=== PATIENT | male | born 1985 | race Caucasian/White ===

== ENCOUNTER → 2018-06-02 10:55 | Outpatient (CLI) | payer OTHER, SELFPAY ==
--- NOTE | 2018-06-02 10:59 | XR_ITS ---
XR hand RT min 3V HISTORY: . Pain swelling out of cast. Boxer's fracture follow-up ITS.REASON: out of cast ORDERING PHYSICIAN: Benjamin Tesfaye MD PATIENT AGE: 33 years COMPARISON: 05/11/2018 TECHNIQUE: PA, Oblique and Lateral Hand FINDINGS: Boxer's fracture fifth metacarpal again noted. Fracture passing through the distal neck of fifth metacarpal with anterior tilt of the distal fracture fragment. Mild impaction. Oblique views suggest slight 1 mm cortical offset at this fracture most evident along the anterior cortex.. With very subtle anterior offset and tilt of the distal fracture fragment. The soft tissue swelling persists but less pronounced along the medial aspect of the hand and overlying fifth metacarpal.. . Slight irregularity at the tip the distal phalanx of the fifth finger appears to be an old feature most likely The other metacarpals and fingers appear intact. IMPRESSION. Boxer's fracture distal fifth metacarpal. Mild angulation and scant disc offset/displacement again noted
== END ==
PROVIDERS: PCP Nurse Practitioner Family; Visit Provider Orthopaedic Surgery
DX: S62.306A Unspecified fracture of fifth metacarpal bone, right hand, initial encounter for closed fracture (principal)
CPT/HCPCS: 73130

== ENCOUNTER → 2018-06-16 09:04 | Outpatient (CLI) | payer OTHER, SELFPAY ==
--- NOTE | 2018-06-16 09:06 | XR_ITS ---
XR hand LT min 3V HISTORY: ITS.REASON: boxer fracture ORDERING PHYSICIAN: Benjamin Tesfaye MD PATIENT AGE: 33 years COMPARISON: None FINDINGS: No fracture or dislocation. No lytic or blastic change. There is normal mineralization.. The joint spaces are well-preserved. No significant degenerative/arthritic changes. No erosive changes evident.. IMPRESSION: Negative, no acute finding
--- NOTE | 2018-06-16 09:06 | XR_ITS ---
XR hand RT min 3V HISTORY: Follow-up fracture ITS.REASON: RT Boxer FX ORDERING PHYSICIAN: Benjamin Tesfaye MD PATIENT AGE: 33 years COMPARISON: [phone] FINDINGS: Mildly impacted fracture once again noted involving the distal aspect of the fifth metacarpal with minimal radial and palmar angulation of the distal fracture fragment with minimal radial displacement. IMPRESSION: No change minimal displaced impacted distal fifth metacarpal fracture
== END ==
PROVIDERS: PCP Nurse Practitioner Family; Visit Provider Orthopaedic Surgery
DX: S62.306A Unspecified fracture of fifth metacarpal bone, right hand, initial encounter for closed fracture (principal); S62.339D Displaced fracture of neck of unspecified metacarpal bone, subsequent encounter for fracture with routine healing
CPT/HCPCS: 73130

== ENCOUNTER 2020-01-20 21:23 | Emergency (ER) | payer MEDICAID, SELFPAY ==
--- NOTE | 2020-01-20 | ECG_ITS ---
APPROVED REPORT Exam: Resting ECG HR:126 bpm ECG Measurements Heart Rate 126 AXES AL 130 P 85 QRSd 86 QRS 99 QT 318 T 71 QTc 460 <Conclusion> Sinus tachycardia Rightward axis Nonspecific ST abnormality Abnormal ECG Electronically signed by : Jeffery Mendieta, 01/21/2020 07:03:35
[2020-01-20 21:25] VITALS: BP 146/99; PULSE 138; RESP 18; TEMP 36.5; O2SAT 97; BMI 19.8
--- NOTE | 2020-01-20 21:39 | XR_ITS ---
PROCEDURE: XR CHEST 2V CLINICAL HISTORY: jittery, anxious Tachycardia, smoker COMPARISON: CXR1 CHEST-PORTABLE from 05/01/2015 FINDINGS: The cardiomediastinal silhouette and pulmonary vascularity are within normal limits. The lungs are clear without infiltrates, suspicious nodules, or pleural effusions. Calcified granuloma is present in the right lower lung zone laterally. IMPRESSION: No acute findings. Dictated by: Arie Harden MD 01/21/2020 09:21 Electronically signed by Arie Harden MD in [place] 01/21/2020 09:21
[2020-01-20 21:52] LABS: Basophils # 0.2 K/mm3 (0-0.2); Basophils % 1.7 % (0.1-2.0); Eosinophils # 0.2 K/mm3 (0.0-0.4); Eosinophils % 1.7 % (0.1-12.0); Hematocrit 49.6 % (42.0-52.0); Lymphocytes # 2.2 K/mm3 (0.7-4.5); Lymphocytes % 23.9 % (10-50); Mean Corpuscular HGB Conc 34.3 g/dL (31.8-35.4); Mean Corpuscular Hemoglobin 34.2 pg (27.0-31.2); Mean Corpuscular Volume 99.7 fl (80-94); Mean Platelet Volume 7.6 fl (7.4-10.4); Monocytes # 0.8 K/mm3 (0.1-1.0); Monocytes % 9.3 % (1.7-9.3); Neutrophils # 5.7 K/mm3 (1.8-7.8); Neutrophils % 63.5 % (37.0-80.0); Platelet Count 304 K/mm3 (142-424); Red Blood Count 4.98 M/mm3 (4.60-6.20); Red Cell Distribution Width 12.4 % (11.5-17.5)
[2020-01-20 22:01] LABS: Alanine Aminotransferase 47 U/L (12-78); Albumin Level 5.3 g/dl (3.5-5.0); Albumin/Globulin Ratio 1.8 (1.1-1.8); Alkaline Phosphatase 81 U/L (38-126); Anion Gap 23.8 mEq/L (5-15); Aspartate Amino Transferase 46 U/L (17-59); Bilirubin,Total 1.3 mg/dl (0.2-1.3); Blood Urea Nitrogen 8 mg/dl (9-20); Calcium 10.3 mg/dl (8.4-10.2); Carbon Dioxide 16 mmol/L (22.0-30.0); Chloride 100 mmol/L (98-107); Creatinine Clearance Estimated 143 mL/min (50-200); Estimated Glomerular Filt Rate 129 ml/min (>60); GFR (African American) 156 ML/MIN (>60); Globulin 2.9 g/dL (1.3-3.2); Glucose 84 mg/dl (74-100); Potassium 3.8 mmoL/L (3.5-5.1); Sodium 136 mmol/L (136-145); Total Protein,Serum 8.2 g/dl (6.3-8.2)
[2020-01-20 22:15] LABS: Troponin I < 0.01 ng/ml (0.00-0.034)
[2020-01-20 22:25] VITALS: BP 150/98; PULSE 115; RESP 16; O2SAT 98
[2020-01-20 22:34] LABS: Microscopic, Urine URINE MICROSCOPIC (MICROSCOPIC)
[2020-01-20 22:35] LABS: Appearance,Urine CLEAR (Clear); Bilirubin,Urine Negative (Negative); Blood, Urine TRACE-I (Negative); Color,Urine YELLOW (Yellow); Glucose,Urine (UA) Negative (Negative); Ketones,Urine 2+ (Negative); Leukocyte Esterase,Urine Negative (Negative); Nitrate,Urine Negative (Negative); Protein,Urine Negative (Negative); Urobilinogen,Urine 0.2 EU/dl (0.2)
[2020-01-20 22:44] LABS: Amorphous Sediment,Urine 4+ /lpf; Mucus,Urine 1+ /lpf
[2020-01-20 22:45] LABS: Barbiturates Screen,Urine Negative ng/ml (<200)
[2020-01-20 22:46] LABS: Benzodiazepines Screen,Urine Negative ng/ml (<200)
[2020-01-20 22:47] LABS: Cannabinoid Screen,Urine Positive ng/ml (<50)
[2020-01-20 22:48] LABS: Cocaine Screen,Urine Negative ng/ml (<300); Methadone Screen,Urine Negative ng/ml (<300)
[2020-01-20 22:49] LABS: Opiate Screen,Urine Negative ng/ml (<300); Phencyclidine Screen,Urine Negative ng/ml (<25)
[2020-01-20 23:00] VITALS: BP 144/91; PULSE 102; RESP 17; O2SAT 98
[2020-01-20 23:04] LABS: Amphetamine/Metha Screen,Urine Positive ng/ml (<1000)
--- NOTE | 2020-01-20 23:24 | HMH.EDANX ---
ED Disposition Clinical Impression: Amphetamine abuse Disposition: Home, Self-Care Condition on Discharge: Good Instructions: DI for Drug Abuse and Drug Addiction Additional Instructions: call pcp for follow up in am Referrals: Mali Zamora APRN [Primary Care Provider] - - Critical Care Critical Care Time: No Attestation: On 01/20/20, the high probability of a clinically significant, sudden or life threatening deterioration of the following system(s) required my full and direct attention, intervention and personal management. The time I documented below is in addition to time spent performing reported procedures but includes the following listed in this critical care notation. Medical Decision Making - Medical Records Medical records reviewed: Yes: I reviewed the patient's medical records. - Zhang Inquiry Pt receiving controlled substance: No Vital Signs: 01/20/20 21:25 01/20/20 22:25 Temperature 97.7 F Temperature Source Oral Pulse Rate [Left Radial] 138 H 115 H Respiratory Rate 18 16 Blood Pressure [Right Arm] 146/99 H 150/98 H Blood Pressure Mean [Right Arm] 114 115 Blood Pressure Source [Right Arm] Automatic Cuff Automatic Cuff Blood Pressure Position [Right Arm] Sitting Sitting 02 Sat by Pulse Oximetry 97 98 Oxygen Delivery Method Room Air Room Air - Lab Data Lab results reviewed: Yes: I reviewed the patient's lab results. Lab Results 01/20/20 21:38: WBC 9.0, RBC 4.98, Hgb 17.0, Hct 49.6, MCV 99.7 H, MCH 34.2 H, MCHC 34.3, RDW 12.4, Plt Count 304, MPV 7.6, Neut % (Auto) 63.5, Lymph % (Auto) 23.9, [place] % (Auto) 9.3, Eos % (Auto) 1.7, Baso % (Auto) 1.7, Neut # (Auto) 5.7, Lymph # (Auto) 2.2, [place] # (Auto) 0.8, Eos # (Auto) 0.2, Baso # (Auto) 0.2 01/20/20 21:40: Sodium 136, Potassium 3.8, Chloride 100, Carbon Dioxide 16 L, Anion Gap 23.8 H, BUN 8 L, Creatinine 0.70, Estimated Creat Clear 143, Estimated GFR 129, Est GFR ( Amer) 156, Glucose 84, Calcium 10.3 H, Total Bilirubin 1.3, AST 46, ALT 47, Alkaline Phosphatase 81, Troponin I < 0.01, Total Protein 8.2, Albumin 5.3 H, Globulin 2.9, Albumin/Globulin Ratio 1.8 01/20/20 22:29: Urine Color Yellow, Urine Appearance Clear, Urine pH 6.0, Ur Specific [place] 1.010, Urine Protein Negative, Urine Glucose (UA) Negative, Urine Ketones 2+, Urine Blood Trace-i, Urine Nitrate Negative, Urine Bilirubin Negative, Urine Urobilinogen 0.2, Ur Leukocyte Esterase Negative, Urine RBC 3-5, Urine WBC 3-5, Amorphous Sediment 4+, Urine Mucus 1+ 01/20/20 22:29: Urine Opiates Screen Negative, Urine Methadone Screen Negative, Ur Barbituates Screen Negative, Ur Phencyclidine Scrn Negative, Ur Amphetamines Screen Positive H, U Benzodiazepines Scrn Negative, Urine Cocaine Screen Negative, U Marijuana (THC) Screen Positive H Result diagrams: 01/20/20 21:38 01/20/20 21:40 Orders (Tests/Meds): ED MEDICATIONS Generic Name Dose Route Start Last Admin Trade Name Freq PRN Reason Stop Dose Admin Sodium Chloride 1,000 mls @ 999 mls/hr 01/20/20 22:39 01/20/20 22:37 Sod Chlor 0.9% 1000ml Bag IV 01/20/20 23:39 999 mls/hr .Q1H1M MARY ELLEN Administration ORDERS Category Date Time Status XR chest 2V Stat Exams 01/20/20 21:39 Taken Troponin I Q3H Lab 01/21/20 00:45 Ordered Troponin I Q3H Lab 01/21/20 03:45 Ordered - Radiology Data #1 Image(s): Chest Image Reviewed: Yes I reviewed the patient's radiology image Preliminary Findings: Normal/NAD - ECG Data Tracing #1 Arrhythmias present: sinus tach Ischemic changes: non-specific ST-T wave changes Anxiety HPI - General Chief Complaint: Anxiety Stated Complaint: Nerves,SOB Time Seen by Provider: 01/20/20 21:35 Mode of Arrival: Ambulatory Source of Information: Patient, Medical Record Limitations: No Limitations Description of Symptoms (Recalled from ER Triage Doc. by RN): pt stated [birth year] was my birthday last night and my buddies talked me into doing some meth pt c/o of being jitter
[2020-01-20 23:30] VITALS: BP 140/89; PULSE 94; RESP 17; O2SAT 98
--- NOTE | 2020-01-20 23:37 | PC.NURSE ---
poison control consulted with to see if they had any advice for pt care. they stated there was nothing to do treatment magana except lt it run its course or possible give benzos if the MD wanted to for the anxiety.
[2020-01-20 23:45] VITALS: BP 149/85; PULSE 109; RESP 16; TEMP 36.7; O2SAT 98
== END 2020-01-20 23:49 | disposition home or self-care (01) ==
PROVIDERS: Emergency Provider Emergency Medicine; PCP Nurse Practitioner Family
DX: F15.10 Other stimulant abuse, uncomplicated (principal); F12.10 Cannabis abuse, uncomplicated; F17.210 Nicotine dependence, cigarettes, uncomplicated; F41.9 Anxiety disorder, unspecified; Z88.2 Allergy status to sulfonamides
CPT/HCPCS: 71046; 80053; 80305; 81001; 84484; 85025; 93005; 96365; 99284

== ENCOUNTER → 2020-11-26 10:05 | Outpatient (CLI) | payer OTHER, SELFPAY ==
--- NOTE | 2020-11-26 10:09 | XR_ITS ---
PROCEDURE: XR HAND RT MIN 3V CLINICAL INDICATION: old right hand fracture; wants clearance Work clearance COMPARISON: CR [id number] XR hand RT min 3V from 05/11/2018 CR [id number] XR hand RT min 3V from 06/02/2018 CR [id number] XR hand LT min 3V from 06/16/2018 CR [id number] XR hand RT min 3V from 06/16/2018 FINDINGS: There is an old healed fracture involving the distal aspect of the 5th metacarpal with only minimal medial angulation of the distal fracture fragment. No acute fracture or dislocation. No significant arthritic change. Small defect is present at the tuft of the distal phalanx of the 5th finger chronic in nature. The joint spaces are well-preserved. No significant degenerative/arthritic changes. No erosive changes evident. Other findings:None. IMPRESSION: Old 5th metacarpal fracture, no acute finding Dictated by: Arie Harden MD 11/26/2020 17:11 Arie Harden MD in [place] 11/26/2020 17:11
== END ==
PROVIDERS: PCP Nurse Practitioner Family; Visit Provider Orthopaedic Surgery
DX: M79.641 Pain in right hand (principal)
CPT/HCPCS: 73130

== ENCOUNTER 2021-04-26 11:16 | Emergency (ER) | payer OTHER, SELFPAY ==
[2021-04-26 12:17] VITALS: BP 145/96; PULSE 89; RESP 18; TEMP 36.7; O2SAT 98; BMI 20.7
--- NOTE | 2021-04-26 12:40 | XR_ITS ---
PROCEDURE INFORMATION: Exam: XR Left Wrist Exam date and time: 04/26/2021 12:40 PM Age: 36 years old Clinical indication: Injury or trauma; Blunt trauma (contusions or hematomas); Patient HX: Fall last night , landing on left wrist; Additional info: Fell TECHNIQUE: Imaging protocol: XR Left wrist. Views: 3 or more views. COMPARISON: UBRYANW/TASHI MRI-UP EXT [facility] JNT W/WO-LT 06/03/2017 9:01 AM FINDINGS: Bones/joints: Comminuted, predominantly transverse fracture distal radius without definite articular extension. Mild angulation noted. Soft tissues: Diffuse swelling. IMPRESSION: Comminuted, predominantly transverse fracture distal radius without definite articular extension. Mild angulation noted.
--- NOTE | 2021-04-26 12:48 | HMH.EDUTC ---
[facility] [place] Impression: Fracture of left distal radius Qualifiers: Encounter type: initial encounter Fracture type: closed Fracture morphology: unspecified fracture morphology Qualified Code(s): S52.502A - Unspecified fracture of the lower end of left radius, initial encounter for closed fracture Disposition: Home, Self-Care Condition on Discharge: Good Instructions: DI for Distal Radius Fracture Additional Instructions: Call Dr Ramírez in the morning to schedule appt Prescriptions: Naproxen [Naproxen 500mg tab] 500 mg PO BID 10 Days #20 tab Transmission Status: Pending to [facility] Tramadol HCl [Tramadol 50mg Tab] 50 mg PO Q6HP PRN 3 Days #10 tab PRN Reason: Moderate Pain Transmission Status: Sent to [facility] #[id number] Referrals: Richard Ramírez MD [Staff Physician] - Time of Disposition: 13:06 Medical Decision Making - Zhang Inquiry Pt receiving controlled substance: Yes Zhang was queried for this patient: Yes Reference #:: reviewed online Risks and benefits of using a controlled substance: were discussed with pt by me Orders (Tests/Meds): ORDERS Category Date Time Status XR wrist LT min 3V Stat Exams 04/26/21 12:40 Taken - Radiology Data #1 Image(s): Wrist Image Reviewed: Yes I reviewed the patient's radiology image Preliminary Findings: Abnormal (left distal radius fracture) [facility] [place] - General Stated complaint: AO 04/25/21 fell -hurt left wrist Time Seen by Provider: 04/26/21 12:57 - History of Present Illness Provider Complaint: Patient fell on left outstretched hand last night. Has pain and swelling in left wrist. Onset (ago): day(s) (1) Location: left, upper extremity Radiation: non-radiation Relieving factors: none Exacerbating factors: movement Associated symptoms: denies other symptoms Treatments prior to arrival: none - Related Data Previous Rx's Medication Instructions Recorded nicotine 21 mg/24 hr daily 1 patch TRANSDERMA Q24H #21 each 01/23/20 transdermal patch Tramadol HCl [Tramadol 50mg 50 mg PO Q6HP PRN 3 Days #10 tab 04/26/21 Tab] naproxen 500 mg tablet 500 mg PO BID 10 Days #20 tab 04/26/21 Allergies Allergy/AdvReac Type Severity Reaction Status Date / Time Sulfa (Sulfonamide Allergy Unknown Verified 11/26/20 10:47 Antibiotics) [SULFA (SULFONAMIDE ANTIBIOTICS)] [facility] History - Hepatitis A Screen Attestation statement:: This patient has been screened for Hepatitis A risk factors. I have reviewed the patient's past medical history: Yes Medical History: Reports:: Anxiety Denies:: Diabetes Mellitus Type 2, Hypertension, Internal Pacemaker Other Surgeries: Yes: No Previous Surgery. No: Pacemaker Amputation: No Fractures: Yes (Boxer fracture, pt thinks also on right) - Social History Smoking Status: Current every day smoker Tobacco Type: cigarettes # Packs/Day (cigarettes): 2 Alcohol Intake: never Alcohol Intake Frequency:: other Substance Use Type: marijuana, methamphetamine Occupational Status: unemployed - Psychiatric History Pschychiatric History:: Reports:: Anxiety Family Hx:: No significant family history ROS Obtained: Yes All systems reviewed & no additional complaints - Musculoskeletal Musculoskeletal: Reports as per HPI Physical Exam - General General appearance: alert, in no apparent distress - Head Head exam: normocephalic - Eye Eye exam: Present: PERRL - Respiratory Respiratory exam: Present: normal lung sounds bilaterally - Cardiovascular Cardiovascular exam: Present: regular rate, normal rhythm - Expanded Upper Extremity Exam Left Forearm/Wrist exam: Present: tenderness, swelling, deformity Vascular exam: Normal: capillary refill, radial pulse, ulnar pulse - Neurological Exam Neurological exam: Present: alert, oriented X3 - Psychiatric Psychiatric exam: Present: normal affect, normal mood - Skin Skin exam: Prese
[2021-04-26 13:28] VITALS: BP 145/96; PULSE 89; RESP 18; TEMP 36.7; O2SAT 98
== END 2021-04-26 13:30 | disposition home or self-care (01) ==
PROVIDERS: Emergency Provider Physician Assistant; PCP Nurse Practitioner Family
DX: S52.502A Unspecified fracture of the lower end of left radius, initial encounter for closed fracture (principal); W01.0XXA Fall on same level from slipping, tripping and stumbling without subsequent striking against object, initial encounter; Y92.017 Garden or yard in single-family (private) house as the place of occurrence of the external cause
CPT/HCPCS: 73110; 99202; G0463

== ENCOUNTER → 2021-04-29 11:14 | Outpatient (CLI) | payer OTHER, SELFPAY ==
--- NOTE | 2021-04-29 11:16 | XR_ITS ---
PROCEDURE: XR CHEST 2V CLINICAL HISTORY: surgery 04/29/21 History of smoking COMPARISON: CR CXR1 CHEST-PORTABLE from 05/01/2015 CR XR CHEST 2V from 01/20/2020 FINDINGS: The cardiomediastinal silhouette and pulmonary vascularity are within normal limits. The lungs are clear without infiltrates, suspicious nodules, or pleural effusions. Calcified granuloma is present in the right middle lobe. The remaining lungs are clear. IMPRESSION: No acute findings. Dictated by: Arie Harden MD 04/29/2021 11:48 Arie Harden MD in [place] 04/29/2021 11:48
== END ==
PROVIDERS: PCP Nurse Practitioner Family; Visit Provider Orthopaedic Surgery
DX: Z01.810 Encounter for preprocedural cardiovascular examination (principal); S52.572A Other intraarticular fracture of lower end of left radius, initial encounter for closed fracture
CPT/HCPCS: 71046

== ENCOUNTER 2023-08-01 14:13 | Observation (INO) | payer OTHER, SELFPAY ==
[2023-08-01 14:14] VITALS: BP 143/67; PULSE 75; RESP 18; TEMP 36.7; O2SAT 98; BMI 25.0
[2023-08-01 15:07] LABS: Basophils % 0.3 % (0.1-2.0); Eosinophils # 0.1 K/mm3 (0.0-0.4); Eosinophils % 0.6 % (0.1-12.0); Hematocrit 49.1 % (42.0-52.0); Hemoglobin 17.9 g/dL (14.1-18.0); Lymphocytes # 1.2 K/mm3 (0.7-4.5); Lymphocytes % 12.4 % (10-50); Mean Corpuscular HGB Conc 36.5 g/dL (31.8-35.4); Mean Corpuscular Hemoglobin 39.9 pg (27.0-31.2); Mean Corpuscular Volume 109.2 fl (80-94); Mean Platelet Volume 8.8 fl (7.4-10.4); Monocytes # 0.9 K/mm3 (0.1-1.0); Neutrophils # 7.7 K/mm3 (1.8-7.8); Neutrophils % 77.8 % (37.0-80.0); Platelet Count 191 K/mm3 (142-424); Red Cell Distribution Width 14.1 % (11.5-17.5); White Blood Count 9.9 K/mm3 (4.8-10.8)
[2023-08-01 15:09] LABS: Chloride 80 mmol/L (98-107); Sodium 127 mmol/L (136-145)
[2023-08-01 15:12] LABS: Alanine Aminotransferase 232 U/L (12-78); Albumin Level 4.9 g/dl (3.5-5.0); Albumin/Globulin Ratio 1.7 (1.1-1.8); Alkaline Phosphatase 133 U/L (38-126); Aspartate Amino Transferase 189 U/L (17-59); Bilirubin,Total 2.1 mg/dl (0.2-1.3); Blood Urea Nitrogen 3 mg/dl (9-20); Calcium 9.3 mg/dl (8.4-10.2); Carbon Dioxide 25 mmol/L (22.0-30.0); Creatinine Clearance Estimated 205 mL/min (50-200); Estimated Glomerular Filt Rate 152 ml/min (>60); GFR (African American) 183 ML/MIN (>60); Globulin 2.9 g/dL (1.3-3.2); Glucose 117 mg/dl (74-100); INR 0.99 (0.9-1.1); Prothrombin Time 10.7 seconds (10.1-12.5); Total Protein,Serum 7.8 g/dl (6.3-8.2)
[2023-08-01 15:13] LABS: Lipase 74 U/L (23-300)
[2023-08-01 15:14] LABS: Ethyl Alcohol 60 mg/dl (0-10)
--- NOTE | 2023-08-01 15:15 | PC.NURSE ---
Unable to obtain EKG at this time due to excessive motion
[2023-08-01 15:19] LABS: Anion Gap 24.6 mEq/L (5-15); Potassium 2.6 mmoL/L (3.5-5.1)
--- NOTE | 2023-08-01 15:42 | PC.NURSE ---
Case Management notified of admission.
--- NOTE | 2023-08-01 15:54 | ECG_ITS ---
APPROVED REPORT Exam: Resting ECG HR:116 bpm ECG Measurements Heart Rate 116 AXES MO 144 P 31 QRSd 97 QRS 94 QT 334 T 64 QTc 403 Conclusion SINUS TACHYCARDIA BORDERLINE RIGHT AXIS DEVIATION [QRS AXIS > 90] ABNORMAL RHYTHM ECG UNCONFIRMED REPORT Electronically signed by : Jeffery Mendieta MD 08/01/2023 20:16:34
--- NOTE | 2023-08-01 15:54 | HMH.EDGENADL ---
Discharge Plan Disposition Patient Disposition: Admitted Condition: Good Prescriptions Prescriptions: No Action hydrocodone-acetaminophen 5-325 mg tablet 1 tab PO Q6H PRN (Reason: pain) Qty: 30 0RF naproxen 500 MG tablet 500 mg PO BID Referrals Follow up/Referrals: Rambo Pat MD [Primary Care Provider] - See instructions Clinical Impressions Clinical Impression: Alcohol withdrawal, Acute hypokalemia, Acute alcoholic hepatitis, Nausea & vomiting Instructions Patient Instructions: DI for Diarrhea and Traveler's Diarrhea -- Adult, DI for Diarrhea and Traveler's Diarrhea -- Child, DI for Nausea -- Adult, DI for Nausea -- Child Discharge ED Provider: Marry Bray General Adult HPI General Chief complaint: Nausea/Vomiting/Diarrhea Stated complaint: hasn't eaten in 8 days, can/t sleep Time Seen by Provider: 08/01/23 14:30 Mode of Arrival: Ambulatory Source of Information: Patient Limitations: No Limitations Description of Symptoms (Recalled from ER Triage Doc. by RN): Patient reports not being able to eat anything for 8 days. States he has had some vomiting and diarrhea and some mild epigastric pain. States he is an alcoholic. Patient reports uncontrolable shaking. History of Present Illness HPI narrative: This patient is a 38-year-old male with a history of amphetamine abuse and alcohol abuse presented to the emergency department for evaluation with concern for shakiness, intractable nausea and vomiting, and inability to sleep. He states that he has not been able to eat anything for approximately 8 days. He typically drinks 1/5 of liquor a day, but he has not been able to keep this down. He has been able to keep down a few beers, but he has become increasingly more anxious, shaky, diaphoretic, and has felt unwell. He states that he cannot control the shaking. He denies any significant abdominal pain. He also denies any fevers, chills, cough, congestion, chest pain, shortness of breath, change in bowel movements, or other concerns. Related Data Home Medications Medication Instructions Recorded Confirmed naproxen 500 mg tablet 500 mg PO BID Pain 04/30/21 04/30/21 Previous Rx's Medication Instructions Recorded hydrocodone 5 mg-acetaminophen 325 1 tab PO Q6H PRN pain #30 tabs 04/29/21 mg tablet Allergies Allergy/AdvReac Type Severity Reaction Status Date / Time Sulfa (Sulfonamide Allergy Unknown Rash/ mild Verified 04/29/21 10:22 Antibiotics) breathing [SULFA (SULFONAMIDE problems ANTIBIOTICS)] per PT PFSH [facility] Disclaimer: The information contained in this section may have been updated after the patient was seen, as this information can be updated by other users. Social History Smoking Status: Current every day smoker tobacco type: cigarettes packs per day: 2 second hand exposure: No alcohol intake: current substance use type: marijuana current occupational status: unemployed Travel in the last 8 weeks: None housing: house current occupational exposures/hazards: No caffeine: Yes ROS Obtained: Yes All systems reviewed & no additional complaints except as documented Physical Exam General General appearance: alert and anxious Comment: Very anxious appearing, jittery. CIWA score of 14. Head Head exam: atraumatic and normocephalic Eye Eye exam: Present normal appearance, PERRL and EOMI ENT ENT exam: Present normal exam, normal oropharynx, mucous membranes moist and normal external ear exam Neck Neck exam: Present normal inspection, full ROM and trachea midline; Absent tenderness Chest Chest inspection: Present normal inspection and symmetric chest wall rise; Absent tenderness Respiratory Respiratory exam: Present normal lung sounds bilaterally; Absent respiratory distress, wheezes, stridor or accessory muscle use Cardiovascular Cardiovascular exam: Present normal rhythm and tachycardia
[2023-08-01 16:00] VITALS: BP 134/95; PULSE 116; RESP 16; O2SAT 96
--- NOTE | 2023-08-01 16:22 | EXP.HP ---
[facility] Disclaimer: The information contained in this section may have been updated after the patient was seen, as this information can be updated by other users. Social History Smoking Status: Current every day smoker tobacco type: cigarettes packs per day: 2 second hand exposure: No alcohol intake: current substance use type: marijuana current occupational status: unemployed Travel in the last 8 weeks: None housing: house current occupational exposures/hazards: No caffeine: Yes Meds Home Medications and Allergies Home Medications Medication Instructions Recorded Confirmed Type hydrocodone 5 mg-acetaminophen 325 1 tab PO Q6H PRN pain #30 tabs 04/29/21 04/30/21 Rx mg tablet naproxen 500 mg tablet 500 mg PO BID Pain 04/30/21 04/30/21 History New Prescriptions to Start Prescriptions: Allergies Allergy/AdvReac Type Severity Reaction Status Date / Time Sulfa (Sulfonamide Allergy Unknown Rash/ mild Verified 04/29/21 10:22 Antibiotics) breathing [SULFA (SULFONAMIDE problems ANTIBIOTICS)] per PT Exam Data for Last 24 hours Vital signs and Labs for Last 24 Hours: Temp Pulse Resp BP Pulse Ox O2 Del Method 98.0 F 116 H 16 134/95 H 96 Room Air 08/01/23 14:14 08/01/23 16:00 08/01/23 16:00 08/01/23 16:00 08/01/23 16:00 08/01/23 16:00 Laboratory Results - last 24 hr 08/01/23 14:51: WBC 9.9, RBC 4.50 L, Hgb 17.9, Hct 49.1, MCV 109.2 H, MCH 39.9 H, MCHC 36.5 H, RDW 14.1, Plt Count 191, MPV 8.8, Neut % (Auto) 77.8, Lymph % (Auto) 12.4, [place] % (Auto) 9.0, Eos % (Auto) 0.6, Baso % (Auto) 0.3, Neut # (Auto) 7.7, Lymph # (Auto) 1.2, [place] # (Auto) 0.9, Eos # (Auto) 0.1, Baso # (Auto) 0.0, PT 10.7, INR 0.99, Sodium 127 L, Potassium 2.6 L*, Chloride 80 L, Carbon Dioxide 25, Anion Gap 24.6 H, BUN 3 L, Creatinine 0.60 L, Estimated Creat Clear 205, Estimated GFR 152, Est GFR ( Amer) 183, Glucose 117 H, Calcium 9.3, Total Bilirubin 2.1 H, AST 189 H, ALT 232 H, Alkaline Phosphatase 133 H, Total Protein 7.8, Albumin 4.9, Globulin 2.9, Albumin/Globulin Ratio 1.7, Lipase 74, Plasma/Serum Alcohol 60 H I & O for Last 24 hours: Intake & Output 07/29/23 07/30/23 07/31/23 08/01/23 23:59 23:59 23:59 23:59 Weight 86.183 kg
--- NOTE | 2023-08-01 16:25 | PC.NURSE ---
Report given to NICK Willett on Med Surg.
[2023-08-01 17:28] VITALS: BP 134/95; PULSE 116; RESP 16; TEMP 36.7; O2SAT 96
[2023-08-01 17:40] VITALS: BP 135/97; PULSE 133; RESP 18; TEMP 36.8; O2SAT 94
[2023-08-01 20:00] VITALS: BP 156/70; PULSE 119; RESP 18; TEMP 36.4; O2SAT 91
--- NOTE | 2023-08-01 20:07 | EXP.HP ---
History of Present Illness *Admission Date: 08/01/23 *Reason for visit:: alcohol withdrawl *History of present illness: 38 year old male presented to the ED for c/o n/v, insomnia, and shakiness for eight days. PMHX of tobacco and alcohol abuse, anxiety, and depression. Pt states to treat his anxiety he drank a fifth of whiskey every day. Eight days ago the pt started to fear that his liver was failing. He decided to cut back on whiskey. He stopped drinking whiskey 5 days ago and switched to beer. He reports last drink was this morning and consisted of 3 beers. He reports nausea and vomiting for eight days. His ED work up reviewed by me and reveals sinus tachycardia on the EKG, hypokalemia with K of 2.6, hyponatreima with Na of 128, alcoholic hepatitis with AST of 189 and ALT of 232. The ED provider consulted the hospitalist team for admission for alcohol withdrawal. The pt was accepted to our services and I admitted pt to the med surg floor. He will have a CIWA performed every four hours. I placed a behavioral consult for the morning and ordered repeat cbc, mag and bmp for the morning. [facility] Disclaimer: The information contained in this section may have been updated after the patient was seen, as this information can be updated by other users. Social History Smoking Status: Current every day smoker tobacco type: cigarettes packs per day: 2 second hand exposure: No alcohol intake: current substance use type: marijuana current occupational status: unemployed Travel in the last 8 weeks: None housing: house current occupational exposures/hazards: No caffeine: Yes Review of Systems *Cardiovascular Cardiovascular: Reports system reviewed and no additional complaints, except as documented *Respiratory Respiratory: Reports system reviewed and no additional complaints, except as documented *Gastrointestinal Gastrointestinal: Reports nausea and Reports vomiting *Genitourinary Genitourinary: Reports system reviewed and no additional complaints, except as documented *Musculoskeletal Musculoskeletal: Reports muscle weakness and Reports other Comments: shakiness *Neurologic Neurologic: Reports system reviewed and no additional complaints, except as documented Meds Home Medications and Allergies Home Medications Medication Instructions Recorded Confirmed Type No Known Home Medications 08/01/23 08/01/23 History New Prescriptions to Start Prescriptions: Allergies Allergy/AdvReac Type Severity Reaction Status Date / Time Sulfa (Sulfonamide Allergy Unknown Rash/ mild Verified 04/29/21 10:22 Antibiotics) breathing [SULFA (SULFONAMIDE problems ANTIBIOTICS)] per PT Exam Data for Last 24 hours Vital signs and Labs for Last 24 Hours: Temp Pulse Resp BP Pulse Ox O2 Del Method 98.3 F 133 H 18 135/97 H 94 L Room Air 08/01/23 17:40 08/01/23 17:40 08/01/23 17:40 08/01/23 17:40 08/01/23 17:40 08/01/23 19:00 Laboratory Results - last 24 hr 08/01/23 14:51: WBC 9.9, RBC 4.50 L, Hgb 17.9, Hct 49.1, MCV 109.2 H, MCH 39.9 H, MCHC 36.5 H, RDW 14.1, Plt Count 191, MPV 8.8, Neut % (Auto) 77.8, Lymph % (Auto) 12.4, [place] % (Auto) 9.0, Eos % (Auto) 0.6, Baso % (Auto) 0.3, Neut # (Auto) 7.7, Lymph # (Auto) 1.2, [place] # (Auto) 0.9, Eos # (Auto) 0.1, Baso # (Auto) 0.0, PT 10.7, INR 0.99, Sodium 127 L, Potassium 2.6 L*, Chloride 80 L, Carbon Dioxide 25, Anion Gap 24.6 H, BUN 3 L, Creatinine 0.60 L, Estimated Creat Clear 205, Estimated GFR 152, Est GFR ( Amer) 183, Glucose 117 H, Calcium 9.3, Total Bilirubin 2.1 H, AST 189 H, ALT 232 H, Alkaline Phosphatase 133 H, Total Protein 7.8, Albumin 4.9, Globulin 2.9, Albumin/Globulin Ratio 1.7, Lipase 74, Plasma/Serum Alcohol 60 H I & O for Last 24 hours: Intake & Output 07/29/23 07/30/23 07/31/23 08/01/23 23:59 23:59 23:59 23:59 Output Total 0 / 0 Balance 0 / 0 Weight 86.183 kg *Ro
[2023-08-02] VITALS: BP 142/88; PULSE 117; RESP 18; TEMP 36.4; O2SAT 94
[2023-08-02 00:07] LABS: Blood Urea Nitrogen 3 mg/dl (9-20); Calcium 8.7 mg/dl (8.4-10.2); Carbon Dioxide 31 mmol/L (22.0-30.0); Chloride 93 mmol/L (98-107); Creatinine Clearance Estimated 205 mL/min (50-200); Estimated Glomerular Filt Rate 152 ml/min (>60); GFR (African American) 183 ML/MIN (>60); Glucose 106 mg/dl (74-100); Sodium 133 mmol/L (136-145)
[2023-08-02 04:00] VITALS: BP 126/80; PULSE 109; RESP 18; TEMP 36.9; O2SAT 96; BMI 23.3
--- NOTE | 2023-08-02 05:17 | PC.NURSE ---
pt alert and oriented x4. ciwa score at 194 11. pt given valium 5 mg ivp for vomiting and tremors noted. pt rested well. pt given 2nd dose of valium for ciwa score 4. valium 5 mg ivp given. effective. repeat k level 3.0. channeler runner made aware. order for k-dur 40 meq x1 given. pt pat well. pt been cooperative with care
[2023-08-02 06:25] LABS: Chloride 96 mmol/L (98-107)
[2023-08-02 06:26] LABS: Potassium 3.3 mmoL/L (3.5-5.1); Sodium 135 mmol/L (136-145)
[2023-08-02 06:28] LABS: Alanine Aminotransferase 149 U/L (12-78); Alkaline Phosphatase 98 U/L (38-126); Anion Gap 8.3 mEq/L (5-15); Aspartate Amino Transferase 118 U/L (17-59); Bilirubin,Total 1.6 mg/dl (0.2-1.3); Blood Urea Nitrogen 4 mg/dl (9-20); Carbon Dioxide 34 mmol/L (22.0-30.0); Creatinine Clearance Estimated 164 mL/min (50-200); Estimated Glomerular Filt Rate 127 ml/min (>60); GFR (African American) 154 ML/MIN (>60)
[2023-08-02 06:29] LABS: Albumin Level 3.5 g/dl (3.5-5.0); Albumin/Globulin Ratio 1.5 (1.1-1.8); Calcium 8.3 mg/dl (8.4-10.2); Globulin 2.3 g/dL (1.3-3.2); Glucose 98 mg/dl (74-100); Magnesium 2.1 mg/dl (1.6-2.3); Total Protein,Serum 5.8 g/dl (6.3-8.2)
[2023-08-02 06:32] LABS: Basophils % 0.5 % (0.1-2.0); Eosinophils % 0.4 % (0.1-12.0); Hematocrit 44.5 % (42.0-52.0); Lymphocytes # 1.4 K/mm3 (0.7-4.5); Lymphocytes % 25.2 % (10-50); Mean Corpuscular HGB Conc 35.2 g/dL (31.8-35.4); Mean Corpuscular Hemoglobin 38.8 pg (27.0-31.2); Mean Platelet Volume 8.8 fl (7.4-10.4); Monocytes # 0.6 K/mm3 (0.1-1.0); Monocytes % 9.9 % (1.7-9.3); Neutrophils # 3.6 K/mm3 (1.8-7.8); Platelet Count 153 K/mm3 (142-424); Red Blood Count 4.05 M/mm3 (4.60-6.20); Red Cell Distribution Width 14.4 % (11.5-17.5); White Blood Count 5.7 K/mm3 (4.8-10.8)
[2023-08-02 06:35] LABS: Hemoglobin 15.7 g/dL (14.1-18.0)
[2023-08-02 07:44] VITALS: BP 130/77; PULSE 102; RESP 18; TEMP 36.6; O2SAT 97
--- NOTE | 2023-08-02 09:27 | SW/DCPLANNER ---
Addendum entered by Kristine Yanez 08/03/23 11:25: [facility] stated they can see patient at 12:45PM today. I will relay information to patient and MD. Addendum entered by Kristine Yanez 08/03/23 11:14: Patient voiced concern about having to wait till tomorrow for appointment. I did call and speak w/ Nima at [facility] and they stated that they will work patient in today and are working on an MD. Nima and [facility] stated that they will call me back w/ a time. I have relayed information to patient's nurse and asked that she speak w/ MD about putting in discharge orders if patient is medically stable for discharge. Addendum entered by Kristine Yanez 08/03/23 10:56: I called and scheduled this patient w/ [facility] in [place] for outpatient rehab: appointment time is 08/04/23 at 1PM. Original Note: I spoke w/ this patient regarding plans once medically stable for discharge. I discussed different resources for this patient including inpatient and outpatient resources. Patient stated that he is not interested in inpatient at this time due to not having time. Patient is interested in outpatient resources. I explained to patient that Ranjan mane/ Behavior[facility] is consulted to see him today then I will follow up afterwards regarding resources. Patient stated that MD stated that he will be medically stable for discharge tomorrow pending no setbacks. [facility] Resource list has been provided to this patient as well.
[2023-08-02 15:07] VITALS: BP 130/78; PULSE 98; RESP 20; TEMP 36.6; O2SAT 97
--- NOTE | 2023-08-02 16:35 | PC.NURSE ---
PT IS RESTING IN BED. ALERT AND ORIENTED X4. PT STATES HE IS FEELING BETTER THAN HE DID YESTERDAY. NO NAUSEA OR VOMITING. PT DID COMPLAIN OF SOME ACID REFLUX THIS AFTERNOON AND REQUESTED SOME TUMS. CIWA SCORE 4. MEDICATED PER MAR. PT TOLERATED TAKING A SHOWER THIS SHIFT. LING SOUNDS CLEAR. ABDOMEN SOFT/NON TENDER WITH ACTIVE BOWEL SOUNDS. WILL CONTINUE TO MONITOR.
--- NOTE | 2023-08-02 17:48 | EXP.PN ---
Subjective *Date: 08/02/23 *Time: 17:48 Interval history: Patient was seen and evaluated at the bedside. denies chest pain, shortness of breath, nausea, vomiting, abdominal pain. Patient does not have any complaints at this time. feels better overall Exam Data for Last 24 hours Vital signs and Labs for Last 24 Hours: Temp Pulse Resp BP Pulse Ox O2 Del Method 97.9 F 98 H 20 130/78 97 Room Air 08/02/23 15:07 08/02/23 15:07 08/02/23 15:07 08/02/23 15:07 08/02/23 15:07 08/02/23 16:52 Laboratory Results - last 24 hr 08/01/23 23:30: Sodium 133 L, Potassium 3.0 L, Chloride 93 L, Carbon Dioxide 31 H, Anion Gap 12.0, BUN 3 L, Creatinine 0.60 L, Estimated Creat Clear 205, Estimated GFR 152, Est GFR ( Amer) 183, Glucose 106 H, Calcium 8.7 08/02/23 05:24: WBC 5.7 D, RBC 4.05 L, Hgb 15.7 D, Hct 44.5, MCV 110.0 H, MCH 38.8 H, MCHC 35.2, RDW 14.4, Plt Count 153, MPV 8.8, Neut % (Auto) 64.0, Lymph % (Auto) 25.2, Moffat % (Auto) 9.9 H, Eos % (Auto) 0.4, Baso % (Auto) 0.5, Neut # (Auto) 3.6, Lymph # (Auto) 1.4, Moffat # (Auto) 0.6, Eos # (Auto) 0.0, Baso # (Auto) 0.0, Sodium 135 L, Potassium 3.3 L, Chloride 96 L, Carbon Dioxide 34 H, Anion Gap 8.3, BUN 4 L D, Creatinine 0.70, Estimated Creat Clear 164, Estimated GFR 127, Est GFR ( Amer) 154, Glucose 98, Calcium 8.3 L, Magnesium 2.1, Total Bilirubin 1.6 H, AST 118 H D, ALT 149 H D, Alkaline Phosphatase 98, Total Protein 5.8 L D, Albumin 3.5 D, Globulin 2.3, Albumin/Globulin Ratio 1.5 I & O for Last 24 hours: Intake & Output 07/30/23 07/31/23 08/01/23 08/02/23 23:59 23:59 23:59 23:59 Intake Total 1160 / 1160 Output Total 700 / 700 800 / 800 Balance -700 / -700 360 / 360 Weight 86.183 kg 80.104 kg Constitutional Constitutional: no acute distress Comments: he has fine tremors *Routine HEENT Exam Head: Present normocephalic Eye: Present EOMI and PERRL ENT: Present mucous membranes moist *Routine Neck Exam Neck: Present supple; Absent lymphadenopathy *Routine Respiratory Exam Respiratory: Present CTA bilaterally *Routine Cardiovascular Exam Cardiovascular: Present RRR *Routine Abdominal Exam Abdominal: Present soft and normoactive bowel sounds; Absent tenderness *Routine Extremities Exam Extremities: Absent cyanosis, clubbing or edema *Routine Skin Exam Skin: Present warm; Absent rash *Routine Neurological Exam Neurological: Present alert and oriented X3 Assessment and Plan *Assessment and plan (1) Hyponatremia: Status: Acute Category: Medical Code(s): E87.1 - Hypo-osmolality and hyponatremia (2) Anxiety and depression: Status: Acute Category: Medical Code(s): F41.9 - Anxiety disorder, unspecified; F32.A - Depression, unspecified (3) Alcohol abuse: Status: Acute Category: Social Hx Code(s): F10.10 - Alcohol abuse, uncomplicated (4) Acute gastroenteritis: Status: Acute Category: Medical Code(s): K52.9 - Noninfective gastroenteritis and colitis, unspecified (5) Alcohol withdrawal: Status: Acute Category: Medical Code(s): F10.939 - Alcohol use, unspecified with withdrawal, unspecified (6) Acute hypokalemia: Status: Acute Category: Medical Code(s): E87.6 - Hypokalemia Plan Patient is a 38-year-old male with past medical history of alcohol abuse who presents to the hospital for generalized weakness shakiness nausea vomiting. Assessment Alcohol withdrawal, alcohol intoxication Hypokalemia Hyponatremia Alcoholic hepatitis Tobacco abuse Alcohol abuse Plan Patient is on CIWA protocol with as needed Valium Continue B1, multivitamin, IV fluids Monitor and replace electrolytes Monitor LFTs Nicotine patches ordered DVT prophylaxis-SCDs for now Up to chair, ambulate as tolerated Likely discharge tomorrow
[2023-08-02 18:28] VITALS: BP 119/71; PULSE 100; RESP 17; TEMP 36.7; O2SAT 95
[2023-08-02 20:00] VITALS: O2SAT 95
[2023-08-03 04:00] VITALS: BP 101/64; PULSE 85; RESP 18; TEMP 36.6; O2SAT 96; BMI 24.1
--- NOTE | 2023-08-03 04:25 | PC.NURSE ---
Pt is alert and oriented x4, Pt CIWA score was 5 at the beginning of the shift and received 5mg of diazepam, Pt CIWA scores have since been 1 or below. Pt admits to mild anxiety but denies all other issues. Pt denies pain and any further needs at this time.
[2023-08-03 07:26] VITALS: BP 158/94; PULSE 95; RESP 20; TEMP 36.9; O2SAT 99
--- NOTE | 2023-08-03 11:51 | EXP.DC.SUM ---
General Admission date:: 08/01/23 Discharge date: 08/03/23 HPI HPI HPI: 38 year old male presented to the ED for c/o n/v, insomnia, and shakiness for eight days. PMHX of tobacco and alcohol abuse, anxiety, and depression. Pt states to treat his anxiety he drank a fifth of whiskey every day. Eight days ago the pt started to fear that his liver was failing. He decided to cut back on whiskey. He stopped drinking whiskey 5 days ago and switched to beer. He reports last drink was this morning and consisted of 3 beers. He reports nausea and vomiting for eight days. His ED work up reviewed by me and reveals sinus tachycardia on the EKG, hypokalemia with K of 2.6, hyponatreima with Na of 128, alcoholic hepatitis with AST of 189 and ALT of 232. The ED provider consulted the hospitalist team for admission for alcohol withdrawal. The pt was accepted to our services and I admitted pt to the med surg floor. He will have a CIWA performed every four hours. I placed a behavioral consult for the morning and ordered repeat cbc, mag and bmp for the morning. Hospital Course Hospital Course Hospital Course: Patient is a 38-year-old male with past medical history of alcohol abuse who presents to the hospital for generalized weakness shakiness nausea vomiting. Patient was seen and evaluated at the bedside on the day of discharge. Patient is stable for discharge. Patient wishes to be discharged. All patient questions were answered and patient was given time to ask questions. Patient was discharged in stable condition. Assessment Alcohol withdrawal, alcohol intoxication Hypokalemia Hyponatremia Alcoholic hepatitis Tobacco abuse Alcohol abuse Plan CIWA score of 1 at oh, patient wants to be discharged, denied any tremors, f/u with [facility]hab as outpatient Continue B1, multivitamin, IV fluids Monitor and replace electrolytes Monitor LFTs Nicotine patches ordered DVT prophylaxis-SCDs for now Up to chair, ambulate as tolerated Exam Data for Last 24 hours Vital signs and Labs for Last 24 Hours: Temp Pulse Resp BP Pulse Ox O2 Del Method 98.4 F 95 H 20 158/94 H 99 Room Air 08/03/23 07:26 08/03/23 07:26 08/03/23 07:26 08/03/23 07:26 08/03/23 07:26 08/03/23 07:26 I & O for Last 24 hours: Intake & Output 07/31/23 08/01/23 08/02/23 08/03/23 23:59 23:59 23:59 23:59 Intake Total 1630 / 1870 360 / 360 Output Total 700 / 700 1300 / 1700 400 / 400 Balance -700 / -700 330 / 170 -40 / -40 Weight 86.183 kg 80.104 kg 82.667 kg Constitutional Constitutional: no acute distress *Routine HEENT Exam Head: Present normocephalic Eye: Present EOMI and PERRL ENT: Present mucous membranes moist *Routine Neck Exam Neck: Present supple; Absent lymphadenopathy *Routine Respiratory Exam Respiratory: Present CTA bilaterally *Routine Cardiovascular Exam Cardiovascular: Present RRR *Routine Abdominal Exam Abdominal: Present soft and normoactive bowel sounds; Absent tenderness *Routine Extremities Exam Extremities: Absent cyanosis, clubbing or edema *Routine Skin Exam Skin: Present warm; Absent rash *Routine Neurological Exam Neurological: Present alert and oriented X3 DS: Diagnosis Discharge Diagnosis (1) Hyponatremia: Status: Acute Code(s): E87.1 - Hypo-osmolality and hyponatremia (2) Anxiety and depression: Status: Acute Code(s): F41.9 - Anxiety disorder, unspecified; F32.A - Depression, unspecified (3) Alcohol abuse: Status: Acute Code(s): F10.10 - Alcohol abuse, uncomplicated (4) Acute gastroenteritis: Status: Acute Code(s): K52.9 - Noninfective gastroenteritis and colitis, unspecified (5) Alcohol withdrawal: Status: Acute Code(s): F10.939 - Alcohol use, unspecified with withdrawal, unspecified (6) Acute hypokalemia: Status: Acute Code(s): E87.6 - Hypokalemia Meds Home Medications and Allergies Home Medications Medication Instructions Rec
--- NOTE | 2023-08-04 16:18 | CARE MANAGER ---
Called and spoke with patient regarding recent discharge. Patient states that he is doing ok and was able to roll picker his thiamine, but will need to roll picker a multivitamin and folic acid due to pharmacy not telling him about those. Patient stated that the company originally set up for alcohol rehab does not have anything available to outpatient alcohol, so he is doing his own thing and it is going ok . No concerns voiced at time of call.
== END 2023-08-03 12:22 | disposition home or self-care (01) ==
LOC: ER 15:58 → 2ND 08-02 01:36
PROVIDERS: Admitting Provider Internal Medicine Adolescent Medicine; Emergency Provider Emergency Medicine; PCP Emergency Medicine; Visit Provider Internal Medicine Adolescent Medicine
DX: F10.939 Alcohol use, unspecified with withdrawal, unspecified (principal); E87.6 Hypokalemia; E87.1 Hypo-osmolality and hyponatremia; K70.10 Alcoholic hepatitis without ascites; F17.210 Nicotine dependence, cigarettes, uncomplicated; F41.9 Anxiety disorder, unspecified; F32.A Depression, unspecified; K52.9 Noninfective gastroenteritis and colitis, unspecified; Y90.3 Blood alcohol level of 60-79 mg/100 ml
CPT/HCPCS: 36415; 80048; 80053; 83690; 83735; 85025; 85610; 93005; 99291; G0378; J2405

== ENCOUNTER 2023-11-03 18:36 | Inpatient (IN) | payer OTHER, SELFPAY ==
[2023-11-03] VITALS (14 sets, daily range): BP systolic 129–171; BP diastolic 92–111; PULSE 99–158; RESP 16–23; TEMP 37.1; O2SAT 95–99; BMI 23.7
--- NOTE | 2023-11-03 19:01 | XR_ITS ---
PROCEDURE INFORMATION: Exam: XR Chest Exam date and time: 11/03/2023 7:03 PM Age: 38 years old Clinical indication: Shortness of breath; Additional info: SOA, vomiting, epigastric pain TECHNIQUE: Imaging protocol: Radiologic exam of the chest. Views: 1 view. COMPARISON: CR XR CHEST 2V 04/29/2021 11:18 AM FINDINGS: Lungs: Central opacities with peribronchial cuffing. Pleural spaces: Unremarkable. No pleural effusion. No pneumothorax. Heart/Mediastinum: Unremarkable. No cardiomegaly. Bones/joints: Unremarkable. IMPRESSION: Combination of findings that suggests viral process versus reactive airways without evidence of consolidation.
--- NOTE | 2023-11-03 19:22 | HMH.EDGENADL ---
Discharge Plan Disposition Patient Disposition: Admitted Chief Complaint: Nausea/Vomiting/Diarrhea Clinical Impressions Clinical Impression: Intoxication, Tachycardia Discharge ED Provider: Luis Yap General Adult HPI General Chief complaint: Nausea/Vomiting/Diarrhea Stated complaint: vomiting, weak, fever Time Seen by Provider: 11/03/23 18:49 Mode of Arrival: Ambulatory Source of Information: Patient Limitations: No Limitations Description of Symptoms (Recalled from ER Triage Doc. by RN): pt c/o feeling feverish, weakness and N/V. pt states he has had episodes of emesis q20min for the past 12h. pt reports he has had two shots of liquor today and is trying to quit drinking. pt reports he takes 5mg diazepam PRN that he purchases recreationally. History of Present Illness HPI narrative: 38-year-old male history of anxiety, pression, polysubstance abuse, tobacco abuse, daily drinking presenting with multiple complaints. Patient states that he has been having bodyaches, abdominal cramping, vomiting without diarrhea, and tremors for about 12 hours. States that he drinks daily, last drink was just a couple hours prior to arrival he took 2 shots of 80 proof hard liquor. States that he was thinking it was alcohol withdrawal, but does not think it is now. Denies hallucinations whether auditory or visual, chest pain, shortness of breath. Vomiting is nonbloody, nonbilious. Notably, patient states that he has been taking 5 mg diazepam that he purchases illegally in order to help with anxiety and alcohol symptoms. Denies opiate abuse. Related Data Previous Rx's Medication Instructions Recorded folic acid 1 mg tablet 1 mg PO DAILY #30 tabs 08/03/23 multivitamin 1 tab PO DAILY #30 tabs 08/03/23 thiamine HCl (vitamin B1) 100 mg 100 mg PO DAILY #30 tabs 08/03/23 tablet Allergies Allergy/AdvReac Type Severity Reaction Status Date / Time Sulfa (Sulfonamide Allergy Unknown Rash/ mild Verified 04/29/21 10:22 Antibiotics) breathing [SULFA (SULFONAMIDE problems ANTIBIOTICS)] per PT PFSH [facility] Disclaimer: The information contained in this section may have been updated after the patient was seen, as this information can be updated by other users. Social History Smoking Status: Current every day smoker tobacco type: cigarettes packs per day: 2 second hand exposure: No alcohol intake: current substance use type: marijuana current occupational status: unemployed Travel in the last 8 weeks: None housing: house current occupational exposures/hazards: No caffeine: Yes ROS Obtained: Yes All systems reviewed & no additional complaints except as documented Physical Exam General General appearance: alert, anxious and other (Tremulous, yawning every 20 to 30 seconds.) Head Head exam: atraumatic and normocephalic Eye Eye exam: Present normal appearance, PERRL (3 mm) and EOMI ENT ENT exam: Present mucous membranes moist and other (Poor dentition) Neck Neck exam: Present normal inspection, full ROM and trachea midline Respiratory Respiratory exam: Absent respiratory distress, wheezes, stridor, accessory muscle use or prolonged expiratory phase Cardiovascular Cardiovascular exam: Present normal rhythm and tachycardia Abdominal Exam Abdominal exam: Present soft and tenderness; Absent distention, guarding, rebound or rigidity Abdominal tenderness: Present diffuse and mild Extremities Exam Extremities exam: Absent edema Neurological Exam Neurological exam: Present alert, oriented X3, CN II-XII intact and normal gait; Absent motor sensory deficit Skin Skin exam: Present warm and dry; Absent diaphoresis or erythema Medical Decision Making Medical Records Medical records reviewed: Yes I reviewed the patient's medical records. Zhang Inquiry Pt receiving controlled substance: No Zhang was queried for this patient: No Vital Signs: 11/03/23 18:47 11/03/23 19:00 11/03/23 19:22 Temperature 98.7 F Temperature Source Oral Pulse Rate 148 H 158 H Pulse Rate [Left] 99 H Respiratory Rate 18 23 Blood Pressure 161/111 H 133/98 H Blood Pressure [Right Arm] 171/101 H Blood Pressure Mean 120 109 Blood Pressure Mean [Right Arm] 124 Blood Pressure Source [Right Arm] Automatic Cuff Blood Pressure Position [Right Arm] Sitting 02 Sat by Pulse Oximetry 99 95 97 11/03/23 20:43 11/03/23 20:44 11/03/23 21:06 Temperature Temperature Source Pulse Rate 137 H 145 H 147 H Pulse Rate [Left] Respiratory Rate 16 16 16 Blood Pressure 166/107 H 160/101 H 167/105 H Blood Pressure [Right Arm] Blood Pressure Mean 126 122 114 Blood Pressure Mean [Right Arm] Blood Pressure Source [Right Arm] Blood Pressure Position [Right Arm] 02 Sat by Pulse Oximetry 98 98 97 11/03/23 21:21 11/03/23 21:40 11/03/23 22:10 Temperature Temperature Source Pulse Rate 133 H 133 H 129 H Pulse Rate [Left] Respiratory Rate 20 18 20 Blood Pressure 129/98 H 135/99 H 141/96 H Blood Pressure [Right Arm] Blood Pressure Mean 108 109 105 Blood Pressure Mean [Right Arm] Blood Pressure Source [Right Arm] Blood Pressure Position [Right Arm] 02 Sat by Pulse Oximetry 98 97 97 11/03/23 22:20 11/03/23 22:30 11/03/23 22:40 Temperature Temperature Source Pulse Rate 128 H 133 H 133 H Pulse Rate [Left] Respiratory Rate 20 19 20 Blood Pressure 142/103 H 148/92 H 132/97 H Blood Pressure [Right Arm] Blood Pressure Mean 112 118 108 Blood Pressure Mean [Right Arm] Blood Pressure Source [Right Arm] Blood Pressure Position [Right Arm] 02 Sat by Pulse Oximetry 96 98 98 Lab Data Lab Results 11/03/23 19:22: WBC 8.9, RBC 5.07, Hgb 18.0, Hct 54.0 H, MCV 106.7 H, MCH 35.6 H, MCHC 33.4, RDW 14.8, Plt Count 215, MPV 9.1, Neut % (Auto) 85.5 H, Lymph % (Auto) 5.9 L, [place] % (Auto) 8.0, Eos % (Auto) 0.4, Baso % (Auto) 0.3, Neut # (Auto) 7.6, Lymph # (Auto) 0.5 L, [place] # (Auto) 0.7, Eos # (Auto) 0.0, Baso # (Auto) 0.0, Total Counted 100, Neutrophils % (Manual) 79 H, Band Neutrophils % 1.0, Lymphocytes % (Manual) 19, Monocytes % (Manual) 1 L, Platelet Estimate Normal, Macrocytosis 1+, Sodium 138, Potassium 3.9, Chloride 91 L, Carbon Dioxide 6 L*, Anion Gap 44.9 H, BUN 10, Creatinine 1.30 H, Estimated Creat Clear 90, Estimated GFR 62, Est GFR ( Amer) 75, Glucose 133 H, Lactate 2.7 H, Calcium 10.2, Total Bilirubin 2.2 H, AST 140 H, ALT 172 H, Alkaline Phosphatase 125, Troponin I < 0.01, Total Protein 9.7 H D, Albumin 5.7 H, Globulin 4.0 H, Albumin/Globulin Ratio 1.4, Lipase 195, TSH 1.53, Thyroxine (T4) 6.4, Salicylates < 1.0 L, Acetaminophen < 10 L, Plasma/Serum Alcohol < 10 11/03/23 19:52: VBG pH 7.31, VBG pCO2 24.0 L, VBG pO2 54.2 H, VBG HCO3 11.8 L, VBG Total CO2 12.5 L, VBG O2 Saturation 88.6 H, VBG Base Excess -14.5 L 11/03/23 22:06: Urine Opiates Screen Negative, Urine Methadone Screen Negative, Ur Barbituates Screen Negative, Ur Phencyclidine Scrn Negative, Ur Amphetamines Screen Negative, U Benzodiazepines Scrn Positive H, Urine Cocaine Screen Negative, U Marijuana (THC) Screen Positive H 11/03/23 22:07: SARS-CoV-2 (PCR) Not detected, Influenza A Untype (PCR) Not detected, Influenza Type B (PCR) Not detected 11/03/23 19:22 11/03/23 19:22 Orders (Tests/Meds): ED MEDICATIONS Generic Name Dose Route Start Last Admin Trade Name Freq PRN Reason Stop Dose Admin Esmolol HCl 2,500 mg in 250 mls @ 24.494 mls/hr 11/03/23 20:30 11/03/23 22:20 Esmolol In Water 2,500mg/250ml Premix IV 12/03/23 20:29 50 mcg/kg/min .[id number] [facility] 24.49 mls/hr Titration Protocol 50 MCG/KG/MIN Lactated Ringer's 1,000 mls @ 999 mls/hr 11/03/23 23:16 11/03/23 23:17 Lactated Ringer's 1000 Ml Bag IV 11/04/23 00:16 999 mls/hr .Q1H1M ONE Administration Miscellaneous 1 each 11/03/23 20:00 11/03/23 21:58 Vancomycin Consult Request NOTAPPLIC 12/03/23 19:59 1 each CONSULT PHARMACY [facility] Administration Sodium Chloride 10 ml 11/03/23 20:39 11/03/23 20:40 Sodium Chloride 0.9% 10ml Syr (Rad Only) IV 12/03/23 20:38 10 ml NEEDED PRN Administration Maintain IV Site Discontinued Medications Generic Name Dose Route Start Last Admin Trade Name Meetq PRN Reason Stop Dose Admin Adenosine 6 mg 11/03/23 19:50 11/03/23 20:10 Adenosine 6mg/2ml Vial IV 11/03/23 19:51 6 mg ONCE ONE Administration Adenosine 12 mg 11/03/23 20:13 11/03/23 20:13 Adenosine 6mg/2ml Vial IV 11/03/23 20:14 12 mg ONCE ONE Administration Diazepam 5 mg 11/03/23 19:30 11/03/23 19:32 Diazepam 10mg/2ml Syringe IV 11/03/23 19:31 5 mg ONCE ONE Administration Diazepam 5 mg 11/03/23 21:07 11/03/23 20:40 Diazepam 10mg/2ml Syringe IV 11/03/23 21:08 5 mg ONCE ONE Administration Diazepam 10 mg 11/03/23 22:34 11/03/23 22:44 Diazepam 10mg/2ml Syringe IV 11/03/23 22:35 10 mg ONCE ONE Administration Droperidol 2.5 mg 11/03/23 21:53 11/03/23 22:03 Droperidol 5mg/2ml Vial IV 11/03/23 21:54 2.5 mg ONCE ONE Administration Sodium Chloride 1,000 mls @ 999 mls/hr 11/03/23 19:00 11/03/23 19:32 Sod Chlor 0.9% 1000ml Bag IV 11/03/23 20:00 999 mls/hr .Q1H1M ONE Administration Ampicillin Sodium/Sulbactam 100 mls @ 200 mls/hr 11/03/23 19:52 11/03/23 20:55 Sodium 3 gm/ Sodium Chloride IV 11/03/23 19:53 200 mls/hr ONCE ONE Administration Vancomycin/PEG/[place]/Lysine/Water 1.75 gm in 350 mls @ 175 mls/hr 11/03/23 20:00 11/03/23 21:58 Vancomycin 1.75gm/350ml (Peg) Premix IV 11/03/23 21:59 175 mls/hr ONCE ONE Administration Iopamidol 75 ml 11/03/23 20:39 11/03/23 20:40 Iopamidol-370 (76%);100ml Bottle IV 11/03/23 20:40 75 ml ONCE ONE Administration Ondansetron HCl 4 mg 11/03/23 19:02 11/03/23 19:32 Ondansetron 4mg/2ml Vial IV 11/03/23 19:03 4 mg ONCE ONE Administration Promethazine HCl 25 mg 11/03/23 20:30 11/03/23 20:35 Promethazine Hcl 25mg/Ml 1ml Vial IV 11/03/23 20:31 25 mg ONCE ONE Administration Sodium Chloride 25 ml 11/03/23 20:30 11/03/23 20:35 Sodium Chloride 0.9% 25ml Bag IV 11/03/23 20:31 25 ml ONCE ONE Administration ORDERS Category Date Time Status CT abdomen pelvis w con Stat Cat Scan 11/03/23 19:52 Completed POCUS Point of Care (ER Only) Stat Exams 11/03/23 19:54 Taken XR chest portable Stat Exams 11/03/23 19:01 Completed Acetaminophen Stat Lab 11/03/23 19:22 Completed Complete Blood Count Auto Diff Stat Lab 11/03/23 19:22 Completed Comprehensive Metabolic Panel Stat Lab 11/03/23 19:22 Completed Drug Screen,Urine Stat Lab 11/03/23 22:06 Completed Ethanol [Ethyl Alcohol] Stat Lab 11/03/23 19:22 Completed Lactic Acid Stat Lab 11/03/23 19:22 Completed Lipase Stat Lab 11/03/23 19:22 Completed Rapid PCR Covid and Flu A/B Stat Lab 11/03/23 22:07 Completed Salicylate Stat Lab 11/03/23 19:22 Completed T4 (Thyroxine) Stat Lab 11/03/23 19:22 Completed TSH [Thyroid Stimulating Hormone] Stat Lab 11/03/23 19:22 Completed Troponin I Q3H Lab 11/03/23 22:55 Received Troponin I Q3H Lab 11/04/23 01:15 Ordered Troponin I Stat Lab 11/03/23 19:22 Completed Blood Culture Stat Micro 11/03/23 22:25 Received ABG Methemoglobin Stat RT 11/03/23 22:49 Ordered Carboxyhemoglobin Stat RT 11/03/23 22:49 Ordered VBG [Venous Blood Gas] Stat RT 11/03/23 19:52 Completed ECG initial [place] Routine Y 11/03/23 19:25 Completed Medical Decision Narrative: 38-year-old male history of anxiety, pression, polysubstance abuse, tobacco abuse, daily drinking presenting with multiple complaints. Patient states that he has been having bodyaches, abdominal cramping, vomiting without diarrhea, and tremors for about 12 hours. States that he drinks daily, last drink was just a couple hours prior to arrival he took 2 shots of 80 proof hard liquor. States that he was thinking it was alcohol withdrawal, but does not think it is now. Denies hallucinations whether auditory or visual, chest pain, shortness of breath. Vomiting is nonbloody, nonbilious. Notably, patient states that he has been taking 5 mg diazepam that he purchases illegally in order to help with anxiety and alcohol symptoms. Denies opiate abuse. It should be noted that patient does purchase illicit substances which could likely be unpure, and patient does not seem forthcoming complicating care. History was obtained via conversation with patient. On arrival, patient hemodynamically stable, alert, oriented x4, appropriate, GCS 15, moving all extremities spontaneously, pupils equal and reactive to light. Full physical exam performed and significant for anxious, tremulous, tachycardic, intermittently yawning. Hypertensive. Abdomen is soft, but diffusely tender with no signs of peritonitis. Differential includes intoxication, withdrawal, psychosis, metabolic abnormality, endocrinologic abnormality, among others. Patient was given IV fluids, Valium 5 mg IV multiple doses for symptomatic management and correction of underlying abnormalities. Workup independently interpreted and significant for no leukocytosis. Patient is in compensated metabolic acidosis with pH 7.31, CO2 low at 24, bicarb low at 11.8. Chemistry with anion gap of 45, creatinine 1.3 and lactate 2.7. LFTs are also elevated ALT 172, AST 140, bilirubin 2.2. Troponin negative. CT abdomen pelvis with duodenitis, but no evidence of obstruction or perforation. No obvious surgical pathology. Urine tox screen with benzos and marijuana. See radiology read for full review of final results. Independent interpretation of EKG shows sinus tachycardia [address] or T wave changes concerning for acute ischemia. Intervals within normal limits. Because patient continually tremulous, 10 mg of Ativan was administered. Still having symptoms, complaining of racing heart. Because difficult to ascertain whether or not there was atrial flutter present with persistent rate of 1 45-1 50, adenosine 6 mg followed by 12 mg was pushed. Patient did have a sinus pause and during slowed heart rate, EKG demonstrated sinus tachycardia. He was vomiting, got Zofran, then Phenergan, followed by droperidol. That seemed to help his vomiting. Patient continued to be tremulous and hypertensive/tachycardic, was given 10 more milligrams of Valium. On reevaluation, patient sleeping after Valium, but still breathing 25-30 times a minute. Hospital medicine was contacted for evaluation for admission for further workup and management of likely intoxication complicated by metabolic acidosis. Given patient presentation, workup, history, this most likely represents intoxication versus withdrawal syndrome. Because patient high risk for clinical decompensation, deemed appropriate for inpatient admission. Results were relayed to patient who voiced understanding and patient was agreeable to inpatient admission and management. Patient was admitted to the hospital for further definitive management. Critical Care Critical Care Time Critical Care Time: Yes (CV) Attestation: On 11/03/23, the high probability of a clinically significant, sudden or life threatening deterioration of the following system(s) required my full and direct attention, intervention and personal management. The time I documented below is in addition to time spent performing reported procedures but includes the following listed in this critical care notation. Total Time Total Critical Care Time: 60
--- NOTE | 2023-11-03 19:25 | ECG_ITS ---
APPROVED REPORT Exam: Resting ECG HR:157 bpm ECG Measurements Heart Rate 157 AXES [place] 107 P 67 QRSd 86 QRS 101 QT 278 T 55 QTc 366 Conclusion SINUS TACHYCARDIA WITH SHORT [place] INTERVAL RIGHT AXIS DEVIATION [QRS AXIS > 100] CRITICAL TEST RESULT UNCONFIRMED REPORT Electronically signed by : Jeffery Mendieta MD 11/04/2023 08:16:27
[2023-11-03] MEDS: 0.9 % SODIUM CHLORIDE 1000ML 1,000 ML 999 ML IV (19:32)
[2023-11-03] MEDS: ONDANSETRON 4MG/2ML VIAL 4 MG IV (19:32)
[2023-11-03] MEDS: diazePAM 10MG/2ML SYRINGE 5 MG IV ×2 (19:32→20:40)
[2023-11-03 19:34] LABS: Basophils % 0.3 % (0.1-2.0); Eosinophils % 0.4 % (0.1-12.0); Lymphocytes # 0.5 K/mm3 (0.7-4.5); Lymphocytes % 5.9 % (10-50); Mean Corpuscular HGB Conc 33.4 g/dL (31.8-35.4); Mean Corpuscular Hemoglobin 35.6 pg (27.0-31.2); Mean Corpuscular Volume 106.7 fl (80-94); Mean Platelet Volume 9.1 fl (7.4-10.4); Monocytes # 0.7 K/mm3 (0.1-1.0); Neutrophils # 7.6 K/mm3 (1.8-7.8); Neutrophils % 85.5 % (37.0-80.0); Platelet Count 215 K/mm3 (142-424); Red Blood Count 5.07 M/mm3 (4.60-6.20); Red Cell Distribution Width 14.8 % (11.5-17.5); White Blood Count 8.9 K/mm3 (4.8-10.8)
[2023-11-03 19:38] LABS: Chloride 91 mmol/L (98-107); Potassium 3.9 mmoL/L (3.5-5.1); Sodium 138 mmol/L (136-145)
[2023-11-03 19:41] LABS: Alanine Aminotransferase 172 U/L (12-78); Albumin Level 5.7 g/dl (3.5-5.0); Albumin/Globulin Ratio 1.4 (1.1-1.8); Alkaline Phosphatase 125 U/L (38-126); Anion Gap 44.9 mEq/L (5-15); Aspartate Amino Transferase 140 U/L (17-59); Bilirubin,Total 2.2 mg/dl (0.2-1.3); Blood Urea Nitrogen 10 mg/dl (9-20); Calcium 10.2 mg/dl (8.4-10.2); Creatinine Clearance Estimated 90 mL/min (50-200); Estimated Glomerular Filt Rate 62 ml/min (>60); GFR (African American) 75 ML/MIN (>60); Glucose 133 mg/dl (74-100); Lipase 195 U/L (23-300); Total Protein,Serum 9.7 g/dl (6.3-8.2)
[2023-11-03 19:48] LABS: Carbon Dioxide 6 mmol/L (22.0-30.0)
[2023-11-03 19:51] LABS: MANUAL DIFFERENTIAL MANUAL DIFFERENTIAL (MANUAL DIFF)
--- NOTE | 2023-11-03 19:52 | CT_ITS ---
PROCEDURE INFORMATION: Exam: CT Abdomen And Pelvis With Contrast Exam date and time: 11/03/2023 8:34 PM Age: 38 years old Clinical indication: Abdominal pain; Additional info: Elevated lfts, abdominal pain, acidosis TECHNIQUE: Imaging protocol: Computed tomography of the abdomen and pelvis with contrast. Radiation optimization: All CT scans at this facility use at least one of these dose optimization techniques: automated exposure control; mA and/or kV adjustment per patient size (includes targeted exams where dose is matched to clinical indication); or iterative reconstruction. Contrast material: ISOVUE; Contrast volume: 75 ml; Contrast route: IV; COMPARISON: [facility] XR acute abdomen series 07/22/2018 6:42 PM FINDINGS: Lungs: Multiple calcified granulomas of the lung bases. Mediastinal space: Moderate thickening of the distal esophagus compatible with esophagitis. Liver: There is diffuse hypoattenuation of the liver compatible with severe hepatic steatosis. Hepatomegaly measuring 23.5 cm. Gallbladder and bile ducts: Normal. No calcified stones. No ductal dilation. Pancreas: Normal. No ductal dilation. Spleen: Multiple benign-appearing calcific densities of the spleen. Adrenal glands: Normal. No mass. Kidneys and ureters: Normal. No hydronephrosis. Stomach and bowel: Unremarkable. No obstruction. No mucosal thickening. Appendix: No evidence of appendicitis. Intraperitoneal space: Unremarkable. No free air. No significant fluid collection. Vasculature: Mild calcific atherosclerotic disease is scattered throughout the abdominal aorta without aneurysmal dilatation. Lymph nodes: Unremarkable. No enlarged lymph nodes. Urinary bladder: Unremarkable as visualized. Reproductive: Unremarkable as visualized. Bones/joints: Unremarkable. No acute fracture. Soft tissues: Normal. IMPRESSION: 1. There is diffuse hypoattenuation of the liver compatible with severe hepatic steatosis. 2. Moderate thickening of the distal esophagus compatible with esophagitis.
[2023-11-03 19:55] LABS: Ethyl Alcohol < 10 mg/dl (0-10); Troponin I < 0.01 ng/ml (0.00-0.034)
[2023-11-03 19:59] LABS: T4 (Thyroxine) 6.4 ug/dl (5.53-11.0)
--- NOTE | 2023-11-03 20:00 | PC.NURSE ---
Dr Yap at bedside doing US
[2023-11-03 20:06] LABS: Lactic Acid 2.7 mmol/L (0.7-2.1)
[2023-11-03] MEDS: ADENOSINE 6MG/2ML VIAL 6 MG IV (20:10)
[2023-11-03 20:12] LABS: Thyroid Stimulating Hormone 1.53 uIU/mL (0.465-4.68)
[2023-11-03] MEDS: ADENOSINE 6MG/2ML VIAL 12 MG IV (20:13)
[2023-11-03 20:28] LABS: Acetaminophen < 10 ug/ml (10-30); Salicylate < 1.0 mg/dL (2.0-20.0)
[2023-11-03 20:33] LABS: Lymphocytes % 19 % (10-50); Macrocytosis 1+; Monocytes % 1 % (2-9); Neutrophils % 79 % (42-76); Platelet Estimate Normal; Total Cells Counted 100
[2023-11-03] MEDS: SODIUM CHLORIDE 0.9% 25ML BAG 25 ML IV (20:35)
[2023-11-03] MEDS: PROMETHAZINE HCL 25MG/ML 1ML VIAL 25 MG IV (20:35)
[2023-11-03 20:40] LABS: VBG Base Excess -14.5 mmol/L (-2.4-2.3); VBG HCO3 11.8 mmol/L (23-30); VBG Oxygen Saturation 88.6 % (50-70); VBG PH 7.31 mmol/L (7.31-7.41); VBG PO2 54.2 mmol/L (28-40); VBG Total CO2 12.5 mmol/L (23-27)
[2023-11-03] MEDS: IOPAMIDOL-370 (76%);100ML BOTTLE 75 ML IV (20:40)
[2023-11-03] MEDS: SODIUM CHLORIDE 0.9% 10ML SYR (RAD ONLY) 10 ML IV (20:40)
[2023-11-03] MEDS: AMPICILLIN/SULBACTAM 3 GM in 0.9 % SODIUM CHLORIDE 100 ML IV (20:55)
[2023-11-03] MEDS: ESMOLOL HCL IN STERILE WATER 2,500 MG/250 ML PIGGYBACK 24.4899999999999984 MG IV (21:01)
--- NOTE | 2023-11-03 21:43 | PC.NURSE ---
verified vanc dose [facility].
[2023-11-03] MEDS: VANCOMYCIN/WATER FOR INJ (PEG) 1.75 GM/350 ML PIGGYBACK IV (21:58)
[2023-11-03] MEDS: VANCOMYCIN CONSULT REQUEST 1 EACH NOTAPPLIC (21:58)
[2023-11-03] MEDS: droPERidol 5MG/2ML VIAL 2.5 MG IV (22:03)
[2023-11-03 22:11] LABS: Coronavirus 19, PCR Not Detected (NotDetected); Influenza A, PCR Not Detected (NotDetected); Influenza B, PCR Not Detected (NotDetected)
[2023-11-03 22:30] LABS: Amphetamine/Metha Screen,Urine Negative ng/ml (<1000); Benzodiazepines Screen,Urine Positive ng/ml (<200)
[2023-11-03 22:31] LABS: Barbiturates Screen,Urine Negative ng/ml (<200); Methadone Screen,Urine Negative ng/ml (<300)
[2023-11-03 22:32] LABS: Cannabinoid Screen,Urine Positive ng/ml (<50)
[2023-11-03 22:33] LABS: Cocaine Screen,Urine Negative ng/ml (<300); Opiate Screen,Urine Negative ng/ml (<300)
[2023-11-03 22:34] LABS: Phencyclidine Screen,Urine Negative ng/ml (<25)
[2023-11-03] MEDS: diazePAM 10MG/2ML SYRINGE 10 MG IV (22:44)
--- NOTE | 2023-11-03 23:04 | PC.NURSE ---
House notified for admission
[2023-11-03] MEDS: LACTATED RINGERS 1000ML 1,000 ML 999 ML IV (23:17)
--- NOTE | 2023-11-03 23:33 | PC.NURSE ---
report called to amy serrato
[2023-11-03 23:35] LABS: Troponin I < 0.01 ng/ml (0.00-0.034)
[2023-11-03 23:54] LABS: Reflex Lactic Add Lactic Reflex
--- NOTE | 2023-11-03 23:56 | EXP.HP ---
History of Present Illness *Admission Date: 11/03/23 *Reason for visit:: N/V *History of present illness: This is a 38-year-old male history of anxiety, depression, polysubstance abuse, tobacco abuse, daily drinking presenting with bodyaches, feverish, abdominal cramping, vomiting without diarrhea, and tremors for about 12 hours. States that he drinks daily, last drink was just a couple hours prior to arrival he took 2 shots of 80 proof hard liquor. States that he was thinking it was alcohol withdrawal, but does not think it is now. Denies hallucinations whether auditory or visual, chest pain, shortness of breath. Vomiting is nonbloody, nonbilious. Notably, patient states that he has been taking 5 mg diazepam that he purchases illegally in order to help with anxiety and alcohol symptoms. Denies opiate abuse. Admitted for treatment and management. [facility] Disclaimer: The information contained in this section may have been updated after the patient was seen, as this information can be updated by other users. Social History Smoking Status: Current every day smoker tobacco type: cigarettes packs per day: 2 second hand exposure: No alcohol intake: current substance use type: marijuana current occupational status: unemployed Travel in the last 8 weeks: None housing: house current occupational exposures/hazards: No caffeine: Yes Review of Systems Review of Systems Review of systems:: pertinent systems reviewed and negative unless documented below Meds Home Medications and Allergies Home Medications Medication Instructions Recorded Confirmed Type No Known Home Medications 11/04/23 11/04/23 History New Prescriptions to Start Prescriptions: Allergies Allergy/AdvReac Type Severity Reaction Status Date / Time Sulfa (Sulfonamide Allergy Unknown Rash/ mild Verified 04/29/21 10:22 Antibiotics) breathing [SULFA (SULFONAMIDE problems ANTIBIOTICS)] per PT Exam Data for Last 24 hours Vital signs and Labs for Last 24 Hours: Temp Pulse Resp BP Pulse Ox 98.7 F 133 H 20 132/97 H 98 11/03/23 18:47 11/03/23 22:40 11/03/23 22:40 11/03/23 22:40 11/03/23 22:40 Laboratory Results - last 24 hr 11/03/23 19:22: WBC 8.9, RBC 5.07, Hgb 18.0, Hct 54.0 H, MCV 106.7 H, MCH 35.6 H, MCHC 33.4, RDW 14.8, Plt Count 215, MPV 9.1, Neut % (Auto) 85.5 H, Lymph % (Auto) 5.9 L, [place] % (Auto) 8.0, Eos % (Auto) 0.4, Baso % (Auto) 0.3, Neut # (Auto) 7.6, Lymph # (Auto) 0.5 L, [place] # (Auto) 0.7, Eos # (Auto) 0.0, Baso # (Auto) 0.0, Total Counted 100, Neutrophils % (Manual) 79 H, Band Neutrophils % 1.0, Lymphocytes % (Manual) 19, Monocytes % (Manual) 1 L, Platelet Estimate Normal, Macrocytosis 1+, Sodium 138, Potassium 3.9, Chloride 91 L, Carbon Dioxide 6 L*, Anion Gap 44.9 H, BUN 10, Creatinine 1.30 H, Estimated Creat Clear 90, Estimated GFR 62, Est GFR ( Amer) 75, Glucose 133 H, Lactate 2.7 H, Calcium 10.2, Total Bilirubin 2.2 H, AST 140 H, ALT 172 H, Alkaline Phosphatase 125, Troponin I < 0.01, Total Protein 9.7 H D, Albumin 5.7 H, Globulin 4.0 H, Albumin/Globulin Ratio 1.4, Lipase 195, TSH 1.53, Thyroxine (T4) 6.4, Salicylates < 1.0 L, Acetaminophen < 10 L, Plasma/Serum Alcohol < 10 11/03/23 19:52: VBG pH 7.31, VBG pCO2 24.0 L, VBG pO2 54.2 H, VBG HCO3 11.8 L, VBG Total CO2 12.5 L, VBG O2 Saturation 88.6 H, VBG Base Excess -14.5 L 11/03/23 22:06: Urine Opiates Screen Negative, Urine Methadone Screen Negative, Ur Barbituates Screen Negative, Ur Phencyclidine Scrn Negative, Ur Amphetamines Screen Negative, U Benzodiazepines Scrn Positive H, Urine Cocaine Screen Negative, U Marijuana (THC) Screen Positive H 11/03/23 22:07: SARS-CoV-2 (PCR) Not detected, Influenza A Untype (PCR) Not detected, Influenza Type B (PCR) Not detected 11/03/23 22:55: Troponin I < 0.01 I & O for Last 24 hours: Intake & Output 10/31/23 11/01/23 11/02/23 11/03/23 23:59 23:59 23:59 23:59 Intake Total 30.619 / 30.619 Balance 30.619 / 30.619 Weight 81.647 kg Constitutional Constitutional: moderate distress and cooperative Comments: intoxicated appearance *Routine HEENT Exam Head: Present normocephalic Eye: Present EOMI ENT: Present mucous membranes moist *Routine Neck Exam Neck: Present full ROM *Routine Respiratory Exam Respiratory: Present CTA bilaterally and symmetric chest movement *Routine Cardiovascular Exam Cardiovascular: Present tachycardia *Routine Abdominal Exam Abdominal: Present soft, normoactive bowel sounds and tenderness *Routine Rectal Exam Rectal:: deferred *Routine Genitalia Exam Genitalia:: deferred *Routine Extremities Exam Extremities: Present cyanosis and full ROM; Absent edema *Routine Skin Exam Skin: Present intact *Routine Neurological Exam Neurological: Present alert and oriented X3 H&P: Result Imaging and Cardiology EKG: Status: image reviewed by me and Preliminary report Chest x-ray: Status: image reviewed by me, Preliminary report and final report CT scan - abdomen: Status: image reviewed by me, Preliminary report and final report Assessment and Plan *Assessment and plan (1) Intoxication: Status: Acute Category: Medical (2) Tachycardia: Status: Acute Category: Medical Code(s): R00.0 - Tachycardia, unspecified (3) Hyperthermia: Status: Acute Category: Medical Code(s): R50.9 - Fever, unspecified (4) Anxiety and depression: Status: Acute Category: Medical Code(s): F41.9 - Anxiety disorder, unspecified; F32.A - Depression, unspecified (5) Alcohol abuse: Status: Acute Category: Social Hx Code(s): F10.10 - Alcohol abuse, uncomplicated (6) Tobacco abuse: Status: Acute Category: Medical Code(s): Z72.0 - Tobacco use Plan 38-year-old male history of anxiety, depression, polysubstance abuse, tobacco abuse, daily drinking presenting with bodyaches, feverish, abdominal cramping, vomiting without diarrhea, and tremors for about 12 hours. States that he drinks daily, last drink was just a couple hours prior to arrival. on arrival patient presented with toxic appearance. tachycardic with the rates in 160's. hypertensive, dehydrated. patient was placed on esmolol continuous infusion. labs are consistent with SARAH. CXR negative for acute consolidation. abd CT was also obtained. Findings discussed with ED. patient admitted. Plan as follow: -Acute alcohol intoxication, presented tachycardia and hyperthermia: persistent tachycardia. suspected alcohol cardiotoxicity: Admit patient. On esomolol infusion Cardiology consult. Appreciated their recommendation. EKG sinus tach Troponins are negative Monitor for heart rate vital signs per unit protocol Multivitamin infusion B1 and folate CIWA protocol. -History of anxiety depression and polysubstance abuse: Continue monitoring for withdrawal symptoms Currently on no medications Patient may need psych consult when medically stable Lovenox for DVT prophylax. On Protonix for GERD suspected distal esophagitis Full code Attending attestation Patient was seen and evaluated at the bedside myself, agree with JOHN note.
[2023-11-04] VITALS (27 sets, daily range): BP systolic 101–152; BP diastolic 67–97; PULSE 85–138; RESP 15–29; TEMP 36.5–38.3; O2SAT 90–99; BMI 22.1
[2023-11-04] MEDS: ONDANSETRON 4MG/2ML VIAL 4 MG IV (00:17)
[2023-11-04] MEDS: LORazepam 2MG/ML VIAL 2 MG IV (00:17)
[2023-11-04 00:38] LABS: Lactic Acid Follow Up (RFLX 1) 1.3 mmol/L (0.7-2.1)
[2023-11-04 00:54] LABS: Troponin I < 0.01 ng/ml (0.00-0.034)
[2023-11-04] MEDS: MVI, ADULT NO.1 WITH VIT K 10 ML, THIAMINE HCL 100 MG, MAGNESIUM SULFATE 2 GM in LACTAT... 150 ML IV (00:54)
--- NOTE | 2023-11-04 01:29 | PC.NURSE ---
Patient given 2mg Ativan and Zofran for nausea and initial CIWA of 23 around 0030. Pt currently sleeping now
[2023-11-04] MEDS: ACETAMINOPHEN 325MG TAB 650 MG PO (03:50)
[2023-11-04] MEDS: ESMOLOL HCL IN STERILE WATER 2,500 MG/250 ML PIGGYBACK 48.990000000000002 MG IV ×2 (03:51→09:05)
[2023-11-04 06:06] LABS: Microscopic, Urine URINE MICROSCOPIC (MICROSCOPIC)
[2023-11-04 06:08] LABS: Basophils % 0.4 % (0.1-2.0); Eosinophils # 0.1 K/mm3 (0.0-0.4); Eosinophils % 0.9 % (0.1-12.0); Lymphocytes # 1.1 K/mm3 (0.7-4.5); Lymphocytes % 13.8 % (10-50); Mean Corpuscular HGB Conc 33.1 g/dL (31.8-35.4); Mean Corpuscular Hemoglobin 35.2 pg (27.0-31.2); Mean Corpuscular Volume 106.3 fl (80-94); Mean Platelet Volume 9.2 fl (7.4-10.4); Monocytes # 0.9 K/mm3 (0.1-1.0); Monocytes % 11.6 % (1.7-9.3); Neutrophils # 5.7 K/mm3 (1.8-7.8); Neutrophils % 73.3 % (37.0-80.0); Platelet Count 150 K/mm3 (142-424); Red Blood Count 4.23 M/mm3 (4.60-6.20); White Blood Count 7.7 K/mm3 (4.8-10.8)
[2023-11-04 06:10] LABS: Appearance,Urine CLEAR (Clear); Blood, Urine 1+ (Negative); Color,Urine YELLOW (Yellow); Glucose,Urine (UA) Negative (Negative); Ketones,Urine 3+ (Negative); Leukocyte Esterase,Urine Negative (Negative); Nitrate,Urine Negative (Negative); PH,Urine 6.5 (5.0-8.5); Protein,Urine 1+ (Negative); Specific Gravity, Urine 1.025 (1.005-1.030); Urobilinogen,Urine 0.2 EU/dl (0.2)
[2023-11-04 06:13] LABS: Chloride 102 mmol/L (98-107); Potassium 3.8 mmoL/L (3.5-5.1); Sodium 135 mmol/L (136-145)
[2023-11-04 06:16] LABS: Alanine Aminotransferase 119 U/L (12-78); Albumin Level 4.2 g/dl (3.5-5.0); Albumin/Globulin Ratio 1.6 (1.1-1.8); Alkaline Phosphatase 78 U/L (38-126); Anion Gap 21.8 mEq/L (5-15); Aspartate Amino Transferase 90 U/L (17-59); Bilirubin,Total 1.6 mg/dl (0.2-1.3); Blood Urea Nitrogen 14 mg/dl (9-20); Calcium 8.8 mg/dl (8.4-10.2); Carbon Dioxide 15 mmol/L (22.0-30.0); Creatinine Clearance Estimated 120 mL/min (50-200); Estimated Glomerular Filt Rate 95 ml/min (>60); GFR (African American) 115 ML/MIN (>60); Globulin 2.6 g/dL (1.3-3.2); Glucose 100 mg/dl (74-100); Magnesium 2.5 mg/dl (1.6-2.3); Phosphorous 2.3 mg/dl (2.5-4.5); Total Protein,Serum 6.8 g/dl (6.3-8.2)
[2023-11-04 06:18] LABS: Bilirubin,Urine Negative (Negative)
[2023-11-04 06:23] LABS: Hemoglobin 14.9 g/dL (14.1-18.0)
[2023-11-04 06:24] LABS: Bacteria,Urine 1+ /lpf; Mucus,Urine 1+ /lpf
--- NOTE | 2023-11-04 06:59 | PC.NURSE ---
Pt's sister in law called wanting an updated and to give her number and Alejandro Diaz (Pt's brother) numbers for information and for pickup at discharge. Sister in law Alejandro Diaz
--- NOTE | 2023-11-04 07:17 | CA_ITS ---
APPROVED REPORT EXAM: Comprehensive 2D, Doppler, and color-flow Echocardiogram [employer] Developer: Angeles Gan CRT Ht: 6 ft 0 in Wt: 167lbs BSA: 1.97 BP: 132/97 mmHg Indications: Tachycardia, history of ETOH, smoker, marijuana use 2D Dimensions LA Volume 17.30 mL LA Volume Index 8.60 mL/m2 (M/F) 16-34 M-Mode Dimensions RVDd 2.55 cm (0.9-2.6) LA Diam 3.00 cm (1.9-4.0) LVDd 5.08 cm (3.5-5.7) LVDs 3.71 cm (3.5-5.7) IVSd 1.01 cm (0.6-1.1) PWd 0.99 cm (0.6-1.1) EF (Teich) 52.30% FS 27.00% EDV (Teich) 122.70 mL TAPSE 2.09 (<1.7) ESV (Teich) 58.50 mL LV Diastology E Decel Time 150 (160-240 msec) E/A Ratio 0.69 MED A' 13.10 cm/s LAT A' 12.60 cm/s Aortic Valve AO Peak GR. 4.20 mmHg Mitral Valve MV E Max Tc. 66.0 (40-130 cm/s) MV A Velocity 96.0 (40-130 cm/s) E/A Ratio 0.69 MV PHT 44.0 ms Pulmonary Valve PV Peak Velocity 118.0 (50-150 cm/s) Tricuspid Valve TR P. Velocity 214.00 cm/s RAP Estimate 10.00 mmHg RVSP 28.30 mmHg Left Ventricle The left ventricle is normal size. The left ventricular systolic function is mildly reduced. There is normal left ventricular wall thickness. There is moderate hypokinesis of the septal LV wall. Grade 1 diastolic dysfunction. LVEF is 45%. Right Ventricle The right ventricle is normal size. The right ventricular systolic function is normal. Atria The left atrium size is normal. The right atrium size is normal. There is no Doppler evidence of interatrial shunt. Aortic Valve The aortic valve is normal in structure. There is no aortic valvular stenosis. No aortic regurgitation is present. Mitral Valve The mitral valve is normal in structure. No evidence of mitral valve stenosis. There is no mitral valve regurgitation noted. Tricuspid Valve The tricuspid valve leaflets are thin and pliable. Trace tricuspid regurgitation. There is insufficient TR jet to estimate RVSP. Pulmonic Valve The pulmonary valve is normal in structure. Trace pulmonic regurgitation. Great Vessels The aortic root is normal in size. The ascending aorta is normal in size. IVC is normal in size and collapses >50% with inspiration. Pericardium There is no pericardial effusion. Other Information Study Quality: Adequate Conclusion Mild reduction in LV systolic function (LVEF 45%). Moderate hypokinesis of the septal LV wall. No significant valvular stenosis or regurgitation. When visually compared to prior study from 2017, the reduction in LVEF is new. Electronically signed by : Isabel Schwartz MD 11/04/2023 15:36:18
--- NOTE | 2023-11-04 08:23 | PC.NURSE ---
Echo lab at bedside at this time.
[2023-11-04 08:37] LABS: Vitamin B12 463 pg/mL (239-931)
[2023-11-04] MEDS: METOPROLOL TARTRATE 50MG TABLET 50 MG PO ×4 (09:06→23:02)
[2023-11-04] MEDS: FOLIC ACID 1MG TABLET 1 MG PO (09:06)
[2023-11-04] MEDS: THIAMINE 100MG TABLET 100 MG PO (09:06)
[2023-11-04] MEDS: PANTOPRAZOLE 40MG TABLET 40 MG PO (09:06)
[2023-11-04] MEDS: ENOXAPARIN 40MG/0.4ML SYRINGE 40 MG SQ (09:06)
--- NOTE | 2023-11-04 10:40 | EXP.CARD.CON ---
History of Present Illness History of Present Illness Consult date: 11/04/23 Requesting physician: Thierry Nelson Chief complaint: Tachycardia Additional Medical History:: 1. Tobacco use 2. History of alcohol use and drug use A. History of alcoholic hepatitis 3. Patient relates prior cardiac evaluation in the past with no significant findings A. Sinus tachycardia, 11/03/2023 in setting of nausea and vomiting 4. Anxiety and depression History of present illness: This is a 38-year-old male history of anxiety, depression, polysubstance abuse, tobacco abuse, daily drinking presenting with bodyaches, feverish, abdominal cramping, vomiting without diarrhea, and tremors for about 12 hours. States that he drinks daily, last drink was just a couple hours prior to arrival he took 2 shots of 80 proof hard liquor. States that he was thinking it was alcohol withdrawal, but does not think it is now. Denies hallucinations whether auditory or visual, chest pain, shortness of breath. Vomiting is nonbloody, nonbilious. Notably, patient states that he has been taking 5 mg diazepam that he purchases illegally in order to help with anxiety and alcohol symptoms. Denies opiate abuse. Admitted for treatment and management. The above per Harman Marie APRN for the hospitalist service. This a.m. patient states he is feeling better. Recently had some significant vomiting with some diarrhea. Heart rate has been 107 bpm on esmolol drip with transition to metoprolol oral. Patient is not a good historian. [facility] Disclaimer: The information contained in this section may have been updated after the patient was seen, as this information can be updated by other users. Social History Smoking Status: Current every day smoker tobacco type: cigarettes packs per day: 2 second hand exposure: No alcohol intake: current substance use type: marijuana current occupational status: unemployed Travel in the last 8 weeks: None housing: house current occupational exposures/hazards: No caffeine: Yes Exam Data for Last 24 hours Vital signs and Labs for Last 24 Hours: Temp Pulse Resp BP Pulse Ox O2 Del Method O2 Flow Rate 97.7 F 104 H 20 119/76 97 Nasal Cannula 2 11/04/23 08:00 11/04/23 10:11/04/23 10:11/04/23 10:24 10:00 11/04/23 10:00 11/04/23 10:00 Laboratory Results - last 24 hr 11/03/23 19:22: WBC 8.9, RBC 5.07, Hgb 18.0, Hct 54.0 H, MCV 106.7 H, MCH 35.6 H, MCHC 33.4, RDW 14.8, Plt Count 215, MPV 9.1, Neut % (Auto) 85.5 H, Lymph % (Auto) 5.9 L, [place] % (Auto) 8.0, Eos % (Auto) 0.4, Baso % (Auto) 0.3, Neut # (Auto) 7.6, Lymph # (Auto) 0.5 L, [place] # (Auto) 0.7, Eos # (Auto) 0.0, Baso # (Auto) 0.0, Total Counted 100, Neutrophils % (Manual) 79 H, Band Neutrophils % 1.0, Lymphocytes % (Manual) 19, Monocytes % (Manual) 1 L, Platelet Estimate Normal, Macrocytosis 1+, Sodium 138, Potassium 3.9, Chloride 91 L, Carbon Dioxide 6 L*, Anion Gap 44.9 H, BUN 10, Creatinine 1.30 H, Estimated Creat Clear 90, Estimated GFR 62, Est GFR ( Amer) 75, Glucose 133 H, Lactate 2.7 H, Calcium 10.2, Total Bilirubin 2.2 H, AST 140 H, ALT 172 H, Alkaline Phosphatase 125, Troponin I < 0.01, Total Protein 9.7 H D, Albumin 5.7 H, Globulin 4.0 H, Albumin/Globulin Ratio 1.4, Lipase 195, TSH 1.53, Thyroxine (T4) 6.4, Salicylates < 1.0 L, Acetaminophen < 10 L, Plasma/Serum Alcohol < 10 11/03/23 19:52: VBG pH 7.31, VBG pCO2 24.0 L, VBG pO2 54.2 H, VBG HCO3 11.8 L, VBG Total CO2 12.5 L, VBG O2 Saturation 88.6 H, VBG Base Excess -14.5 L 11/03/23 22:06: Urine Opiates Screen Negative, Urine Methadone Screen Negative, Ur Barbituates Screen Negative, Ur Phencyclidine Scrn Negative, Ur Amphetamines Screen Negative, U Benzodiazepines Scrn Positive H, Urine Cocaine Screen Negative, U Marijuana (THC) Screen Positive H 11/03/23 22:07: SARS-CoV-2 (PCR) Not detected, Influenza A Untype (PCR) Not detected, Influenza Type B (PCR) Not detected 11/03/23 22:55: Troponin I < 0.01 11/04/23 00:20: Troponin I < 0.01 11/04/23 00:25: Lactate 1.3 11/04/23 05:51: WBC 7.7, RBC 4.23 L, Hgb 14.9 D, Hct 45.0, MCV 106.3 H, MCH 35.2 H, MCHC 33.1, RDW 15.0, Plt Count 150 D, MPV 9.2, Neut % (Auto) 73.3, Lymph % (Auto) 13.8, [place] % (Auto) 11.6 H, Eos % (Auto) 0.9, Baso % (Auto) 0.4, Neut # (Auto) 5.7, Lymph # (Auto) 1.1, [place] # (Auto) 0.9, Eos # (Auto) 0.1, Baso # (Auto) 0.0, Sodium 135 L, Potassium 3.8, Chloride 102, Carbon Dioxide 15 L, Anion Gap 21.8 H, BUN 14 D, Creatinine 0.90 D, Estimated Creat Clear 120, Estimated GFR 95, Est GFR ( Amer) 115 D, Glucose 100 D, Calcium 8.8, Phosphorus 2.3 L, Magnesium 2.5 H, Total Bilirubin 1.6 H, AST 90 H D, ALT 119 H D, Alkaline Phosphatase 78, Total Protein 6.8 D, Albumin 4.2 D, Globulin 2.6, Albumin/Globulin Ratio 1.6, Vitamin B12 463 11/04/23 06:00: Urine Color Yellow, Urine Appearance Clear, Urine pH 6.5, Ur Specific [place] 1.025, Urine Protein 1+, Urine Glucose (UA) Negative, Urine Ketones 3+, Urine Blood 1+, Urine Nitrate Negative, Urine Bilirubin Negative, Urine Urobilinogen 0.2, Ur Leukocyte Esterase Negative, Urine RBC 3-5, Urine WBC 3-5, Ur Squamous Epith Cells 5-10, Urine Bacteria 1+, Urine Mucus 1+ I & O for Last 24 hours: Intake & Output 01/30/24 01/31/24 02/01/24 02/02/24 11:59 11:59 11:59 11:59 Intake Total 2511.437 / 2511.437 Output Total 800 / 800 Balance 1711.437 / 1711.437 Weight 167 lb 1.6 oz Constitutional Constitutional: no acute distress *Routine Respiratory Exam Respiratory: Present rhonchi *Routine Cardiovascular Exam Cardiovascular: Present RRR and tachycardia; Absent murmur, gallop or rubs *Routine Extremities Exam Extremities: Absent edema *Routine Neurological Exam Neurological: Present alert, oriented X3 and CN II-XII intact Meds Home Medications and Allergies Home Medications Medication Instructions Recorded Confirmed Type No Known Home Medications 11/04/23 11/04/23 History New Prescriptions to Start Prescriptions: Allergies Allergy/AdvReac Type Severity Reaction Status Date / Time Sulfa (Sulfonamide Allergy Unknown Rash/ mild Verified 04/29/21 10:22 Antibiotics) breathing [SULFA (SULFONAMIDE problems ANTIBIOTICS)] per PT Assessment and Plan *Assessment and plan (1) Tachycardia: Status: Acute Category: Medical Code(s): R00.0 - Tachycardia, unspecified (2) Alcohol abuse: Status: Acute Category: Social Hx Code(s): F10.10 - Alcohol abuse, uncomplicated (3) Tobacco abuse: Status: Acute Category: Medical Code(s): Z72.0 - Tobacco use (4) Acute gastroenteritis: Status: Acute Category: Medical Code(s): K52.9 - Noninfective gastroenteritis and colitis, unspecified (5) Alcohol withdrawal: Status: Acute Qualifiers: Complication of substance-induced condition: with unspecified complication Qualified Code(s): F10.939 - Alcohol use, unspecified with withdrawal, unspecified Category: Medical Code(s): F10.939 - Alcohol use, unspecified with withdrawal, unspecified (6) Cardiomyopathy: Status: Acute Qualifiers: Cardiomyopathy type: unspecified Qualified Code(s): I42.9 - Cardiomyopathy, unspecified Category: Medical Code(s): I42.9 - Cardiomyopathy, unspecified Plan 1. Sinus tachycardia -Improved with esmolol drip now transitioning to metoprolol tartrate -Thyroid functions normal -Blood alcohol level less than 10 2. History of drug and alcohol abuse 3. Recent acute gastroenteritis 4. Echocardiogram this admission shows reduced EF at about 45% with septal hypokinesis -Will start treatment with beta-luis angel and Jardiance along with ARB therapy as blood pressure allows Due to abnormal echocardiogram showing reduced ejection fraction, recommend proceeding with left heart catheterization. If no ischemic etiology then consider checking CTA of the chest to rule out pulmonary embolus. Patient has received standard Lovenox to prevent DVT. Cardiac catheterization revealed normal coronary arteries. Dilated ventricle with global hypokinesis and EF of 40%. CTA of the chest is pending. Cardiomyopathy likely related to alcohol use. Will start working towards goal-directed medical therapy with beta-luis angel, ARB therapy and Jardiance. Diuretic therapy as needed. If patient is discharged home over the weekend then we would like to see him back in 1 to 2 weeks with consideration of cardiac MRI. Please call us over the weekend if needed.
--- NOTE | 2023-11-04 11:36 | CT_ITS ---
FINAL REPORT CLINICAL HISTORY: tachycardia, history of drug use, hypoxia FINDINGS: CTA CHEST WITH CONTRAST TECHNIQUE: Thin section axial CT with IV contrast supplemented with 3D reconstructed MIP images. FINDINGS: Pulmonary vessels enhance in a normal fashion without evidence of embolic disease. Thoracic aorta is normal in caliber without evidence of aneurysm or dissection. Mild streaky atelectasis is seen of the lower lobes. There is no acute infiltrate or evidence septic pulmonary emboli.. No pleural or pericardial effusion is seen . No adenopathy or mass lesion is present . Images of the upper abdomen show fatty infiltration of liver. IMPRESSION: 1. No evidence of pulmonary embolism. This study was performed using automated techniques to achieve radiation exposure as low as reasonably achievable Authenticated and ERN
--- NOTE | 2023-11-04 11:58 | IR_ITS ---
APPROVED REPORT Patient Location: Inpatient PROCEDURES Left heart catheterization Left ventriculogram Selective coronary angiogram INDICATION New onset cardiomyopathy, Abnormal echocardiogram Informed consent was obtained prior to the procedure. COMPLICATIONS NONE Estimated Blood Loss: LESS THAN 10 ML TECHNIQUE One percent lidocaine used to anesthetize the right anterior aspect of the wrist. The right radial artery was accessed via the Seldinger technique. A 6 [place] sheath was placed in the right radial artery. 2.5 mg of Verapamil, 800 mcg of nitroglycerin, 1mg Lidocaine and 5000 U Heparin were given through the arterial sheath. The papa catheter was also used to perform left heart catheterization, left ventriculogram and selective coronary angiogram. At the end of the procedure the sheath was removed good hemostasis was achieved using Traclet band, patient was transferred to the postop holding area in stable condition. ANGIOGRAPHIC RESULTS The left main artery Normal The left anterior descending artery Normal The circumflex artery Normal The right coronary artery Dominant normal The RANGEL ventriculogram reveals Dilated ventricle ejection fraction 40% globally hypokinetic The left ventricular end-diastolic pressure 20 to 25 mmHg IMPRESSION Normal coronary arteries Dilated ventricle with reduced ejection fraction elevated LVEDP PLAN 1. Standard therapy for cardiomyopathy 2. Consider cardiac MRI Electronically signed by : Kenny Gruber MD 11/04/2023 14:51:03
--- NOTE | 2023-11-04 12:00 | PC.NURSE ---
Home Medications Spigles,García Medication Instructions Recorded Confirmed No Known Home Medications 11/04/23 11/04/23
[2023-11-04] MEDS: 0.9 % SODIUM CHLORIDE 50 ML VIAL IV (12:10)
[2023-11-04] MEDS: SODIUM CHLORIDE 0.9% 10ML SYR (RAD ONLY) 10 ML IV (12:11)
[2023-11-04] MEDS: IOPAMIDOL-370 (76%);100ML BOTTLE 100 ML IV (12:11)
--- NOTE | 2023-11-04 13:41 | PC.NURSE ---
pt taken to CT scan with RN at 1153 returned at 1207
[2023-11-04] MEDS: FENTANYL 100MCG/2ML VIAL 25 MCG IV (14:29)
[2023-11-04] MEDS: MIDAZOLAM HCL 1MG/1ML 5ML VIAL 1 MG IV (14:29)
[2023-11-04] MEDS: VERAPAMIL 2.5MG/ML 2ML VIAL 2.5 MG IV (14:48)
[2023-11-04] MEDS: diphenhydrAMINE 50MG/ML VIAL 50 MG IV (14:48)
[2023-11-04] MEDS: LIDOCAINE 1% 10ML MDV 20 ML IJ (14:49)
[2023-11-04] MEDS: HEPARIN 1,000 UNITS/ML 10ML VIAL (CATH LAB) 10000 UNIT IV (14:49)
[2023-11-04] MEDS: NITROGLYCERIN 800MCG/8ML SYR (CATH LAB) 800 MCG IA (14:49)
[2023-11-04] MEDS: 0.9 % SODIUM CHLORIDE 500 ML 25 ML IV (14:50)
[2023-11-04] MEDS: HEPARIN 1,000 UNITS/500ML NS (CATH LAB) 3000 UNIT IV (14:50)
[2023-11-04] MEDS: IOPAMIDOL-370 (76%);100ML BOTTLE 50 ML IV (15:07)
--- NOTE | 2023-11-04 17:23 | P.PN_ITS ---
Subjective *Date: 11/04/23 *Time: 17:23 Interval history: Patient was seen and evaluated at the bedside. denies chest pain, shortness of breath, nausea, vomiting, abdominal pain. Patient does not have any complaints at this time. feels better overall Exam Data for Last 24 hours Vital signs and Labs for Last 24 Hours: Temp Pulse Resp BP Pulse Ox O2 Del Method O2 Flow Rate 97.9 F 98 H 20 106/67 L 95 Room Air 2 11/04/23 15:10 11/04/23 16:40 11/04/23 16:40 11/04/23 16:40 11/04/23 16:40 11/04/23 16:40 11/04/23 10:00 Laboratory Results - last 24 hr 11/03/23 19:22: WBC 8.9, RBC 5.07, Hgb 18.0, Hct 54.0 H, MCV 106.7 H, MCH 35.6 H , MCHC 33.4, RDW 14.8, Plt Count 215, MPV 9.1, Neut % (Auto) 85.5 H, Lymph % (Auto) 5.9 L, [place] % (Auto) 8.0, Eos % (Auto) 0.4, Baso % (Auto) 0.3, Neut # (Auto) 7.6, Lymph # (Auto) 0.5 L, [place] # (Auto) 0.7, Eos # (Auto) 0.0, Baso # (Auto) 0.0, Total Counted 100, Neutrophils % (Manual) 79 H, Band Neutrophils % 1.0, Lymphocytes % (Manual) 19, Monocytes % (Manual) 1 L, Platelet Estimate Normal, Macrocytosis 1+, Sodium 138, Potassium 3.9, Chloride 91 L, Carbon Dioxide 6 L*, Anion Gap 44.9 H, BUN 10, Creatinine 1.30 H, Estimated Creat Clear 90, Estimated GFR 62, Est GFR ( Amer) 75, Glucose 133 H, Lactate 2.7 H, Calcium 10.2, Total Bilirubin 2.2 H, AST 140 H, ALT 172 H, Alkaline Phosphatase 125, Troponin I < 0.01, Total Protein 9.7 H D, Albumin 5.7 H, Globulin 4.0 H, Albumin/Globulin Ratio 1.4, Lipase 195, TSH 1.53, Thyroxine (T4) 6.4, Salicylates < 1.0 L, Acetaminophen < 10 L, Plasma/Serum Alcohol < 10 11/03/23 19:52: VBG pH 7.31, VBG pCO2 24.0 L, VBG pO2 54.2 H, VBG HCO3 11.8 L, VBG Total CO2 12.5 L, VBG O2 Saturation 88.6 H, VBG Base Excess -14.5 L 11/03/23 22:06: Urine Opiates Screen Negative, Urine Methadone Screen Negative, Ur Barbituates Screen Negative, Ur Phencyclidine Scrn Negative, Ur Amphetamines Screen Negative, U Benzodiazepines Scrn Positive H, Urine Cocaine Screen Negative, U Marijuana (THC) Screen Positive H 11/03/23 22:07: SARS-CoV-2 (PCR) Not detected, Influenza A Untype (PCR) Not detected, Influenza Type B (PCR) Not detected 11/03/23 22:55: Troponin I < 0.01 11/04/23 00:20: Troponin I < 0.01 11/04/23 00:25: Lactate 1.3 11/04/23 05:51: WBC 7.7, RBC 4.23 L, Hgb 14.9 D, Hct 45.0, MCV 106.3 H, MCH 35.2 H, MCHC 33.1, RDW 15.0, Plt Count 150 D, MPV 9.2, Neut % (Auto) 73.3, Lymph % (Auto) 13.8, [place] % (Auto) 11.6 H, Eos % (Auto) 0.9, Baso % (Auto) 0.4, Neut # (Auto) 5.7, Lymph # (Auto) 1.1, [place] # (Auto) 0.9, Eos # (Auto) 0.1, Baso # (Auto) 0.0, Sodium 135 L, Potassium 3.8, Chloride 102, Carbon Dioxide 15 L, Anion Gap 21.8 H, BUN 14 D, Creatinine 0.90 D, Estimated Creat Clear 120, Estimated GFR 95, Est GFR ( Amer) 115 D, Glucose 100 D, Calcium 8.8, Phosphorus 2.3 L, Magnesium 2.5 H, Total Bilirubin 1.6 H, AST 90 H D, ALT 119 H D, Alkaline Phosphatase 78, Total Protein 6.8 D, Albumin 4.2 D, Globulin 2.6, Albumin/Globulin Ratio 1.6, Vitamin B12 463 11/04/23 06:00: Urine Color Yellow, Urine Appearance Clear, Urine pH 6.5, Ur Specific Redby 1.025, Urine Protein 1+, Urine Glucose (UA) Negative, Urine Ketones 3+, Urine Blood 1+, Urine Nitrate Negative, Urine Bilirubin Negative, Urine Urobilinogen 0.2, Ur Leukocyte Esterase Negative, Urine RBC 3-5, Urine WBC 3-5, Ur Squamous Epith Cells 5-10, Urine Bacteria 1+, Urine Mucus 1+ I & O for Last 24 hours: Intake & Output 11/01/23 11/02/23 11/03/23 11/04/23 23:59 23:59 23:59 23:59 Intake Total 65.313 / 0322.917 4249.225 / 2590.225 Output Total 800 / 800 Balance 65.313 / 0844.350 0525.225 / 1790.225 Weight 81.647 kg 75.795 kg Constitutional Constitutional: no acute distress Comments: He has fine tremors *Routine HEENT Exam Head: Present normocephalic Eye: Present EOMI and PERRL ENT: Present mucous membranes moist *Routine Neck Exam Neck: Present supple; Absent lymphadenopathy *Routine Respiratory Exam Respiratory: Present CTA bilaterally *Routine Cardiovascular Exam Cardiovascular: Present RRR *Routine Abdominal Exam Abdominal: Present soft and normoactive bowel sounds; Absent tenderness *Routine Extremities Exam Extremities: Absent cyanosis, clubbing or edema *Routine Skin Exam Skin: Present warm; Absent rash *Routine Neurological Exam Neurological: Present alert and oriented X3 Assessment and Plan *Assessment and plan (1) Intoxication: Status: Acute Category: Medical (2) Tachycardia: Status: Acute Category: Medical Code(s): R00.0 - Tachycardia, unspecified (3) Hyperthermia: Status: Acute Category: Medical Code(s): R50.9 - Fever, unspecified (4) Anxiety and depression: Status: Acute Category: Medical Code(s): F41.9 - Anxiety disorder, unspecified; F32.A - Depression, unspecified (5) Alcohol abuse: Status: Acute Category: Social Hx Code(s): F10.10 - Alcohol abuse, uncomplicated (6) Tobacco abuse: Status: Acute Category: Medical Code(s): Z72.0 - Tobacco use Plan 38-year-old male history of anxiety, depression, polysubstance abuse, tobacco abuse, daily drinking presenting with bodyaches, feverish, abdominal cramping, vomiting without diarrhea, and tremors for about 12 hours. States that he drinks daily, last drink was just a couple hours prior to arrival. on arrival patient presented with toxic appearance. tachycardic with the rates in 160's. hypertensive, dehydrated. patient was placed on esmolol continuous infusion. labs are consistent with SARAH. CXR negative for acute consolidation. abd CT was also obtained. Findings discussed with ED. patient admitted. Plan as follow: -Acute alcohol intoxication, presented tachycardia and hyperthermia: persistent tachycardia. suspected alcohol cardiotoxicity: Admit patient. On esomolol infusion , transition to metoprolol Cardiology consult. Appreciated their recommendation. EKG sinus tach Troponins are negative Monitor for heart rate vital signs per unit protocol Multivitamin infusion B1 and folate CIWA protocol. -History of anxiety depression and polysubstance abuse: Continue monitoring for withdrawal symptoms Currently on no medications Patient may need psych consult when medically stable Lovenox for DVT prophylax. On Protonix for GERD suspected distal esophagitis Full code continue CIWA with valium, continue IVF, Cardiac cath negative for CAD
[2023-11-04] MEDS: LORazepam 2MG/ML VIAL 1 MG IV (20:13)
[2023-11-04] MEDS: NICOTINE 21MG/24HR PATCH 21 MG TD (20:13)
--- NOTE | 2023-11-04 23:03 | PC.NURSE ---
ROUNDED ON PT AT 1999. GAVE PT WATER
[2023-11-05] VITALS: BP 118/68; PULSE 100; RESP 17; TEMP 36.9; O2SAT 96
[2023-11-05 04:00] VITALS: BP 119/70; PULSE 100; PULSE 99; RESP 17; TEMP 36.6; O2SAT 95; BMI 22.2
[2023-11-05] MEDS: METOPROLOL TARTRATE 50MG TABLET 50 MG PO ×2 (05:36→11:55)
[2023-11-05 07:22] VITALS: BP 103/63; PULSE 96; RESP 24; TEMP 36.8; O2SAT 90
[2023-11-05 08:00] VITALS: PULSE 90
[2023-11-05] MEDS: MVI, ADULT NO.1 WITH VIT K 10 ML, THIAMINE HCL 100 MG, MAGNESIUM SULFATE 2 GM in LACTAT... 125 ML IV (09:28)
[2023-11-05] MEDS: PANTOPRAZOLE 40MG TABLET 40 MG PO (09:29)
[2023-11-05] MEDS: ENOXAPARIN 40MG/0.4ML SYRINGE 40 MG SQ (09:29)
[2023-11-05] MEDS: IRBESARTAN 75MG TABLET 75 MG PO (09:29)
[2023-11-05] MEDS: FOLIC ACID 1MG TABLET 1 MG PO (09:29)
[2023-11-05 10:39] LABS: Basophils % 0.5 % (0.1-2.0); Eosinophils # 0.1 K/mm3 (0.0-0.4); Eosinophils % 0.7 % (0.1-12.0); Hemoglobin 14.2 g/dL (14.1-18.0); Lymphocytes # 1.4 K/mm3 (0.7-4.5); Lymphocytes % 21.5 % (10-50); Mean Corpuscular HGB Conc 34.7 g/dL (31.8-35.4); Mean Corpuscular Hemoglobin 35.8 pg (27.0-31.2); Mean Corpuscular Volume 103.3 fl (80-94); Mean Platelet Volume 9.9 fl (7.4-10.4); Monocytes # 0.5 K/mm3 (0.1-1.0); Monocytes % 6.8 % (1.7-9.3); Neutrophils # 4.7 K/mm3 (1.8-7.8); Neutrophils % 70.5 % (37.0-80.0); Platelet Count 113 K/mm3 (142-424); Red Blood Count 3.97 M/mm3 (4.60-6.20); Red Cell Distribution Width 14.9 % (11.5-17.5); White Blood Count 6.6 K/mm3 (4.8-10.8)
[2023-11-05 10:43] LABS: Chloride 99 mmol/L (98-107); Sodium 133 mmol/L (136-145)
[2023-11-05 10:44] LABS: Potassium 3.1 mmoL/L (3.5-5.1)
[2023-11-05 10:47] LABS: Anion Gap 14.1 mEq/L (5-15); Blood Urea Nitrogen 12 mg/dl (9-20); Calcium 9.2 mg/dl (8.4-10.2); Carbon Dioxide 23 mmol/L (22.0-30.0); Creatinine Clearance Estimated 182 mL/min (50-200); Estimated Glomerular Filt Rate 152 ml/min (>60); GFR (African American) 183 ML/MIN (>60); Glucose 89 mg/dl (74-100)
[2023-11-05 11:11] VITALS: BP 113/61; PULSE 99; RESP 14; TEMP 37.3; O2SAT 96
[2023-11-05 12:00] VITALS: PULSE 115
[2023-11-05] MEDS: diazePAM 10MG TABLET 10 MG PO (13:07)
--- NOTE | 2023-11-05 14:04 | PC.NURSE ---
PT STATED EARLIER TO STAFF THAT HE NEEDED TO BE DISCHARGED AND HE NEEDED TO GET HOME TO HIS DAD B/C HE HAD DEMENTIA AND THE PLAN IS TO ATTEND HIS OLDER BROTHERS TODAY. NOTIFIED AND HE STATED PT WOULD HAVE TO SIGN OUT AMA IF HE WANTED TO LEAVE B/C HE IS NOT READY TO BE DISCHARGED. TALKED TO PT FACE TO FACE AND EXPLAINED EVERYTHING TO HIM AND PT REQUESTED THE PAPER WORK TO SIGN HIMSELF OUT.
[2023-11-10 00:09] LABS: Vitamin B1 179.3 nmol/L (66.5-200.0)
--- NOTE | 2023-11-21 18:27 | EXP.DC.SUM ---
General Admission date:: 11/03/23 Discharge date: 11/05/23 HPI HPI HPI: This is a 38-year-old male history of anxiety, depression, polysubstance abuse, tobacco abuse, daily drinking presenting with bodyaches, feverish, abdominal cramping, vomiting without diarrhea, and tremors for about 12 hours. States that he drinks daily, last drink was just a couple hours prior to arrival he took 2 shots of 80 proof hard liquor. States that he was thinking it was alcohol withdrawal, but does not think it is now. Denies hallucinations whether auditory or visual, chest pain, shortness of breath. Vomiting is nonbloody, nonbilious. Notably, patient states that he has been taking 5 mg diazepam that he purchases illegally in order to help with anxiety and alcohol symptoms. Denies opiate abuse. Admitted for treatment and management. Patient left AMA Hospital Course Hospital Course Hospital Course: 38-year-old male history of anxiety, depression, polysubstance abuse, tobacco abuse, daily drinking presenting with bodyaches, feverish, abdominal cramping, vomiting without diarrhea, and tremors for about 12 hours. States that he drinks daily, last drink was just a couple hours prior to arrival. on arrival patient presented with toxic appearance. tachycardic with the rates in 160's. hypertensive, dehydrated. patient was placed on esmolol continuous infusion. labs are consistent with SARAH. CXR negative for acute consolidation. abd CT was also obtained. Findings discussed with ED. patient admitted. Plan as follow: -Acute alcohol intoxication, presented tachycardia and hyperthermia: persistent tachycardia. suspected alcohol cardiotoxicity: Patient left AMA Exam Data for Last 24 hours Vital signs and Labs for Last 24 Hours: Temp Pulse Resp BP Pulse Ox O2 Del Method O2 Flow Rate 99.1 F 115 H 14 113/61 96 Room Air 2 11/05/23 11:11 11/05/23 12:00 11/05/23 11:11 11/05/23 11:11 11/05/23 11:11 11/05/23 13:00 11/04/23 10:00 DS: Diagnosis Discharge Diagnosis (1) Intoxication: Status: Acute (2) Tachycardia: Status: Acute Code(s): R00.0 - Tachycardia, unspecified (3) Hyperthermia: Status: Acute Code(s): R50.9 - Fever, unspecified (4) Anxiety and depression: Status: Acute Code(s): F41.9 - Anxiety disorder, unspecified; F32.A - Depression, unspecified (5) Alcohol abuse: Status: Acute Code(s): F10.10 - Alcohol abuse, uncomplicated (6) Tobacco abuse: Status: Acute Code(s): Z72.0 - Tobacco use Meds Home Medications and Allergies Home Medications Medication Instructions Recorded Confirmed Type No Known Home Medications 11/04/23 11/04/23 History New Prescriptions to Start Prescriptions: Allergies Allergy/AdvReac Type Severity Reaction Status Date / Time Sulfa (Sulfonamide Allergy Unknown Rash/ mild Verified 04/29/21 10:22 Antibiotics) breathing [SULFA (SULFONAMIDE problems ANTIBIOTICS)] per PT Discharge Plan Disposition Patient Disposition: Left Against Medical Advice Providers Admit Provider: Thierry Nelson Attending Provider: Thierry Nelson
== END 2023-11-05 14:19 | disposition left against medical advice (07) | DRG 287 ==
LOC: ER 22:51 → 2ND 23:36
PROVIDERS: Internal Medicine; Nurse Practitioner Family; Admitting Provider Internal Medicine; Emergency Provider Emergency Medicine; PCP Internal Medicine; Visit Provider Internal Medicine
PROC: 4A023N7 Measurement of Cardiac Sampling and Pressure, Left Heart, Percutaneous Approach (ICD-10-PCS; principal; 2023-11-04 13:45)
DX: I42.6 Alcoholic cardiomyopathy (principal); F10.129 Alcohol abuse with intoxication, unspecified; F41.9 Anxiety disorder, unspecified; F32.A Depression, unspecified; R50.9 Fever, unspecified
CPT/HCPCS: 36415; 71045; 71275; 74177; 80048; 80053; 80307; 80329; 81001; 82607; 82803; 83605; 83690; 83735; 84100; 84425; 84436; 84443; 84484; 85007; 85025; 87040; 87636; 93005; 93306; 93458; 99152; 99291; C1725; C1769; J1644; J1790; J2405; Q9967

== ENCOUNTER 2024-01-06 15:26 | Emergency (ER) | payer OTHER, SELFPAY ==
[2024-01-06 15:35] VITALS: BP 181/92; PULSE 102; RESP 23; TEMP 36.9; O2SAT 96; BMI 25.0
--- NOTE | 2024-01-06 15:56 | EXP.UTC ---
Discharge Plan Disposition Patient Disposition: Home, Self-Care Condition: Good Prescriptions Prescriptions: New prednisone 10 mg tablet 10 mg PO DIRECTED 9 Days Qty: 21 0RF Rx Instructions: Take 4 tablets daily for 3 days, then take 2 tablets daily for 3 days, then take 1 tablet daily for 3 days, then stop. triamcinolone acetonide 0.1 % cream 1 applic topical BID PRN (Reason: itching) Qty: 30 0RF Referrals Follow up/Referrals: Katie Berry MD [Referring] - See instructions Provider,MD Casa [Primary Care Provider] - See instructions Activity Restrictions/Add. Instructions Additional Instructions/Restrictions: Drink plenty of fluids. Take tylenol or ibuprofen for pain or fever. Take the medications as directed. Follow up with your regular doctor. GO TO THE ER FOR ANY WORSENING SYMPTOMS Follow up with the electronic coils supervisor. I put in a referral to Dr. Berry. Please call her office and schedule an appointment. Clinical Impressions Clinical Impression: Psoriasis Instructions Patient Instructions: Psoriasis, DI for Psoriasis, Methylprednisolone Discharge ED Provider: Benjamin Brennan [facility] General Stated complaint: Rash on right side Mode of Arrival: Ambulatory Source of Information: Patient Limitations: No Limitations Time Seen by Provider: 01/06/24 15:30 Description of Symptoms (Recalled from Triage Doc. by RN): PATIENT C/O PAINFUL, ITCHY, RED RASH ALL OVER X 2 DAYS HEENT Symptoms (Recalled from RN notes): No Resp Symptoms (Recalled from RN notes): No Skin Symptoms (Recalled from RN notes): Yes MS Symptoms (Recalled from RN notes): No Functional Status (Recalled from RN notes): WNL History of Present Illness Provider Complaint: He states that over the past 2 days he has developed a worsening itchy rash on her body, arms and legs. He does have a history of psoriasis, but he states that he does not believe his current symptoms are related to that. He denies any fever/chills. Related Data Previous Rx's Medication Instructions Recorded prednisone 10 mg tablet 10 mg PO DIRECTED 9 days #21 01/06/24 tabs triamcinolone acetonide 0.1 % 1 applic topical BID PRN itching 01/06/24 topical cream #30 grams Allergies Allergy/AdvReac Type Severity Reaction Status Date / Time Sulfa (Sulfonamide Allergy Unknown Rash/ mild Verified 04/29/21 10:22 Antibiotics) breathing [SULFA (SULFONAMIDE problems ANTIBIOTICS)] per PT Worker's Comp Is this a Worker's Comp case?: No [facility] Disclaimer: The information contained in this section may have been updated after the patient was seen, as this information can be updated by other users. Social History Smoking Status: Current every day smoker tobacco type: cigarettes packs per day: 2 second hand exposure: No alcohol intake: current substance use type: marijuana current occupational status: unemployed Travel in the last 8 weeks: None housing: house current occupational exposures/hazards: No caffeine: Yes ROS Obtained: Yes All systems reviewed & no additional complaints except as documented Constitutional Constitutional: Denies chills and Denies fever(s) Eyes Eyes: Denies eye discharge ENT Ears, Nose, Mouth, and Throat: Denies dizziness, Denies otalgia and Denies sore throat Cardiovascular Cardiovascular: Denies chest pain Respiratory Respiratory: Denies shortness of breath, Denies chest congestion, Denies cough, Denies stridor and Denies wheezing Gastrointestinal Gastrointestingal: Denies nausea or vomiting Musculoskeletal Musculoskeletal: Reports system reviewed and no additional complaints, except as documented and Denies arthralgias Integumentary/Breasts Skin/Breast: Reports as per HPI, Denies redness, Reports rash and Denies wounds Neurologic Neurologic: Denies dizziness and Denies paresthesias Allergic/Immunologic Allergic/Immunologic: Denies wheezing Physical Exam General General appearance: alert and in no apparent distress Head Head exam: atraumatic, normocephalic and normal inspection Eye Eye exam: Present normal appearance, PERRL and EOMI ENT ENT exam: Present normal exam, normal oropharynx, mucous membranes moist, TM's normal bilaterally and normal external ear exam Neck Neck exam: Present normal inspection, full ROM and trachea midline; Absent meningismus or lymphadenopathy Chest Chest inspection: Present normal inspection and symmetric chest wall rise; Absent tenderness Respiratory Respiratory exam: Present normal lung sounds bilaterally; Absent respiratory distress Cardiovascular Cardiovascular exam: Present regular rate and normal rhythm; Absent JVD Abdominal Exam Abdominal exam: Present soft and normal bowel sounds; Absent distention, tenderness or guarding Extremities Exam Extremities exam: Present normal inspection, full ROM and normal capillary refill; Absent calf tenderness Back Exam Back exam: Present normal inspection; Absent tenderness Neurological Exam Neurological exam: Present alert and oriented X3 Psychiatric Psychiatric exam: Present normal affect and normal mood Skin Skin exam: Present rash (He has multiple oval shaped maculopapular skin lesions. The entire lesion is slightly raised, there is no central clearing. ) Lymphatic Lymphatic Findings: no adenopathy Medical Decision Making Medical Records Medical records reviewed: No I reviewed the patient's medical records. Zhang Inquiry Pt receiving controlled substance: No Vital Signs: 01/06/24 15:35 Temperature 98.5 F Temperature Source Oral Pulse Rate [Left Brachial] 102 H Respiratory Rate 23 Blood Pressure [Left Arm] 181/92 H Blood Pressure Mean [Left Arm] 121 Blood Pressure Source [Left Arm] Automatic Cuff Blood Pressure Position [Left Arm] Sitting 02 Sat by Pulse Oximetry 96 Oxygen Delivery Method Room Air
[2024-01-06 16:07] VITALS: BP 181/92; PULSE 102; RESP 23; TEMP 36.9; O2SAT 96
== END 2024-01-06 16:09 | disposition home or self-care (01) ==
PROVIDERS: Emergency Provider Nurse Practitioner Family
DX: L40.9 Psoriasis, unspecified (principal); F17.210 Nicotine dependence, cigarettes, uncomplicated; Z56.0 Unemployment, unspecified
CPT/HCPCS: 99212; 99214; G0463

== ENCOUNTER 2024-01-23 16:42 | Emergency (ER) | payer OTHER, SELFPAY ==
[2024-01-23 17:05] VITALS: BP 139/90; PULSE 71; RESP 19; TEMP 36.8; O2SAT 97; BMI 23.1
--- NOTE | 2024-01-23 17:20 | ED_ITS ---
Discharge Plan Disposition Patient Disposition: Home, Self-Care Condition: Good Prescriptions Prescriptions: New prednisone 10 mg tablets,dose pack See Rx Instructions .ROUTE .COMPLEX Qty: 21 0RF Rx Instructions: Take as directed on package instructions triamcinolone acetonide 0.1 % ointment 1 applic topical BID Qty: 60 0RF No Action prednisone 10 mg tablet 10 mg PO DIRECTED 9 Days Qty: 21 0RF Rx Instructions: Take 4 tablets daily for 3 days, then take 2 tablets daily for 3 days, then take 1 tablet daily for 3 days, then stop. triamcinolone acetonide 0.1 % cream 1 applic topical BID PRN (Reason: itching) Qty: 30 0RF Referrals Follow up/Referrals: Provider,Casa, [Primary Care Provider] - See instructions Katie Berry MD [Referring] - See instructions (Call office for appointment) Activity Restrictions/Add. Instructions Additional Instructions/Restrictions: Bath in selson blue shampoo or a soap or shampoo that contains coal tar may help with itching and out break and help to clear up outbreak An anti-inflammatory diet may limit your plaque psoriasis flare-ups. Foods that have anti-inflammatory properties include: * Oily fish, such as mackerel, salmon or sardines. * Leafy greens, such as spinach and kale. * [place] oil. Foods and drinks that may cause flare-ups may include: * Alcohol. * Dairy, including cow?s milk and eggs. * [place] fruits, including kasie, limes and oranges. * Gluten (a protein found in many foods, especially wheat). * Nightshade vegetables, including peppers, potatoes and tomatoes. Follow up with Dermatology or your Family Doctor as you was informed in previous visit drinking alcohol can cause flare ups in your psoriasis, as discussed if you are ready there is programs and facilitys that can help you stop drinking when you are ready discuss with your Family Doctor they can help you Clinical Impressions Clinical Impression: Psoriasis Instructions Patient Instructions: DI for Psoriasis Discharge ED Provider[place] Hailey Craft [facility] [place] General Stated complaint: psorias break out Mode of Arrival: Ambulatory Source of Information: Patient Limitations: No Limitations Time Seen by Provider: 01/23/24 17:20 Description of Symptoms (Recalled from Triage Doc. by RN): PATIENT C/O RASH ALL OVER HEENT Symptoms (Recalled from RN notes): No Resp Symptoms (Recalled from RN notes): No Skin Symptoms (Recalled from RN notes): Yes MS Symptoms (Recalled from RN notes): No Functional Status (Recalled from RN notes): WNL History of Present Illness Provider Complaint: Patient states that he has hx psoriasis and for the last couple months he has had an outbreak States that he was seen earlier in the month and was given oral steriods States that it did help some but still having outbreak States that he was referred to dermatology but hasnt followed up with them so today when it was no better and starting to itch him again he came in to get it checked Related Data Previous Rx's Medication Instructions Recorded prednisone 10 mg tablet 10 mg PO DIRECTED 9 days #21 01/06/24 tabs triamcinolone acetonide 0.1 % 1 applic topical BID PRN itching 01/06/24 topical cream #30 grams prednisone 10 mg tablets in a dose See Rx Instructions PO .COMPLEX 01/23/24 pack #21 tabs triamcinolone acetonide 0.1 % 1 applic topical BID #60 grams 01/23/24 topical ointment Allergies Allergy/AdvReac Type Severity Reaction Status Date / Time Sulfa (Sulfonamide Allergy Unknown Rash/ mild Verified 04/29/21 10:22 Antibiotics) breathing [SULFA (SULFONAMIDE problems ANTIBIOTICS)] per PT Worker's Comp Is this a Worker's Comp case?: No [facility] Disclaimer: The information contained in this section may have been updated after the patient was seen, as this information can be updated by other users. Social History Smoking Status: Current every day smoker tobacco type: cigarettes packs per day: 2 second hand exposure: No alcohol intake: current substance use type: marijuana current occupational status: unemployed Travel in the last 8 weeks: None housing: house current occupational exposures/hazards: No caffeine: Yes ROS Obtained: Yes All systems reviewed & no additional complaints except as documented and Yes Systems reviewed as appropriate & no additional complaints except as documented Constitutional Constitutional: Reports system reviewed and no additional complaints, except as documented and Reports as per HPI Cardiovascular Cardiovascular: Reports system reviewed and no additional complaints, except as documented and Reports as per HPI Respiratory Respiratory: Reports system reviewed and no additional complaints, except as documented and Reports as per HPI Gastrointestinal Gastrointestingal: Reports system reviewed and no additional complaints, except as documented and as per HPI Integumentary/Breasts Skin/Breast: Reports system reviewed and no additional complaints, except as documented, Reports as per HPI, Reports pruritus and Reports rash Physical Exam General General appearance: alert and in no apparent distress Respiratory Respiratory exam: Present normal lung sounds bilaterally; Absent respiratory distress or wheezes Cardiovascular Cardiovascular exam: Present regular rate, normal rhythm and normal heart sounds Neurological Exam Neurological exam: Present alert and oriented X3 Skin Skin exam: Present rash (patient has several dry, itchy scaly patches like plaque psoriasis all over arms, chest, abdomen, and lower extremities ) Medical Decision Making Zhang Inquiry Pt receiving controlled substance: No Zhang was queried for this patient: No Vital Signs: 01/23/24 17:05 Temperature 98.3 F Temperature Source Oral Pulse Rate [Left] 71 Respiratory Rate 19 Blood Pressure [Left Arm] 139/90 Blood Pressure Mean [Left Arm] 106 02 Sat by Pulse Oximetry 97 Oxygen Delivery Method Room Air Medical Decision Narrative: Treatment discussed with pharmacy due to patient recently treated and recommended follow up with Dermatology and he hasnt followed up as recommended Recommended Prednisone taper, triacimolone and have patient use/bath in s[place] blue shampoo or something that contains [place] tar
[2024-01-23 17:48] VITALS: BP 139/90; PULSE 71; RESP 19; TEMP 36.8; O2SAT 97
== END 2024-01-23 17:50 | disposition home or self-care (01) ==
PROVIDERS: Emergency Provider Nurse Practitioner
DX: L40.9 Psoriasis, unspecified (principal); F17.210 Nicotine dependence, cigarettes, uncomplicated
CPT/HCPCS: 99212; 99214; G0463

== ENCOUNTER 2024-01-25 17:47 | Observation (INO) | payer OTHER, SELFPAY ==
[2024-01-25] VITALS (8 sets, daily range): BP systolic 126–159; BP diastolic 71–103; PULSE 86–118; RESP 14–19; TEMP 36.4; O2SAT 80–99; BMI 25.0; BMI 22.9
--- NOTE | 2024-01-25 18:46 | ED_ITS ---
Discharge Plan Disposition Patient Disposition: Admitted Clinical Impressions Clinical Impression: Sepsis Discharge ED Provider: Luis Yap General Adult HPI <ADRIANA Trivedi - Last Filed: 01/25/24 18:46> General Chief complaint: Skin/Abscess/Foreign Body Stated complaint: psorias break out Time Seen by Provider: 01/25/24 18:45 Related Data Previous Rx's Medication Instructions Recorded prednisone 10 mg tablet 10 mg PO DIRECTED 9 days #21 01/06/24 tabs triamcinolone acetonide 0.1 % 1 applic topical BID PRN itching 01/06/24 topical cream #30 grams prednisone 10 mg tablets in a dose See Rx Instructions PO .COMPLEX 01/23/24 pack #21 tabs triamcinolone acetonide 0.1 % 1 applic topical BID #60 grams 01/23/24 topical ointment Allergies Allergy/AdvReac Type Severity Reaction Status Date / Time Sulfa (Sulfonamide Allergy Unknown Rash/ mild Verified 04/29/21 10:22 Antibiotics) breathing [SULFA (SULFONAMIDE problems ANTIBIOTICS)] per PT <Luis Yap MD - Last Filed: 01/25/24 22:24> History of Present Illness HPI narrative: Please note that above description of symptoms, in this electronic medical record under categorization of recalled from ER triage doctor by RN are reflective of an initial nursing assessment, however, is not reflective of my full history and physical exam that was personally taken and clarified. Consequentially, this preceding description of symptoms, which may include the patient's categorized chief complaint in the EMR, do not reflect my personal clinical impression, and the ultimate description of history of present illness and patient stated complaints should be deferred to this section of the note. Unless stated otherwise or congruent with this section of the note, additional signs, symptoms, or incongruence should be interpreted as inaccurate with my clinical impression. PFSH <ADRIANA Trivedi - Last Filed: 01/25/24 18:46> [facility], [facility] Disclaimer: The information contained in this section may have been updated after the patient was seen, as this information can be updated by other users. Social History (Updated 01/25/24 @ 22:09 by Sri De La Rosa RN) Smoking Status: Current every day smoker tobacco type: cigarettes packs per day: 2 second hand exposure: No alcohol intake: current alcohol intake frequency: 3 or more drinks per day substance use type: marijuana current occupational status: employed and unemployed Travel in the last 8 weeks: None housing: house current occupational exposures/hazards: No caffeine: Yes <ADRIANA Trivedi - Last Filed: 01/25/24 18:46> ROS Obtained: Yes Systems reviewed as appropriate & no additional complaints except as documented Physical Exam <ADRIANA Trivedi - Last Filed: 01/25/24 18:46> General General appearance: alert and in no apparent distress Head Head exam: atraumatic and normal inspection Eye Eye exam: Present normal appearance, PERRL and EOMI ENT ENT exam: Present normal exam, normal oropharynx and mucous membranes moist Neck Neck exam: Present normal inspection, full ROM and trachea midline; Absent lymphadenopathy Chest Chest inspection: Present normal inspection and symmetric chest wall rise Respiratory Respiratory exam: Present normal lung sounds bilaterally; Absent accessory muscle use Cardiovascular Cardiovascular exam: Present regular rate, normal rhythm, normal heart sounds, +S1 and +S2 Abdominal Exam Abdominal exam: Present soft and normal bowel sounds; Absent tenderness, guarding or rebound Extremities Exam Extremities exam: Present normal inspection and full ROM Neurological Exam Neurological exam: Present alert, oriented X3 and CN II-XII intact Psychiatric Psychiatric exam: Present normal affect and normal mood Skin Skin exam: Present warm, dry and normal color Lymphatic Lymphatic Findings: no adenopathy <Luis Yap MD - Last Filed: 01/25/24 22:24> Skin Skin exam: Present rash and erythema; Absent normal color Medical Decision Making <ADRIANA Trivedi - Last Filed: 01/25/24 18:46> Vital Signs: 01/25/24 18:43 01/25/24 19:36 01/25/24 19:38 Temperature 97.5 F L Temperature Source Oral Pulse Rate 86 88 Pulse Rate [Radial] 118 H Respiratory Rate 18 14 16 Blood Pressure 126/88 Blood Pressure [Right Arm] 159/103 H Blood Pressure Mean 104 Blood Pressure Mean [Right Arm] 121 Blood Pressure Source [Right Arm] Automatic Cuff Blood Pressure Position [Right Arm] Sitting 02 Sat by Pulse Oximetry 99 80 L 97 Oxygen Delivery Method Room Air Room Air Nasal Cannula Oxygen Flow Rate (LPM) 2 01/25/24 19:48 01/25/24 19:50 01/25/24 21:09 Temperature 97.5 F L Temperature Source Oral Pulse Rate 95 H 89 88 Pulse Rate [Radial] Respiratory Rate 14 16 16 Blood Pressure 126/88 Blood Pressure [Right Arm] Blood Pressure Mean Blood Pressure Mean [Right Arm] Blood Pressure Source [Right Arm] Blood Pressure Position [Right Arm] 02 Sat by Pulse Oximetry 96 99 Oxygen Delivery Method Nasal Cannula Nasal Cannula Nasal Cannula Oxygen Flow Rate (LPM) 2 4 4 Lab Data Lab Results 01/25/24 19:11: WBC 6.1, RBC 4.55 L, Hgb 17.5, Hct 51.2, MCV 112.7 H, MCH 38.4 H , MCHC 34.1, RDW 13.5, Plt Count 173, MPV 8.6, Neut % (Auto) 57.7, Lymph % (Auto) 31.1, [place] % (Auto) 8.1, Eos % (Auto) 1.6, Baso % (Auto) 1.5, Neut # (Auto) 3.5, Lymph # (Auto) 1.9, [place] # (Auto) 0.5, Eos # (Auto) 0.1, Baso # (Auto) 0.1, Sodium 140, Potassium 3.5, Chloride 98, Carbon Dioxide 23, Anion Gap 22.5 H, BUN 3 L, Creatinine 0.70, Estimated Creat Clear 174, Estimated GFR 126, Est GFR ( Amer) 153, Glucose 99, Lactate 5.3 H, Calcium 9.2, Total Bilirubin 1.5 H, AST 232 H, ALT 154 H, Alkaline Phosphatase 157 H, Total Protein 7.2, Albumin 4.4, Globulin 2.8, Albumin/Globulin Ratio 1.6, Plasma/Serum Alcohol 362 H 01/25/24 19:11 01/25/24 19:11 Orders (Tests/Meds): ED MEDICATIONS Generic Name Dose Route Start Last Admin Trade Name Freq PRN Reason Stop Dose Admin Acetaminophen 650 mg 01/25/24 21:28 Acetaminophen 325mg Tab PO 02/24/24 21:27 Q4HP PRN Fever or Mild Pain (1-3) Al Hydrox/Mg Hydrox/Simethicone 30 ml 01/25/24 21:28 Aluminum/Magnesium/Simethicone 30ml Udc PO 02/24/24 21:27 QIDP PRN Dyspepsia Enoxaparin Sodium 40 mg 01/26/24 09:00 Enoxaparin 40mg/0.4ml Syringe SQ 02/25/24 08:59 DAILY [facility] Folic Acid 1 mg 01/26/24 09:00 Folic Acid 1mg Tablet PO 02/25/24 08:59 DAILY [facility] Multivitamins 10 ml/ Thiamine 1,015 mls @ 125 mls/hr 01/26/24 09:00 HCl 100 mg/ Magnesium Sulfate IV 02/25/24 08:59 2 gm/ Lactated Ringer's DAILY [facility] Lorazepam 1 mg 01/25/24 21:28 Lorazepam 2mg/Ml Vial IV 02/24/24 21:27 Q4HP PRN Agitation Miscellaneous 1 each 01/25/24 19:45 01/25/24 20:07 Vancomycin Consult Request NOTAPPLIC 02/24/24 19:44 1 each CONSULT PHARMACY [facility] Administration Morphine Sulfate 2 mg 01/25/24 21:28 Morphine 2mg/Ml Syringe IV 02/24/24 21:27 Q2HP PRN Severe Pain (7-10) Nicotine 21 mg 01/25/24 21:28 Nicotine 21mg/24hr Patch TD 02/24/24 21:27 DAILYP PRN Nicotine Cravings Ondansetron HCl 4 mg 01/25/24 21:28 Ondansetron 4mg/2ml Vial IV 02/24/24 21:27 Q8HP PRN Nausea Pantoprazole Sodium 40 mg 01/26/24 09:00 Pantoprazole 40mg Tablet PO 02/25/24 08:59 DAILY [facility] Sodium Chloride 10 ml 01/25/24 21:28 Sodium Chloride 0.9% 10ml Vial IV 02/24/24 21:27 NEEDED PRN to Dilute Lorazepam inj Discontinued Medications Generic Name Dose Route Start Last Admin Trade Name Freq PRN Reason Stop Dose Admin Dexamethasone Sodium Phosphate 10 mg 01/25/24 18:54 01/25/24 19:20 Dexamethasone 4mg/Ml 1ml Vial IV 01/25/24 18:55 10 mg ONCE ONE Administration Diphenhydramine HCl 50 mg 01/25/24 18:54 01/25/24 19:20 Diphenhydramine 50mg/Ml Vial IV 01/25/24 18:55 50 mg ONCE ONE Administration Lactated Ringer's 1,000 mls @ 999 mls/hr 01/25/24 18:54 01/25/24 19:22 Lactated Ringer's 1000 Ml Bag IV 01/25/24 19:54 999 mls/hr .Q1H1M ONE Administration Sodium Chloride 2,400 mls @ 1,200 mls/hr 01/25/24 19:36 01/25/24 20:06 Sod Chlor 0.9% 1000ml Bag 30 ml/kg infuse over 2 hr (2400 ml) 01/25/24 21:35 1,200 mls/hr IV Administration .Q2H ONE Cefepime HCl 2 gm/ Sodium 100 mls @ 200 mls/hr 01/25/24 19:36 01/25/24 20:04 Chloride IV 01/25/24 20:05 200 mls/hr ONCE ONE Administration Vancomycin/PEG/NADA/Lysine/Water 1.5 gm in 300 mls @ 150 mls/hr 01/25/24 19:45 Vancomycin 1.5gm/300ml (Peg) Premix IV 01/25/24 21:44 ONCE ONE ORDERS Category Date Time Status CXR --portable [XR chest portable] Stat Exams 01/25/24 20:16 Completed CBC w/Auto Diff [Complete Blood Count Auto Diff] Stat Lab 01/25/24 19:11 Completed CMP [Comprehensive Metabolic Panel] Stat Lab 01/25/24 19:11 Completed Ethanol [Ethyl Alcohol] Stat Lab 01/25/24 19:11 Completed Lactic Acid Stat Lab 01/25/24 19:11 Completed Blood Culture Stat Micro 01/25/24 19:11 Received Medical Decision Narrative: In summary patient is a [age, sex] who presents to the emergency department for evaluation of [complaint]. Patient is [hemodynamically stable/unstable] upon arrival, [febrile/afebrile]. [Unremarkable physical exam, nonfocal exam versus focal remarkable exam]. Differential diagnosis includes [DDx]. Initial workup will be conducted with [hematologic labs, imaging, respiratory swab, describe workup]. Initial interventions include [crystalloid bolus, medications, p.o. challenge, etc.] initial workup reviewed by me [hematologic labs are remarkable for... Imaging remarkable for... Urinalysis remarkable for]. Upon repeat evaluation [patient had acceptable resolution of symptoms, had persistent pain for which additional interventions were conducted (describe interventions), tolerated p.o., was ambulatory, etc.]. Given this [patient is appropriate for discharge at this time and will be discharged with a prescription for... The case was discussed with hospital medicine regarding management and they will admit the patient their service for continued evaluation at this time... Etc.] Places where you can increase complexity: I informally interpreted the patient's chest x-ray or CT read and is remarkable for... Documenting what the shelter monitor shows with rate and rhythm Consideration of test but deferring. Ex: I considered chest x-ray on this patient however given that they have no oxygen requirement and are clear to auscultation all lung kelly will be deferred. Social determinants of health: Given that patient is undomiciled increases complexity. Given that patient has polysubstance abuse compounds all aspects of care <Luis Yap MD - Last Filed: 01/25/24 22:24> Medical Records Medical records reviewed: Yes I reviewed the patient's medical records. Zhang Inquiry Pt receiving controlled substance: No Zhang was queried for this patient: No Vital Signs: 01/25/24 18:43 01/25/24 19:36 01/25/24 19:38 Temperature 97.5 F L Temperature Source Oral Pulse Rate 86 88 Pulse Rate [Radial] 118 H Respiratory Rate 18 14 16 Blood Pressure 126/88 Blood Pressure [Right Arm] 159/103 H Blood Pressure Mean 104 Blood Pressure Mean [Right Arm] 121 Blood Pressure Source [Right Arm] Automatic Cuff Blood Pressure Position [Right Arm] Sitting 02 Sat by Pulse Oximetry 99 80 L 97 Oxygen Delivery Method Room Air Room Air Nasal Cannula Oxygen Flow Rate (LPM) 2 01/25/24 19:48 01/25/24 19:50 01/25/24 21:09 Temperature 97.5 F L Temperature Source Oral Pulse Rate 95 H 89 88 Pulse Rate [Radial] Respiratory Rate 14 16 16 Blood Pressure 126/88 Blood Pressure [Right Arm] Blood Pressure Mean Blood Pressure Mean [Right Arm] Blood Pressure Source [Right Arm] Blood Pressure Position [Right Arm] 02 Sat by Pulse Oximetry 96 99 Oxygen Delivery Method Nasal Cannula Nasal Cannula Nasal Cannula Oxygen Flow Rate (LPM) 2 4 4 Lab Data Lab Results 01/25/24 19:11: WBC 6.1, RBC 4.55 L, Hgb 17.5, Hct 51.2, MCV 112.7 H, MCH 38.4 H , MCHC 34.1, RDW 13.5, Plt Count 173, MPV 8.6, Neut % (Auto) 57.7, Lymph % (Auto) 31.1, [place] % (Auto) 8.1, Eos % (Auto) 1.6, Baso % (Auto) 1.5, Neut # (Auto) 3.5, Lymph # (Auto) 1.9, [place] # (Auto) 0.5, Eos # (Auto) 0.1, Baso # (Auto) 0.1, Sodium 140, Potassium 3.5, Chloride 98, Carbon Dioxide 23, Anion Gap 22.5 H, BUN 3 L, Creatinine 0.70, Estimated Creat Clear 174, Estimated GFR 126, Est GFR ( Amer) 153, Glucose 99, Lactate 5.3 H, Calcium 9.2, Total Bilirubin 1.5 H, AST 232 H, ALT 154 H, Alkaline Phosphatase 157 H, Total Protein 7.2, Albumin 4.4, Globulin 2.8, Albumin/Globulin Ratio 1.6, Plasma/Serum Alcohol 362 H Orders (Tests/Meds): ED MEDICATIONS Generic Name Dose Route Start Last Admin Trade Name Freq PRN Reason Stop Dose Admin Acetaminophen 650 mg 01/25/24 21:28 Acetaminophen 325mg Tab PO 02/24/24 21:27 Q4HP PRN Fever or Mild Pain (1-3) Al Hydrox/Mg Hydrox/Simethicone 30 ml 01/25/24 21:28 Aluminum/Magnesium/Simethicone 30ml Udc PO 02/24/24 21:27 QIDP PRN Dyspepsia Enoxaparin Sodium 40 mg 01/26/24 09:00 Enoxaparin 40mg/0.4ml Syringe SQ 02/25/24 08:59 DAILY [facility] Folic Acid 1 mg 01/26/24 09:00 Folic Acid 1mg Tablet PO 02/25/24 08:59 DAILY [facility] Multivitamins 10 ml/ Thiamine 1,015 mls @ 125 mls/hr 01/26/24 09:00 HCl 100 mg/ Magnesium Sulfate IV 02/25/24 08:59 2 gm/ Lactated Ringer's DAILY [facility] Lorazepam 1 mg 01/25/24 21:28 Lorazepam 2mg/Ml Vial IV 02/24/24 21:27 Q4HP PRN Agitation Miscellaneous 1 each 01/25/24 19:45 01/25/24 20:07 Vancomycin Consult Request NOTAPPLIC 02/24/24 19:44 1 each CONSULT PHARMACY [facility] Administration Morphine Sulfate 2 mg 01/25/24 21:28 Morphine 2mg/Ml Syringe IV 02/24/24 21:27 Q2HP PRN Severe Pain (7-10) Nicotine 21 mg 01/25/24 21:28 Nicotine 21mg/24hr Patch TD 02/24/24 21:27 DAILYP PRN Nicotine Cravings Ondansetron HCl 4 mg 01/25/24 21:28 Ondansetron 4mg/2ml Vial IV 02/24/24 21:27 Q8HP PRN Nausea Pantoprazole Sodium 40 mg 01/26/24 09:00 Pantoprazole 40mg Tablet PO 02/25/24 08:59 DAILY [facility] Sodium Chloride 10 ml 01/25/24 21:28 Sodium Chloride 0.9% 10ml Vial IV 02/24/24 21:27 NEEDED PRN to Dilute Lorazepam inj Discontinued Medications Generic Name Dose Route Start Last Admin Trade Name Freq PRN Reason Stop Dose Admin Dexamethasone Sodium Phosphate 10 mg 01/25/24 18:54 01/25/24 19:20 Dexamethasone 4mg/Ml 1ml Vial IV 01/25/24 18:55 10 mg ONCE ONE Administration Diphenhydramine HCl 50 mg 01/25/24 18:54 01/25/24 19:20 Diphenhydramine 50mg/Ml Vial IV 01/25/24 18:55 50 mg ONCE ONE Administration Lactated Ringer's 1,000 mls @ 999 mls/hr 01/25/24 18:54 01/25/24 19:22 Lactated Ringer's 1000 Ml Bag IV 01/25/24 19:54 999 mls/hr .Q1H1M ONE Administration Sodium Chloride 2,400 mls @ 1,200 mls/hr 01/25/24 19:36 01/25/24 20:06 Sod Chlor 0.9% 1000ml Bag 30 ml/kg infuse over 2 hr (2400 ml) 01/25/24 21:35 1,200 mls/hr IV Administration .Q2H ONE Cefepime HCl 2 gm/ Sodium 100 mls @ 200 mls/hr 01/25/24 19:36 01/25/24 20:04 Chloride IV 01/25/24 20:05 200 mls/hr ONCE ONE Administration Vancomycin/PEG/NADA/Lysine/Water 1.5 gm in 300 mls @ 150 mls/hr 01/25/24 19:45 Vancomycin 1.5gm/300ml (Peg) Premix IV 01/25/24 21:44 ONCE ONE ORDERS Category Date Time Status CXR --portable [XR chest portable] Stat Exams 01/25/24 20:16 Completed CBC w/Auto Diff [Complete Blood Count Auto Diff] Stat Lab 01/25/24 19:11 Completed CMP [Comprehensive Metabolic Panel] Stat Lab 01/25/24 19:11 Completed Ethanol [Ethyl Alcohol] Stat Lab 01/25/24 19:11 Completed Lactic Acid Stat Lab 01/25/24 19:11 Completed Blood Culture Stat Micro 01/25/24 19:11 Received Medical Decision Narrative: 39-year-old male history of A-fib with RVR currently on cardiac medications, but noncompliant, psoriasis presenting with diffuse psoriasis flareup. Patient states that this has been going on for weeks. Got worse over the past couple days. No fevers or chills. Patient states that he has also been drinking 1/5 or more every day, more since this breakout started getting worse. No obvious nausea or vomiting, or any purulence, but rash seems to be getting worse and more painful. He states it is 10 out of 10, all over his body, does not let up. Has not taken anything for the pain other than alcohol. History obtained patient on arrival, patient hemodynamically stable. He is hypertensive, tachycardic, but afebrile. Appears uncomfortable, does not appear ill. He has diffuse erythematous, eczematous versus psoriatic rash. It is warm, tender, concern for superinfection. No obvious purulence. Differential includes psoriatic rash, drug rash, allergic, contact, sepsis, among others. Patient given sepsis bolus, Benadryl, Solu-Medrol. Workup independently interpreted. Patient does not have leukocytosis, chemistry largely nonactionable. He does have LFTs consistent with alcoholic hepatitis. Lactate elevated 5.3. Patient intermittently falling asleep after Benadryl, desaturated to 80%. Placed on nasal cannula for sleeping. Chest x-ray obtained, nonactionable findings on independent to rotation. Because patient concern for overwhelming infection, hospitalist contacted to be admitted for clearing blood cultures and new oxygen requirement. Because patient high risk for clinical decompensation, deemed appropriate for inpatient admission. Results were relayed to patient who voiced understanding and patient was agreeable to inpatient admission and management. Patient was admitted to the hospital for further definitive management. Critical Care <Luis Yap MD - Last Filed: 01/25/24 22:24> Critical Care Time Critical Care Time: No
[2024-01-25] MEDS: diphenhydrAMINE 50MG/ML VIAL 50 MG IV (19:20)
[2024-01-25] MEDS: DEXAMETHASONE 4MG/ML 1ML VIAL 10 MG IV (19:20)
[2024-01-25 19:22] LABS: Basophils # 0.1 K/mm3 (0-0.2); Basophils % 1.5 % (0.1-2.0); Eosinophils # 0.1 K/mm3 (0.0-0.4); Eosinophils % 1.6 % (0.1-12.0); Hematocrit 51.2 % (42.0-52.0); Hemoglobin 17.5 g/dL (14.1-18.0); Lymphocytes # 1.9 K/mm3 (0.7-4.5); Lymphocytes % 31.1 % (10-50); Mean Corpuscular HGB Conc 34.1 g/dL (31.8-35.4); Mean Corpuscular Hemoglobin 38.4 pg (27.0-31.2); Mean Corpuscular Volume 112.7 fl (80-94); Mean Platelet Volume 8.6 fl (7.4-10.4); Monocytes # 0.5 K/mm3 (0.1-1.0); Monocytes % 8.1 % (1.7-9.3); Neutrophils # 3.5 K/mm3 (1.8-7.8); Neutrophils % 57.7 % (37.0-80.0); Platelet Count 173 K/mm3 (142-424); Red Blood Count 4.55 M/mm3 (4.60-6.20); Red Cell Distribution Width 13.5 % (11.5-17.5); White Blood Count 6.1 K/mm3 (4.8-10.8)
[2024-01-25] MEDS: LACTATED RINGERS 1000ML 1,000 ML 999 ML IV (19:22)
[2024-01-25 19:29] LABS: Chloride 98 mmol/L (98-107)
[2024-01-25 19:30] LABS: Potassium 3.5 mmoL/L (3.5-5.1); Sodium 140 mmol/L (136-145)
[2024-01-25 19:32] LABS: Alanine Aminotransferase 154 U/L (12-78); Alkaline Phosphatase 157 U/L (38-126); Aspartate Amino Transferase 232 U/L (17-59); Bilirubin,Total 1.5 mg/dl (0.2-1.3); Blood Urea Nitrogen 3 mg/dl (9-20); Creatinine Clearance Estimated 174 mL/min (50-200); Estimated Glomerular Filt Rate 126 ml/min (>60); GFR (African American) 153 ML/MIN (>60)
[2024-01-25 19:33] LABS: Albumin Level 4.4 g/dl (3.5-5.0); Albumin/Globulin Ratio 1.6 (1.1-1.8); Anion Gap 22.5 mEq/L (5-15); Calcium 9.2 mg/dl (8.4-10.2); Carbon Dioxide 23 mmol/L (22.0-30.0); Globulin 2.8 g/dL (1.3-3.2); Glucose 99 mg/dl (74-100); Total Protein,Serum 7.2 g/dl (6.3-8.2)
[2024-01-25 19:36] LABS: Lactic Acid 5.3 mmol/L (0.7-2.1)
--- NOTE | 2024-01-25 19:37 | PC.NURSE ---
Lactic Acid of 5.[address] Yap
--- NOTE | 2024-01-25 19:40 | PC.NURSE ---
Documenting RN walked by patient's room and noticed patient o2 saturation was 80% on RA while sleeping. Patient NAD, but did wake patient up and he was able to take some deep breaths to get back up to 90%. Placed patient on 2L/NC and notified provider.
--- NOTE | 2024-01-25 19:48 | PC.NURSE ---
Walked back to patient's room and noticed he was back to sleep and back down to 87% on 2L/NC, so titrated o2 up to 4L. Attending notified
[2024-01-25 19:53] LABS: Ethyl Alcohol 362 mg/dl (0-10)
--- NOTE | 2024-01-25 19:54 | PC.NURSE ---
Critical Lab value of ETOH of [address] Yap
--- NOTE | 2024-01-25 19:57 | PC.NURSE ---
consulted pharmacy for vanc dosing
[2024-01-25] MEDS: CEFEPIME HCL 2 GM in 0.9 % SODIUM CHLORIDE 100 ML IV (20:04)
[2024-01-25] MEDS: 0.9 % SODIUM CHLORIDE 1000ML 2,400 ML 1200 ML IV (20:06)
[2024-01-25] MEDS: VANCOMYCIN CONSULT REQUEST 1 EACH NOTAPPLIC (20:07)
--- NOTE | 2024-01-25 20:16 | XR_ITS ---
PROCEDURE INFORMATION: Exam: XR Chest Exam date and time: 01/25/2024 8:24 PM Age: 39 years old Clinical indication: Other: Hypoxemia TECHNIQUE: Imaging protocol: Radiologic exam of the chest. Views: 1 view. COMPARISON: No relevant prior studies available. FINDINGS: Lungs: No evidence of acute pulmonary disease or infiltrates Pleural spaces: No large effusion or pneumothorax. Heart/Mediastinum: No evidence of mediastinal widening or cardiac silhouette enlargement; the mediastinum and heart appear within normal limits for contour and size. Bones/joints: No evidence of acute osseous abnormalities within the visualized portions of the thoracic spine and ribs. Osseous structures appear appropriate for patient age. IMPRESSION: No dense parenchymal consolidation, pleural effusion, or pneumothorax.
--- NOTE | 2024-01-25 20:21 | PC.NURSE ---
on phone with hospitalist
--- NOTE | 2024-01-25 20:26 | PC.NURSE ---
spoke with clubhouse manager for admission to Med/Surg
--- NOTE | 2024-01-25 20:41 | PC.NURSE ---
spoke with Med/Surg nurse to give report; she is currently with another patient and will call back soon
--- NOTE | 2024-01-25 20:56 | PC.NURSE ---
report called to NICK Fierro
--- NOTE | 2024-01-25 20:58 | PC.NURSE ---
2054 RECEIVED REPORT FROM ALONSO RN/ED NURSE . PATIENT IS 39 YO MALE. DIAGNOSIS SEPSIS. TO ARRIVE BY [facility].
--- NOTE | 2024-01-25 21:15 | PC.NURSE ---
Patient arrived to floor via stretcher from ED at 21:13.
--- NOTE | 2024-01-25 21:30 | EXP.HP ---
History of Present Illness *Admission Date: 01/25/24 *Reason for visit:: painful rash *History of present illness: This is a 39-year-old male history of anxiety, depression, polysubstance abuse, tobacco abuse, daily drinking presenting with bodyaches, painful break up of hi psoriasis, that has been getting worse. patient stated he is been drinking daily, since break up and has not been taking anything else than alcohol for pain. patient presented currently intoxicated. Denies hallucinations whether auditory or visual, chest pain, shortness of breath. Vomiting is nonbloody, nonbilious. Notably, patient states that he has been taking 5 mg diazepam that he purchases illegally in order to help with anxiety and alcohol symptoms. Denies opiate abuse. Admitted for treatment and management. [facility] Disclaimer: The information contained in this section may have been updated after the patient was seen, as this information can be updated by other users. Social History (Updated 01/25/24 @ 22:09 by Sri De La Rosa RN) Smoking Status: Current every day smoker tobacco type: cigarettes packs per day: 2 second hand exposure: No alcohol intake: current alcohol intake frequency: 3 or more drinks per day substance use type: marijuana current occupational status: employed and unemployed Travel in the last 8 weeks: None housing: house current occupational exposures/hazards: No caffeine: Yes Review of Systems Review of Systems Review of systems:: pertinent systems reviewed and negative unless documented below Meds Home Medications and Allergies Home Medications Medication Instructions Recorded Confirmed Type triamcinolone acetonide 0.1 % 1 applic topical BID #60 grams 01/23/24 01/25/24 Rx topical ointment New Prescriptions to Start Prescriptions: Allergies Allergy/AdvReac Type Severity Reaction Status Date / Time Sulfa (Sulfonamide Allergy Unknown Rash/ mild Verified 04/29/21 10:22 Antibiotics) breathing [SULFA (SULFONAMIDE problems ANTIBIOTICS)] per PT Exam Data for Last 24 hours Vital signs and Labs for Last 24 Hours: Temp Pulse Resp BP Pulse Ox O2 Del Method O2 Flow Rate 97.5 F L 88 16 126/88 99 Nasal Cannula 4 01/25/24 21:09 01/25/24 21:09 01/25/24 21:01/25/24 21:01/25/24 19:50 01/25/24 21:09 01/25/24 21:09 Laboratory Results - last 24 hr 01/25/24 19:11: WBC 6.1, RBC 4.55 L, Hgb 17.5, Hct 51.2, MCV 112.7 H, MCH 38.4 H, MCHC 34.1, RDW 13.5, Plt Count 173, MPV 8.6, Neut % (Auto) 57.7, Lymph % (Auto) 31.1, Orange % (Auto) 8.1, Eos % (Auto) 1.6, Baso % (Auto) 1.5, Neut # (Auto) 3.5, Lymph # (Auto) 1.9, Orange # (Auto) 0.5, Eos # (Auto) 0.1, Baso # (Auto) 0.1, Sodium 140, Potassium 3.5, Chloride 98, Carbon Dioxide 23, Anion Gap 22.5 H, BUN 3 L, Creatinine 0.70, Estimated Creat Clear 174, Estimated GFR 126, Est GFR ( Amer) 153, Glucose 99, Lactate 5.3 H, Calcium 9.2, Total Bilirubin 1.5 H, AST 232 H, ALT 154 H, Alkaline Phosphatase 157 H, Total Protein 7.2, Albumin 4.4, Globulin 2.8, Albumin/Globulin Ratio 1.6, Plasma/Serum Alcohol 362 H Temp Pulse Resp BP Pulse Ox 98.7 F 133 H 20 132/97 H 98 11/03/23 18:47 11/03/23 22:40 11/03/23 22:40 11/03/23 22:40 11/03/23 22:40 Laboratory Results - last 24 hr 11/03/23 19:22: WBC 8.9, RBC 5.07, Hgb 18.0, Hct 54.0 H, MCV 106.7 H, MCH 35.6 H, MCHC 33.4, RDW 14.8, Plt Count 215, MPV 9.1, Neut % (Auto) 85.5 H, Lymph % (Auto) 5.9 L, Orange % (Auto) 8.0, Eos % (Auto) 0.4, Baso % (Auto) 0.3, Neut # (Auto) 7.6, Lymph # (Auto) 0.5 L, Orange # (Auto) 0.7, Eos # (Auto) 0.0, Baso # (Auto) 0.0, Total Counted 100, Neutrophils % (Manual) 79 H, Band Neutrophils % 1.0, Lymphocytes % (Manual) 19, Monocytes % (Manual) 1 L, Platelet Estimate Normal, Macrocytosis 1+, Sodium 138, Potassium 3.9, Chloride 91 L, Carbon Dioxide 6 L*, Anion Gap 44.9 H, BUN 10, Creatinine 1.30 H, Estimated Creat Clear 90, Estimated GFR 62, Est GFR ( Amer) 75, Glucose 133 H, Lactate 2.7 H, Calcium 10.2, Total Bilirubin 2.2 H, AST 140 H, ALT 172 H, Alkaline Phosphatase 125, Troponin I < 0.01, Total Protein 9.7 H D, Albumin 5.7 H, Globulin 4.0 H, Albumin/Globulin Ratio 1.4, Lipase 195, TSH 1.53, Thyroxine (T4) 6.4, Salicylates < 1.0 L, Acetaminophen < 10 L, Plasma/Serum Alcohol < 10 11/03/23 19:52: VBG pH 7.31, VBG pCO2 24.0 L, VBG pO2 54.2 H, VBG HCO3 11.8 L, VBG Total CO2 12.5 L, VBG O2 Saturation 88.6 H, VBG Base Excess -14.5 L 11/03/23 22:06: Urine Opiates Screen Negative, Urine Methadone Screen Negative, Ur Barbituates Screen Negative, Ur Phencyclidine Scrn Negative, Ur Amphetamines Screen Negative, U Benzodiazepines Scrn Positive H, Urine Cocaine Screen Negative, U Marijuana (THC) Screen Positive H 11/03/23 22:07: SARS-CoV-2 (PCR) Not detected, Influenza A Untype (PCR) Not detected, Influenza Type B (PCR) Not detected 11/03/23 22:55: Troponin I < 0.01 I & O for Last 24 hours: Intake & Output 01/22/24 01/23/24 01/24/24 01/25/24 23:59 23:59 23:59 23:59 Weight 86.183 kg Intake & Output 10/31/23 11/01/23 11/02/23 11/03/23 23:59 23:59 23:59 23:59 Intake Total 30.619 / 30.619 Balance 30.619 / 30.619 Weight 81.647 kg Constitutional Constitutional: moderate distress and cooperative Comments: intoxicated appearance *Routine HEENT Exam Head: Present normocephalic Eye: Present EOMI ENT: Present mucous membranes moist *Routine Neck Exam Neck: Present full ROM *Routine Respiratory Exam Respiratory: Present CTA bilaterally and symmetric chest movement *Routine Cardiovascular Exam Cardiovascular: Present tachycardia *Routine Abdominal Exam Abdominal: Present soft, normoactive bowel sounds and tenderness *Routine Rectal Exam Rectal:: deferred *Routine Genitalia Exam Genitalia:: deferred *Routine Extremities Exam Extremities: Present cyanosis and full ROM; Absent edema *Routine Skin Exam Skin: Present intact *Routine Neurological Exam Neurological: Present alert and oriented X3 H&P: Result Imaging and Cardiology EKG: Status: image reviewed by me, Preliminary report and final report Chest x-ray: Status: image reviewed by me, Preliminary report and final report Assessment and Plan *Assessment and plan (1) Lactic acid acidosis: Status: Acute Category: Medical Code(s): E87.20 - Acidosis, unspecified (2) Hypoxia: Status: Acute Category: Medical Code(s): R09.02 - Hypoxemia (3) Psoriasis: Status: Acute Category: Medical Code(s): L40.9 - Psoriasis, unspecified (4) Transaminitis: Status: Acute Category: Medical Code(s): R74.01 - Elevation of levels of liver transaminase levels (5) Intoxication: Status: Acute Category: Medical (6) Tachycardia: Status: Acute Category: Medical Code(s): R00.0 - Tachycardia, unspecified (7) Anxiety and depression: Status: Acute Category: Medical Code(s): F41.9 - Anxiety disorder, unspecified; F32.A - Depression, unspecified (8) Tobacco abuse: Status: Acute Category: Medical Code(s): Z72.0 - Tobacco use (9) Alcohol abuse: Status: Acute Category: Social Hx Code(s): F10.10 - Alcohol abuse, uncomplicated Plan 39-year-old male history of anxiety, depression, polysubstance abuse, tobacco abuse, daily drinking presenting with bodyaches, painful break up of hi psoriasis, that has been getting worse. patient stated he is been drinking daily, since break up and has not been taking anything else than alcohol for pain. initial work up only positive for elevated lactic acid. patient currently intoxicated. plasma alcohol 362. CXR negative. ED requested admission to clear cultures,stabilization and rule sepsis. agreed for admission. Plan as follow: Acute alcohol intoxication, presented tachycardia, lactic acidosis:. psoriasis with painful generalized rash: to rule out superimposed staph infection: Admit patient. started on vancomycin by ED. BC drawn to rule out sepsis pain management. dexametosone 10mg IVP given continue 4mg BID EKG sinus tach Troponins are negative Monitor for heart rate vital signs per unit protocol Multivitamin infusion B1 and folate CIWA protocol. patient needs dry heat room attendant evaluation and treatment when medically stable - Elevated alcoholic transaminitis patient non compliance with medical treatment \. recently hospitalized for alcohol withdrawal does not showing interest on quit continue monitor liver function daily CMP/CBC -History of anxiety depression and polysubstance abuse: Continue monitoring for withdrawal symptoms Currently on no medications Lovenox for DVT prophylax. On Protonix for GERD suspected distal esophagitis Full code Rounded on patient after nurse practitioner. Personally examined and interviewed patient. Agree with exam findings and care plan as documented.
[2024-01-25] MEDS: VANCOMYCIN/WATER FOR INJ (PEG) 1.5 GM/300 ML PIGGYBACK IV (22:22)
[2024-01-25 23:16] LABS: Reflex Lactic Add Lactic Reflex
[2024-01-25 23:54] LABS: Lactic Acid Follow Up (RFLX 1) 3.5 mmol/L (0.7-2.1)
[2024-01-26 01:40] LABS: Reflex Lactic (2 hrs) Add Lactic Reflex
[2024-01-26] MEDS: LORazepam 2MG/ML VIAL 1 MG IV (02:03)
[2024-01-26 02:08] LABS: Lactic Acid Follow up (RFLX 2) 3.4 mmol/L (0.7-2.1)
--- NOTE | 2024-01-26 02:28 | PC.NURSE ---
Patient has been a/o x 4. coherent and cooperative. at 0203 began to c/o tremors and nervouseness. Medicated with lorazepam 1 mg ivp slow. No other S/S of alcohol withdrawal observed. Lactate levels coming down. Was 5.3 and now 3.4.
[2024-01-26 04:00] VITALS: BP 131/77; PULSE 110; RESP 18; TEMP 36.9; O2SAT 97; BMI 23.3
[2024-01-26] MEDS: VANCOMYCIN/WATER FOR INJ (PEG) 1.25 GM/250 ML PIGGYBACK IV ×2 (05:19→13:10)
[2024-01-26] MEDS: diazePAM 10MG/2ML SYRINGE 10 MG IV (07:02)
[2024-01-26] MEDS: ONDANSETRON 4MG/2ML VIAL 4 MG IV (07:02)
--- NOTE | 2024-01-26 07:10 | [facility].PHAINT1 ---
Pharmacy Intervention Comments: HOME MEDICATION LIST VERIFIED VIA OUTSIDE PHARMACY
[2024-01-26 07:22] LABS: Lymphocytes # 0.4 K/mm3 (0.7-4.5); Monocytes # 0.2 K/mm3 (0.1-1.0)
[2024-01-26 07:39] LABS: Basophils % 0.3 % (0.1-2.0); Eosinophils % 0.3 % (0.1-12.0); Hematocrit 47.6 % (42.0-52.0); Lymphocytes % 10.3 % (10-50); Mean Corpuscular HGB Conc 31.9 g/dL (31.8-35.4); Mean Corpuscular Hemoglobin 37.7 pg (27.0-31.2); Mean Corpuscular Volume 118.3 fl (80-94); Mean Platelet Volume 9.3 fl (7.4-10.4); Monocytes % 5.1 % (1.7-9.3); Neutrophils # 3.1 K/mm3 (1.8-7.8); Platelet Count 132 K/mm3 (142-424); Red Blood Count 4.03 M/mm3 (4.60-6.20); Red Cell Distribution Width 13.3 % (11.5-17.5); White Blood Count 3.7 K/mm3 (4.8-10.8)
--- NOTE | 2024-01-26 07:40 | EXP.PHA.CONS ---
Pharmacy Consult Date: 01/26/24 Time: 07:41 Referring provider: DR TORRES Reason for Consult:: VANCOMYCIN DOSING CONSULT Allergies Allergy/AdvReac Type Severity Reaction Status Date / Time Sulfa (Sulfonamide Allergy Unknown Rash/ mild Verified 04/29/21 10:22 Antibiotics) breathing [SULFA (SULFONAMIDE problems ANTIBIOTICS)] per PT Home Medications Medication Instructions Recorded Confirmed Type triamcinolone acetonide 0.1 % 1 applic topical BID #60 grams 01/23/24 01/25/24 Rx topical ointment New Prescriptions to Start Prescriptions: Height: 1.85 m Weight: 80.087 kg Laboratory Results:: Laboratory Results - last 24 hr 01/25/24 19:11: WBC 6.1, RBC 4.55 L, Hgb 17.5, Hct 51.2, MCV 112.7 H, MCH 38.4 H, MCHC 34.1, RDW 13.5, Plt Count 173, MPV 8.6, Neut % (Auto) 57.7, Lymph % (Auto) 31.1, Wallace % (Auto) 8.1, Eos % (Auto) 1.6, Baso % (Auto) 1.5, Neut # (Auto) 3.5, Lymph # (Auto) 1.9, Wallace # (Auto) 0.5, Eos # (Auto) 0.1, Baso # (Auto) 0.1, Sodium 140, Potassium 3.5, Chloride 98, Carbon Dioxide 23, Anion Gap 22.5 H, BUN 3 L, Creatinine 0.70, Estimated Creat Clear 174, Estimated GFR 126, Est GFR ( Amer) 153, Glucose 99, Lactate 5.3 H, Calcium 9.2, Total Bilirubin 1.5 H, AST 232 H, ALT 154 H, Alkaline Phosphatase 157 H, Total Protein 7.2, Albumin 4.4, Globulin 2.8, Albumin/Globulin Ratio 1.6, Plasma/Serum Alcohol 362 H 01/25/24 23:30: Lactate 3.5 H 01/26/24 01:55: Lactate 3.4 H Assessment and Plan Assessment and plan all Dx Assessment and Plan for all problems:: Pharmacokinetic dosing service Objective: Age: 39 yo Serum creatinine: 0.7 mg/dL Height: 72.8 Inches Weight (kg): 80.087 Diagnosis: SEPSIS Assessment: IBW (kg): 79.44 Dosing wt(kg): 80.087 Estimated Creatinine clearance (ml/min): 130 Clearance limited to 130 ml/min to reduce risk of overdosing. CRCL method: Cockcroft and Gault using ibw(default). Drug selected: Vancomycin Loading dose (mg): 1500 MG Vd (liters): 60.1 (factor used: 0.75 L/kg) Gerardo (hr-1): 0.112 Half life (hrs): 6.19 CLvanco=?? 6.731 L/hr Recommended dose: 1250 mg Interval: 8 hrs Infusion time (hrs): 2.0 Predicted peak (mcg/mL): 31.5 Predicted trough (mcg/mL): 16.09 Total body weight is being used for vancomycin dosing. Recommendations: Give Vancomycin 1250 mg q 8 hrs with an expected Cpeak of 31.5 mcg/ml and an expected Ctrough of 16.09 mcg/ml. AUC 0-24 /LEON Data: LEON 0.5 mcg/mL:?? AUC/LEON:? 1114.2 LEON 1.0 mcg/mL:?? AUC/LEON:? 557.1 --------- LEON 1.5 mcg/mL:?? AUC/LEON:? 371.4 LEON 2.0 mcg/mL:?? AUC/LEON:? 278.6 Thank you for the consult
--- NOTE | 2024-01-26 07:41 | EXP.ACUTE.PN ---
Subjective *Date: 01/26/24 *Time: 15:12 Interval history: Patient having tremor. CIWA's have ranged from 5-16. Receiving benzodiazepine therapy. Pain improving with steroids. No nausea or vomiting. Quite tremulous on exam. Weaning oxygen, weaned to room air on morning rounds. Medical Exam Vital signs and Labs for Last 24 Hours: Vital Signs Temp Pulse Pulse Resp BP BP Pulse Ox 01/26/24 06:26 01/26/24 04:55 01/26/24 04:00 98.5 F 110 H 18 131/77 97 01/26/24 03:00 01/26/24 01:00 01/25/24 23:00 01/25/24 22:55 97.5 F L 101 H 19 127/71 99 01/25/24 21:15 96 01/25/24 21:09 97.5 F L 88 16 126/88 01/25/24 19:50 89 16 99 01/25/24 19:48 95 H 14 96 01/25/24 19:38 88 16 126/88 97 01/25/24 19:36 86 14 80 L 01/25/24 18:43 97.5 F L 118 H 18 159/103 H 99 O2 Del Method O2 Flow Rate 01/26/24 06:26 Nasal Cannula 4 01/26/24 04:55 Nasal Cannula 4 01/26/24 04:00 Nasal Cannula 4 01/26/24 03:00 Nasal Cannula 4 01/26/24 01:00 Nasal Cannula 4 01/25/24 23:00 Nasal Cannula 2 01/25/24 22:55 Nasal Cannula 4 01/25/24 21:15 Nasal Cannula 2 01/25/24 21:09 Nasal Cannula 4 01/25/24 19:50 Nasal Cannula 4 01/25/24 19:48 Nasal Cannula 2 01/25/24 19:38 Nasal Cannula 2 01/25/24 19:36 Room Air 01/25/24 18:43 Room Air Intake and Output 01/25/24 01/25/24 01/26/24 15:59 23:59 07:59 Intake Total 3940 / 3940 550 / 550 Output Total 251 / 251 Balance 3940 / 3940 299 / 299 Intake: Intake, Oral Amount 440 / 440 Intake, Total IV Amount 3500 / 3500 550 / 550 0.9 % Sodium Chloride 1000ML 2, 2400 / 2400 400 ml @ 1200 mls/hr IV .Q2H ONE Rx#:[id number] Cefepime HCl 2 gm In 0.9 % 100 / 100 Sodium Chloride 100 ml @ 200 mls/hr IV ONCE ONE Rx#:[id number] Mvi, Adult No.1 with Vit K 10 1000 / 1000 ml Thiamine HCl 100 mg Magnesium Sulfate 2 gm In Lactated Ringers 1000ML 1,000 ml @ 125 mls/hr IV DAILY [facility] Rx #:[id number] Vancomycin/Water For Inj (Peg) 250 / 250 1.25 gm In 250 ml @ 125 mls/hr IV Q8H [facility] Rx#:[id number] Vancomycin/Water For Inj (Peg) 300 / 300 1.5 gm In 300 ml @ 150 mls/hr IV ONCE ONE Rx#:[id number] Output: Output, Urine Amount 251 / 251 Other: Number of Unmeasured Voids 1 Number of Bowel Movements 1 Weight 78.471 kg 80.087 kg Patient Weight 01/26/24 23:59 Weight 80.087 kg Laboratory Results - last 24 hr 01/25/24 19:11: WBC 6.1, RBC 4.55 L, Hgb 17.5, Hct 51.2, MCV 112.7 H, MCH 38.4 H, MCHC 34.1, RDW 13.5, Plt Count 173, MPV 8.6, Neut % (Auto) 57.7, Lymph % (Auto) 31.1, Oliver % (Auto) 8.1, Eos % (Auto) 1.6, Baso % (Auto) 1.5, Neut # (Auto) 3.5, Lymph # (Auto) 1.9, Oliver # (Auto) 0.5, Eos # (Auto) 0.1, Baso # (Auto) 0.1, Sodium 140, Potassium 3.5, Chloride 98, Carbon Dioxide 23, Anion Gap 22.5 H, BUN 3 L, Creatinine 0.70, Estimated Creat Clear 174, Estimated GFR 126, Est GFR ( Amer) 153, Glucose 99, Lactate 5.3 H, Calcium 9.2, Total Bilirubin 1.5 H, AST 232 H, ALT 154 H, Alkaline Phosphatase 157 H, Total Protein 7.2, Albumin 4.4, Globulin 2.8, Albumin/Globulin Ratio 1.6, Plasma/Serum Alcohol 362 H 01/25/24 23:30: Lactate 3.5 H 01/26/24 01:55: Lactate 3.4 H I & O for Labs for Last 24 Hours: Intake & Output 01/23/24 01/24/24 01/25/24 01/26/24 23:59 23:59 23:59 23:59 Intake Total 3940 / 3940 550 / 550 Output Total 251 / 251 Balance 3940 / 3940 299 / 299 Weight 78.471 kg 80.087 kg Constitutional: Present mild distress, average body habitus, chronically ill appearing and cooperative Head: Present atraumatic ENT: Present normal exam Comment:: Significant scaling plaques on scalp Neck: Present normal inspection Respiratory: Present normal respiratory effort; Absent rhonchi, wheezes or crackles Cardiac: Present Reg Rate and Rhythm GI: Present soft and normal bowel sounds; Absent distention or tenderness Extremities: Present normal inspection and full ROM Skin: Present intact and erythema Comment:: Too numerous to count Numular erythematous lesions with silver scale plaque overlying consistent with plaque psoriasis Neuro: Present Grossly Intact, alert, awake, oriented x 3 and moves all extremities Comment:: Tremor Assessment and Plan *Assessment and plan (1) Alcohol withdrawal: Status: Acute Qualifiers: Complication of substance-induced condition: with unspecified complication Qualified Code(s): F10.939 - Alcohol use, unspecified with withdrawal, unspecified Category: Medical Code(s): F10.939 - Alcohol use, unspecified with withdrawal, unspecified (2) Lactic acid acidosis: Status: Acute Category: Medical Code(s): E87.20 - Acidosis, unspecified (3) Hypoxia: Status: Acute Category: Medical Code(s): R09.02 - Hypoxemia (4) Psoriasis: Status: Acute Category: Medical Code(s): L40.9 - Psoriasis, unspecified (5) Transaminitis: Status: Acute Category: Medical Code(s): R74.01 - Elevation of levels of liver transaminase levels (6) Intoxication: Status: Acute Category: Medical (7) Tachycardia: Status: Acute Category: Medical Code(s): R00.0 - Tachycardia, unspecified (8) Anxiety and depression: Status: Acute Category: Medical Code(s): F41.9 - Anxiety disorder, unspecified; F32.A - Depression, unspecified (9) Tobacco abuse: Status: Acute Category: Medical Code(s): Z72.0 - Tobacco use (10) Alcohol abuse: Status: Acute Category: Social Hx Code(s): F10.10 - Alcohol abuse, uncomplicated Plan 39-year-old male history of anxiety, depression, polysubstance abuse, tobacco abuse, daily drinking presenting with bodyaches, painful break up of hi psoriasis, that has been getting worse. patient stated he is been drinking daily, since break up and has not been taking anything else than alcohol for pain. initial work up only positive for elevated lactic acid. patient currently intoxicated. plasma alcohol 362. CXR negative. ED requested admission to clear cultures,stabilization and rule sepsis. agreed for admission. Patient weaned to room air today. Treating for alcohol withdrawal. Continues to require inpatient management. Problems addressed as follows: Acute alcohol intoxication, presented tachycardia, lactic acidosis:. psoriasis with painful generalized rash: to rule out superimposed staph infection: Low concern for infection. Symptoms most likely due to alcohol withdrawal. Discontinuing antibiotics including cefepime and vancomycin Culture still pending with blood cultures. Continue dexamethasone 6 mg daily IV Alcohol withdrawal protocol with CIWA's every 4 hours. Treating with benzodiazepines per protocol. Continue rally pack daily. B1 and folate patient needs fiction and nonfiction prose writer evaluation and treatment when medically stable Mild alcoholic hepatitis -Case management consulted to assist with discussion about cessation and detox. Will continue inpatient detox at this time. -Bilirubin 1.4, AST 170, ALT 125. Electrolyte disturbance with with magnesium 1.1. Potassium 3.7. Replacing orally and IV Repeat CBC, CMP, magnesium ordered for the morning. -History of anxiety depression and polysubstance abuse: Continue monitoring for withdrawal symptoms Currently on no medications Lovenox for DVT prophylax On Protonix for GERD suspected distal esophagitis Full code
[2024-01-26 07:46] LABS: Hemoglobin 15.2 g/dL (14.1-18.0)
[2024-01-26 08:00] VITALS: BP 132/79; PULSE 110; RESP 21; TEMP 37.1; O2SAT 93
[2024-01-26 08:07] LABS: Alanine Aminotransferase 125 U/L (12-78); Albumin Level 3.8 g/dl (3.5-5.0); Albumin/Globulin Ratio 1.5 (1.1-1.8); Alkaline Phosphatase 121 U/L (38-126); Anion Gap 15.7 mEq/L (5-15); Aspartate Amino Transferase 170 U/L (17-59); Bilirubin,Total 1.4 mg/dl (0.2-1.3); Blood Urea Nitrogen 3 mg/dl (9-20); Calcium 8.4 mg/dl (8.4-10.2); Carbon Dioxide 24 mmol/L (22.0-30.0); Chloride 102 mmol/L (98-107); Creatinine Clearance Estimated 162 mL/min (50-200); Estimated Glomerular Filt Rate 126 ml/min (>60); GFR (African American) 153 ML/MIN (>60); Globulin 2.5 g/dL (1.3-3.2); Glucose 125 mg/dl (74-100); Magnesium 1.1 mg/dl (1.6-2.3); Potassium 3.7 mmoL/L (3.5-5.1); Sodium 138 mmol/L (136-145); Total Protein,Serum 6.3 g/dl (6.3-8.2)
[2024-01-26 08:09] LABS: Phosphorous 4.7 mg/dl (2.5-4.5)
[2024-01-26] MEDS: PANTOPRAZOLE 40MG TABLET 40 MG PO (08:10)
[2024-01-26] MEDS: DEXAMETHASONE 4MG/ML 1ML VIAL 4 MG IV (08:10)
[2024-01-26] MEDS: FOLIC ACID 1MG TABLET 1 MG PO (08:10)
[2024-01-26] MEDS: MVI, ADULT NO.1 WITH VIT K 10 ML, THIAMINE HCL 100 MG, MAGNESIUM SULFATE 2 GM in LACTAT... 125 ML IV (09:15)
[2024-01-26] MEDS: diazePAM 5MG TABLET 5 MG PO ×3 (09:30→21:50)
[2024-01-26 10:17] VITALS: O2SAT 96
[2024-01-26 10:27] VITALS: O2SAT 94
[2024-01-26] MEDS: MAGNESIUM SULFATE IN WATER 2 GM/50 ML PIGGYBACK IV ×2 (11:47→18:11)
--- NOTE | 2024-01-26 15:13 | PC.NURSE ---
Pt. is aox4. up with assistance times one, now on RA sats in the 90's, bed alarm on and patient calls out to get up, using urinal, CIWA every 4 hours, cardiac diet.
[2024-01-26 16:00] VITALS: BP 148/80; PULSE 100; RESP 20; TEMP 37; O2SAT 96; BMI 23.3
[2024-01-26] MEDS: NICOTINE 21MG/24HR PATCH 21 MG TD (18:11)
[2024-01-26 20:00] VITALS: BP 129/80; PULSE 109; RESP 18; TEMP 36.8; O2SAT 95; O2SAT 96
--- NOTE | 2024-01-26 22:53 | EXP.SEPSISRE ---
[facility] Tissue Perfusion Eval Sepsis Re-Evaluation Performed: Yes Date Performed: 01/26/24 Time Performed: 08:30
[2024-01-27 04:00] VITALS: BP 133/76; PULSE 88; RESP 18; TEMP 37; O2SAT 96; BMI 23.3
[2024-01-27] MEDS: diazePAM 5MG TABLET 5 MG PO (05:36)
[2024-01-27 06:37] LABS: Chloride 100 mmol/L (98-107)
[2024-01-27 06:38] LABS: Basophils % 0.3 % (0.1-2.0); Eosinophils % 0.2 % (0.1-12.0); Hemoglobin 15.1 g/dL (14.1-18.0); Lymphocytes # 1.3 K/mm3 (0.7-4.5); Lymphocytes % 21.3 % (10-50); Mean Corpuscular HGB Conc 33.6 g/dL (31.8-35.4); Mean Corpuscular Hemoglobin 38.7 pg (27.0-31.2); Mean Corpuscular Volume 115.2 fl (80-94); Mean Platelet Volume 9.1 fl (7.4-10.4); Monocytes # 0.5 K/mm3 (0.1-1.0); Monocytes % 7.3 % (1.7-9.3); Neutrophils # 4.3 K/mm3 (1.8-7.8); Neutrophils % 70.9 % (37.0-80.0); Platelet Count 122 K/mm3 (142-424); Potassium 3.1 mmoL/L (3.5-5.1); Red Blood Count 3.91 M/mm3 (4.60-6.20); Red Cell Distribution Width 13.4 % (11.5-17.5); Sodium 136 mmol/L (136-145); White Blood Count 6.1 K/mm3 (4.8-10.8)
[2024-01-27 06:40] LABS: Alanine Aminotransferase 120 U/L (12-78); Aspartate Amino Transferase 126 U/L (17-59); Blood Urea Nitrogen 5 mg/dl (9-20); Creatinine Clearance Estimated 189 mL/min (50-200); Estimated Glomerular Filt Rate 151 ml/min (>60); GFR (African American) 182 ML/MIN (>60)
[2024-01-27 06:41] LABS: Albumin Level 3.6 g/dl (3.5-5.0); Albumin/Globulin Ratio 1.7 (1.1-1.8); Alkaline Phosphatase 104 U/L (38-126); Anion Gap 8.1 mEq/L (5-15); Bilirubin,Total 1.7 mg/dl (0.2-1.3); Calcium 8.7 mg/dl (8.4-10.2); Carbon Dioxide 31 mmol/L (22.0-30.0); Globulin 2.1 g/dL (1.3-3.2); Glucose 94 mg/dl (74-100); Magnesium 2.1 mg/dl (1.6-2.3); Total Protein,Serum 5.7 g/dl (6.3-8.2)
[2024-01-27 07:32] VITALS: BP 130/75; PULSE 90; RESP 20; TEMP 36.8; O2SAT 97
[2024-01-27 07:56] LABS: Vancomycin,Trough 5.9 ug/mL (5.0-10.0)
--- NOTE | 2024-01-27 08:45 | PC.NURSE ---
rounded on patient as bed alarm was going off, pt requested bed alarm be turned off so he could stretch his legs, Dr. Mcguire in room and stated it was ok to leave bed alarm off, pt educated on risk of falls, verbalized understanding
[2024-01-27] MEDS: DEXAMETHASONE 4MG/ML 1ML VIAL 6 MG IV (09:01)
[2024-01-27] MEDS: PANTOPRAZOLE 40MG TABLET 40 MG PO (09:02)
[2024-01-27] MEDS: FOLIC ACID 1MG TABLET 1 MG PO (09:02)
[2024-01-27] MEDS: POTASSIUM CHLORIDE 20MEQ TAB 40 MEQ PO (09:02)
[2024-01-27] MEDS: MVI, ADULT NO.1 WITH VIT K 10 ML, THIAMINE HCL 100 MG, MAGNESIUM SULFATE 2 GM in LACTAT... 125 ML IV (09:21)
[2024-01-27] MEDS: NICOTINE 21MG/24HR PATCH 21 MG TD (09:27)
--- NOTE | 2024-01-27 10:10 | SW/DCPLANNER ---
Patient voiced that he is not interested in any resources at this time. Patient will discharge home today w/ [facility] Resource List in folder for future reference.
--- NOTE | 2024-01-27 10:30 | P.DS_ITS ---
General Admission date:: 01/25/24 Discharge date: 01/27/24 HPI HPI HPI: This is a 39-year-old male history of anxiety, depression, polysubstance abuse, tobacco abuse, daily drinking presenting with bodyaches, painful break up of hi psoriasis, that has been getting worse. patient stated he is been drinking daily, since break up and has not been taking anything else than alcohol for pain. patient presented currently intoxicated. Denies hallucinations whether auditory or visual, chest pain, shortness of breath. Vomiting is nonbloody, nonbilious. Notably, patient states that he has been taking 5 mg diazepam that he purchases illegally in order to help with anxiety and alcohol symptoms. Denies opiate abuse. Admitted for treatment and management. Hospital Course Hospital Course Hospital Course: 39-year-old male history of anxiety, depression, polysubstance abuse, tobacco abuse, daily drinking presenting with bodyaches, painful break up of hi psoriasis, that has been getting worse. patient stated he is been drinking daily, since break up and has not been taking anything else than alcohol for pain. initial work up only positive for elevated lactic acid. patient currently intoxicated. plasma alcohol 362. CXR negative. ED requested admission to clear cultures,stabilization and rule sepsis. agreed for admission. Patient weaned to room air within 24 hours. Treating for alcohol withdrawal. Discussion with patient, he has no desire to stop drinking. Given his clinical stability, will discharge home today. No concern for infection. Sepsis/SIRS symptoms related to withdrawal. Problems addressed as follows: Acute alcohol intoxication, presented tachycardia, lactic acidosis:. psoriasis with painful generalized rash: to rule out superimposed staph infection: Low concern for infection. Symptoms most likely due to alcohol withdrawal. Discontinued antibiotics including cefepime and vancomycin. White cell count normal at 6.1. Will continue to follow cultures but does not appear septic at this time. Will continue steroids daily, transition from dexamethasone to methylprednisolone Dosepak for severe psoriasis. Treated for alcohol withdrawal with CIWA protocol. Has been scoring 4-7. Continue vitamin at discharge. As patient has no intention of stopping drinking, will discontinue home. Admits he will likely go back to drinking when he gets home. Mild alcoholic hepatitis: Mild elevation of liver enzymes. On day of discharge bilirubin 1.7, AST 126 ALT 120, alk phos 104. No abdominal pain. Tolerating p.o. intake. Would benefit from repeat labs in 2 to 4 weeks. Discussed establishing with primary care. Referred to primary care with [facility]. Needs referral to payroll processor for further management and possible Biologics for his psoriasis. Continue topical steroids and moisturizers for psoriasis. Stable for discharge home. Exam Data for Last 24 hours Vital signs and Labs for Last 24 Hours: Temp Pulse Resp BP Pulse Ox O2 Del Method O2 Flow Rate 98.2 F 90 20 130/75 97 Room Air 1 01/27/24 07:32 01/27/24 07:32 01/27/24 07:32 01/27/24 07:32 01/27/24 07:32 01/27/24 10:00 01/26/24 12:11 Laboratory Results - last 24 hr 01/27/24 05:16: WBC 6.1 D, RBC 3.91 L, Hgb 15.1, Hct 45.0, MCV 115.2 H, MCH 38.7 H, MCHC 33.6, RDW 13.4, Plt Count 122 L, MPV 9.1, Neut % (Auto) 70.9, Lymph % (Auto) 21.3, [place] % (Auto) 7.3, Eos % (Auto) 0.2, Baso % (Auto) 0.3, Neut # (Auto) 4.3, Lymph # (Auto) 1.3, [place] # (Auto) 0.5, Eos # (Auto) 0.0, Baso # (Auto) 0.0, Sodium 136, Potassium 3.1 L, Chloride 100, Carbon Dioxide 31 H, Anion Gap 8.1, BUN 5 L D, Creatinine 0.60 L, Estimated Creat Clear 189, Estimated GFR 151, Est GFR ( Amer) 182, Glucose 94 D, Calcium 8.7, Magnesium 2.1 D, Total Bilirubin 1.7 H, AST 126 H D, ALT 120 H, Alkaline Phosphatase 104, Total Protein 5.7 L, Albumin 3.6, Globulin 2.1, Albumin/Globulin Ratio 1.7, Vancomycin Trough 5.9 I & O for Last 24 hours: Intake & Output 01/24/24 01/25/24 01/26/24 01/27/24 23:59 23:59 23:59 23:59 Intake Total 3940 / 3940 2315 / 3565 1520 / 1520 Output Total 2326 / 3126 2225 / 2225 Balance 3940 / 3940 -11 / 439 -705 / -705 Weight 78.471 kg 80 kg 80 kg Constitutional Constitutional: no acute distress, average body habitus, chronically ill appearing and cooperative *Routine HEENT Exam Head: Present normocephalic Eye: Present EOMI and PERRL ENT: Present mucous membranes moist *Routine Neck Exam Neck: Present supple; Absent lymphadenopathy *Routine Respiratory Exam Respiratory: Present CTA bilaterally; Absent rhonchi, wheezes or crackles *Routine Cardiovascular Exam Cardiovascular: Present RRR *Routine Abdominal Exam Abdominal: Present soft and normoactive bowel sounds; Absent tenderness *Routine Rectal Exam Patient deferred: visual exam *Routine Exam Patient deferred: penile exam *Routine Extremities Exam Extremities: Absent cyanosis, clubbing or edema *Routine Skin Exam Skin: Present warm and rash Comments: Diffuse nummular eczema with silver scale throughout torso and extremities. Significant scaling on scalp *Routine Neurological Exam Neurological: Present alert, oriented X3, moving all extremities and tremors; Absent altered mental status Routine Psychiatric Exam Psychiatric: Present cooperative and anxious Results Data Completed and Pending Labs on day of discharge: Labs from last 24 hours 01/27/24 05:16 WBC 6.1 D RBC 3.91 L Hgb 15.1 Hct 45.0 MCV 115.2 H MCH 38.7 H MCHC 33.6 RDW 13.4 Plt Count 122 L MPV 9.1 Neut % (Auto) 70.9 Lymph % (Auto) 21.3 [place] % (Auto) 7.3 Eos % (Auto) 0.2 Baso % (Auto) 0.3 Neut # (Auto) 4.3 Lymph # (Auto) 1.3 [place] # (Auto) 0.5 Eos # (Auto) 0.0 Baso # (Auto) 0.0 Sodium 136 Potassium 3.1 L Chloride 100 Carbon Dioxide 31 H Anion Gap 8.1 BUN 5 L D Creatinine 0.60 L Estimated Creat Clear 189 Estimated GFR 151 Est GFR ( Amer) 182 Glucose 94 D Calcium 8.7 Magnesium 2.1 D Total Bilirubin 1.7 H AST 126 H D ALT 120 H Alkaline Phosphatase 104 Total Protein 5.7 L Albumin 3.6 Globulin 2.1 Albumin/Globulin Ratio 1.7 Vancomycin Trough 5.9 DS: Diagnosis Discharge Diagnosis (1) Lactic acid acidosis: Status: Acute Code(s): E87.20 - Acidosis, unspecified (2) Hypoxia: Status: Acute Code(s): R09.02 - Hypoxemia (3) Psoriasis: Status: Acute Code(s): L40.9 - Psoriasis, unspecified (4) Transaminitis: Status: Acute Code(s): R74.01 - Elevation of levels of liver transaminase levels (5) Intoxication: Status: Acute (6) Tachycardia: Status: Acute Code(s): R00.0 - Tachycardia, unspecified (7) Anxiety and depression: Status: Acute Code(s): F41.9 - Anxiety disorder, unspecified; F32.A - Depression, unspecified (8) Tobacco abuse: Status: Acute Code(s): Z72.0 - Tobacco use (9) Alcohol abuse: Status: Acute Code(s): F10.10 - Alcohol abuse, uncomplicated Meds Home Medications and Allergies Home Medications Medication Instructions Recorded Confirmed Type methylprednisolone 4 mg tablets in 4 mg PO DAILY #21 tabs 01/27/24 Rx a dose pack (Medrol ([place])) thiamine mononitrate (vit B1) 100 100 mg PO DAILY 30 days #30 tabs 01/27/24 Rx mg tablet triamcinolone acetonide 0.1 % 1 applic topical BID 30 days #60 01/27/24 Rx topical ointment grams New Prescriptions to Start Prescriptions: methylprednisolone [Medrol ([place])] Benjamin Mcguire thiamine mononitrate (vit B1) Benjamin Mcguire triamcinolone acetonide Benjamin Mcguire Allergies Allergy/AdvReac Type Severity Reaction Status Date / Time Sulfa (Sulfonamide Allergy Unknown Rash/ mild Verified 04/29/21 10:22 Antibiotics) breathing [SULFA (SULFONAMIDE problems ANTIBIOTICS)] per PT Discharge Plan Disposition Patient Disposition: Home, Self-Care Condition: Fair Follow up Plan Follow up with: Danny Hansen DO [Staff Physician] - 02/01/24 3:00 pm Prescriptions/Medication Reconciliation: New thiamine mononitrate (vit B1) 100 mg Tablet 100 mg PO DAILY 30 Days Qty: 30 0RF methylprednisolone [Medrol ([place])] 4 mg tablets,dose pack 4 mg PO DAILY Qty: 21 0RF Rx Instructions: start 01/28/24 for psoriasis Continued triamcinolone acetonide 0.1 % ointment 1 applic topical BID 30 Days Qty: 60 0RF Problem Reconciliation Problems Reviewed?: Yes Patient Discharge Instructions ACTIVITY: Continue current activity DIET: continue same diet Patient Instructions: DI for Rash, DI for Sepsis -- Adult Providers Primary Care Provider: Provider,Referral Admit Provider: Benjamin Mcguire Attending Provider: Benjamin Mcguire
--- NOTE | 2024-01-30 11:53 | CARE MANAGER ---
Contacted patient related to hospital discharge. He states that he is doing better. He is aware of follow up appointment and picked up his medication. NICK Yarbrough
== END 2024-01-27 13:39 | disposition home or self-care (01) ==
LOC: ER 18:59 → 2ND 21:09
PROVIDERS: Nurse Practitioner Family; Admitting Provider Internal Medicine Adolescent Medicine; Emergency Provider Emergency Medicine; Visit Provider Internal Medicine Adolescent Medicine
DX: F10.139 Alcohol abuse with withdrawal, unspecified (principal); F17.210 Nicotine dependence, cigarettes, uncomplicated; E87.20 Acidosis, unspecified; L40.9 Psoriasis, unspecified; R74.01 Elevation of levels of liver transaminase levels; F41.9 Anxiety disorder, unspecified; Z72.0 Tobacco use
CPT/HCPCS: 36415; 71045; 80053; 80202; 83605; 83735; 84100; 85025; 87040; 99285; G0378; J2405; J3475

== ENCOUNTER 2024-02-13 14:59 | Emergency (ER) | payer OTHER, SELFPAY ==
[2024-02-13 15:00] VITALS: BP 149/92; PULSE 117; RESP 16; TEMP 36.8; O2SAT 99; BMI 23.7
--- NOTE | 2024-02-13 15:24 | ED_ITS ---
Discharge Plan Disposition Patient Disposition: Left Against Medical Advice Condition: Fair Prescriptions Prescriptions: New triamcinolone acetonide 0.1 % cream 1 applic topical BID 10 Days Qty: 454 1RF Rx Instructions: Apply to body twice daily. Do not use on face. diphenhydramine HCl [Benadryl] 25 mg capsule 25 mg PO Q8H PRN (Reason: nausea and vomiting) 5 Days Qty: 15 0RF ibuprofen [IBU] 800 mg tablet 800 mg PO Q6H PRN (Reason: pain) 5 Days Qty: 20 0RF No Action thiamine mononitrate (vit B1) 100 mg Tablet 100 mg PO DAILY 30 Days Qty: 30 0RF triamcinolone acetonide 0.1 % ointment 1 applic topical BID 30 Days Qty: 60 0RF Referrals Follow up/Referrals: Provider,Referral, MD [Primary Care Provider] - See instructions Activity Restrictions/Add. Instructions Additional Instructions/Restrictions: You have been evaluated in the ED for your complaints. You may follow-up with your PCP in the next 3 to 5 days. Please return to ED for any new or worsening symptoms. Please apply triamcinolone cream over your entire body twice daily, sparing the face. I do recommend that you soak in a warm tub for about 20 minutes daily. Please wear tight fitting cotton pajamas after you have applied triamcinolone cream and wear these overnight. Please keep your appointment with your jitterbug operator as scheduled. Clinical Impressions Clinical Impression: Erythrodermic psoriasis Instructions Patient Instructions: DI for Psoriasis, DI for Skin Abscess Discharge ED Provider: Kenney Lozano Adult HPI General Chief complaint: Skin/Abscess/Foreign Body Stated complaint: rash all over body Time Seen by Provider: 02/13/24 15:12 Mode of Arrival: Ambulatory Source of Information: Patient Limitations: No Limitations Description of Symptoms (Recalled from ER Triage Doc. by RN): Patient presents with a rash from head to toe. States that he was here recently and has been on two rounds of steroids and a steroid cream with no relief. States that the rash has gotten worse and is very painful. History of Present Illness HPI narrative: 39-year-old male with past medical history significant for psoriasis presents today for evaluation concerning diffuse body rash from head to toe which he states has been worsening over the past 3 weeks. He states that he has recently finished a round of prednisone and azithromycin with no relief. He denies having any fevers but reports chills. Denies any chest pain, shortness of breath. He has not had any changes to his hygiene products. Denies being around any known allergens. No further complaints Related Data Previous Rx's Medication Instructions Recorded thiamine mononitrate (vit B1) 100 100 mg PO DAILY 30 days #30 tabs 01/27/24 mg tablet triamcinolone acetonide 0.1 % 1 applic topical BID 30 days #60 01/27/24 topical ointment grams diphenhydramine HCl 25 mg capsule 25 mg PO Q8H PRN nausea and 02/13/24 (Benadryl) vomiting 5 days #15 caps ibuprofen 800 mg tablet (IBU) 800 mg PO Q6H PRN pain 5 days #20 02/13/24 tabs triamcinolone acetonide 0.1 % 1 applic topical BID 10 days #454 02/13/24 topical cream grams Allergies Allergy/AdvReac Type Severity Reaction Status Date / Time Sulfa (Sulfonamide Allergy Unknown Rash/ mild Verified 02/13/24 11:04 Antibiotics) breathing [SULFA (SULFONAMIDE problems ANTIBIOTICS)] per PT [facility] Disclaimer: The information contained in this section may have been updated after the patient was seen, as this information can be updated by other users. Social History (Updated 01/25/24 @ 22:09 by Sri De La Rosa RN) Smoking Status: Current every day smoker tobacco type: cigarettes packs per day: 2 second hand exposure: No alcohol intake: current alcohol intake frequency: 3 or more drinks per day substance use type: marijuana current occupational status: employed and unemployed Travel in the last 8 weeks: None housing: house current occupational exposures/hazards: No caffeine: Yes ROS Obtained: Yes All systems reviewed & no additional complaints except as documented Physical Exam General General appearance: alert and in no apparent distress Head Head exam: atraumatic and normocephalic Eye Eye exam: Present normal appearance, PERRL and EOMI ENT ENT exam: Present normal oropharynx and mucous membranes moist Neck Neck exam: Present full ROM; Absent meningismus Respiratory Respiratory exam: Absent respiratory distress, wheezes, stridor or accessory muscle use Cardiovascular Cardiovascular exam: Present normal rhythm Abdominal Exam Abdominal exam: Present soft; Absent distention, tenderness, guarding, rebound or rigidity Neurological Exam Neurological exam: Present alert, oriented X3 and CN II-XII intact; Absent motor sensory deficit Psychiatric Psychiatric exam: Present normal affect and normal mood Skin Skin exam: Present warm, dry, rash (diffuse erythematous and scaly patches diffusely) and erythema Medical Decision Making Medical Records Medical records reviewed: Yes I reviewed the patient's medical records. Zhang Inquiry Pt receiving controlled substance: No Zhang was queried for this patient: No Vital Signs: 02/13/24 15:00 02/13/24 15:53 02/13/24 16:00 Temperature 98.2 F Temperature Source Oral Pulse Rate 113 H 106 H Pulse Rate [Radial] 117 H Respiratory Rate 16 20 Blood Pressure 137/93 H 129/91 H Blood Pressure [Right Arm] 149/92 H Blood Pressure Mean [Right Arm] 111 Blood Pressure Source Automatic Cuff Blood Pressure Source [Right Arm] Automatic Cuff Blood Pressure Position Sitting Blood Pressure Position [Right Arm] Sitting 02 Sat by Pulse Oximetry 99 95 99 Oxygen Delivery Method Room Air Room Air Room Air 02/13/24 17:00 02/13/24 17:30 02/13/24 18:01 Temperature 98.2 F Temperature Source Oral Pulse Rate 118 H 112 H 87 Pulse Rate [Radial] Respiratory Rate 18 Blood Pressure 129/87 127/74 143/80 H Blood Pressure [Right Arm] Blood Pressure Mean [Right Arm] Blood Pressure Source Blood Pressure Source [Right Arm] Blood Pressure Position Blood Pressure Position [Right Arm] 02 Sat by Pulse Oximetry 98 97 Oxygen Delivery Method Room Air Room Air Room Air Lab Data Lab Results 02/13/24 15:33: WBC 7.6, RBC 4.19 L, Hgb 15.9, Hct 47.7, MCV 113.8 H, MCH 38.0 H , MCHC 33.4, RDW 13.7, Plt Count 211, MPV 8.6, Neut % (Auto) 71.0, Lymph % (Auto) 18.6, [place] % (Auto) 7.3, Eos % (Auto) 2.0, Baso % (Auto) 1.1, Neut # (Auto) 5.4, Lymph # (Auto) 1.4, [place] # (Auto) 0.6, Eos # (Auto) 0.2, Baso # (Auto) 0.1, ESR 38 H, Sodium 139, Potassium 3.6, Chloride 102, Carbon Dioxide 23, Anion Gap 17.6 H, BUN 4 L, Creatinine 0.70, Estimated Creat Clear 165, Estimated GFR 126, Est GFR ( Amer) 153, Glucose 113 H, Calcium 9.0, Total Bilirubin 1.3, AST 100 H, ALT 75, Alkaline Phosphatase 135 H, C-Reactive Protein 11.2 H, Total Protein 7.3 D, Albumin 4.3, Globulin 3.0, Albumin/Globulin Ratio 1.4 02/13/24 15:33 02/13/24 15:33 Orders (Tests/Meds): ED MEDICATIONS Discontinued Medications Generic Name Dose Route Start Last Admin Trade Name Freq PRN Reason Stop Dose Admin Diphenhydramine HCl 25 mg 02/13/24 16:00 02/13/24 16:13 Diphenhydramine 50mg/Ml Vial IV 02/13/24 16:01 25 mg ONCE ONE Administration Lactated Ringer's 500 mls @ 999 mls/hr 02/13/24 15:42 02/13/24 15:44 Lactated Ringer's 1000 Ml Bag IV 02/13/24 16:12 999 mls/hr .Q31M ONE Administration Methylprednisolone Sodium Succinate 125 mg 02/13/24 16:00 02/13/24 16:13 Methylprednisolone Sod Succ 125mg Vial IV 02/13/24 16:01 125 mg ONCE ONE Administration Morphine Sulfate 4 mg 02/13/24 15:30 02/13/24 15:44 Morphine 10mg/Ml Syringe IV 02/13/24 15:31 4 mg ONCE ONE Administration Ondansetron HCl 4 mg 02/13/24 15:30 02/13/24 15:44 Ondansetron 4mg/2ml Vial IV 02/13/24 15:31 4 mg ONCE ONE Administration ORDERS Category Date Time Status CBC w/Auto Diff [Complete Blood Count Auto Diff] Stat Lab 02/13/24 15:33 Completed CMP [Comprehensive Metabolic Panel] Stat Lab 02/13/24 15:33 Completed CRP [C-Reactive Protein] Stat Lab 02/13/24 15:33 Completed ESR [Erythrocyte Sedimentation Rate] Stat Lab 02/13/24 15:33 Completed Blood Culture Stat Micro 02/13/24 16:36 Received Medical Decision Narrative: 39-year-old male with past medical history significant for psoriasis presents today for evaluation concerning diffuse body rash from head to toe which he states has been worsening over the past 3 weeks. He states that he has recently finished a round of prednisone and azithromycin with no relief. He denies having any fevers but reports chills. Denies any chest pain, shortness of breath. He has not had any changes to his hygiene products. Denies being around any known allergens. On assessment he was medically stable and in no acute distress. Tachycardic. He had diffuse erythematous plaques with no weeping or drainage throughout his entire body. No mucosal involvement. Differential diagnoses include not limited to erythrodermic psoriasis, Patel-Tico syndrome, atopic dermatitis, fungal infection, superimposed bacterial infection, and others. No elevation in WBC today at 7.6. ESR elevated at 38. CRP elevated at 11.2. No electrolyte derangements. Creatinine within range. Patient did receive 125 mg of Solu-Medrol, 25 mg of IV Benadryl as well as a fluid bolus while in the ED. On reassessment remains medically stable in no acute distress. I have at this time consulted with jitterbug operator Dr. Castillo at [facility] and discussed management and admission was accepted given the severity of patient's disease process. Patient at this time he stated that he would like to leave the ED AMA. I discussed ED workup and results and recommendation to admit for management of his erythrodermic psoriasis which will likely need cyclosporine initiation. He understands the risks and benefits. At this time I did prescribe triamcinolone cream and Benadryl as well as ibuprofen to assist with his symptoms. Provided with strict return precautions. He was medically stable and in no acute distress upon discharge Critical Care Critical Care Time Critical Care Time: No
[2024-02-13 15:40] LABS: Basophils # 0.1 K/mm3 (0-0.2); Basophils % 1.1 % (0.1-2.0); Eosinophils # 0.2 K/mm3 (0.0-0.4); Hematocrit 47.7 % (42.0-52.0); Hemoglobin 15.9 g/dL (14.1-18.0); Lymphocytes # 1.4 K/mm3 (0.7-4.5); Lymphocytes % 18.6 % (10-50); Mean Corpuscular HGB Conc 33.4 g/dL (31.8-35.4); Mean Corpuscular Volume 113.8 fl (80-94); Mean Platelet Volume 8.6 fl (7.4-10.4); Monocytes # 0.6 K/mm3 (0.1-1.0); Monocytes % 7.3 % (1.7-9.3); Neutrophils # 5.4 K/mm3 (1.8-7.8); Platelet Count 211 K/mm3 (142-424); Red Blood Count 4.19 M/mm3 (4.60-6.20); Red Cell Distribution Width 13.7 % (11.5-17.5); White Blood Count 7.6 K/mm3 (4.8-10.8)
[2024-02-13] MEDS: MORPHINE 10 MG/ML 4 MG IV (15:44)
[2024-02-13] MEDS: LACTATED RINGERS 1000ML 500 ML 999 ML IV (15:44)
[2024-02-13] MEDS: ONDANSETRON 4MG/2ML VIAL 4 MG IV (15:44)
[2024-02-13 15:47] LABS: Chloride 102 mmol/L (98-107); Potassium 3.6 mmoL/L (3.5-5.1); Sodium 139 mmol/L (136-145)
[2024-02-13 15:50] LABS: Alanine Aminotransferase 75 U/L (12-78); Albumin Level 4.3 g/dl (3.5-5.0); Albumin/Globulin Ratio 1.4 (1.1-1.8); Alkaline Phosphatase 135 U/L (38-126); Anion Gap 17.6 mEq/L (5-15); Aspartate Amino Transferase 100 U/L (17-59); Bilirubin,Total 1.3 mg/dl (0.2-1.3); Blood Urea Nitrogen 4 mg/dl (9-20); Carbon Dioxide 23 mmol/L (22.0-30.0); Creatinine Clearance Estimated 165 mL/min (50-200); Estimated Glomerular Filt Rate 126 ml/min (>60); GFR (African American) 153 ML/MIN (>60); Total Protein,Serum 7.3 g/dl (6.3-8.2)
[2024-02-13 15:51] LABS: Glucose 113 mg/dl (74-100)
--- NOTE | 2024-02-13 15:52 | PC.NURSE ---
Notified lab for blood cultures
[2024-02-13 15:53] VITALS: BP 137/93; PULSE 113; RESP 20; O2SAT 95
[2024-02-13 15:57] LABS: C-Reactive Protein 11.2 mg/L (0-4)
[2024-02-13 16:00] VITALS: BP 129/91; PULSE 106; O2SAT 99
[2024-02-13] MEDS: diphenhydrAMINE 50MG/ML VIAL 25 MG IV (16:13)
[2024-02-13] MEDS: METHYLPREDNISOLONE SOD SUCC 125MG VIAL 125 MG IV (16:13)
--- NOTE | 2024-02-13 16:14 | PC.NURSE ---
Dr. Lozano s/w - Dr. Joseph, asked for consult with Plastics
[2024-02-13 17:00] VITALS: BP 129/87; PULSE 118; O2SAT 98
--- NOTE | 2024-02-13 17:05 | PC.NURSE ---
Called for transfer request on medsurge unit. Dr Gold (the [facility] manager of medical) will call back with plan of action of treatment plan.
[2024-02-13 17:23] LABS: Erythrocyte Sedimentation Rate 38 mm/hr (0-15)
[2024-02-13 17:30] VITALS: BP 127/74; PULSE 112; O2SAT 97
[2024-02-13 18:01] VITALS: BP 143/80; PULSE 87; RESP 18; TEMP 36.8; O2SAT 98
== END 2024-02-13 18:11 | disposition left against medical advice (07) ==
PROVIDERS: Emergency Provider Emergency Medicine
DX: L40.8 Other psoriasis (principal); F17.210 Nicotine dependence, cigarettes, uncomplicated; R70.0 Elevated erythrocyte sedimentation rate; R79.82 Elevated C-reactive protein (CRP)
CPT/HCPCS: 36415; 80053; 85025; 85651; 86140; 87040; 96361; 96374; 96375; 99285; J2405

== ENCOUNTER 2024-02-29 17:33 | Emergency (ER) | payer OTHER, SELFPAY ==
[2024-02-29 17:34] VITALS: BP 129/91; PULSE 118; RESP 15; TEMP 36.6; O2SAT 98; BMI 23.7
--- NOTE | 2024-02-29 17:56 | ED_ITS ---
Discharge Plan Disposition Patient Disposition: Home, Self-Care Condition: Good Prescriptions Prescriptions: New prednisone 50 mg tablet 50 mg PO DAILY 5 Days Qty: 5 0RF No Action thiamine mononitrate (vit B1) 100 mg Tablet 100 mg PO DAILY 30 Days Qty: 30 0RF triamcinolone acetonide 0.1 % ointment 1 applic topical BID 30 Days Qty: 60 0RF triamcinolone acetonide 0.1 % cream 1 applic topical BID 10 Days Qty: 454 1RF Rx Instructions: Apply to body twice daily. Do not use on face. diphenhydramine HCl [Benadryl] 25 mg capsule 25 mg PO Q8H PRN (Reason: nausea and vomiting) 5 Days Qty: 15 0RF ibuprofen [IBU] 800 mg tablet 800 mg PO Q6H PRN (Reason: pain) 5 Days Qty: 20 0RF Referrals Follow up/Referrals: Danny Hansen DO [Primary Care Provider] - See instructions Activity Restrictions/Add. Instructions Additional Instructions/Restrictions: Please call in the morning and make a follow-up appointment with your mattress spring encaser. Topical and oral medications are going to be insufficient long- term for the severity of your psoriasis. Return to the ER as needed for any worsening signs or symptoms. Clinical Impressions Clinical Impression: Psoriasis Instructions Patient Instructions: DI for Skin Abscess Discharge ED Provider: Luis Yap General Adult HPI <ADRIANA Trivedi - Last Filed: 02/29/24 19:05> General Chief complaint: Skin/Abscess/Foreign Body Stated complaint: psoriasis Time Seen by Provider: 02/29/24 17:54 History of Present Illness HPI narrative: Patient presents for evaluation of a psoriasis flare. Patient presents again for a continued flare of his psoriasis. Patient has yet to follow-up with dermatology although he says he is unable to get a hold of Ms. Berry patient reports his similar symptoms of itching pain irritation but denies fever chills hemoptysis hematochezia melena nausea vomiting diarrhea. Related Data Previous Rx's Medication Instructions Recorded thiamine mononitrate (vit B1) 100 100 mg PO DAILY 30 days #30 tabs 01/27/24 mg tablet triamcinolone acetonide 0.1 % 1 applic topical BID 30 days #60 01/27/24 topical ointment grams diphenhydramine HCl 25 mg capsule 25 mg PO Q8H PRN nausea and 02/13/24 (Benadryl) vomiting 5 days #15 caps ibuprofen 800 mg tablet (IBU) 800 mg PO Q6H PRN pain 5 days #20 02/13/24 tabs triamcinolone acetonide 0.1 % 1 applic topical BID 10 days #454 02/13/24 topical cream grams prednisone 50 mg tablet 50 mg PO DAILY 5 days #5 tabs 02/29/24 Allergies Allergy/AdvReac Type Severity Reaction Status Date / Time Sulfa (Sulfonamide Allergy Unknown Rash/ mild Verified 02/13/24 11:04 Antibiotics) breathing [SULFA (SULFONAMIDE problems ANTIBIOTICS)] per PT PFSH <ADRIANA Trivedi - Last Filed: 02/29/24 19:05> [facility] Disclaimer: The information contained in this section may have been updated after the patient was seen, as this information can be updated by other users. Social History (Updated 01/25/24 @ 22:09 by Sri De La Rosa RN) Smoking Status: Current every day smoker tobacco type: cigarettes packs per day: 2 second hand exposure: No alcohol intake: current alcohol intake frequency: 3 or more drinks per day substance use type: marijuana current occupational status: employed and unemployed Travel in the last 8 weeks: None housing: house current occupational exposures/hazards: No caffeine: Yes <ADRIANA Trivedi - Last Filed: 02/29/24 19:05> ROS Obtained: Yes Systems reviewed as appropriate & no additional complaints except as documented Physical Exam <ADRIANA Trivedi Last Filed: 02/29/24 19:05> General General appearance: alert and in no apparent distress Respiratory Respiratory exam: Present normal lung sounds bilaterally and respiratory distress Cardiovascular Cardiovascular exam: Present regular rate and normal rhythm Neurological Exam Neurological exam: Present alert, oriented X3 and CN II-XII intact Other Other exam information: Patient has essentially every square inch of visible skin inflamed with scaling and cracking especially of the hands and feet but no evidence of cellulitis or obvious infection or fluctuance. Medical Decision Making <ADRIANA Trivedi - Last Filed: 02/29/24 19:05> Medical Records Medical records reviewed: Yes I reviewed the patient's medical records. Zhang Inquiry Pt receiving controlled substance: No Vital Signs: 02/29/24 17:34 02/29/24 18:29 02/29/24 19:01 Temperature 97.8 F 97.8 F Temperature Source Oral Pulse Rate 126 H 118 H Pulse Rate [Left Radial] 118 H Respiratory Rate 15 15 Blood Pressure 120/81 120/81 Blood Pressure [Right Arm] 129/91 H Blood Pressure Mean [Right Arm] 103 02 Sat by Pulse Oximetry 98 96 Oxygen Delivery Method Room Air Room Air Orders (Tests/Meds): ED MEDICATIONS Discontinued Medications Generic Name Dose Route Start Last Admin Trade Name Freq PRN Reason Stop Dose Admin Prednisone 80 mg 02/29/24 18:18 02/29/24 18:27 Prednisone 20mg Tab 1 mg/kg (80 mg) 02/29/24 18:19 80 mg PO Administration ONCE ONE Medical Decision Narrative: In summary patient is a 39-year-old male who presents to the emergency department for evaluation of continued psoriasis flare. Patient is normotensive slightly tachycardic upon arrival, but afebrile. Physical exam is remarkable for an extensive impressive body wide psoriasis flare but no evidence of active infection or drainage. Differential diagnosis includes psoriasis flare versus cellulitis. Initial workup deferred as he actually looks improved from previous presentations as his skin is very dry and scaling. I had interactive discussion with the patient regarding his management and patient has yet to follow-up with dermatology as he says he has been unable to get in contact with Ms. Berry. I had a detailed discussion that given his body wide condition that he needs injectables of Biologics to treat his psoriasis flare long-term. Patient verbalized understanding. I have refilled a burst dose of steroids he has plenty of triamcinolone cream thus he is appropriate for discharge with instructions to follow-up with his mattress spring encaser. <Luis Yap MD - Last Filed: 02/29/24 22:05> Vital Signs: 02/29/24 17:34 02/29/24 18:29 02/29/24 19:01 Temperature 97.8 F 97.8 F Temperature Source Oral Pulse Rate 126 H 118 H Pulse Rate [Left Radial] 118 H Respiratory Rate 15 15 Blood Pressure 120/81 120/81 Blood Pressure [Right Arm] 129/91 H Blood Pressure Mean [Right Arm] 103 02 Sat by Pulse Oximetry 98 96 Oxygen Delivery Method Room Air Room Air Orders (Tests/Meds): ED MEDICATIONS Discontinued Medications Generic Name Dose Route Start Last Admin Trade Name Freq PRN Reason Stop Dose Admin Prednisone 80 mg 02/29/24 18:18 02/29/24 18:27 Prednisone 20mg Tab 1 mg/kg (80 mg) 02/29/24 18:19 80 mg PO Administration ONCE ONE Medical Decision Narrative: In summary patient is a 39-year-old male who presents to the emergency department for evaluation of continued psoriasis flare. Patient is normotensive slightly tachycardic upon arrival, but afebrile. Physical exam is remarkable for an extensive impressive body wide psoriasis flare but no evidence of active infection or drainage. Differential diagnosis includes psoriasis flare versus cellulitis. Initial workup deferred as he actually looks improved from previous presentations as his skin is very dry and scaling. I had interactive discussion with the patient regarding his management and patient has yet to follow-up with dermatology as he says he has been unable to get in contact with Ms. Berry. I had a detailed discussion that given his body wide condition that he needs injectables of Biologics to treat his psoriasis flare long-term. Patient verbalized understanding. I have refilled a burst dose of steroids he has plenty of triamcinolone cream thus he is appropriate for discharge with instructions to follow-up with his mattress spring encaser. I was consulted by the JOHN, and we discussed the complexity of the problems being addressed. I approved the treatment and management plan for this patient?s care in the Emergency Department, thus performing a substantive portion of the medical decision making. Luis Yap MD Critical Care <ADRIANA Trivedi - Last Filed: 02/29/24 19:05> Critical Care Time Critical Care Time: No
[2024-02-29] MEDS: predniSONE 20MG TAB 80 MG PO (18:27)
[2024-02-29 18:29] VITALS: BP 120/81; PULSE 126; O2SAT 96
--- NOTE | 2024-02-29 18:30 | PC.NURSE ---
Rounded on pt. No needs voiced at this time. Call light within reach
[2024-02-29 19:01] VITALS: BP 120/81; PULSE 118; RESP 15; TEMP 36.6
== END 2024-02-29 19:02 | disposition home or self-care (01) ==
PROVIDERS: Emergency Provider Emergency Medicine; PCP Internal Medicine
DX: L40.9 Psoriasis, unspecified (principal)
CPT/HCPCS: 99283

== ENCOUNTER 2024-03-17 17:45 | Emergency (ER) | payer OTHER, SELFPAY ==
[2024-03-17 17:47] VITALS: BP 142/88; PULSE 97; RESP 18; TEMP 36.6; O2SAT 96; BMI 23.7
--- NOTE | 2024-03-17 17:49 | PC.NURSE ---
Pt is unable to give a urine sample at this time. He also states And you all aren't cathing me either .
--- NOTE | 2024-03-17 18:14 | ED_ITS ---
Discharge Plan Disposition Patient Disposition: Home, Self-Care Prescriptions Prescriptions: New cefdinir 300 mg capsule 300 mg PO BID 10 Days Qty: 20 0RF No Action thiamine mononitrate (vit B1) 100 mg Tablet 100 mg PO DAILY 30 Days Qty: 30 0RF triamcinolone acetonide 0.1 % ointment 1 applic topical BID 30 Days Qty: 60 0RF triamcinolone acetonide 0.1 % cream 1 applic topical BID 10 Days Qty: 454 1RF Rx Instructions: Apply to body twice daily. Do not use on face. diphenhydramine HCl [Benadryl] 25 mg capsule 25 mg PO Q8H PRN (Reason: nausea and vomiting) 5 Days Qty: 15 0RF ibuprofen [IBU] 800 mg tablet 800 mg PO Q6H PRN (Reason: pain) 5 Days Qty: 20 0RF prednisone 50 mg tablet 50 mg PO DAILY 5 Days Qty: 5 0RF Referrals Follow up/Referrals: Katie Berry MD [Referring] - See instructions Danny Peguero MD [Staff Physician] - See instructions Provider,MD Casa [Primary Care Provider] - See instructions Activity Restrictions/Add. Instructions Additional Instructions/Restrictions: Please follow-up with urology regarding your hematuria and with dermatology regarding your severe psoriasis. Clinical Impressions Clinical Impression: Hematuria, Psoriasis, UTI (urinary tract infection) Instructions Patient Instructions: DI for Urinary Tract Infection (UTI), DI for Urinary Tract Infection in Children Discharge ED Provider: Ritchie Welsh General Adult HPI General Chief complaint: Urogenital-Male Stated complaint: blood in urine Time Seen by Provider: 03/17/24 18:08 Mode of Arrival: Ambulatory Source of Information: Patient Limitations: No Limitations Description of Symptoms (Recalled from ER Triage Doc. by RN): urinating blood History of Present Illness HPI narrative: Patient is a 39-year-old male presenting today with hematuria. States that at the end of his urine stream he noticed some blood in his urine. No significant pain otherwise. No back pain no fevers or chills. States he is not sexually active the gonorrhea and Chlamydia are not possible. Has a known history of very severe extensive psoriasis has been trying to get in to be seen by a paint mixer machine and request another referral to Dr. Berry. Related Data Previous Rx's Medication Instructions Recorded thiamine mononitrate (vit B1) 100 100 mg PO DAILY 30 days #30 tabs 01/27/24 mg tablet triamcinolone acetonide 0.1 % 1 applic topical BID 30 days #60 01/27/24 topical ointment grams diphenhydramine HCl 25 mg capsule 25 mg PO Q8H PRN nausea and 02/13/24 (Benadryl) vomiting 5 days #15 caps ibuprofen 800 mg tablet (IBU) 800 mg PO Q6H PRN pain 5 days #20 02/13/24 tabs triamcinolone acetonide 0.1 % 1 applic topical BID 10 days #454 02/13/24 topical cream grams prednisone 50 mg tablet 50 mg PO DAILY 5 days #5 tabs 02/29/24 cefdinir 300 mg capsule 300 mg PO BID 10 days #20 caps 03/17/24 Allergies Allergy/AdvReac Type Severity Reaction Status Date / Time Sulfa (Sulfonamide Allergy Unknown Rash/ mild Verified 02/13/24 11:04 Antibiotics) breathing [SULFA (SULFONAMIDE problems ANTIBIOTICS)] per PT PFSH [facility] Disclaimer: The information contained in this section may have been updated after the patient was seen, as this information can be updated by other users. Social History (Updated 01/25/24 @ 22:09 by Sri De La Rosa RN) Smoking Status: Current every day smoker tobacco type: cigarettes packs per day: 2 second hand exposure: No alcohol intake: current alcohol intake frequency: 3 or more drinks per day substance use type: marijuana current occupational status: employed and unemployed Travel in the last 8 weeks: None housing: house current occupational exposures/hazards: No caffeine: Yes ROS Obtained: Yes All systems reviewed & no additional complaints except as documented Physical Exam General General appearance: alert and in no apparent distress Respiratory Respiratory exam: Present normal lung sounds bilaterally Cardiovascular Cardiovascular exam: Present regular rate exam: Present deferred Neurological Exam Neurological exam: Present alert and oriented X3 Skin Skin exam: Present other (Extensive severe psoriasis across the entire body) Medical Decision Making Zhang Inquiry Pt receiving controlled substance: No Vital Signs: 03/17/24 17:47 03/17/24 18:40 Temperature 97.9 F Temperature Source Oral Pulse Rate 100 H Pulse Rate [Left] 97 H Respiratory Rate 18 Blood Pressure 130/90 Blood Pressure [Left Arm] 142/88 H Blood Pressure Mean [Left Arm] 106 02 Sat by Pulse Oximetry 96 98 Oxygen Delivery Method Room Air Room Air Lab Data Lab results reviewed: Yes I reviewed the patient's lab results. Lab Results 03/17/24 18:00: Urine Color Marry, Urine Appearance Sl cloudy, Urine pH 6.0, Ur Specific [place] 1.020, Urine Protein 1+, Urine Glucose (UA) Negative, Urine Ketones 1+, Urine Blood 3+, Urine Nitrate Negative, Urine Bilirubin 1+ A, Urine Urobilinogen 2.0, Ur Leukocyte Esterase Trace, Urine RBC 50-100, Urine WBC Occasional, Ur Squamous Epith Cells Occasional, Urine Bacteria Trace Orders (Tests/Meds): ORDERS Category Date Time Status UA [Urinalysis and Microscopic] Stat Lab 03/17/24 18:00 Completed Medical Decision Narrative: Patient with extensive psoriasis who we have tried to get in to be seen by inpatient transfer to [place] and this did not work out last time is in the emergency department he is attempted to get in to be seen by paint mixer machine this is the most concerning thing when I look at him but he has outpatient follow-up that he is attempting to get. This is not why he is in the emergency department today he has hematuria. His urine appeared dark orange is possible this is bilirubin. Using chlamydia will be sent as urethritis is statistically most likely in this patient's age group he denies being sexually active I would not treat him for STDs. He has no significant pain we will get a urinalysis and reassessment Reassessment 730 none patient does have hematuria trace leukocyte esterase and painful urination. Will treat this as a complicated urinary tract infection gonorrhea chlamydia have been sent with his history he states he is not sexually active so we will treat for an STD at the moment. This is abnormal and a 39-year-old male could be prostate related he denies any rectal pain or other concerns for prostate related infections. I did not do a prostate exam deferred this we will treat with antibiotics have him follow-up with urology. Regarding his severe psoriasis has been given her referral to Dr. Berry as well. He has a sulfa allergy he was prescribed cefdinir. Critical Care Critical Care Time Critical Care Time: No
[2024-03-17 18:15] LABS: Microscopic, Urine URINE MICROSCOPIC (MICROSCOPIC)
[2024-03-17 18:25] LABS: Appearance,Urine SL CLOUDY (Clear); Blood, Urine 3+ (Negative); Color,Urine AMBER (Yellow); Glucose,Urine (UA) Negative (Negative); Ketones,Urine 1+ (Negative); Leukocyte Esterase,Urine TRACE (Negative); Nitrate,Urine Negative (Negative); Protein,Urine 1+ (Negative)
[2024-03-17 18:40] VITALS: BP 130/90; PULSE 100; O2SAT 98
[2024-03-17 18:42] LABS: Bacteria,Urine Trace /lpf; Bilirubin,Urine 1+ (Negative); RBC,Urine 50-100 #/hpf (0-3); Squamous Epithelial Cell,Urine Occasional #/hpf (0-5); WBC,Urine Occasional #/hpf (0-3)
[2024-03-17 19:00] VITALS: BP 130/90; PULSE 95; O2SAT 98
[2024-03-17 19:42] VITALS: BP 153/111; PULSE 125; RESP 18; TEMP 36.9; O2SAT 98
[2024-03-21 03:37] LABS: Neisseria gonorrhoeae, NAA Negative (Negative)
== END 2024-03-17 19:45 | disposition home or self-care (01) ==
PROVIDERS: Emergency Provider Student in an Organized Health Care Education/Training Program
DX: N39.0 Urinary tract infection, site not specified (principal); R31.9 Hematuria, unspecified; L40.9 Psoriasis, unspecified; F17.210 Nicotine dependence, cigarettes, uncomplicated
CPT/HCPCS: 81001; 87491; 87591; 99283

== ENCOUNTER 2024-03-23 16:59 | Observation (INO) | payer OTHER, SELFPAY ==
[2024-03-23 17:02] VITALS: BP 150/93; PULSE 125; RESP 19; TEMP 36.7; O2SAT 94; BMI 23.7
--- NOTE | 2024-03-23 18:13 | HMH.EDGENADL ---
Discharge Plan Disposition Patient Disposition: Xfer Other Chief Complaint: Skin/Abscess/Foreign Body Prescriptions Prescriptions: No Action thiamine mononitrate (vit B1) 100 mg Tablet 100 mg PO DAILY 30 Days Qty: 30 0RF triamcinolone acetonide 0.1 % ointment 1 applic topical BID 30 Days Qty: 60 0RF triamcinolone acetonide 0.1 % cream 1 applic topical BID 10 Days Qty: 454 1RF Rx Instructions: Apply to body twice daily. Do not use on face. diphenhydramine HCl [Benadryl] 25 mg capsule 25 mg PO Q8H PRN (Reason: nausea and vomiting) 5 Days Qty: 15 0RF ibuprofen [IBU] 800 mg tablet 800 mg PO Q6H PRN (Reason: pain) 5 Days Qty: 20 0RF prednisone 50 mg tablet 50 mg PO DAILY 5 Days Qty: 5 0RF cefdinir 300 mg capsule 300 mg PO BID 10 Days Qty: 20 0RF Referrals Follow up/Referrals: Provider,Referral, MD [Primary Care Provider] - See instructions Clinical Impressions Clinical Impression: Tachycardia, Erythrodermic psoriasis, Acute alcoholic hepatitis, Chronic alcoholism Instructions Patient Instructions: DI for Skin Abscess Discharge ED Provider: Ritchie Welsh General Adult HPI General Chief complaint: Skin/Abscess/Foreign Body Stated complaint: Rash all over body Time Seen by Provider: 03/23/24 18:03 Mode of Arrival: Wheelchair Source of Information: Patient Limitations: No Limitations Description of Symptoms (Recalled from ER Triage Doc. by RN): pt reports rash all over his body ongoing for one month, per his report. pt does report to drinking half a galloon of whiskey daily. pt reports to swelling increasing in his feet and legs. with increased pain. History of Present Illness HPI narrative: Patient is a 39-year-old female with a known history of severe erythrodermic psoriasis that is untreated who presents today with worsening of his skin condition and would like to be treated. He has been here multiple times over the last several weeks was offered transfer to [facility] but the patient declined at that time but the patient also states that there were no beds available. He has not been able to follow-up outpatient at all he is not on any medications at the moment. He also drinks a handle of whiskey daily. Last drink just a few minutes ago he denies any withdrawal symptoms at the moment. Related Data Previous Rx's Medication Instructions Recorded thiamine mononitrate (vit B1) 100 100 mg PO DAILY 30 days #30 tabs 01/27/24 mg tablet triamcinolone acetonide 0.1 % 1 applic topical BID 30 days #60 01/27/24 topical ointment grams diphenhydramine HCl 25 mg capsule 25 mg PO Q8H PRN nausea and 02/13/24 (Benadryl) vomiting 5 days #15 caps ibuprofen 800 mg tablet (IBU) 800 mg PO Q6H PRN pain 5 days #20 02/13/24 tabs triamcinolone acetonide 0.1 % 1 applic topical BID 10 days #454 02/13/24 topical cream grams prednisone 50 mg tablet 50 mg PO DAILY 5 days #5 tabs 02/29/24 cefdinir 300 mg capsule 300 mg PO BID 10 days #20 caps 03/17/24 Allergies Allergy/AdvReac Type Severity Reaction Status Date / Time Sulfa (Sulfonamide Allergy Unknown Rash/ mild Verified 02/13/24 11:04 Antibiotics) breathing [SULFA (SULFONAMIDE problems ANTIBIOTICS)] per PT [facility] Disclaimer: The information contained in this section may have been updated after the patient was seen, as this information can be updated by other users. Social History (Updated 01/25/24 @ 22:09 by Sir De La Rosa RN) Smoking Status: Current every day smoker tobacco type: cigarettes packs per day: 2 second hand exposure: No alcohol intake: current alcohol intake frequency: 3 or more drinks per day substance use type: marijuana current occupational status: employed and unemployed Travel in the last 8 weeks: None housing: house current occupational exposures/hazards: No caffeine: Yes ROS Obtained: Yes All systems reviewed & no additional complaints except as documented Physical Exam General General appearance: alert Respiratory Respiratory exam: Present normal lung sounds bilaterally and respiratory distress Cardiovascular Cardiovascular exam: Present normal rhythm and tachycardia (Heart rate 120 my exam) Abdominal Exam Abdominal exam: Present soft; Absent distention or tenderness Neurological Exam Neurological exam: Present alert and oriented X3 Skin Skin exam: Present other (Severe almost entire body erythrodermic psoriasis) Medical Decision Making Zhang Inquiry Pt receiving controlled substance: No Vital Signs: 03/23/24 17:02 Temperature 98.1 F Temperature Source Oral Pulse Rate [Left Radial] 125 H Respiratory Rate 19 Blood Pressure [Right Arm] 150/93 H Blood Pressure Mean [Right Arm] 112 02 Sat by Pulse Oximetry 94 L Oxygen Delivery Method Room Air Lab Data Lab results reviewed: Yes I reviewed the patient's lab results. Lab Results 03/23/24 18:48: WBC 5.8, RBC 3.59 L, Hgb 14.2, Hct 43.8, MCV 121.8 H, MCH 39.5 H, MCHC 32.4, RDW 14.6, Plt Count 242, MPV 8.4, Neut % (Auto) 69.4, Lymph % (Auto) 17.6, [place] % (Auto) 8.2, Eos % (Auto) 3.4, Baso % (Auto) 1.5, Neut # (Auto) 4.0, Lymph # (Auto) 1.0, [place] # (Auto) 0.5, Eos # (Auto) 0.2, Baso # (Auto) 0.1, PT 10.0 L, INR 0.92, Sodium 138, Potassium 3.0 L, Chloride 98, Carbon Dioxide 24, Anion Gap 19.0 H, BUN 2 L, Creatinine 0.60 L, Estimated Creat Clear 193, Estimated GFR 151, Est GFR ( Amer) 182, Glucose 103 H, Calcium 8.8, Magnesium 1.5 L, Total Bilirubin 1.0, AST 261 H, ALT 178 H, Alkaline Phosphatase 149 H, C-Reactive Protein 7.7 H, Total Protein 6.6, Albumin 3.7, Globulin 2.9, Albumin/Globulin Ratio 1.3, Plasma/Serum Alcohol 271 H 03/23/24 18:48 03/23/24 18:48 Orders (Tests/Meds): ED MEDICATIONS Generic Name Dose Route Start Last Admin Trade Name Freq PRN Reason Stop Dose Admin Potassium Chloride/Water 100 mls @ 100 mls/hr 03/23/24 20:00 03/23/24 19:56 Potassium Chloride 10meq/100ml Ivpb IV 03/23/24 22:59 100 mls/hr Q1H MARY ELLEN Administration Discontinued Medications Generic Name Dose Route Start Last Admin Trade Name Freq PRN Reason Stop Dose Admin Lactated Ringer's 1,000 mls @ 999 mls/hr 03/23/24 18:15 03/23/24 18:52 Lactated Ringer's 1000 Ml Bag IV 03/23/24 19:15 999 mls/hr .[id number] MARY ELLEN Administration Potassium Chloride 60 meq 03/23/24 19:49 03/23/24 19:55 Potassium Chloride 20meq Tab PO 03/23/24 19:50 60 meq ONCE ONE Administration ORDERS Category Date Time Status CBC w/Auto Diff [Complete Blood Count Auto Diff] Stat Lab 03/23/24 18:48 Completed CMP [Comprehensive Metabolic Panel] Stat Lab 03/23/24 18:48 Completed CRP [C-Reactive Protein] Stat Lab 03/23/24 18:48 Completed Ethanol [Ethyl Alcohol] Stat Lab 03/23/24 18:48 Completed Magnesium Stat Lab 03/23/24 18:48 Completed PT INR [Prothrombin Time INR] Stat Lab 03/23/24 18:48 Completed Medical Decision Narrative: Patient alert and oriented tachycardic no evidence of alcohol withdrawal recently having significant drinks and drinks heavily at baseline also presents today with worsening of his erythrodermic psoriasis. I discussed this case at length with a local claims analyst and the patient likely needs to be admitted inpatient with whirlpool treatment with physical therapy, and cyclosporine etc. Will attempt to get him transferred [facility] where they have inpatient dermatology. No evidence of alcohol withdrawal at the moment that certainly we will plan to his management needs. Labs consistent with acute alcoholic hepatitis no need for steroids discriminant function unremarkable. Vital signs improving I spoke with Dr. Jones with [facility] who agreed to accept the patient for inpatient dermatology consultation. Critical Care Critical Care Time Critical Care Time: No
[2024-03-23] MEDS: LACTATED RINGERS 1000ML 1,000 ML 999 ML IV (18:52)
[2024-03-23 19:00] VITALS: PULSE 114; O2SAT 98
[2024-03-23 19:01] LABS: Basophils # 0.1 K/mm3 (0-0.2); Basophils % 1.5 % (0.1-2.0); Eosinophils # 0.2 K/mm3 (0.0-0.4); Eosinophils % 3.4 % (0.1-12.0); Hematocrit 43.8 % (42.0-52.0); Hemoglobin 14.2 g/dL (14.1-18.0); Lymphocytes % 17.6 % (10-50); Mean Corpuscular HGB Conc 32.4 g/dL (31.8-35.4); Mean Corpuscular Hemoglobin 39.5 pg (27.0-31.2); Mean Corpuscular Volume 121.8 fl (80-94); Mean Platelet Volume 8.4 fl (7.4-10.4); Monocytes # 0.5 K/mm3 (0.1-1.0); Monocytes % 8.2 % (1.7-9.3); Neutrophils % 69.4 % (37.0-80.0); Platelet Count 242 K/mm3 (142-424); Red Blood Count 3.59 M/mm3 (4.60-6.20); Red Cell Distribution Width 14.6 % (11.5-17.5); White Blood Count 5.8 K/mm3 (4.8-10.8)
[2024-03-23 19:04] LABS: Chloride 98 mmol/L (98-107); Sodium 138 mmol/L (136-145)
[2024-03-23 19:06] LABS: Blood Urea Nitrogen 2 mg/dl (9-20); Creatinine Clearance Estimated 193 mL/min (50-200); Estimated Glomerular Filt Rate 151 ml/min (>60); GFR (African American) 182 ML/MIN (>60)
[2024-03-23 19:07] LABS: Alanine Aminotransferase 178 U/L (12-78); Albumin Level 3.7 g/dl (3.5-5.0); Albumin/Globulin Ratio 1.3 (1.1-1.8); Alkaline Phosphatase 149 U/L (38-126); Aspartate Amino Transferase 261 U/L (17-59); Calcium 8.8 mg/dl (8.4-10.2); Carbon Dioxide 24 mmol/L (22.0-30.0); Globulin 2.9 g/dL (1.3-3.2); Glucose 103 mg/dl (74-100); Total Protein,Serum 6.6 g/dl (6.3-8.2)
[2024-03-23 19:09] LABS: INR 0.92 (0.9-1.1)
--- NOTE | 2024-03-23 19:10 | PC.NURSE ---
CRITICAL K+ 3.0, PT NAME AND R/V. DR ALANIS NOTIFIED
[2024-03-23 19:18] LABS: C-Reactive Protein 7.7 mg/L (0-4)
--- NOTE | 2024-03-23 19:38 | PC.NURSE ---
call to re transfer, they will reach out to internal med and call us back
[2024-03-23 19:41] LABS: Ethyl Alcohol 271 mg/dl (0-10); Magnesium 1.5 mg/dl (1.6-2.3)
[2024-03-23] MEDS: POTASSIUM CHLORIDE 20MEQ TAB 60 MEQ PO (19:55)
[2024-03-23] MEDS: KCl 10mEq/100ml 100 ML 100 MEQ IV ×3 (19:56→22:16)
[2024-03-23 20:30] VITALS: PULSE 117; O2SAT 97
--- NOTE | 2024-03-23 20:45 | PC.NURSE ---
Contacted [facility] over status of transfer they are repaging the hospitalist
--- NOTE | 2024-03-23 21:20 | PC.NURSE ---
[facility]SAYNE contacted back Dr. Jones accepting
--- NOTE | 2024-03-23 22:00 | PC.NURSE ---
One person assist to the bed from the stretcher and placed on the monitor, patient requested that the BP cuff not be placed on him at this time due to his condition. He also informed me of Alcohol Withdrawl Syndrome and that diazepam is the only thing that will work.
[2024-03-23 22:30] VITALS: PULSE 103; O2SAT 95
--- NOTE | 2024-03-23 22:36 | PC.NURSE ---
Rounded on patient to find patient lying left lateral recumbent asleep, pts third bag of potassium was hanged per MAR
--- NOTE | 2024-03-23 23:45 | PC.NURSE ---
they are still working on a bed, will call us back when they have one, staff informed
[2024-03-24] VITALS (16 sets, daily range): BP systolic 122–137; BP diastolic 73–87; PULSE 61–172; RESP 13–20; TEMP 36.7–37; O2SAT 94–98
[2024-03-24] MEDS: LORazepam 2MG/ML VIAL 1 MG IV (00:13)
--- NOTE | 2024-03-24 00:37 | PC.NURSE ---
rounded on patient, patient sleeping, call light within reach
[2024-03-24] MEDS: diazePAM 10MG/2ML SYRINGE 10 MG IV ×3 (04:48→09:05)
--- NOTE | 2024-03-24 05:59 | PC.NURSE ---
patient sleeping, no needs at this time
[2024-03-24] MEDS: MAGNESIUM SULFATE IN WATER 2 GM/50 ML PIGGYBACK IV ×2 (07:30→12:27)
--- NOTE | 2024-03-24 08:02 | EXP.HP ---
History of Present Illness *Admission Date: 03/24/24 *Reason for visit:: Alcohol withdrawl, rash *History of present illness: Mr. Peng is a 39-year-old male with history of anxiety, depression, polysubstance use, alcohol dependence, erythrodermic psoriasis. Presented to the ER because of worsening pain from his rash and symptoms of alcohol withdrawal. Rashes been present for couple months. Drinks a half a gallon of whiskey daily to help with the pain. Has noted some increased swelling in his feet. Feels his rash is getting worse. Presentation to the ER, concern for symptoms of alcohol withdrawal. Workup in the ER with normal white cell count, no overt sign of infection. MCV of 120. Potassium magnesium low on initial electrolytes. Kidney function normal. Has had multiple visits to the ER recently and transfer to [facility] for inpatient dermis been offered multiple times. Patient is interested at this time as his rash is gotten so bad that he is in pain from head to toe. Medicine was consulted after attempt to transfer to since he resulted in patient being placed on a waiting list due to no bed availability. Patient will be admitted to medicine for treatment of alcohol withdrawal and symptomatic treatment of his rash with topical steroids. Upon arrival to the floor, patient appears somewhat more comfortable. Still tremulous and tachycardic. Rash progressed from last visit 2 months ago. Has significant plaque on his scalp and diffusely on his body. No shortness of breath, nausea, vomiting. [facility] Disclaimer: The information contained in this section may have been updated after the patient was seen, as this information can be updated by other users. Medical History Psoriasis Alcohol abuse Social History Smoking Status: Current every day smoker tobacco type: cigarettes packs per day: 2 second hand exposure: No alcohol intake: current alcohol intake frequency: 3 or more drinks per day substance use type: marijuana current occupational status: employed and unemployed Travel in the last 8 weeks: None housing: house current occupational exposures/hazards: No caffeine: Yes Review of Systems Review of Systems Review of systems (narrative): 14 point review of systems performed, pertinent positives and negatives as per HPI Meds Home Medications and Allergies Home Medications Medication Instructions Recorded Confirmed Type thiamine mononitrate (vit B1) 100 100 mg PO DAILY 30 days #30 tabs 01/27/24 03/24/24 Rx mg tablet ibuprofen 800 mg tablet (IBU) 800 mg PO Q6H PRN pain 5 days #20 02/13/24 03/24/24 Rx tabs triamcinolone acetonide 0.1 % 1 applic topical BID 10 days #454 02/13/24 03/24/24 Rx topical cream grams cefdinir 300 mg capsule 300 mg PO BID 10 days #20 caps 03/17/24 03/24/24 Rx New Prescriptions to Start Prescriptions: Allergies Allergy/AdvReac Type Severity Reaction Status Date / Time Sulfa (Sulfonamide Allergy Unknown Rash/ mild Verified 02/13/24 11:04 Antibiotics) breathing [SULFA (SULFONAMIDE problems ANTIBIOTICS)] per PT Exam Data for Last 24 hours Vital signs and Labs for Last 24 Hours: Temp Pulse Resp BP Pulse Ox O2 Del Method 98.1 F 126 H 19 136/87 97 Room Air 03/23/24 17:02 03/24/24 06:14 03/23/24 17:02 03/24/24 04:46 03/24/24 06:14 03/23/24 17:02 Laboratory Results - last 24 hr 03/23/24 18:48: WBC 5.8, RBC 3.59 L, Hgb 14.2, Hct 43.8, MCV 121.8 H, MCH 39.5 H, MCHC 32.4, RDW 14.6, Plt Count 242, MPV 8.4, Neut % (Auto) 69.4, Lymph % (Auto) 17.6, [place] % (Auto) 8.2, Eos % (Auto) 3.4, Baso % (Auto) 1.5, Neut # (Auto) 4.0, Lymph # (Auto) 1.0, [place] # (Auto) 0.5, Eos # (Auto) 0.2, Baso # (Auto) 0.1, PT 10.0 L, INR 0.92, Sodium 138, Potassium 3.0 L, Chloride 98, Carbon Dioxide 24, Anion Gap 19.0 H, BUN 2 L, Creatinine 0.60 L, Estimated Creat Clear 193, Estimated GFR 151, Est GFR ( Amer) 182, Glucose 103 H, Calcium 8.8, Magnesium 1.5 L, Total Bilirubin 1.0, AST 261 H, ALT 178 H, Alkaline Phosphatase 149 H, C-Reactive Protein 7.7 H, Total Protein 6.6, Albumin 3.7, Globulin 2.9, Albumin/Globulin Ratio 1.3, Plasma/Serum Alcohol 271 H I & O for Last 24 hours: Intake & Output 03/21/24 03/22/24 03/23/24 03/24/24 23:59 23:59 23:59 23:59 Weight 81.647 kg Constitutional Constitutional: mild distress, average body habitus and cooperative Comments: intoxicated appearance *Routine HEENT Exam Head: Present normocephalic Eye: Present EOMI ENT: Present mucous membranes moist Comments: Significant scalp plaque covering entirety of head *Routine Neck Exam Neck: Present full ROM *Routine Respiratory Exam Respiratory: Present CTA bilaterally and symmetric chest movement; Absent rhonchi, wheezes or crackles *Routine Cardiovascular Exam Cardiovascular: Present tachycardia *Routine Abdominal Exam Abdominal: Present soft, normoactive bowel sounds and tenderness *Routine Rectal Exam Rectal:: deferred *Routine Genitalia Exam Genitalia:: deferred *Routine Extremities Exam Extremities: Present cyanosis and full ROM; Absent edema *Routine Skin Exam Skin: Present intact and rash Comments: Diffuse erythematous blanching rash with marked scale across most of patient's body including torso and extremities, face is spared *Routine Neurological Exam Neurological: Present alert, oriented X3, moving all extremities and tremors; Absent altered mental status Assessment and Plan *Assessment and plan (1) Alcohol withdrawal: Status: Acute Qualifiers: Complication of substance-induced condition: with unspecified complication Qualified Code(s): F10.939 - Alcohol use, unspecified with withdrawal, unspecified Category: Medical Code(s): F10.939 - Alcohol use, unspecified with withdrawal, unspecified (2) Psoriasis: Problem Comment: This 39-year-old male has probably one of the more advanced cases of psoriasis that I have seen in my career. It is way more than a primary care can deal with. He needs to see [employer]. Unfortunately getting someone into a [employer] without emergent situation is almost impossible. Will send him to the emergency room at [facility]. There he will be seen by dermatology and treated appropriately. Status: Acute Category: Medical Code(s): L40.9 - Psoriasis, unspecified (3) Intoxication: Status: Acute Category: Medical (4) Tachycardia: Status: Acute Category: Medical Code(s): R00.0 - Tachycardia, unspecified (5) Anxiety and depression: Status: Acute Category: Medical Code(s): F41.9 - Anxiety disorder, unspecified; F32.A - Depression, unspecified (6) Tobacco abuse: Problem Comment: Will need to discuss his need to quit smoking. Status: Acute Category: Medical Code(s): Z72.0 - Tobacco use (7) Alcohol abuse: Status: Acute Category: Social Hx Code(s): F10.10 - Alcohol abuse, uncomplicated (8) Hypomagnesemia: Status: Acute Category: Medical Code(s): E83.42 - Hypomagnesemia (9) Transaminitis: Status: Acute Category: Medical Code(s): R74.01 - Elevation of levels of liver transaminase levels Plan 39-year-old male history of anxiety, depression, polysubstance abuse, tobacco abuse, daily drinking presenting with bodyaches, diffuse flare of his erythrodermic psoriasis. Has been drinking daily for pain control. Presented to the ER with alcohol withdrawal and diffuse pain. Patient has been accepted at [facility] but no bed available at this time. Discussed case with ER physician, request admission for further management of alcohol withdrawal and topical treatments of rash pending transfer. Agreed to admit for further management. CIWA protocol ordered, necessitating frequent benzodiazepine dosage. Administering topical triamcinolone for rash. Problems addressed as follows: Acute alcohol intoxication with withdrawal tachycardia Alcohol withdrawal protocol. Continue CIWA scoring. Diazepam ordered for withdrawal symptoms based on score. Monitor for toxicity and oversedation Initiate gabapentin 100 mg 3 times a day for withdrawal symptoms and pain from his psoriasis Continue rally pack daily. B1 and folate Erythrodermic psoriasis -Given recurrent admissions and worsening severity of rash diffusely over body, necessitates dermatology eval and inpatient treatment for his rash until it is showing improvement. -Avoiding systemic steroids at this time -Topical triamcinolone 3 times a day, moist compresses -Gabapentin as above for pain Electrolyte disturbances Alcoholic hepatitis -potassium 3.0, magnesium 1.5, mild alcoholic hepatitis with AST 282, alk phos 146, ALT 170, bilirubin 2.5 -Replacing magnesium and potassium IV and orally -Have ordered CBC, CMP, magnesium for the morning -History of anxiety depression and polysubstance abuse: Continue monitoring for withdrawal symptoms Currently on no medications Lovenox for DVT prophylax On Protonix for GERD suspected distal esophagitis Full code
--- NOTE | 2024-03-24 08:10 | PC.NURSE ---
report called to [facility] on second floor
--- NOTE | 2024-03-24 08:35 | PC.NURSE ---
arrived to floor by stretcher from ED
[2024-03-24] MEDS: MVI, ADULT NO.1 WITH VIT K 10 ML, THIAMINE HCL 100 MG, MAGNESIUM SULFATE 2 GM in LACTAT... 125 ML IV (09:06)
[2024-03-24] MEDS: THIAMINE 100MG TABLET 100 MG PO (09:09)
[2024-03-24] MEDS: FOLIC ACID 1MG TABLET 1 MG PO (09:09)
[2024-03-24] MEDS: TRIAMCINOLONE ACETONIDE TP ×3 (09:10→21:10)
[2024-03-24 10:50] LABS: Chloride 101 mmol/L (98-107); Potassium 3.7 mmoL/L (3.5-5.1); Sodium 134 mmol/L (136-145)
[2024-03-24 10:53] LABS: Alanine Aminotransferase 170 U/L (12-78); Albumin/Globulin Ratio 1.3 (1.1-1.8); Alkaline Phosphatase 146 U/L (38-126); Anion Gap 16.7 mEq/L (5-15); Aspartate Amino Transferase 282 U/L (17-59); Bilirubin,Total 2.5 mg/dl (0.2-1.3); Calcium 8.1 mg/dl (8.4-10.2); Carbon Dioxide 20 mmol/L (22.0-30.0); Creatinine Clearance Estimated 231 mL/min (50-200); Estimated Glomerular Filt Rate 186 ml/min (>60); GFR (African American) 225 ML/MIN (>60); Globulin 2.4 g/dL (1.3-3.2); Glucose 89 mg/dl (74-100); Magnesium 1.4 mg/dl (1.6-2.3); Phosphorous 3.6 mg/dl (2.5-4.5); Total Protein,Serum 5.4 g/dl (6.3-8.2)
[2024-03-24 10:58] LABS: Blood Urea Nitrogen < 2 mg/dl (9-20); C-Reactive Protein 6.7 mg/L (0-4)
[2024-03-24] MEDS: diazePAM 10MG/2ML SYRINGE 5 MG IV (12:27)
[2024-03-24] MEDS: ENOXAPARIN 40MG/0.4ML SYRINGE 40 MG SQ (13:32)
[2024-03-24] MEDS: GABAPENTIN 100MG CAPSULE 100 MG PO ×2 (13:32→21:09)
[2024-03-24] MEDS: HYDROCODONE/APAP 5/325 MG TABLET 1 TAB PO ×2 (14:51→21:10)
[2024-03-24] MEDS: NICOTINE 21MG/24HR PATCH 21 MG TD (14:51)
[2024-03-24] MEDS: MULTIVITAMIN TABLET 1 EACH PO (16:44)
--- NOTE | 2024-03-24 17:52 | PC.NURSE ---
pt alert and oriented x4. x1-2 assisted with walking due to pain and swelling in BLE. pt c/o pain all over skin and says it hurts worse when wet but had relief with prescribed pain meds and steroid cream. pt has slept most of shift since arriving to [facility], 2 CIWAs done so far with scores of 17 and 9. seems to have relief from severe tremors with iv Valium. pt states he drinks 1-2 fifths of whisky a day and had about a fifth before arriving to the hospital. 2 partial baths received this shift. pt otherwise pleasant and voiced no questions or concerns. still waiting for a bed at [facility].
[2024-03-24] MEDS: SODIUM CHLORIDE 0.9% 10ML VIAL 10 ML IV (21:09)
[2024-03-24] MEDS: PANTOPRAZOLE 40MG VIAL 40 MG IV (21:09)
[2024-03-25] VITALS: BP 128/70; PULSE 106; RESP 20; TEMP 36.8; O2SAT 96
[2024-03-25 04:00] VITALS: BP 113/59; PULSE 116; RESP 18; TEMP 36.8; O2SAT 97; BMI 24.3
--- NOTE | 2024-03-25 05:50 | PC.NURSE ---
Patient is alert and oriented x4. Patient has not exhibited any alcohol withdrawal symptoms throughout this shift and thus far. Patient has a diagnosis of psoriasis and has been experiencing a flare. His lesions are all over his body except for the center of his face and his genital area. Triamcinolone acetonide 0.1% cream was applied all over the patient's affected areas. The lesions are very rough and scales off frequently. Patient has had some mild tremoring at the beginning of the shift. Patient's heart sounds were normal; he has been running tachycardic this shift. His lung sounds were clear and his bowel sounds were active in all four quadrants. He tolerates room air well. Patient has trace edema bilaterally in his feet, and all of his extremities were tight. Patient's skin is blanchable and red. Towards the beginning of this shift, patient has complained of having joint pain, as well as some pain in his affected areas; he rated his pain as a level 7. Patient received 1 dose of a Thicket 5/325 mg tablet at 2109 and has not had further complaints of pain at this current time. Patient reported at 2139 that the Thicket had adequately relieved his pain. He also reported that heat therapy helps relieve his pain; heat packs were given to him as an additional pain measure this shift. The patient also does not have a nicotine patch in place. The patient has rested well throughout the night and has turned himself. Patient has had sips of ice water.
[2024-03-25 07:27] VITALS: BP 114/70; PULSE 108; RESP 12; TEMP 36.9; O2SAT 96
[2024-03-25] MEDS: FOLIC ACID 1MG TABLET 1 MG PO (08:33)
[2024-03-25] MEDS: GABAPENTIN 100MG CAPSULE 100 MG PO ×3 (08:33→21:31)
[2024-03-25] MEDS: THIAMINE 100MG TABLET 100 MG PO (08:33)
[2024-03-25] MEDS: TRIAMCINOLONE ACETONIDE TP ×3 (08:33→21:33)
[2024-03-25 08:40] LABS: Basophils % 1.1 % (0.1-2.0); Eosinophils # 0.2 K/mm3 (0.0-0.4); Eosinophils % 5.5 % (0.1-12.0); Hematocrit 37.1 % (42.0-52.0); Hemoglobin 12.1 g/dL (14.1-18.0); Lymphocytes # 0.7 K/mm3 (0.7-4.5); Lymphocytes % 16.4 % (10-50); Mean Corpuscular HGB Conc 32.5 g/dL (31.8-35.4); Mean Corpuscular Hemoglobin 39.2 pg (27.0-31.2); Mean Corpuscular Volume 120.8 fl (80-94); Mean Platelet Volume 9.4 fl (7.4-10.4); Monocytes # 0.3 K/mm3 (0.1-1.0); Monocytes % 7.3 % (1.7-9.3); Neutrophils # 2.9 K/mm3 (1.8-7.8); Neutrophils % 69.8 % (37.0-80.0); Platelet Count 182 K/mm3 (142-424); Red Blood Count 3.07 M/mm3 (4.60-6.20); Red Cell Distribution Width 14.8 % (11.5-17.5); White Blood Count 4.1 K/mm3 (4.8-10.8)
--- NOTE | 2024-03-25 08:49 | PC.NURSE ---
Bertha from called and said they were still waiting for a bed to open up for transfer
[2024-03-25 08:57] LABS: Chloride 101 mmol/L (98-107)
[2024-03-25 08:58] LABS: Potassium 3.1 mmoL/L (3.5-5.1); Sodium 133 mmol/L (136-145)
[2024-03-25 09:00] LABS: Alanine Aminotransferase 145 U/L (12-78); Alkaline Phosphatase 128 U/L (38-126); Anion Gap 7.1 mEq/L (5-15); Aspartate Amino Transferase 155 U/L (17-59); Bilirubin,Total 1.8 mg/dl (0.2-1.3); Blood Urea Nitrogen 2 mg/dl (9-20); Carbon Dioxide 28 mmol/L (22.0-30.0); Creatinine Clearance Estimated 197 mL/min (50-200); Estimated Glomerular Filt Rate 151 ml/min (>60); GFR (African American) 182 ML/MIN (>60)
[2024-03-25 09:01] LABS: Albumin Level 2.6 g/dl (3.5-5.0); Albumin/Globulin Ratio 1.1 (1.1-1.8); Calcium 7.8 mg/dl (8.4-10.2); Globulin 2.4 g/dL (1.3-3.2); Glucose 79 mg/dl (74-100); Magnesium 1.8 mg/dl (1.6-2.3)
[2024-03-25] MEDS: MVI, ADULT NO.1 WITH VIT K 10 ML, THIAMINE HCL 100 MG, MAGNESIUM SULFATE 2 GM in LACTAT... 125 ML IV (09:14)
[2024-03-25] MEDS: POTASSIUM CHLORIDE 20MEQ TAB 20 MEQ PO ×3 (11:19→21:31)
[2024-03-25] MEDS: VITAMIN B-12 1,000 MCG 1ML VIAL 1000 MCG IM (11:19)
--- NOTE | 2024-03-25 13:14 | EXP.ACUTE.PN ---
Subjective *Date: 03/25/24 *Time: 14:53 Interval history: Still in pain, required couple doses of opiates overnight. Sleeping well this morning on exam. Vital showing improvement. CIWA scores decreasing. No nausea or vomiting. Stable on room air. Afebrile. Awaiting transfer Medical Exam Vital signs and Labs for Last 24 Hours: Vital Signs Temp Pulse Resp BP Pulse Ox O2 Del Method 03/25/24 11:00 Room Air 03/25/24 09:00 Room Air 03/25/24 08:30 Room Air 03/25/24 07:27 98.4 F 108 H 12 114/70 96 Room Air 03/25/24 06:47 Room Air 03/25/24 04:45 Room Air 03/25/24 04:00 98.2 F 116 H 18 113/59 L 97 Room Air 03/25/24 02:57 Room Air 03/25/24 00:45 Room Air 03/25/24 00:00 98.3 F 106 H 20 128/70 96 Room Air 03/24/24 23:00 Room Air 03/24/24 21:00 Room Air 03/24/24 20:00 125 H 20 98 Room Air 03/24/24 20:00 98.6 F 125 H 20 126/85 98 Room Air 03/24/24 18:20 Room Air 03/24/24 17:00 Room Air 03/24/24 16:00 98.5 F 137 H 18 122/73 97 Room Air 03/24/24 15:00 Room Air Intake and Output 03/24/24 03/25/24 03/25/24 23:59 07:59 15:59 Intake Total 810 / 2040 150 / 420 270 / 420 Output Total 0 / 0 0 / 0 Balance 810 / 2040 150 / 420 270 / 420 Intake: Intake, Oral Amount 810 / 2040 150 / 420 270 / 420 Output: Output, Urine Amount 0 / 0 0 / 0 Other: Number of Unmeasured Voids 1 1 Number of Bowel Movements 1 Weight 83.416 kg Patient Weight 03/25/24 23:59 Weight 83.416 kg Laboratory Results - last 24 hr 03/25/24 07:45: WBC 4.1 L D, RBC 3.07 L, Hgb 12.1 L, Hct 37.1 L, MCV 120.8 H, MCH 39.2 H, MCHC 32.5, RDW 14.8, Plt Count 182, MPV 9.4, Neut % (Auto) 69.8, Lymph % (Auto) 16.4, [place] % (Auto) 7.3, Eos % (Auto) 5.5, Baso % (Auto) 1.1, Neut # (Auto) 2.9, Lymph # (Auto) 0.7, [place] # (Auto) 0.3, Eos # (Auto) 0.2, Baso # (Auto) 0.0, Sodium 133 L, Potassium 3.1 L, Chloride 101, Carbon Dioxide 28, Anion Gap 7.1, BUN 2 L, Creatinine 0.60 L, Estimated Creat Clear 197, Estimated GFR 151, Est GFR ( Amer) 182, Glucose 79, Calcium 7.8 L, Magnesium 1.8 D, Total Bilirubin 1.8 H, AST 155 H D, ALT 145 H, Alkaline Phosphatase 128 H, Total Protein 5.0 L, Albumin 2.6 L D, Globulin 2.4, Albumin/Globulin Ratio 1.1 I & O for Labs for Last 24 Hours: Intake & Output 03/22/24 03/23/24 03/24/24 03/25/24 23:59 23:59 23:59 23:59 Intake Total 1889 420 / 420 Output Total 0 / 0 0 / 0 Balance 1889 420 / 420 Weight 81.647 kg 83.416 kg Constitutional: Present mild distress, average body habitus, chronically ill appearing and cooperative Head: Present atraumatic ENT: Present normal exam Comment:: Significant scaling plaques on scalp Neck: Present normal inspection Respiratory: Present normal respiratory effort; Absent rhonchi, wheezes or crackles Cardiac: Present Regular Rhythm and Tachycardia GI: Present soft and normal bowel sounds; Absent distention or tenderness Extremities: Present normal inspection and full ROM Skin: Present intact, erythema and rash Comment:: Diffuse erythematous rash with scale Neuro: Present Grossly Intact, alert, awake, oriented x 3 and moves all extremities Comment:: Tremor Assessment and Plan *Assessment and plan (1) Alcohol withdrawal: Status: Acute Qualifiers: Complication of substance-induced condition: with unspecified complication Qualified Code(s): F10.939 - Alcohol use, unspecified with withdrawal, unspecified Category: Medical Code(s): F10.939 - Alcohol use, unspecified with withdrawal, unspecified (2) Psoriasis: Problem Comment: This 39-year-old male has probably one of the more advanced cases of psoriasis that I have seen in my career. It is way more than a primary care can deal with. 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 Unfortunately getting someone into a athletic training internship without emergent situation is almost impossible. Will send him to the emergency room at [facility]. There he will be seen by dermatology and treated appropriately. Status: Acute Category: Medical Code(s): L40.9 - Psoriasis, unspecified (3) Intoxication: Status: Acute Category: Medical (4) Tachycardia: Status: Acute Category: Medical Code(s): R00.0 - Tachycardia, unspecified (5) Anxiety and depression: Status: Acute Category: Medical Code(s): F41.9 - Anxiety disorder, unspecified; F32.A - Depression, unspecified (6) Tobacco abuse: Problem Comment: Will need to discuss his need to quit smoking. Status: Acute Category: Medical Code(s): Z72.0 - Tobacco use (7) Alcohol abuse: Status: Acute Category: Social Hx Code(s): F10.10 - Alcohol abuse, uncomplicated (8) Hypomagnesemia: Status: Acute Category: Medical Code(s): E83.42 - Hypomagnesemia (9) Transaminitis: Status: Acute Category: Medical Code(s): R74.01 - Elevation of levels of liver transaminase levels Plan 39-year-old male history of anxiety, depression, polysubstance abuse, tobacco abuse, daily drinking presenting with bodyaches, diffuse flare of his erythrodermic psoriasis. Has been drinking daily for pain control. Presented to the ER with alcohol withdrawal and diffuse pain. Patient has been accepted at [facility] but no bed available at this time. Discussed case with ER physician, request admission for further management of alcohol withdrawal and topical treatments of rash pending transfer. Agreed to admit for further management. CIWA protocol ordered, necessitating frequent benzodiazepine dosage. Administering topical triamcinolone for rash. Problems addressed as follows: Acute alcohol intoxication with withdrawal tachycardia Alcohol withdrawal protocol. Continue CIWA scoring. Diazepam ordered for withdrawal symptoms based on score required 2 doses of oral Valium in the past 24 hours. Monitor for toxicity and oversedation Continue gabapentin 100 mg 3 times a day for withdrawal symptoms and pain from his psoriasis Continue rally pack daily. B1 and folate Erythrodermic psoriasis -Given recurrent admissions and worsening severity of rash diffusely over body, necessitates dermatology eval and inpatient treatment for his rash until it is showing improvement. -Avoiding systemic steroids at this time -Topical triamcinolone 3 times a day, moist compresses -Gabapentin as above for pain Electrolyte disturbances Alcoholic hepatitis -potassium 3.1, magnesium 1.8, mild alcoholic hepatitis with Bilirubin 1.8, AST 155, ALT 145, alk phos 128, showing some improvement. -Replacing magnesium and potassium orally -Have ordered CBC, CMP, magnesium for the morning -History of anxiety depression and polysubstance abuse: Continue monitoring for withdrawal symptoms Currently on no medications Macrocytosis: MCV of 120, will administer B12 IM x 1 today Lovenox for DVT prophylax On Protonix for GERD suspected distal esophagitis Full code
[2024-03-25 15:41] VITALS: BP 131/81; PULSE 100; RESP 16; TEMP 36.6; O2SAT 99
[2024-03-25] MEDS: MULTIVITAMIN TABLET 1 EACH PO (17:01)
--- NOTE | 2024-03-25 17:08 | PC.NURSE ---
Pt has done well today. skin appears less red and a lot of the dry patches on his back have flaked off. Pt does state that he feels better this afternoon than he did this morning.
[2024-03-25 19:51] VITALS: BP 116/71; PULSE 96; RESP 18; TEMP 36.6; O2SAT 97
[2024-03-25 20:00] VITALS: PULSE 96; RESP 18; O2SAT 97
[2024-03-25] MEDS: SODIUM CHLORIDE 0.9% 10ML VIAL 10 ML IV (21:31)
[2024-03-25] MEDS: PANTOPRAZOLE 40MG VIAL 40 MG IV (21:31)
[2024-03-25] MEDS: HYDROCODONE/APAP 5/325 MG TABLET 1 TAB PO (21:32)
[2024-03-25] MEDS: NICOTINE 21MG/24HR PATCH 21 MG TD (22:48)
[2024-03-25] MEDS: diazePAM 5MG TABLET 5 MG PO (23:49)
[2024-03-26 04:00] VITALS: BP 126/74; PULSE 96; RESP 17; TEMP 36.8; O2SAT 98; BMI 24.3
--- NOTE | 2024-03-26 05:04 | PC.NURSE ---
Patient is alert and oriented x4. Patient's CIWA score is a zero for this shift. Patient's heart rate is still consistently slightly tachycardic; his lung sounds remain clear and his bowel sounds are active. Patient's skin is still flaky, red, and tight. However, lesions on his back have noticable improvement. Steroid cream applied per MAR. Swelling decreased in extremities. Patient continues to have tremors whenever he reports pain; also reports occasional stiffness in joints. Patient received 1 dose of [place] around the beginning of this shift. Patient reported relief of pain. Patient's IV in the right antecubital infiltrated, tickled patient, and bled early this shift and was removed; a new one was inserted by Maribel ROMERO in the left antecubital at around 22:39. The new IV insertion was really uncomfortable and very painful for the patient. After IV insertion, patient requested for a nicotine patch, and it was applied onto his right shoulder. Patient has not rested well throughout the night. At this time, he has finally gone to sleep. No acute changes or complaints at this time. Call light within reach.
[2024-03-26 07:05] LABS: Chloride 108 mmol/L (98-107); Sodium 138 mmol/L (136-145)
[2024-03-26 07:07] LABS: Alanine Aminotransferase 131 U/L (12-78); Aspartate Amino Transferase 112 U/L (17-59); Basophils % 0.8 % (0.1-2.0); Blood Urea Nitrogen 2 mg/dl (9-20); Creatinine Clearance Estimated 236 mL/min (50-200); Eosinophils # 0.2 K/mm3 (0.0-0.4); Eosinophils % 5.3 % (0.1-12.0); Estimated Glomerular Filt Rate 186 ml/min (>60); GFR (African American) 225 ML/MIN (>60); Hemoglobin 12.2 g/dL (14.1-18.0); Lymphocytes # 0.8 K/mm3 (0.7-4.5); Lymphocytes % 16.6 % (10-50); Mean Corpuscular HGB Conc 32.1 g/dL (31.8-35.4); Mean Corpuscular Hemoglobin 39.6 pg (27.0-31.2); Mean Corpuscular Volume 123.4 fl (80-94); Mean Platelet Volume 9.4 fl (7.4-10.4); Monocytes # 0.3 K/mm3 (0.1-1.0); Monocytes % 6.4 % (1.7-9.3); Neutrophils # 3.2 K/mm3 (1.8-7.8); Neutrophils % 70.9 % (37.0-80.0); Platelet Count 194 K/mm3 (142-424); Red Blood Count 3.08 M/mm3 (4.60-6.20); Red Cell Distribution Width 14.6 % (11.5-17.5); White Blood Count 4.5 K/mm3 (4.8-10.8)
[2024-03-26 07:08] LABS: Albumin Level 2.8 g/dl (3.5-5.0); Albumin/Globulin Ratio 1.1 (1.1-1.8); Alkaline Phosphatase 129 U/L (38-126); Calcium 8.3 mg/dl (8.4-10.2); Carbon Dioxide 23 mmol/L (22.0-30.0); Globulin 2.6 g/dL (1.3-3.2); Glucose 90 mg/dl (74-100); Total Protein,Serum 5.4 g/dl (6.3-8.2)
[2024-03-26 07:15] LABS: Anion Gap 10.7 mEq/L (5-15); Potassium 3.7 mmoL/L (3.5-5.1)
[2024-03-26 07:18] LABS: Magnesium 1.9 mg/dl (1.6-2.3)
[2024-03-26 07:25] VITALS: BP 124/67; PULSE 94; RESP 18; TEMP 37; O2SAT 97
[2024-03-26] MEDS: GABAPENTIN 100MG CAPSULE 100 MG PO ×2 (08:04→12:38)
[2024-03-26] MEDS: THIAMINE 100MG TABLET 100 MG PO (08:04)
[2024-03-26] MEDS: FOLIC ACID 1MG TABLET 1 MG PO (08:04)
[2024-03-26] MEDS: POTASSIUM CHLORIDE 20MEQ TAB 20 MEQ PO ×2 (08:04→12:38)
[2024-03-26] MEDS: TRIAMCINOLONE ACETONIDE TP ×2 (08:05→12:38)
[2024-03-26] MEDS: MVI, ADULT NO.1 WITH VIT K 10 ML, THIAMINE HCL 100 MG, MAGNESIUM SULFATE 2 GM in LACTAT... 125 ML IV (10:13)
[2024-03-26 11:30] VITALS: BP 127/67; PULSE 99; RESP 18; TEMP 37.2; O2SAT 98
[2024-03-26] MEDS: HYDROCODONE/APAP 5/325 MG TABLET 1 TAB PO (12:40)
[2024-03-26 13:00] LABS: HIV (1&2) Antibody Rapid NON REACTIVE
--- NOTE | 2024-03-26 13:54 | P.PN_ITS ---
Subjective *Date: 03/26/24 *Time: 15:47 Medical Exam Vital signs and Labs for Last 24 Hours: Vital Signs Temp Pulse Resp BP Pulse Ox O2 Del Method 03/26/24 13:00 Room Air 03/26/24 11:30 99.0 F 99 H 18 127/67 98 Room Air 03/26/24 11:00 Room Air 03/26/24 09:00 Room Air 03/26/24 08:00 Room Air 03/26/24 07:25 98.6 F 94 H 18 124/67 97 Room Air 03/26/24 06:49 Room Air 03/26/24 04:56 Room Air 03/26/24 04:00 98.3 F 96 H 17 126/74 98 Room Air 03/26/24 03:00 Room Air 03/26/24 00:56 Room Air 03/25/24 23:00 Room Air 03/25/24 21:00 Room Air 03/25/24 20:00 96 H 18 97 Room Air 03/25/24 19:51 97.9 F 96 H 18 116/71 97 Room Air 03/25/24 18:48 Room Air 03/25/24 17:00 Room Air 03/25/24 15:41 97.9 F 100 H 16 131/81 99 Room Air 03/25/24 15:00 Room Air Intake and Output 03/25/24 03/26/24 03/26/24 23:59 07:59 15:59 Intake Total 540 / 1740 240 / 370 130 / 370 Output Total 0 / 0 0 / 0 Balance 540 / 1740 240 / 370 130 / 370 Intake: Intake, Oral Amount 540 / 1740 240 / 370 130 / 370 Output: Output, Urine Amount 0 / 0 0 / 0 Other: Number of Unmeasured Voids 1 1 Weight 83.325 kg Patient Weight 03/26/24 23:59 Weight 83.325 kg Laboratory Results - last 24 hr 03/25/24 07:45: HIV 1&2 Antibody Rapid Non reactive 03/26/24 06:30: WBC 4.5 L, RBC 3.08 L, Hgb 12.2 L, Hct 38.0 L, MCV 123.4 H, MCH 39.6 H, MCHC 32.1, RDW 14.6, Plt Count 194, MPV 9.4, Neut % (Auto) 70.9, Lymph % (Auto) 16.6, [place] % (Auto) 6.4, Eos % (Auto) 5.3, Baso % (Auto) 0.8, Neut # (Auto) 3.2, Lymph # (Auto) 0.8, [place] # (Auto) 0.3, Eos # (Auto) 0.2, Baso # (Auto) 0.0, Sodium 138, Potassium 3.7, Chloride 108 H, Carbon Dioxide 23, Anion Gap 10.7, BUN 2 L, Creatinine 0.50 L, Estimated Creat Clear 236, Estimated GFR 186, Est GFR ( Amer) 225 D, Glucose 90, Calcium 8.3 L, Magnesium 1.9, Total Bilirubin 1.0, AST 112 H D, ALT 131 H, Alkaline Phosphatase 129 H, Total Protein 5.4 L, Albumin 2.8 L, Globulin 2.6, Albumin/Globulin Ratio 1.1 I & O for Labs for Last 24 Hours: Intake & Output 03/23/24 03/24/24 03/25/24 03/26/24 23:59 23:59 23:59 23:59 Intake Total 1889 / 2039 1500 / 1740 370 / 370 Output Total 0 / 0 0 / 0 0 / 0 Balance 1889 / 2039 1500 / 1740 370 / 370 Weight 81.647 kg 83.416 kg 83.325 kg Assessment and Plan *Assessment and plan (1) Alcohol withdrawal: Status: Acute Qualifiers: Complication of substance-induced condition: with unspecified complication Qualified Code(s): F10.939 - Alcohol use, unspecified with withdrawal, unspecified Category: Medical Code(s): F10.939 - Alcohol use, unspecified with withdrawal, unspecified (2) Psoriasis: Problem Comment: This 39-year-old male has probably one of the more advanced cases of psoriasis that I have seen in my career. It is way more than a primary care can deal with. He needs to see presales consultant. Unfortunately getting someone into a presales consultant without emergent situation is almost impossible. Will send him to the emergency room at [facility]. There he will be seen by dermatology and treated appropriately. Status: Acute Category: Medical Code(s): L40.9 - Psoriasis, unspecified (3) Intoxication: Status: Acute Category: Medical (4) Tachycardia: Status: Acute Category: Medical Code(s): R00.0 - Tachycardia, unspecified (5) Anxiety and depression: Status: Acute Category: Medical Code(s): F41.9 - Anxiety disorder, unspecified; F32.A - Depression, unspecified (6) Tobacco abuse: Problem Comment: Will need to discuss his need to quit smoking. Status: Acute Category: Medical Code(s): Z72.0 - Tobacco use (7) Alcohol abuse: Status: Acute Category: Social Hx Code(s): F10.10 - Alcohol abuse, uncomplicated (8) Hypomagnesemia: Status: Acute Category: Medical Code(s): E83.42 - Hypomagnesemia (9) Transaminitis: Status: Acute Category: Medical Code(s): R74.01 - Elevation of levels of liver transaminase levels Plan 39-year-old male history of anxiety, depression, polysubstance abuse, tobacco abuse, daily drinking presenting with bodyaches, diffuse flare of his erythrodermic psoriasis. Has been drinking daily for pain control. Presented to the ER with alcohol withdrawal and diffuse pain. Patient has been accepted at [facility] but no bed available at this time. Discussed case with ER physician, request admission for further management of alcohol withdrawal and topical treatments of rash pending transfer. Agreed to admit for further management. CIWA protocol ordered, necessitating frequent benzodiazepine dosage. Administering topical triamcinolone for rash. Problems addressed as follows: Acute alcohol intoxication with withdrawal tachycardia Alcohol withdrawal protocol. Continue CIWA scoring. Diazepam ordered for withdrawal symptoms based on score required 2 doses of oral Valium in the past 24 hours. Monitor for toxicity and oversedation Continue gabapentin 100 mg 3 times a day for withdrawal symptoms and pain from his psoriasis Continue rally pack daily. B1 and folate Erythrodermic psoriasis -Given recurrent admissions and worsening severity of rash diffusely over body, necessitates dermatology eval and inpatient treatment for his rash until it is showing improvement. -Avoiding systemic steroids at this time -HIV negative, have ordered hepatitis panel, histoplasma urine antigen, QuantiFERON gold/TB. -Extensive discussion with on-call presales consultant at [facility]. Recommend initiating cyclosporine 3 to 5 mg/kg daily. We will initiate 200 mg twice daily. Pharmacy to order this medication for us, will start in the morning. -Continue topical triamcinolone 3 times a day, moist compresses -Gabapentin as above for pain Electrolyte disturbances Alcoholic hepatitis -potassium 3.1, magnesium 1.8, mild alcoholic hepatitis with Bilirubin 1.8, AST 155, ALT 145, alk phos 128, showing some improvement. -Replacing magnesium and potassium orally -Have ordered CBC, CMP, magnesium for the morning -History of anxiety depression and polysubstance abuse: Continue monitoring for withdrawal symptoms Currently on no medications Macrocytosis: MCV of 120, will administer B12 IM x 1 today Lovenox for DVT prophylax On Protonix for GERD suspected distal esophagitis Full code
--- NOTE | 2024-03-26 15:48 | EXP.DC.SUM ---
General Admission date:: 03/24/24 Discharge date: 03/26/24 HPI HPI HPI: Mr. Santana is a 39-year-old male with history of anxiety, depression, polysubstance use, alcohol dependence, erythrodermic psoriasis. Presented to the ER because of worsening pain from his rash and symptoms of alcohol withdrawal. Rashes been present for couple months. Drinks a half a gallon of whiskey daily to help with the pain. Has noted some increased swelling in his feet. Feels his rash is getting worse. Presentation to the ER, concern for symptoms of alcohol withdrawal. Workup in the ER with normal white cell count, no overt sign of infection. MCV of 120. Potassium magnesium low on initial electrolytes. Kidney function normal. Has had multiple visits to the ER recently and transfer to [place] for inpatient dermis been offered multiple times. Patient is interested at this time as his rash is gotten so bad that he is in pain from head to toe. Medicine was consulted after attempt to transfer to since he resulted in patient being placed on a waiting list due to no bed availability. Patient will be admitted to medicine for treatment of alcohol withdrawal and symptomatic treatment of his rash with topical steroids. Upon arrival to the floor, patient appears somewhat more comfortable. Still tremulous and tachycardic. Rash progressed from last visit 2 months ago. Has significant plaque on his scalp and diffusely on his body. No shortness of breath, nausea, vomiting. Hospital Course Hospital Course Hospital Course: 39-year-old male history of anxiety, depression, polysubstance abuse, tobacco abuse, daily drinking presenting with bodyaches, diffuse flare of his erythrodermic psoriasis. Has been drinking daily for pain control. Presented to the ER with alcohol withdrawal and diffuse pain. Patient has been accepted at [facility] but no bed available at this time. Discussed case with ER physician, request admission for further management of alcohol withdrawal and topical treatments of rash pending transfer. Agreed to admit for further management. Initiated on CIWA protocol showing good improvement in symptoms. Minimal benzo doses by day of patient's choice to leave AMA. Discussed need for urgent eval by dermatology. Patient signed paperwork and left AMA. Problems managed as follows: Acute alcohol intoxication with withdrawal tachycardia Patient initiated on alcohol withdrawal protocol, showed consistent improvement in CIWA scoring. Treated with rally pack, B12, B1, folate during admission. Showing improvement in symptoms. Initiated on gabapentin 100 mg 3 times a day for withdrawal symptoms and pain from his psoriasis. Did not discharge on gabapentin due to its controlled classification. Patient's vitals improving. Clinically stable at this time, low risk for DTs. Erythrodermic psoriasis -Given recurrent admissions and worsening severity of rash diffusely over body, necessitates dermatology eval and inpatient treatment for his rash until it is showing improvement. Patient admitted for transfer, was accepted at [place] but patient became tired of waiting. Stated he needed to get back to work. Did not have the ability to not work and wait for an unknown period of time prior to transfer. Avoid systemic steroids due to nature of his rash and likelihood for worsening flare. Obtained infection screening labs as he would best be served by systemic immunosuppressive therapy in the future. HIV negative. Hepatitis panel, histoplasma urine antigen, QuantiFERON gold all pending at time of discharge. Plan was to start cyclosporine after extensive discussion with on-call human capital analyst at [facility] while we await transfer. Patient unfortunately felt the need to go home so he could get back to work. While I understand his decision, disagree with this choice given the recurrent nature of his admissions related to his skin condition and the severity thereof. Assisted in trying to come up with alternate plan including scheduling patient with outpatient human capital analyst urgently tomorrow. Patient discharged with tube of triamcinolone. Stressed the importance of getting in with dermatology to decrease risk for readmission given the severity of his condition. Patient would benefit from systemic treatment. Appointment made with human capital analyst in [place] at [facility] dermatology for tomorrow morning at 10 AM. Electrolyte disturbances Alcoholic hepatitis -Showing improvement in his liver enzymes. Still elevated on day of AMA discharge but improved into the low 100s from admission. Replacing electrolytes daily. Would benefit from daily multivitamin and alcohol avoidance. -History of anxiety depression and polysubstance abuse: Continue monitoring for withdrawal symptoms, Currently on no medications Macrocytosis: MCV of 120, received 1 dose of IM B12 Exam Data for Last 24 hours Vital signs and Labs for Last 24 Hours: Temp Pulse Resp BP Pulse Ox O2 Del Method 99.0 F 99 H 18 127/67 98 Room Air 03/26/24 11:30 03/26/24 11:30 03/26/24 11:30 03/26/24 11:30 03/26/24 11:30 03/26/24 13:00 Laboratory Results - last 24 hr 03/25/24 07:45: HIV 1&2 Antibody Rapid Non reactive 03/26/24 06:30: WBC 4.5 L, RBC 3.08 L, Hgb 12.2 L, Hct 38.0 L, MCV 123.4 H, MCH 39.6 H, MCHC 32.1, RDW 14.6, Plt Count 194, MPV 9.4, Neut % (Auto) 70.9, Lymph % (Auto) 16.6, [place] % (Auto) 6.4, Eos % (Auto) 5.3, Baso % (Auto) 0.8, Neut # (Auto) 3.2, Lymph # (Auto) 0.8, [place] # (Auto) 0.3, Eos # (Auto) 0.2, Baso # (Auto) 0.0, Sodium 138, Potassium 3.7, Chloride 108 H, Carbon Dioxide 23, Anion Gap 10.7, BUN 2 L, Creatinine 0.50 L, Estimated Creat Clear 236, Estimated GFR 186, Est GFR ( Amer) 225 D, Glucose 90, Calcium 8.3 L, Magnesium 1.9, Total Bilirubin 1.0, AST 112 H D, ALT 131 H, Alkaline Phosphatase 129 H, Total Protein 5.4 L, Albumin 2.8 L, Globulin 2.6, Albumin/Globulin Ratio 1.1 I & O for Last 24 hours: Intake & Output 03/23/24 03/24/24 03/25/24 03/26/24 23:59 23:59 23:59 23:59 Intake Total 1889 1500 / 0 610 / 610 Output Total 0 / 0 0 / 0 0 / 0 Balance 1889 1500 / 1740 610 / 610 Weight 81.647 kg 83.416 kg 83.325 kg Constitutional Constitutional: no acute distress, average body habitus, chronically ill appearing and cooperative *Routine HEENT Exam Head: Present normocephalic Eye: Present EOMI and PERRL ENT: Present mucous membranes moist *Routine Neck Exam Neck: Present supple; Absent lymphadenopathy *Routine Respiratory Exam Respiratory: Present CTA bilaterally; Absent rhonchi, wheezes or crackles *Routine Cardiovascular Exam Cardiovascular: Present RRR *Routine Abdominal Exam Abdominal: Present soft and normoactive bowel sounds; Absent tenderness *Routine Rectal Exam Patient deferred: visual exam *Routine Exam Patient deferred: penile exam *Routine Extremities Exam Extremities: Absent cyanosis, clubbing or edema *Routine Skin Exam Skin: Present warm and rash Comments: From neckDiffuse erythema with extensive scaling flaking covering entire body down. Plaque covering entire scalp. *Routine Neurological Exam Neurological: Present alert, oriented X3, moving all extremities and tremors; Absent altered mental status Routine Psychiatric Exam Psychiatric: Present cooperative and anxious Results Data Completed and Pending Labs on day of discharge: Labs from last 24 hours 03/26/24 03/25/24 06:30 07:45 WBC 4.5 L RBC 3.08 L Hgb 12.2 L Hct 38.0 L MCV 123.4 H MCH 39.6 H MCHC 32.1 RDW 14.6 Plt Count 194 MPV 9.4 Neut % (Auto) 70.9 Lymph % (Auto) 16.6 [place] % (Auto) 6.4 Eos % (Auto) 5.3 Baso % (Auto) 0.8 Neut # (Auto) 3.2 Lymph # (Auto) 0.8 [place] # (Auto) 0.3 Eos # (Auto) 0.2 Baso # (Auto) 0.0 Sodium 138 Potassium 3.7 Chloride 108 H Carbon Dioxide 23 Anion Gap 10.7 BUN 2 L Creatinine 0.50 L Estimated Creat Clear 236 Estimated GFR 186 Est GFR ( Amer) 225 D Glucose 90 Calcium 8.3 L Magnesium 1.9 Total Bilirubin 1.0 AST 112 H D ALT 131 H Alkaline Phosphatase 129 H Total Protein 5.4 L Albumin 2.8 L Globulin 2.6 Albumin/Globulin Ratio 1.1 HIV 1&2 Antibody Rapid Non reactive DS: Diagnosis Discharge Diagnosis (1) Alcohol withdrawal: Status: Acute Code(s): F10.939 - Alcohol use, unspecified with withdrawal, unspecified Qualifiers: Complication of substance-induced condition: with unspecified complication Qualified Code(s): F10.939 - Alcohol use, unspecified with withdrawal, unspecified (2) Psoriasis: Status: Acute Code(s): L40.9 - Psoriasis, unspecified Problem details: This 39-year-old male has probably one of the more advanced cases of psoriasis that I have seen in my career. It is way more than a primary care can deal with. He needs to see human capital analyst. Unfortunately getting someone into a human capital analyst without emergent situation is almost impossible. Will send him to the emergency room at [facility]. There he will be seen by dermatology and treated appropriately. (3) Intoxication: Status: Acute (4) Tachycardia: Status: Acute Code(s): R00.0 - Tachycardia, unspecified (5) Anxiety and depression: Status: Acute Code(s): F41.9 - Anxiety disorder, unspecified; F32.A - Depression, unspecified (6) Tobacco abuse: Status: Acute Code(s): Z72.0 - Tobacco use Problem details: Will need to discuss his need to quit smoking. (7) Alcohol abuse: Status: Acute Code(s): F10.10 - Alcohol abuse, uncomplicated (8) Hypomagnesemia: Status: Acute Code(s): E83.42 - Hypomagnesemia (9) Transaminitis: Status: Acute Code(s): R74.01 - Elevation of levels of liver transaminase levels Meds Home Medications and Allergies Home Medications Medication Instructions Recorded Confirmed Type thiamine mononitrate (vit B1) 100 100 mg PO DAILY 30 days #30 tabs 01/27/24 03/24/24 Rx mg tablet folic acid 1 mg tablet 1 mg PO DAILY #0 tabs 03/24/24 Rx gabapentin 100 mg capsule 100 mg PO TID #0 caps 03/24/24 Rx hydrocodone 5 mg-acetaminophen 325 1 tab PO Q6HP PRN Moderate To 03/24/24 Rx mg tablet Severe Pain (4-10) #0 tabs multivitamin with folic acid 400 1 tab PO 1700 #0 tabs 03/24/24 Rx mcg tablet (Tab-A-Rodrigo) nicotine 21 mg/24 hr daily 21 mg transdermal DAILYP PRN 03/24/24 Rx transdermal patch Nicotine Cravings #0 ea pantoprazole 40 mg intravenous 40 mg IV HS #0 ea 03/24/24 Rx solution (Protonix) triamcinolone acetonide 0.1 % 1 applic topical TID #0 grams 03/24/24 Rx topical cream triamcinolone acetonide 0.1 % 1 applic topical TID #453.6 grams 03/26/24 Rx topical ointment New Prescriptions to Start Prescriptions: triamcinolone acetonide Benjamin Mcguire Allergies Allergy/AdvReac Type Severity Reaction Status Date / Time Sulfa (Sulfonamide Allergy Unknown Rash/ mild Verified 02/13/24 11:04 Antibiotics) breathing [SULFA (SULFONAMIDE problems ANTIBIOTICS)] per PT Discharge Plan Disposition Patient Disposition: Left Against Medical Advice Condition: Fair Discharge Order Discharge Orders: Discharge Order (Routine); Ordered 03/26/24 Ordered By: Benjamin Mcguire Follow up Plan Prescriptions/Medication Reconciliation: New hydrocodone-acetaminophen 5-325 mg Tablet 1 tab PO Q6HP PRN (Reason: Moderate To Severe Pain (4-10)) Qty: 0 0RF folic acid 1 mg Tablet 1 mg PO DAILY Qty: 0 0RF gabapentin 100 mg Capsule 100 mg PO TID Qty: 0 0RF multivitamin with folic acid [Tab-A-Rodrigo] 400 mcg Tablet 1 tab PO 1700 Qty: 0 0RF pantoprazole [Protonix] 40 mg Recon Soln 40 mg IV HS Qty: 0 0RF nicotine 21 mg/24 hr Patch 24 Hour 21 mg transdermal DAILYP PRN (Reason: Nicotine Cravings) Qty: 0 0RF triamcinolone acetonide 0.1 % Cream 1 applic topical TID Qty: 0 0RF triamcinolone acetonide 0.1 % ointment 1 applic topical TID Qty: 453.6 2RF Continued thiamine mononitrate (vit B1) 100 mg Tablet 100 mg PO DAILY 30 Days Qty: 30 0RF Discontinued cefdinir 300 mg capsule 300 mg PO BID 10 Days Qty: 20 0RF Problem Reconciliation Problems Reviewed?: Yes Patient Discharge Instructions ACTIVITY: Continue current activity DIET: continue same diet Patient Instructions: Psoriasis, Alcohol Use Disorder, DI for Psoriasis, DI for Drug or Alcohol Withdrawal Providers Primary Care Provider: Provider,Referral Admit Provider: Benjamin Mcguire Attending Provider: Benjamin Mcguire
--- NOTE | 2024-03-26 16:50 | PC.NURSE ---
LATE ENTRY- PT DEMANDED TO LEAVE AMA. DR TORRES WAS NOTIFIED AND CAME TO BEDSIDE TO DISCUSS PLAN OF CARE. PT STATED HIS UNDERSTANDING. IV WAS REMOVED AND PATIENT LEFT UNDER OWN POWER.
[2024-03-28 13:04] LABS: HBsAg Screen Negative (Negative); HCV Ab Non Reactive (Non Reactive); Hep A Ab, IGM Negative (Negative); Hep B Core Ab, IgM Negative (Negative)
[2024-03-28 21:15] LABS: QuantiFERON-TB Gold Plus Negative (Negative)
== END 2024-03-26 14:25 | disposition left against medical advice (07) ==
LOC: ER 21:20 → 2ND 03-24 08:26
PROVIDERS: Admitting Provider Internal Medicine Adolescent Medicine; Emergency Provider Student in an Organized Health Care Education/Training Program; Visit Provider Internal Medicine Adolescent Medicine
DX: F10.239 Alcohol dependence with withdrawal, unspecified (principal); E83.42 Hypomagnesemia; F17.210 Nicotine dependence, cigarettes, uncomplicated; Y90.8 Blood alcohol level of 240 mg/100 ml or more; L40.8 Other psoriasis; K70.10 Alcoholic hepatitis without ascites; R74.01 Elevation of levels of liver transaminase levels; F41.9 Anxiety disorder, unspecified; F32.A Depression, unspecified
CPT/HCPCS: 36415; 80053; 80320; 83735; 84100; 85025; 85610; 86140; 86480; 99285; G0378; G0480; J1650; J2060; J3411; J3420; J3475; J3480; J7120

== ENCOUNTER 2024-04-10 14:31 | Emergency (ER) | payer OTHER, SELFPAY ==
[2024-04-10] VITALS (9 sets, daily range): BP systolic 93–137; BP diastolic 57–75; PULSE 99–157; RESP 13–18; TEMP 37; O2SAT 97–100; BMI 23.7
--- NOTE | 2024-04-10 14:45 | HMH.EDGENADL ---
Discharge Plan Disposition Patient Disposition: Xfer Short-Term Hosp Condition: Critical Prescriptions Prescriptions: No Action thiamine mononitrate (vit B1) 100 mg Tablet 100 mg PO DAILY 30 Days Qty: 30 0RF hydrocodone-acetaminophen 5-325 mg Tablet 1 tab PO Q6HP PRN (Reason: Moderate To Severe Pain (4-10)) Qty: 0 0RF folic acid 1 mg Tablet 1 mg PO DAILY Qty: 0 0RF gabapentin 100 mg Capsule 100 mg PO TID Qty: 0 0RF multivitamin with folic acid [Tab-A-Rodrigo] 400 mcg Tablet 1 tab PO 1700 Qty: 0 0RF pantoprazole [Protonix] 40 mg Recon Soln 40 mg IV HS Qty: 0 0RF nicotine 21 mg/24 hr Patch 24 Hour 21 mg transdermal DAILYP PRN (Reason: Nicotine Cravings) Qty: 0 0RF triamcinolone acetonide 0.1 % Cream 1 applic topical TID Qty: 0 0RF triamcinolone acetonide 0.1 % ointment 1 applic topical TID Qty: 453.6 2RF Referrals Follow up/Referrals: Danny Hansen DO [Primary Care Provider] - See instructions Clinical Impressions Clinical Impression: Erythrodermic psoriasis, Alcohol abuse, Hypokalemia Alcoholic hepatitis Qualifiers: Ascites presence: unspecified Qualified Code(s): K70.10 - Alcoholic hepatitis without ascites Discharge ED Provider: Aman Solano General Adult HPI <ADRIANA Trivedi - Last Filed: 04/10/24 17:51> General Chief complaint: Recheck/Abnormal Lab/Rx Stated complaint: rash all over Time Seen by Provider: 04/10/24 14:45 History of Present Illness HPI narrative: Patient presents for evaluation of his psoriasis flare. Patient is well-known to the emergency department and was last seen in March of this year and patient was initially transferred pending bed availability to the [facility] however beds were not available for greater than 24 hours thus patient was admitted our facility pending that transfer. Unfortunately patient left AGAINST MEDICAL ADVICE and has not been seen by dermatology still. Patient presents today for worsening psoriatic pain arthralgias swelling redness. Patient is also a daily drinker of hard liquor. Patient currently denies chest pain shortness of breath fever chills hemoptysis hematochezia melena nausea vomiting or diarrhea. Related Data Previous Rx's Medication Instructions Recorded thiamine mononitrate (vit B1) 100 100 mg PO DAILY 30 days #30 tabs 01/27/24 mg tablet folic acid 1 mg tablet 1 mg PO DAILY #0 tabs 03/24/24 gabapentin 100 mg capsule 100 mg PO TID #0 caps 03/24/24 hydrocodone 5 mg-acetaminophen 325 1 tab PO Q6HP PRN Moderate To 03/24/24 mg tablet Severe Pain (4-10) #0 tabs multivitamin with folic acid 400 1 tab PO 1700 #0 tabs 03/24/24 mcg tablet (Tab-A-Rodrigo) nicotine 21 mg/24 hr daily 21 mg transdermal DAILYP PRN 03/24/24 transdermal patch Nicotine Cravings #0 ea pantoprazole 40 mg intravenous 40 mg IV HS #0 ea 03/24/24 solution (Protonix) triamcinolone acetonide 0.1 % 1 applic topical TID #0 grams 03/24/24 topical cream triamcinolone acetonide 0.1 % 1 applic topical TID #453.6 grams 03/26/24 topical ointment Allergies Allergy/AdvReac Type Severity Reaction Status Date / Time Sulfa (Sulfonamide Allergy Unknown Rash/ mild Verified 02/13/24 11:04 Antibiotics) breathing [SULFA (SULFONAMIDE problems ANTIBIOTICS)] per PT [facility] <ADRIANA Trivedi - Last Filed: 04/10/24 17:51> [facility] Disclaimer: The information contained in this section may have been updated after the patient was seen, as this information can be updated by other users. Medical History Psoriasis Alcohol abuse Social History Smoking Status: Current every day smoker tobacco type: cigarettes packs per day: 2 second hand exposure: No alcohol intake: current alcohol intake frequency: 3 or more drinks per day substance use type: marijuana current occupational status: employed and unemployed Travel in the last 8 weeks: None housing: house current occupational exposures/hazards: No caffeine: Yes <ADRIANA Trivedi Last Filed: 04/10/24 17:51> ROS Obtained: Yes Systems reviewed as appropriate & no additional complaints except as documented Physical Exam <ADRIANA Trivedi Last Filed: 07/09/24 17:51> General General appearance: alert and in no apparent distress Respiratory Respiratory exam: Present normal lung sounds bilaterally Cardiovascular Cardiovascular exam: Present regular rate and normal rhythm Abdominal Exam Abdominal exam: Present soft and normal bowel sounds; Absent tenderness Neurological Exam Neurological exam: Present alert and oriented X3 Other Other exam information: Patient has body wide erythema with skin scaling, edema especially of the right hand and the bilateral lower extremities to the level of the thigh but no evidence of induration or purulence. Medical Decision Making <ADRIANA Trivedi - Last Filed: 04/10/24 17:51> Medical Records Medical records reviewed: Yes I reviewed the patient's medical records. Zhang Inquiry Pt receiving controlled substance: No Vital Signs: 04/10/24 14:50 04/10/24 17:30 04/10/24 18:01 Pulse Rate 111 H 115 H Pulse Rate [Right Brachial] 157 H Respiratory Rate 18 Blood Pressure 124/73 103/57 L Blood Pressure [Right Arm] 137/62 Blood Pressure Mean 90 82 Blood Pressure Mean [Right Arm] 87 02 Sat by Pulse Oximetry 97 99 99 Oxygen Delivery Method Room Air 04/10/24 18:30 04/10/24 19:00 Pulse Rate Pulse Rate [Right Brachial] Respiratory Rate Blood Pressure 93/59 L 108/69 L Blood Pressure [Right Arm] Blood Pressure Mean 71 82 Blood Pressure Mean [Right Arm] 02 Sat by Pulse Oximetry Oxygen Delivery Method Lab Data Lab results reviewed: Yes I reviewed the patient's lab results. Lab Results 04/10/24 15:27: WBC 5.0, RBC 3.52 L, Hgb 13.9 L, Hct 40.5 L, MCV 114.9 H, MCH 39.4 H, MCHC 34.3, RDW 14.4, Plt Count 221, MPV 9.1, Neut % (Auto) 66.4, Lymph % (Auto) 20.0, [place] % (Auto) 10.5 H, Eos % (Auto) 1.9, Baso % (Auto) 1.1, Neut # (Auto) 3.3, Lymph # (Auto) 1.0, [place] # (Auto) 0.5, Eos # (Auto) 0.1, Baso # (Auto) 0.1, ESR 21 H, PT 11.2, INR 1.00, Sodium 134 L, Potassium 2.6 L*, Chloride 98, Carbon Dioxide 20 L, Anion Gap 18.6 H, BUN < 2 L, Creatinine 0.60 L, Estimated Creat Clear 193, Estimated GFR 151, Est GFR ( Amer) 182, Glucose 112 H, Calcium 8.0 L, Phosphorus 2.8, Magnesium 1.3 L, Total Bilirubin 1.2, AST 306 H*, ALT 166 H, Alkaline Phosphatase 284 H, C-Reactive Protein 10.8 H, NT-Pro-B Natriuret Pep 249 H, Total Protein 6.2 L, Albumin 3.2 L, Globulin 3.0, Albumin/Globulin Ratio 1.1, Lipase 125, Plasma/Serum Alcohol 203 H 04/10/24 17:36: Urine Color Yellow, Urine Appearance Clear, Urine pH 6.0, Ur Specific [place] <= 1.005, Urine Protein Negative, Urine Glucose (UA) Negative, Urine Ketones Trace, Urine Blood Negative, Urine Nitrate Negative, Urine Bilirubin Negative, Urine Urobilinogen 1.0, Ur Leukocyte Esterase Negative, Urine RBC None, Urine WBC None, Ur Squamous Epith Cells Occasional, Urine Bacteria None, Urine Opiates Screen Negative, Urine Methadone Screen Negative, Ur Barbituates Screen Negative, Ur Phencyclidine Scrn Negative, Ur Amphetamines Screen Negative, U Benzodiazepines Scrn Negative, Urine Cocaine Screen Negative, U Marijuana (THC) Screen Negative 04/10/24 15:27 04/10/24 15:27 Orders (Tests/Meds): ED MEDICATIONS Generic Name Dose Route Start Last Admin Trade Name Freq PRN Reason Stop Dose Admin Diazepam 10 mg 04/10/24 17:47 04/10/24 17:51 Diazepam 10mg/2ml Syringe IV 05/10/24 17:46 10 mg Q1HP PRN Administration CIWA >16 Diazepam 5 mg 04/10/24 17:47 04/10/24 19:34 Diazepam 10mg/2ml Syringe IV 05/10/24 17:46 5 mg Q1HP PRN Administration CIWA Score 8-15 Diazepam 5 mg 04/10/24 17:47 Diazepam 5mg Tablet PO 05/10/24 17:46 Q6HP PRN CIWA 2-7 Discontinued Medications Generic Name Dose Route Start Last Admin Trade Name Freq PRN Reason Stop Dose Admin Acetaminophen 1,000 mg 04/10/24 14:50 04/10/24 16:20 Acetaminophen 1,000mg/100ml Vial IV 04/10/24 14:51 1,000 mg ONCE ONE Administration Lactated Ringer's 1,000 mls @ 999 mls/hr 04/10/24 14:50 04/10/24 16:20 Lactated Ringer's 1000 Ml Bag IV 04/10/24 15:50 999 mls/hr .Q1H1M ONE Administration Piperacillin Sod/Tazobactam 50 mls @ 100 mls/hr 04/10/24 15:55 04/10/24 17:20 Sod 3.375 gm/ Sodium Chloride IV 04/10/24 16:24 Not Given ONCE ONE Vancomycin/PEG/NADA/Lysine/Water 1.75 gm in 350 mls @ 175 mls/hr 04/10/24 16:00 04/10/24 18:02 Vancomycin 1.75gm/350ml (Peg) Premix IV 04/10/24 17:59 175 mls/hr ONCE ONE Administration Sodium Chloride 2,450 mls @ 1,225 mls/hr 04/10/24 16:09 04/10/24 16:54 Sod Chlor 0.9% 1000ml Bag 30 ml/kg infuse over 2 hr (2450 ml) 04/10/24 18:08 1,225 mls/hr IV Administration .Q2H ONE Potassium Chloride/Water 100 mls @ 100 mls/hr 04/10/24 16:11 04/10/24 18:02 Potassium Chloride 10meq/100ml Ivpb IV 04/10/24 18:10 100 mls/hr Q1H MARY ELLEN Administration Magnesium Sulfate 2 gm in 50 mls @ 50 mls/hr 04/10/24 16:15 04/10/24 16:49 Magnesium Sulfate 2gm/50ml Premix IV 04/10/24 17:14 50 mls/hr ONCE ONE Administration Piperacillin Sod/Tazobactam 50 mls @ 100 mls/hr 04/10/24 17:50 Sod 3.375 gm/ Sodium Chloride IV 04/10/24 18:19 ONCE ONE Ketorolac Tromethamine 15 mg 04/10/24 14:50 04/10/24 16:20 Ketorolac 30mg/Ml Vial IV 04/10/24 14:51 15 mg ONCE ONE Administration Miscellaneous 1 each 04/10/24 16:00 Vancomycin Consult Request NOTAPPLIC 05/10/24 15:59 CON[facility]ULT [facility] Ondansetron HCl 4 mg 04/10/24 14:50 04/10/24 16:21 Ondansetron 4mg/2ml Vial IV 04/10/24 14:51 4 mg ONCE ONE Administration Potassium Chloride 40 meq 04/10/24 16:10 04/10/24 16:49 Potassium Chloride 20meq Tab PO 04/10/24 16:11 40 meq ONCE ONE Administration ORDERS Category Date Time Status BNP [NT Pro Brain Natriuretic Pep.] Stat Lab 04/10/24 15:27 Completed CBC w/Auto Diff [Complete Blood Count Auto Diff] Stat Lab 04/10/24 15:27 Completed CMP [Comprehensive Metabolic Panel] Stat Lab 04/10/24 15:27 Completed CRP [C-Reactive Protein] Stat Lab 04/10/24 15:27 Completed Drug Screen,Urine Stat Lab 04/10/24 17:36 Completed ESR [Erythrocyte Sedimentation Rate] Stat Lab 04/10/24 15:27 Completed Ethanol [Ethyl Alcohol] Stat Lab 04/10/24 15:27 Completed INR [Prothrombin Time INR] Stat Lab 04/10/24 15:27 Completed Lipase Stat Lab 04/10/24 15:27 Completed Magnesium Stat Lab 04/10/24 15:27 Completed Phosphorous Routine Lab 04/10/24 15:27 Completed UA [Urinalysis and Microscopic] Stat Lab 04/10/24 17:36 Completed Blood Culture Stat Micro 04/10/24 16:49 Received Tissue Perfus/Sepsis Re-Eval Sepsis Re-Evaluation Performed: Yes Date Performed: 04/10/24 Time Performed: 17:50 Medical Decision Narrative: In summary patient is a 39-year-old male who presents to the emergency department for evaluation of psoriasis flare. Patient is hemodynamically stable upon arrival, afebrile. Physical exam is remarkable for body wide erythema and scaling from the scalp to his feet along with edema most prominent in the right hand and the bilateral lower extremities to the level of the thigh without evidence of infection induration etc. Differential diagnosis includes psoriasis flare, renal failure, heart failure, EtOH induced hepatic failure etc. Initial workup will be conducted with hematologic labs. Initial interventions include crystalloid bolus Toradol Tylenol. Initial workup reviewed by me shows is normal white count with no shift sed rate of 21 INR 1 sodium 134 potassium 2.6 CO2 of 20 gap of 18 creatinine of 0.6 calcium 8 with an albumin of 3.2 magnesium of 1.3 AST of 306 ALT of 166 alk phos of 284 CRP of 10.8 NT proBNP of 249 plasma serum alcohol of 203. Given that I had an interactive discussion with [facility] and he has been accepted by Dr. Murray <Aman Solano MD - Last Filed: 04/10/24 19:47> Vital Signs: 04/10/24 14:50 04/10/24 17:30 04/10/24 18:01 Pulse Rate 111 H 115 H Pulse Rate [Right Brachial] 157 H Respiratory Rate 18 Blood Pressure 124/73 103/57 L Blood Pressure [Right Arm] 137/62 Blood Pressure Mean 90 82 Blood Pressure Mean [Right Arm] 87 02 Sat by Pulse Oximetry 97 99 99 Oxygen Delivery Method Room Air 04/10/24 18:30 04/10/24 19:00 Pulse Rate Pulse Rate [Right Brachial] Respiratory Rate Blood Pressure 93/59 L 108/69 L Blood Pressure [Right Arm] Blood Pressure Mean 71 82 Blood Pressure Mean [Right Arm] 02 Sat by Pulse Oximetry Oxygen Delivery Method Lab Data Lab Results 04/10/24 15:27: WBC 5.0, RBC 3.52 L, Hgb 13.9 L, Hct 40.5 L, MCV 114.9 H, MCH 39.4 H, MCHC 34.3, RDW 14.4, Plt Count 221, MPV 9.1, Neut % (Auto) 66.4, Lymph % (Auto) 20.0, [place] % (Auto) 10.5 H, Eos % (Auto) 1.9, Baso % (Auto) 1.1, Neut # (Auto) 3.3, Lymph # (Auto) 1.0, [place] # (Auto) 0.5, Eos # (Auto) 0.1, Baso # (Auto) 0.1, ESR 21 H, PT 11.2, INR 1.00, Sodium 134 L, Potassium 2.6 L*, Chloride 98, Carbon Dioxide 20 L, Anion Gap 18.6 H, BUN < 2 L, Creatinine 0.60 L, Estimated Creat Clear 193, Estimated GFR 151, Est GFR ( Amer) 182, Glucose 112 H, Calcium 8.0 L, Phosphorus 2.8, Magnesium 1.3 L, Total Bilirubin 1.2, AST 306 H*, ALT 166 H, Alkaline Phosphatase 284 H, C-Reactive Protein 10.8 H, NT-Pro-B Natriuret Pep 249 H, Total Protein 6.2 L, Albumin 3.2 L, Globulin 3.0, Albumin/Globulin Ratio 1.1, Lipase 125, Plasma/Serum Alcohol 203 H 04/10/24 17:36: Urine Color Yellow, Urine Appearance Clear, Urine pH 6.0, Ur Specific [place] <= 1.005, Urine Protein Negative, Urine Glucose (UA) Negative, Urine Ketones Trace, Urine Blood Negative, Urine Nitrate Negative, Urine Bilirubin Negative, Urine Urobilinogen 1.0, Ur Leukocyte Esterase Negative, Urine RBC None, Urine WBC None, Ur Squamous Epith Cells Occasional, Urine Bacteria None, Urine Opiates Screen Negative, Urine Methadone Screen Negative, Ur Barbituates Screen Negative, Ur Phencyclidine Scrn Negative, Ur Amphetamines Screen Negative, U Benzodiazepines Scrn Negative, Urine Cocaine Screen Negative, U Marijuana (THC) Screen Negative Orders (Tests/Meds): ED MEDICATIONS Generic Name Dose Route Start Last Admin Trade Name Freq PRN Reason Stop Dose Admin Diazepam 10 mg 04/10/24 17:47 04/10/24 17:51 Diazepam 10mg/2ml Syringe IV 05/10/24 17:46 10 mg Q1HP PRN Administration CIWA >16 Diazepam 5 mg 04/10/24 17:47 04/10/24 19:34 Diazepam 10mg/2ml Syringe IV 05/10/24 17:46 5 mg Q1HP PRN Administration CIWA Score 8-15 Diazepam 5 mg 04/10/24 17:47 Diazepam 5mg Tablet PO 05/10/24 17:46 Q6HP PRN CIWA 2-7 Discontinued Medications Generic Name Dose Route Start Last Admin Trade Name Freq PRN Reason Stop Dose Admin Acetaminophen 1,000 mg 04/10/24 14:50 04/10/24 16:20 Acetaminophen 1,000mg/100ml Vial IV 04/10/24 14:51 1,000 mg ONCE ONE Administration Lactated Ringer's 1,000 mls @ 999 mls/hr 04/10/24 14:50 04/10/24 16:20 Lactated Ringer's 1000 Ml Bag IV 04/10/24 15:50 999 mls/hr .Q1H1M ONE Administration Piperacillin Sod/Tazobactam 50 mls @ 100 mls/hr 04/10/24 15:55 04/10/24 17:20 Sod 3.375 gm/ Sodium Chloride IV 04/10/24 16:24 Not Given ONCE ONE Vancomycin/PEG/NADA/Lysine/Water 1.75 gm in 350 mls @ 175 mls/hr 04/10/24 16:00 04/10/24 18:02 Vancomycin 1.75gm/350ml (Peg) Premix IV 04/10/24 17:59 175 mls/hr ONCE ONE Administration Sodium Chloride 2,450 mls @ 1,225 mls/hr 04/10/24 16:09 04/10/24 16:54 Sod Chlor 0.9% 1000ml Bag 30 ml/kg infuse over 2 hr (2450 ml) 04/10/24 18:08 1,225 mls/hr IV Administration .Q2H ONE Potassium Chloride/Water 100 mls @ 100 mls/hr 04/10/24 16:11 04/10/24 18:02 Potassium Chloride 10meq/100ml Ivpb IV 04/10/24 18:10 100 mls/hr Q1H MARY ELLEN Administration Magnesium Sulfate 2 gm in 50 mls @ 50 mls/hr 04/10/24 16:15 04/10/24 16:49 Magnesium Sulfate 2gm/50ml Premix IV 04/10/24 17:14 50 mls/hr ONCE ONE Administration Piperacillin Sod/Tazobactam 50 mls @ 100 mls/hr 04/10/24 17:50 Sod 3.375 gm/ Sodium Chloride IV 04/10/24 18:19 ONCE ONE Ketorolac Tromethamine 15 mg 04/10/24 14:50 04/10/24 16:20 Ketorolac 30mg/Ml Vial IV 04/10/24 14:51 15 mg ONCE ONE Administration Miscellaneous 1 each 04/10/24 16:00 Vancomycin Consult Request NOTAPPLIC 05/10/24 15:59 [facility] Ondansetron HCl 4 mg 04/10/24 14:50 04/10/24 16:21 Ondansetron 4mg/2ml Vial IV 04/10/24 14:51 4 mg ONCE ONE Administration Potassium Chloride 40 meq 04/10/24 16:10 04/10/24 16:49 Potassium Chloride 20meq Tab PO 04/10/24 16:11 40 meq ONCE ONE Administration ORDERS Category Date Time Status BNP [NT Pro Brain Natriuretic Pep.] Stat Lab 04/10/24 15:27 Completed CBC w/Auto Diff [Complete Blood Count Auto Diff] Stat Lab 04/10/24 15:27 Completed CMP [Comprehensive Metabolic Panel] Stat Lab 04/10/24 15:27 Completed CRP [C-Reactive Protein] Stat Lab 04/10/24 15:27 Completed Drug Screen,Urine Stat Lab 04/10/24 17:36 Completed ESR [Erythrocyte Sedimentation Rate] Stat Lab 04/10/24 15:27 Completed Ethanol [Ethyl Alcohol] Stat Lab 04/10/24 15:27 Completed INR [Prothrombin Time INR] Stat Lab 04/10/24 15:27 Completed Lipase Stat Lab 04/10/24 15:27 Completed Magnesium Stat Lab 04/10/24 15:27 Completed Phosphorous Routine Lab 04/10/24 15:27 Completed UA [Urinalysis and Microscopic] Stat Lab 04/10/24 17:36 Completed Blood Culture Stat Micro 04/10/24 16:49 Received ECG Data Tracing #1: Independently inter by me rate is 105, rhythm is regular, no ST elevation in anatomical contiguous leads, QTc 441. Medical Decision Narrative: In summary patient is a 39-year-old male who presents to the emergency department for evaluation of psoriasis flare. Patient is hemodynamically stable upon arrival, afebrile. Physical exam is remarkable for body wide erythema and scaling from the scalp to his feet along with edema most prominent in the right hand and the bilateral lower extremities to the level of the thigh without evidence of infection induration etc. Differential diagnosis includes psoriasis flare, renal failure, heart failure, EtOH induced hepatic failure etc. Initial workup will be conducted with hematologic labs. Initial interventions include crystalloid bolus Toradol Tylenol. Initial workup reviewed by me shows is normal white count with no shift sed rate of 21 INR 1 sodium 134 potassium 2.6 CO2 of 20 gap of 18 creatinine of 0.6 calcium 8 with an albumin of 3.2 magnesium of 1.3 AST of 306 ALT of 166 alk phos of 284 CRP of 10.8 NT proBNP of 249 plasma serum alcohol of 203. Given that I had an interactive discussion with [facility] and he has been accepted by Dr. Yadav I was consulted by the JOHN, and we discussed the complexity of the problems being addressed. I approved the treatment and management plan for this patient's care in the emergency department, thus performing a substantive portion of the medical decision making. Patient is very complicated, has erythrodermic psoriasis, alcohol abuse that he wishes to cease, he is currently on CIWA protocol, has broad-spectrum antibiotics, has multiple electrolyte derangements that are being repleted, patient is being volume resuscitated with crystalloid. His pain is being controlled. He needs transfer to higher level of care and fortunately [facility] has all the consultants to manage with this problem and I had active discussion with Dr. Yadav who graciously accepted patient for transfer for continued evaluation at this time Aman Solano MD Critical Care <ADRIANA Trivedi - Last Filed: 04/10/24 17:51> Critical Care Time Critical Care Time: No
[2024-04-10 15:38] LABS: Basophils # 0.1 K/mm3 (0-0.2); Basophils % 1.1 % (0.1-2.0); Eosinophils # 0.1 K/mm3 (0.0-0.4); Eosinophils % 1.9 % (0.1-12.0); Hematocrit 40.5 % (42.0-52.0); Hemoglobin 13.9 g/dL (14.1-18.0); Mean Corpuscular HGB Conc 34.3 g/dL (31.8-35.4); Mean Corpuscular Hemoglobin 39.4 pg (27.0-31.2); Mean Corpuscular Volume 114.9 fl (80-94); Mean Platelet Volume 9.1 fl (7.4-10.4); Monocytes # 0.5 K/mm3 (0.1-1.0); Monocytes % 10.5 % (1.7-9.3); Neutrophils # 3.3 K/mm3 (1.8-7.8); Neutrophils % 66.4 % (37.0-80.0); Platelet Count 221 K/mm3 (142-424); Red Blood Count 3.52 M/mm3 (4.60-6.20); Red Cell Distribution Width 14.4 % (11.5-17.5)
[2024-04-10 15:42] LABS: Chloride 98 mmol/L (98-107)
[2024-04-10 15:43] LABS: Sodium 134 mmol/L (136-145)
[2024-04-10 15:45] LABS: Alanine Aminotransferase 166 U/L (12-78); Alkaline Phosphatase 284 U/L (38-126); Anion Gap 18.6 mEq/L (5-15); Aspartate Amino Transferase 306 U/L (17-59); Bilirubin,Total 1.2 mg/dl (0.2-1.3); Carbon Dioxide 20 mmol/L (22.0-30.0); Creatinine Clearance Estimated 193 mL/min (50-200); Estimated Glomerular Filt Rate 151 ml/min (>60); GFR (African American) 182 ML/MIN (>60)
[2024-04-10 15:46] LABS: Albumin Level 3.2 g/dl (3.5-5.0); Albumin/Globulin Ratio 1.1 (1.1-1.8); Glucose 112 mg/dl (74-100); Magnesium 1.3 mg/dl (1.6-2.3); Total Protein,Serum 6.2 g/dl (6.3-8.2)
[2024-04-10 15:47] LABS: Prothrombin Time 11.2 seconds (10.1-12.5)
[2024-04-10 15:51] LABS: C-Reactive Protein 10.8 mg/L (0-4)
[2024-04-10 15:57] LABS: NT Pro Brain Natriuretic Pep. 249 pg/mL (0-125)
[2024-04-10 15:58] LABS: Blood Urea Nitrogen < 2 mg/dl (9-20)
[2024-04-10 16:00] LABS: Potassium 2.6 mmoL/L (3.5-5.1)
[2024-04-10 16:11] LABS: Ethyl Alcohol 203 mg/dl (0-10)
[2024-04-10] MEDS: ACETAMINOPHEN 1,000MG/100ML VIAL 1000 MG IV (16:20)
[2024-04-10] MEDS: KETOROLAC 30MG/ML VIAL 15 MG IV (16:20)
[2024-04-10] MEDS: LACTATED RINGERS 1000ML 1,000 ML 999 ML IV (16:20)
[2024-04-10] MEDS: ONDANSETRON 4MG/2ML VIAL 4 MG IV (16:21)
[2024-04-10] MEDS: MAGNESIUM SULFATE IN WATER 2 GM/50 ML PIGGYBACK IV (16:49)
[2024-04-10] MEDS: POTASSIUM CHLORIDE 20MEQ TAB 40 MEQ PO (16:49)
--- NOTE | 2024-04-10 16:49 | PC.NURSE ---
called [facility] to speak with with about this pt being transferred. Dr Solano spoke with the transfer center and they advised that they would page Dr Yadav and as soon as they get her paged that they would call us back.
[2024-04-10] MEDS: SODIUM CHLORIDE 1225 ML IV (16:54)
[2024-04-10 16:55] LABS: Erythrocyte Sedimentation Rate 21 mm/hr (0-15)
[2024-04-10 16:58] LABS: Lipase 125 U/L (23-300)
--- NOTE | 2024-04-10 17:11 | PC.NURSE ---
Dr Yadav called from [facility]. and spoke with Dr Solano and after there conversation she advised that she would call back in a few.
[2024-04-10] MEDS: KCl 10mEq/100ml 100 ML 100 MEQ IV ×2 (17:29→18:02)
[2024-04-10 17:39] LABS: Microscopic, Urine URINE MICROSCOPIC (MICROSCOPIC)
[2024-04-10] MEDS: diazePAM 10MG/2ML SYRINGE 10 MG IV (17:51)
[2024-04-10 17:56] LABS: Appearance,Urine CLEAR (Clear); Bilirubin,Urine Negative (Negative); Blood, Urine Negative (Negative); Color,Urine YELLOW (Yellow); Glucose,Urine (UA) Negative (Negative); Ketones,Urine TRACE (Negative); Leukocyte Esterase,Urine Negative (Negative); Nitrate,Urine Negative (Negative); Protein,Urine Negative (Negative); Specific Gravity, Urine <= 1.005 (1.005-1.030)
[2024-04-10] MEDS: VANCOMYCIN/WATER FOR INJ (PEG) 1.75 GM/350 ML PIGGYBACK IV (18:02)
[2024-04-10 18:08] LABS: Squamous Epithelial Cell,Urine Occasional #/hpf (0-5)
[2024-04-10 18:09] LABS: Barbiturates Screen,Urine Negative ng/ml (<200); Benzodiazepines Screen,Urine Negative ng/ml (<200)
[2024-04-10 18:10] LABS: Amphetamine/Metha Screen,Urine Negative ng/ml (<1000); Cannabinoid Screen,Urine Negative ng/ml (<50)
[2024-04-10 18:11] LABS: Cocaine Screen,Urine Negative ng/ml (<300)
[2024-04-10 18:12] LABS: Methadone Screen,Urine Negative ng/ml (<300); Opiate Screen,Urine Negative ng/ml (<300)
[2024-04-10 18:13] LABS: Phencyclidine Screen,Urine Negative ng/ml (<25)
[2024-04-10 18:55] LABS: Phosphorous 2.8 mg/dl (2.5-4.5)
--- NOTE | 2024-04-10 19:06 | ECG_ITS ---
APPROVED REPORT Exam: Resting ECG HR:105 bpm ECG Measurements Heart Rate 105 AXES OH 147 P 62 QRSd 97 QRS 83 QT 380 T 47 QTc 441 Conclusion SINUS TACHYCARDIA ABNORMAL RHYTHM ECG Electronically signed by : ROBERTH HALL, 04/11/2024 07:58:42
[2024-04-10] MEDS: diazePAM 10MG/2ML SYRINGE 5 MG IV ×2 (19:34→20:29)
--- NOTE | 2024-04-10 19:34 | PC.NURSE ---
Seizure pads placed on the pts bedrails as precautionary measure for withdrawal, per request of the RN. CR
--- NOTE | 2024-04-10 19:35 | PC.NURSE ---
CIWA 13 at this time. Diazepam admin per DEC/protocol
--- NOTE | 2024-04-10 19:37 | PC.NURSE ---
night monitor placed on pt, seizure pads placed on bed. pt given pillow
[2024-04-10] MEDS: PIPERACILLIN/TAZO 3.375 GM in 0.9 % SODIUM CHLORIDE 50 ML IV (19:48)
--- NOTE | 2024-04-10 19:48 | PC.NURSE ---
pt denies pain at this time
--- NOTE | 2024-04-10 19:52 | PC.NURSE ---
EMS notified of need for transport
--- NOTE | 2024-04-10 19:57 | PC.NURSE ---
Report called to NICK Dave at [facility] [phone]
--- NOTE | 2024-04-10 20:30 | PC.NURSE ---
CIWA 13 at this time. 5mg diazepam admin per dec/protocol
--- NOTE | 2024-04-14 09:16 | PC.NURSE ---
BLOOD CULTURE DISCUSSED WITH DR ALANIS, NO NEW ORDERS. PT TRANSFERRED TO
== END 2024-04-10 20:45 | disposition short-term general hospital (02) ==
PROVIDERS: Physician Assistant; Emergency Provider Emergency Medicine; PCP Internal Medicine
DX: F10.129 Alcohol abuse with intoxication, unspecified (principal); E87.6 Hypokalemia; E87.1 Hypo-osmolality and hyponatremia; K70.10 Alcoholic hepatitis without ascites; B95.7 Other staphylococcus as the cause of diseases classified elsewhere; L40.8 Other psoriasis; R00.1 Bradycardia, unspecified; F17.210 Nicotine dependence, cigarettes, uncomplicated; Y90.7 Blood alcohol level of 200-239 mg/100 ml
CPT/HCPCS: 80053; 80307; 80320; 81001; 83690; 83735; 83880; 84100; 85025; 85610; 85651; 86140; 87040; 87077; 87186; 93005; 96361; 96365; 96366; 96367; 96375; 99285; G0480; J0131; J1885; J2405; J2543; J3475; J3480; J7120

== ENCOUNTER 2024-04-27 18:20 | Emergency (ER) | payer OTHER, SELFPAY ==
[2024-04-27 18:30] VITALS: BP 173/82; PULSE 107; RESP 20; TEMP 36.8; O2SAT 97; BMI 23.7
--- NOTE | 2024-04-27 18:43 | ED_ITS ---
Discharge Plan Disposition Patient Disposition: Home, Self-Care Condition: Good Prescriptions Prescriptions: New oxycodone 5 mg tablet 5 mg PO Q8H PRN (Reason: pain) Qty: 8 0RF No Action thiamine mononitrate (vit B1) 100 mg Tablet 100 mg PO DAILY 30 Days Qty: 30 0RF hydrocodone-acetaminophen 5-325 mg Tablet 1 tab PO Q6HP PRN (Reason: Moderate To Severe Pain (4-10)) Qty: 0 0RF folic acid 1 mg Tablet 1 mg PO DAILY Qty: 0 0RF gabapentin 100 mg Capsule 100 mg PO TID Qty: 0 0RF multivitamin with folic acid [Tab-A-Rodrigo] 400 mcg Tablet 1 tab PO 1700 Qty: 0 0RF pantoprazole [Protonix] 40 mg Recon Soln 40 mg IV HS Qty: 0 0RF nicotine 21 mg/24 hr Patch 24 Hour 21 mg transdermal DAILYP PRN (Reason: Nicotine Cravings) Qty: 0 0RF triamcinolone acetonide 0.1 % Cream 1 applic topical TID Qty: 0 0RF triamcinolone acetonide 0.1 % ointment 1 applic topical TID Qty: 453.6 2RF Referrals Follow up/Referrals: Danny Hansen DO [Primary Care Provider] - See instructions Activity Restrictions/Add. Instructions Additional Instructions/Restrictions: Please follow-up closely with your primary care provider as well as your technologist infectious disease. Return to the emergency department for new or worsening symptoms. Clinical Impressions Clinical Impression: Psoriasis with arthropathy Instructions Patient Instructions: DI for Acute Pain -- Adult, DI for Psoriasis Print Language Print Language: Khmer Discharge ED Provider: Marry Bray General Adult HPI General Chief complaint: Skin/Abscess/Foreign Body Stated complaint: rash Time Seen by Provider: 04/27/24 18:25 History of Present Illness HPI narrative: This patient is a 39-year-old male with a history of chronic alcohol abuse, alcoholic hepatitis, severe erythrodermic psoriasis presenting to the emergency department with concern for psoriasis flare. Patient was seen here 04/10/2024 for similar symptoms and was transferred to [facility] for further evaluation and management, as he had already been admitted here multiple times previously for similar issues, and we do not have dermatology here. He reports that while at [facility], he was admitted for approximately 7 days. He states that he was discharged home with an antibiotic, which he believes to be amoxicillin, cyclosporine, topical steroids, and he is supposed to be getting Cosentyx in the mail but has not come yet. He states that despite this, his psoriasis has been much worse today. No fevers or other concerns noted. Related Data Previous Rx's ?Medication ?Instructions ?Recorded thiamine mononitrate (vit B1) 100 100 mg PO DAILY 30 days #30 tabs 01/27/24 mg tablet folic acid 1 mg tablet 1 mg PO DAILY #0 tabs 03/24/24 gabapentin 100 mg capsule 100 mg PO TID #0 caps 03/24/24 hydrocodone 5 mg-acetaminophen 325 1 tab PO Q6HP PRN Moderate To 03/24/24 mg tablet Severe Pain (4-10) #0 tabs multivitamin with folic acid 400 1 tab PO 1700 #0 tabs 03/24/24 mcg tablet (Tab-A-Rodrigo) nicotine 21 mg/24 hr daily 21 mg transdermal DAILYP PRN 03/24/24 transdermal patch Nicotine Cravings #0 ea pantoprazole 40 mg intravenous 40 mg IV HS #0 ea 03/24/24 solution (Protonix) triamcinolone acetonide 0.1 % 1 applic topical TID #0 grams 03/24/24 topical cream triamcinolone acetonide 0.1 % 1 applic topical TID #453.6 grams 03/26/24 topical ointment oxycodone 5 mg tablet 5 mg PO Q8H PRN pain #8 tabs 04/27/24 Allergies Allergy/AdvReac Type Severity Reaction Status Date / Time Sulfa (Sulfonamide Allergy Unknown Rash/ mild Verified 02/13/24 11:04 Antibiotics) breathing [SULFA (SULFONAMIDE problems ANTIBIOTICS)] per PT PFSH [facility] Disclaimer: The information contained in this section may have been updated after the patient was seen, as this information can be updated by other users. Medical History Psoriasis Alcohol abuse Social History Smoking Status: Current every day smoker tobacco type: cigarettes packs per day: 2 second hand exposure: No alcohol intake: current alcohol intake frequency: 3 or more drinks per day substance use type: marijuana current occupational status: employed and unemployed Travel in the last 8 weeks: None housing: house current occupational exposures/hazards: No caffeine: Yes ROS Obtained: Yes All systems reviewed & no additional complaints except as documented Physical Exam General General appearance: alert, in no apparent distress and appears intoxicated Head Head exam: atraumatic and normocephalic Eye Eye exam: Present normal appearance, PERRL and EOMI ENT ENT exam: Present normal exam, normal oropharynx, mucous membranes moist and normal external ear exam Neck Neck exam: Present normal inspection, full ROM and trachea midline; Absent tenderness Chest Chest inspection: Present normal inspection and symmetric chest wall rise; Absent tenderness Respiratory Respiratory exam: Present normal lung sounds bilaterally; Absent respiratory distress, wheezes, stridor or accessory muscle use Cardiovascular Cardiovascular exam: Present normal rhythm and tachycardia Abdominal Exam Abdominal exam: Present soft; Absent distention, tenderness or guarding Extremities Exam Extremities exam: Present normal inspection, full ROM and normal capillary refill; Absent tenderness or edema Back Exam Back exam: Present normal inspection and full ROM; Absent tenderness Neurological Exam Neurological exam: Present alert, oriented X3, CN II-XII intact and normal gait; Absent motor sensory deficit Psychiatric Psychiatric exam: Present normal affect and normal mood Skin Skin exam: Present rash (Generalized rash consistent with patient's severe erythrodermic psoriasis. Appears slightly improved from my last assessment of the patient.) Medical Decision Making Medical Records Medical records reviewed: Yes I reviewed the patient's medical records. Zhang Inquiry Pt receiving controlled substance: Yes Zhang was queried for this patient: Yes Risks and benefits of using a controlled substance: were discussed with pt by me Vital Signs: 04/27/24 18:30 Temperature 98.3 F Temperature Source Oral Pulse Rate [Left Radial] 107 H Respiratory Rate 20 Blood Pressure [Right Arm] 173/82 H Blood Pressure Mean [Right Arm] 112 02 Sat by Pulse Oximetry 97 Oxygen Delivery Method Room Air Lab Data Lab results reviewed: Yes I reviewed the patient's lab results. Lab Results 04/27/24 19:00: WBC 6.5, RBC 4.15 L, Hgb 15.7, Hct 48.9, MCV 118.0 H, MCH 37.8 H , MCHC 32.0, RDW 14.1, Plt Count 393, MPV 7.8, Neut % (Auto) 61.4, Lymph % (Auto) 26.9, Grundy % (Auto) 6.8, Eos % (Auto) 3.4, Baso % (Auto) 1.5, Neut # (Auto) 4.0, Lymph # (Auto) 1.8, Grundy # (Auto) 0.4, Eos # (Auto) 0.2, Baso # (Auto) 0.1, Sodium 142, Potassium 3.2 L, Chloride 108 H, Carbon Dioxide 22, A nion Gap 15.2 H, BUN 2 L, Creatinine 0.90, Estimated Creat Clear 129, Estimated GFR 94, Est GFR ( Amer) 114, Glucose 100, Lactate 4.4 H, Calcium 9.1, Phosphorus 3.9, Magnesium 1.3 L, Total Bilirubin 0.6, AST 70 H, ALT 88 H, A lkaline Phosphatase 179 H, Total Protein 6.7, Albumin 3.8, Globulin 2.9, Albumin/Globulin Ratio 1.3 04/27/24 19:00 04/27/24 19:00 Orders (Tests/Meds): ED MEDICATIONS Generic Name Dose Route Start Last Admin Trade Name Freq PRN Reason Stop Dose Admin Multivitamins 10 ml/ Thiamine 1,015 mls @ 150 mls/hr 04/27/24 18:32 04/27/24 19:02 HCl 100 mg/ Magnesium Sulfate IV 04/28/24 01:17 150 mls/hr 2 gm/ Lactated Ringer's .[id number] MARY ELLEN Administration Sodium Chloride 10 ml 04/27/24 19:03 Sodium Chloride 0.9% 10ml Flush Syringe IV 05/27/24 19:02 NEEDED PRN Maintain IV Site Discontinued Medications Generic Name Dose Route Start Last Admin Trade Name Freq PRN Reason Stop Dose Admin Acetaminophen 1,000 mg 04/27/24 18:33 04/27/24 19:02 Acetaminophen 1,000mg/100ml Vial IV 04/27/24 18:34 1,000 mg ONCE ONE Administration Folic Acid 1 mg 04/27/24 18:31 04/27/24 19:02 Folic Acid 1mg Tablet PO 04/27/24 18:32 1 mg ONCE ONE Administration Ketorolac Tromethamine 15 mg 04/27/24 18:33 04/27/24 19:02 Ketorolac 30mg/Ml Vial IV 04/27/24 18:34 15 mg ONCE ONE Administration Oxycodone HCl 5 mg 04/27/24 19:27 Oxycodone 5mg Immediate Release Tablet PO 04/27/24 19:28 ONCE ONE ORDERS Category Date Time Status CRP [C-Reactive Protein] Stat Lab 04/27/24 19:00 Results Complete Blood Count Auto Diff Stat Lab 04/27/24 19:00 Results Comprehensive Metabolic Panel Stat Lab 04/27/24 19:00 Results ESR [Erythrocyte Sedimentation Rate] Stat Lab 04/27/24 19:00 Results Ethanol [Ethyl Alcohol] Stat Lab 04/27/24 19:00 Received Lactic Acid Stat Lab 04/27/24 19:00 Completed MAG [Magnesium] Stat Lab 04/27/24 19:00 Results PHOS [Phosphorous] Stat Lab 04/27/24 19:00 Results Procalcitonin Stat Lab 04/27/24 19:00 Results Blood Culture Stat Micro 04/27/24 18:50 Received Medical Decision Narrative: In summary, this patient is a 39-year-old male presenting to the Emergency Department for evaluation of psoriasis flare. It should be noted patient's history includes alcoholism which is not at goal therapy. This complicates all aspects of care by increasing patient's risk for morbidity. I reviewed patient's past medical records and noted multiple previous evaluations for the same thing over the last several months, and the last time the patient was here with he was transferred to [facility] for further evaluation and management. He reports there he was started on cyclosporine, antibiotics, and topical steroids and he is waiting on Cosentyx to come in the mail. He reports compliance with this, but states his symptoms are still worsening.. On exam, patient is in no acute distress. He is mildly tachycardic, and exam is consistent with severe erythrodermic psoriasis. No other concerns noted at this time. Workup included CBC, CMP, ESR, CRP, lactic acid, ethanol level. He was given rally pack. We contacted [facility] to obtain his records from his prior admission. Labs demonstrated hypokalemia, hypomagnesemia, and elevated lactic acid. He also has transaminitis, which is actually improved from prior. Inflammatory markers are elevated. Rally pack was ordered, but patient declined, stating that he can drink fluids at home. I offered him regular IV fluids, he declined these as well stating that he can drink at home and has potassium pills at home. I asked him when he feels like we can do for him, as he is not interested in being admitted. He states that he just wants his pain treated, as he is having a hard time walking secondary to his arthropathies. He states that he needs to get out of here because his ride is elderly and does not need to be driving after dark. Given his pain and arthropathy in the setting of psoriasis, we will give him oral oxycodone and a very short course of oxycodone to take at home. Advised that it is important that he follow-up very closely with both his technologist infectious disease and primary care provider. He was given strict return precautions. Critical Care Critical Care Time Critical Care Time: No
[2024-04-27] MEDS: FOLIC ACID 1MG TABLET 1 MG PO (19:02)
[2024-04-27] MEDS: MVI, ADULT NO.1 WITH VIT K 10 ML, THIAMINE HCL 100 MG, MAGNESIUM SULFATE 2 GM in LACTAT... 150 ML IV (19:02)
[2024-04-27] MEDS: ACETAMINOPHEN 1,000MG/100ML VIAL 1000 MG IV (19:02)
[2024-04-27] MEDS: KETOROLAC 30MG/ML VIAL 15 MG IV (19:02)
[2024-04-27 19:12] LABS: Basophils # 0.1 K/mm3 (0-0.2); Basophils % 1.5 % (0.1-2.0); Eosinophils # 0.2 K/mm3 (0.0-0.4); Eosinophils % 3.4 % (0.1-12.0); Hematocrit 48.9 % (42.0-52.0); Hemoglobin 15.7 g/dL (14.1-18.0); Lymphocytes # 1.8 K/mm3 (0.7-4.5); Lymphocytes % 26.9 % (10-50); Mean Corpuscular Hemoglobin 37.8 pg (27.0-31.2); Mean Platelet Volume 7.8 fl (7.4-10.4); Monocytes # 0.4 K/mm3 (0.1-1.0); Monocytes % 6.8 % (1.7-9.3); Neutrophils % 61.4 % (37.0-80.0); Platelet Count 393 K/mm3 (142-424); Red Blood Count 4.15 M/mm3 (4.60-6.20); Red Cell Distribution Width 14.1 % (11.5-17.5); White Blood Count 6.5 K/mm3 (4.8-10.8)
[2024-04-27 19:15] LABS: Albumin Level 3.8 g/dl (3.5-5.0); Chloride 108 mmol/L (98-107); Potassium 3.2 mmoL/L (3.5-5.1); Sodium 142 mmol/L (136-145)
[2024-04-27 19:18] LABS: Alanine Aminotransferase 88 U/L (12-78); Albumin/Globulin Ratio 1.3 (1.1-1.8); Alkaline Phosphatase 179 U/L (38-126); Anion Gap 15.2 mEq/L (5-15); Aspartate Amino Transferase 70 U/L (17-59); Bilirubin,Total 0.6 mg/dl (0.2-1.3); Blood Urea Nitrogen 2 mg/dl (9-20); Calcium 9.1 mg/dl (8.4-10.2); Carbon Dioxide 22 mmol/L (22.0-30.0); Creatinine Clearance Estimated 129 mL/min (50-200); Estimated Glomerular Filt Rate 94 ml/min (>60); GFR (African American) 114 ML/MIN (>60); Globulin 2.9 g/dL (1.3-3.2); Glucose 100 mg/dl (74-100); Magnesium 1.3 mg/dl (1.6-2.3); Phosphorous 3.9 mg/dl (2.5-4.5); Total Protein,Serum 6.7 g/dl (6.3-8.2)
--- NOTE | 2024-04-27 19:20 | PC.NURSE ---
Addendum entered by Joselin Alcantar RN 04/27/24 19:23: Pt states it takes too long, hes had it plenty of times before. MD Bray notified Original Note: Pt states save the mt dew, I dont want it , referring to rodriguez guerin
[2024-04-27 19:23] LABS: Lactic Acid 4.4 mmol/L (0.7-2.1)
[2024-04-27 19:24] LABS: C-Reactive Protein 1.9 mg/L (0-4)
[2024-04-27 19:25] LABS: Ethyl Alcohol 282 mg/dl (0-10)
--- NOTE | 2024-04-27 19:28 | PC.NURSE ---
MD Bray offered pt regular IV fluids, and pt refused stating he can drink fluids at home. pt also stated he has everything else, and can do everything else at home other than pain medication
[2024-04-27] MEDS: OXYCODONE 5MG IMMEDIATE RELEASE TABLET 5 MG PO (19:33)
[2024-04-27 19:35] LABS: Erythrocyte Sedimentation Rate 16 mm/hr (0-15)
[2024-04-27 19:37] VITALS: BP 150/91; PULSE 107; RESP 18; TEMP 36.8; O2SAT 97
== END 2024-04-27 19:38 | disposition home or self-care (01) ==
PROVIDERS: Emergency Provider Emergency Medicine; PCP Internal Medicine
DX: L40.50 Arthropathic psoriasis, unspecified (principal); E87.6 Hypokalemia; E83.42 Hypomagnesemia; R74.02 Elevation of levels of lactic acid dehydrogenase [LDH]; R74.01 Elevation of levels of liver transaminase levels; F10.129 Alcohol abuse with intoxication, unspecified; Y90.8 Blood alcohol level of 240 mg/100 ml or more
CPT/HCPCS: 80053; 80320; 83605; 83735; 84100; 84145; 85025; 85651; 86140; 87040; 96365; 96375; 99284; G0480; J0131; J1885; J3411; J7120

== ENCOUNTER 2024-07-02 08:59 | Emergency (ER) | payer OTHER, SELFPAY ==
[2024-07-02 09:05] VITALS: BP 80/51; PULSE 127; RESP 20; O2SAT 98; BMI 23.7
--- NOTE | 2024-07-02 09:08 | CT_ITS ---
FINAL REPORT TECHNIQUE: Axial images were obtained of the cervical spine by computed tomography. Coronal and sagittal reconstruction process performed. This study was performed with techniques to keep radiation doses as low as reasonably achievable (ALARA). Individualized dose reduction techniques using automated exposure control or adjustment of mA and/or kV according to the patient''s size were employed. CLINICAL HISTORY: ams, + etoh, epigastric abd ttp, short of breath FINDINGS: Cervical vertebrae show normal height. Disc spaces are well-preserved. There are minimal anterior osteophytes at C5-6. There is no malalignment. The facets are properly aligned. IMPRESSION: No fracture. Reviewed, Interpreted and Dictated by Urbano Mccullough MD Transcribed by Monika Howard Authenticated and [facility]
--- NOTE | 2024-07-02 09:08 | CT_ITS ---
FINAL REPORT TECHNIQUE: Pre-and postcontrast images of the abdomen and pelvis were performed by computed tomography. Extensive 3-D reconstruction images were performed. A CTA was performed. This study was performed with techniques to keep radiation doses as low as reasonably achievable (ALARA). Individualized dose reduction techniques using automated exposure control or adjustment of mA and/or kV according to the patient''s size were employed. CLINICAL HISTORY: ams, + etoh, epigastric abd ttp, short of breath FINDINGS: ABDOMEN: There is fluid throughout the distal esophagus. The liver is fatty infiltrated and enlarged up to 23 cm. Gallbladder is present. There is fluid throughout the stomach with questionable mucosal thickening within the pyloric channel. There are calcified granulomas in the spleen. Pancreas is unremarkable. No adrenal masses are identified. PELVIS: Appendix is not visualized. Urinary bladder is decompressed which accentuates the mucosa. Colon is also decompressed with accentuated mucosa. There is no adenopathy or free fluid. CTA: The abdominal aorta is proper caliber. The SMA, celiac axis, and ARMANI are patent. There is no significant stenosis or calcification. The renal arteries are patent bilaterally. IMPRESSION: Diffuse fatty infiltrated and enlarged liver. Fluid in the distal esophagus. Mucosal thickening in the region of the pyloric channel which may be due to gastritis. Reviewed, Interpreted and Dictated by Urbano Mccullough MD Transcribed by Estrella Allen Authenticated and [facility]
--- NOTE | 2024-07-02 09:08 | CT_ITS ---
FINAL REPORT TECHNIQUE: Axial CT images were performed through the head. Coronal reformatted images were submitted. This study was performed with techniques to keep radiation doses as low as reasonably achievable (ALARA). Individualized dose reduction techniques using automated exposure control or adjustment of mA and/or kV according to the patient's size were employed. CLINICAL HISTORY: ams, + etoh, epigastric abd ttp, short of breath FINDINGS: The ventricles are normal in size. There is no evidence of hemorrhage. There is no mass or edema identified. There is no abnormal extra-axial fluid seen. The sinuses are well aerated. IMPRESSION: No acute intracranial process. Reviewed, Interpreted and Dictated by Urbano Mccullough MD Transcribed by Monika Howard Authenticated and . [facility]
--- NOTE | 2024-07-02 09:08 | CT_ITS ---
FINAL REPORT TECHNIQUE: The patient was injected with IV contrast. Axial images were obtained through the chest in a PE protocol. 3-D reconstruction images were also performed. Individualized dose reduction techniques using automated exposure control or adjustment of the MA and/or KV according to patient's size were employed. CLINICAL HISTORY: ams, + etoh, epigastric abd ttp, short of breath COMPARISON: 11/04/2023 FINDINGS: Mediastinal vasculature is adequately opacified. No pulmonary artery filling defects are identified to suggest PE. There is no aortic dissection. There is large amount of fluid throughout the esophagus. There is mild esophageal thickening, may be related to reflux. There is no axillary adenopathy. There is no hilar or mediastinal adenopathy. The heart size is normal. There is no pericardial or pleural effusion. Limited images of the upper abdomen are unremarkable. No suspicious infiltrate or nodule is identified. There is a calcified granuloma in the posterior right upper lobe. IMPRESSION: No pulmonary embolus or dissection. Fluid throughout the esophagus with mild esophageal thickening, may be related to reflux. Reviewed, Interpreted and Dictated by Urbano Mccullough MD Transcribed by Monika Howard Authenticated and [facility]
[2024-07-02 09:12] VITALS: BP 82/47; PULSE 121; RESP 26; O2SAT 100
[2024-07-02 09:15] VITALS: BP 82/52; PULSE 121; RESP 26; O2SAT 99
[2024-07-02 09:26] LABS: VBG Base Excess -27.6 mmol/L (-2.4-2.3); VBG HCO3 5.4 mmol/L (23-30); VBG Oxygen Saturation 76.5 % (50-70); VBG PCO2 28.8 mmol/L (35-51); VBG PO2 59.7 mmol/L (28-40); VBG Total CO2 6.3 mmol/L (23-27)
--- NOTE | 2024-07-02 09:27 | HMH.EDGENADL ---
Discharge Plan Disposition Patient Disposition: Xfer Short-Term Hosp Condition: Critical Chief Complaint: Abdominal Pain Prescriptions Prescriptions: No Action thiamine mononitrate (vit B1) 100 mg Tablet 100 mg PO DAILY 30 Days Qty: 30 0RF hydrocodone-acetaminophen 5-325 mg Tablet 1 tab PO Q6HP PRN (Reason: Moderate To Severe Pain (4-10)) Qty: 0 0RF folic acid 1 mg Tablet 1 mg PO DAILY Qty: 0 0RF gabapentin 100 mg Capsule 100 mg PO TID Qty: 0 0RF multivitamin with folic acid [Tab-A-Rodrigo] 400 mcg Tablet 1 tab PO 1700 Qty: 0 0RF pantoprazole [Protonix] 40 mg Recon Soln 40 mg IV HS Qty: 0 0RF nicotine 21 mg/24 hr Patch 24 Hour 21 mg transdermal DAILYP PRN (Reason: Nicotine Cravings) Qty: 0 0RF triamcinolone acetonide 0.1 % Cream 1 applic topical TID Qty: 0 0RF triamcinolone acetonide 0.1 % ointment 1 applic topical TID Qty: 453.6 2RF oxycodone 5 mg tablet 5 mg PO Q8H PRN (Reason: pain) Qty: 8 0RF Clinical Impressions Clinical Impression: Acute renal failure, Acute upper gastrointestinal bleeding Instructions Patient Instructions: DI for Acute Abdominal Pain Print Language Print Language: Italian Discharge ED Provider: Hieu Rizo Adult HPI General Chief complaint: Abdominal Pain Stated complaint: altered mental status Time Seen by Provider: 07/02/24 09:07 Mode of Arrival: Wheelchair Source of Information: Patient Limitations: No Limitations Description of Symptoms (Recalled from ER Triage Doc. by RN): Pt was brought to the ED by a friend. Pt reports he has been vomiting up blood since yesterday afternoon. Pt reports being sob for the last couple hours. Pt reports he has had a quarter of a handle to drink this morning. History of Present Illness HPI narrative: Patient is a 39-year-old male who has a history of alcohol abuse, psoriasis, polysubstance use, Anxiety, depression. He presents today to the ED after being dropped off by a friend. Patient is slow to respond, but oriented, moving all extremities with good strength. He reports that he has been vomiting since yesterday, it has been very dark and occasionally bloody. He reports epigastric pain. Reports that he usually drinks a three quarters of a handle of liquor a day, yesterday only drank half a handle. He denies chest pain, but reports some shortness of breath yesterday, it has resolved today. Related Data Previous Rx's ?Medication ?Instructions ?Recorded thiamine mononitrate (vit B1) 100 100 mg PO DAILY 30 days #30 tabs 01/27/24 mg tablet folic acid 1 mg tablet 1 mg PO DAILY #0 tabs 03/24/24 gabapentin 100 mg capsule 100 mg PO TID #0 caps 03/24/24 hydrocodone 5 mg-acetaminophen 325 1 tab PO Q6HP PRN Moderate To 03/24/24 mg tablet Severe Pain (4-10) #0 tabs multivitamin with folic acid 400 1 tab PO 1700 #0 tabs 03/24/24 mcg tablet (Tab-A-Rodrigo) nicotine 21 mg/24 hr daily 21 mg transdermal DAILYP PRN 03/24/24 transdermal patch Nicotine Cravings #0 ea pantoprazole 40 mg intravenous 40 mg IV HS #0 ea 03/24/24 solution (Protonix) triamcinolone acetonide 0.1 % 1 applic topical TID #0 grams 03/24/24 topical cream triamcinolone acetonide 0.1 % 1 applic topical TID #453.6 grams 03/26/24 topical ointment oxycodone 5 mg tablet 5 mg PO Q8H PRN pain #8 tabs 04/27/24 Allergies Allergy/AdvReac Type Severity Reaction Status Date / Time Sulfa (Sulfonamide Allergy Unknown Rash/ mild Verified 02/13/24 11:04 Antibiotics) breathing [SULFA (SULFONAMIDE problems ANTIBIOTICS)] per [facility] Disclaimer: The information contained in this section may have been updated after the patient was seen, as this information can be updated by other users. Medical History Psoriasis Alcohol abuse Social History Smoking Status: Current every day smoker tobacco type: cigarettes packs per day: 2 second hand exposure: No alcohol intake: current alcohol intake frequency: 3 or more drinks per day substance use type: marijuana current occupational status: employed and unemployed Travel in the last 8 weeks: None housing: house current occupational exposures/hazards: No caffeine: Yes ROS Obtained: Yes All systems reviewed & no additional complaints except as documented Physical Exam General General appearance: alert, appears intoxicated and in distress Head Head exam: atraumatic and normocephalic Eye Eye exam: Present PERRL, EOMI and conjunctival redness ENT ENT exam: Present mucous membranes dry and other (dried blood on tongue) Neck Neck exam: Present full ROM and trachea midline Chest Chest inspection: Present normal inspection and symmetric chest wall rise; Absent tenderness Respiratory Respiratory exam: Present normal lung sounds bilaterally; Absent respiratory distress, wheezes, stridor or accessory muscle use Cardiovascular Cardiovascular exam: Present normal rhythm and tachycardia Abdominal Exam Abdominal exam: Present soft, tenderness (epigastric) and guarding (voluntary ); Absent distention or rebound Extremities Exam Extremities exam: Present full ROM Neurological Exam Neurological exam: Present alert and oriented X3; Absent motor sensory deficit Psychiatric Psychiatric exam: Present normal mood Skin Skin exam: Present warm, dry and other (cap refill >3 seconds) Medical Decision Making Medical Records Screening: Per USPSTF and CDC recommendations, given the prevalence of disease in our region, it is our hospital?s policy to screen for HIV and viral Hepatitis for all patients aged 18 and over and those with ongoing risk factors. Zhang Inquiry Pt receiving controlled substance: No Vital Signs: 07/02/24 09:05 07/02/24 09:12 07/02/24 09:15 Pulse Rate 121 H 121 H Pulse Rate [Right Brachial] 127 H Respiratory Rate 20 26 H 26 H Blood Pressure 82/47 L 82/52 L Blood Pressure [Right Arm] 80/51 L Blood Pressure Mean [Right Arm] 60 02 Sat by Pulse Oximetry 98 100 99 Oxygen Delivery Method Room Air Room Air Room Air 07/02/24 09:30 07/02/24 10:30 Pulse Rate 118 H 115 H Pulse Rate [Right Brachial] Respiratory Rate 20 21 Blood Pressure 103/61 L 97/58 L Blood Pressure [Right Arm] Blood Pressure Mean [Right Arm] 02 Sat by Pulse Oximetry 99 100 Oxygen Delivery Method Room Air Lab Data Lab Results 07/02/24 09:06: WBC 13.6 H, RBC 3.77 L, Hgb 14.6, Hct 48.8, MCV 129.3 H, MCH 38.7 H, MCHC 29.9 L, RDW 15.5, Plt Count 227, MPV 9.7, Neut % (Auto) 73.7, Lymph % (Auto) 20.4, [place] % (Auto) 5.0, Eos % (Auto) 0.7, Baso % (Auto) 0.3, Neut # (Auto) 10.0 H, Lymph # (Auto) 2.8, [place] # (Auto) 0.7, Eos # (Auto) 0.1, Baso # (Auto) 0.0, Sodium 129 L, Potassium 4.4, Chloride 86 L, Carbon Dioxide < 5 L*, Anion Gap 42.4 H, BUN 10, Creatinine 2.80 H, Estimated Creat Clear 41, Estimated GFR 25 L, Est GFR ( Amer) 31 L, Glucose 39 L*, Calcium 8.4, Total Bilirubin 8.9 H, AST 410 H*, ALT 177 H, Alkaline Phosphatase 176 H, Troponin I 0.02, Total Protein 6.6, Albumin 3.9, Globulin 2.7, Albumin/Globulin Ratio 1.4, Lipase 3488 H, TSH 1.89, Free T4 0.88, HIV 1&2 Antibody Rapid Nonreactive 07/02/24 09:09: Plasma/Serum Alcohol 206 H 07/02/24 09:13: VBG pH 6.89 L, VBG pCO2 28.8 L, VBG pO2 59.7 H, VBG HCO3 5.4 L, VBG Total CO2 6.3 L, VBG O2 Saturation 76.5 H, VBG Base Excess -27.6 L, VBG Lactic Acid 21.0 H 07/02/24 09:35: Blood Type A Positive, Antibody Screen Negative 07/02/24 09:06 07/02/24 09:06 Orders (Tests/Meds): ED MEDICATIONS Generic Name Dose Route Start Last Admin Trade Name Freq PRN Reason Stop Dose Admin Droperidol 1.25 mg 07/02/24 11:14 07/02/24 11:20 Droperidol 5mg/2ml Vial IV 07/02/24 11:15 1.25 mg ONCE ONE Administration Octreotide Acetate 500 mcg/ 255 mls @ 25.5 mls/hr 07/02/24 09:15 07/02/24 11:11 Sodium Chloride IV 08/01/24 09:14 25.5 mls/hr .Q10H MARY ELLEN Administration 50 MCG/HR Ceftriaxone Sodium 1 gm/ 50 mls @ 100 mls/hr 07/02/24 09:15 07/02/24 09:30 Sodium Chloride IV 07/12/24 09:14 100 mls/hr Q24H MARY ELLEN Administration Sodium Bicarbonate 50 meq 07/02/24 11:18 Sodium Bicarb 8.4% 50ml Syringe (Crash Cart) IV 07/02/24 11:19 ONCE ONE Sodium Chloride 10 ml 07/02/24 09:51 Sodium Chloride 0.9% 10ml Syr (Rad Only) IV 08/01/24 09:50 NEEDED PRN Maintain IV Site Discontinued Medications Generic Name Dose Route Start Last Admin Trade Name Freq PRN Reason Stop Dose Admin Pantoprazole Sodium 80 mg/ 100 mls @ 100 mls/hr 07/02/24 09:08 07/02/24 11:03 Sodium Chloride IV 07/02/24 10:07 100 mls/hr ONCE ONE Administration Octreotide Acetate 50 mcg/ 51 mls @ 102 mls/hr 07/02/24 09:11 07/02/24 10:49 Sodium Chloride IV 07/02/24 09:12 102 mls/hr ONCE ONE Administration Lactated Ringer's 1,000 mls @ 999 mls/hr 07/02/24 09:29 07/02/24 09:31 Lactated Ringer's 1000 Ml Bag IV 07/02/24 10:29 999 mls/hr .Q1H1M ONE Administration Iopamidol 80 ml 07/02/24 09:51 07/02/24 10:10 Iopamidol-370 (76%);100ml Bottle IV 07/02/24 09:52 80 ml ONCE ONE Administration Ondansetron HCl 4 mg 07/02/24 09:08 07/02/24 09:28 Ondansetron 4mg/2ml Vial IV 07/02/24 09:09 4 mg ONCE ONE Administration Sodium Chloride 50 ml 07/02/24 09:51 07/02/24 10:09 0.9 % Sodium Chloride 50 Ml Vial IV 07/02/24 09:52 50 ml ONCE ONE Administration ORDERS Category Date Time Status Type and Screen Stat BBK 07/02/24 09:[address] angio abdomen pelvis Stat Cat Scan 07/02/24 09:[address] angio chest PE protocol Stat Cat Scan 07/02/24 09:[address] cervical spine wo con Stat Cat Scan 07/02/24 09:[address] head/brain wo con Stat Cat Scan 07/02/24 09:08 Taken Ammonia Stat Lab 07/02/24 11:16 Received Complete Blood Count Auto Diff Stat Lab 07/02/24 09:06 Completed Comprehensive Metabolic Panel Stat Lab 07/02/24 09:06 Completed Drug Screen,Urine Stat Lab 07/02/24 09:08 Ordered Ethyl Alcohol Stat Lab 07/02/24 09:09 Completed Free T4 (Free Thyroxine) Stat Lab 07/02/24 09:06 Completed HIV (1&2) Antibody Rapid Stat Lab 07/02/24 09:06 Completed Hep C Ab with Reflex to RNA Stat Lab 07/02/24 09:06 Received Lipase Stat Lab 07/02/24 09:06 Completed Prothrombin Time INR Stat Lab 07/02/24 11:18 Ordered Thyroid Stimulating Hormone Stat Lab 07/02/24 09:06 Completed Troponin I Q3H Lab 07/02/24 12:15 Ordered Troponin I Q3H Lab 07/02/24 15:15 Ordered Troponin I Stat Lab 07/02/24 09:06 Completed Urinalysis and Microscopic Stat Lab 07/02/24 09:08 Ordered Blood Culture Stat Micro 07/02/24 09:40 Received Venous Blood Gas Stat RT 07/02/24 09:13 Completed Venous Blood Gas Stat RT 07/02/24 11:18 Ordered Medical Decision Narrative: In summary, this 39-year-old male presents to the emergency department today with vomiting, alcohol abuse. On initial evaluation patient is critically ill, tachycardic to 130, hypotensive with systolics in the 80s, saturating well on room air. On arrival, exam he appears extremely dry. Pulses are full in all extremities. He is alert and oriented, somnolent but easily arousable a GCS of 14. Initial blood glucose is 45, amp of D50 administered. Crystalloid resuscitation begun in short order.. Differential diagnosis includes but is not limited to alcohol intoxication, alcohol withdrawal, metabolic disturbance, GI bleed. Based on these concerns, I ordered CBC, CMP, VBG, lipase, CT head, chest, abdomen pelvis. Given concern for GI bleed, empirically ordered blood cultures and will start Rocephin, Protonix, octreotide.. ) Interpreted VBG to demonstrate severe metabolic acidosis 6.89/29/60/5/21. Will continue to fluid resuscitate. lipase elevated consistent with acute pancreatitis. Repeating VBG. Acute renal failure with creatinine of 2.8, up from 0.8 last week, my independent review of the EMR. CT head, chest, abdomen pelvis ordered. Independently interpreted by myself demonstrate no acute intracranial abnormality. CT abdomen and chest still pending. I had an interactive discussion with Dr. Joseph at who recommends administering bicarb and continuing fluid resuscitation and they will accept the patient to the [place] ED. Critical Care Critical Care Time Critical Care Time: Yes Attestation: On 07/02/24, the high probability of a clinically significant, sudden or life threatening deterioration of the following system(s) required my full and direct attention, intervention and personal management. The time I documented below is in addition to time spent performing reported procedures but includes the following listed in this critical care notation. Total Time Total Critical Care Time: 45
[2024-07-02] MEDS: ONDANSETRON 4MG/2ML VIAL 4 MG IV (09:28)
[2024-07-02 09:29] LABS: VBG PH 6.89 mmol/L (7.31-7.41)
[2024-07-02 09:30] VITALS: BP 103/61; PULSE 118; RESP 20; O2SAT 99
[2024-07-02] MEDS: CEFTRIAXONE SODIUM 1 GM in 0.9 % SODIUM CHLORIDE 50 ML IV (09:30)
--- NOTE | 2024-07-02 09:30 | PC.NURSE ---
Critical lab values called by Amanda. Results passed on to the RN and MD. Ph 6.9 PO2 60 BiCarb 5 Lactic 21 Glucose 33
[2024-07-02] MEDS: LACTATED RINGERS 1000ML 1,000 ML 999 ML IV (09:31)
[2024-07-02 09:33] LABS: Basophils % 0.3 % (0.1-2.0); Eosinophils # 0.1 K/mm3 (0.0-0.4); Eosinophils % 0.7 % (0.1-12.0); Hematocrit 48.8 % (42.0-52.0); Hemoglobin 14.6 g/dL (14.1-18.0); Lymphocytes # 2.8 K/mm3 (0.7-4.5); Lymphocytes % 20.4 % (10-50); Mean Corpuscular HGB Conc 29.9 g/dL (31.8-35.4); Mean Corpuscular Hemoglobin 38.7 pg (27.0-31.2); Mean Corpuscular Volume 129.3 fl (80-94); Mean Platelet Volume 9.7 fl (7.4-10.4); Monocytes # 0.7 K/mm3 (0.1-1.0); Neutrophils % 73.7 % (37.0-80.0); Platelet Count 227 K/mm3 (142-424); Red Blood Count 3.77 M/mm3 (4.60-6.20); Red Cell Distribution Width 15.5 % (11.5-17.5); White Blood Count 13.6 K/mm3 (4.8-10.8)
--- NOTE | 2024-07-02 09:35 | PC.NURSE ---
Dr. Rizo at bedside
[2024-07-02 09:46] LABS: Albumin Level 3.9 g/dl (3.5-5.0); Chloride 86 mmol/L (98-107); Potassium 4.4 mmoL/L (3.5-5.1); Sodium 129 mmol/L (136-145)
[2024-07-02 09:48] LABS: Blood Urea Nitrogen 10 mg/dl (9-20); Creatinine Clearance Estimated 41 mL/min (50-200); Estimated Glomerular Filt Rate 25 ml/min (>60); GFR (African American) 31 ML/MIN (>60)
[2024-07-02 09:49] LABS: Alanine Aminotransferase 177 U/L (12-78); Albumin/Globulin Ratio 1.4 (1.1-1.8); Alkaline Phosphatase 176 U/L (38-126); Aspartate Amino Transferase 410 U/L (17-59); Bilirubin,Total 8.9 mg/dl (0.2-1.3); Calcium 8.4 mg/dl (8.4-10.2); Globulin 2.7 g/dL (1.3-3.2); Total Protein,Serum 6.6 g/dl (6.3-8.2)
--- NOTE | 2024-07-02 09:50 | PC.NURSE ---
pt to ct
[2024-07-02 09:51] LABS: Anion Gap 42.4 mEq/L (5-15)
[2024-07-02 09:52] LABS: Carbon Dioxide < 5 mmol/L (22.0-30.0)
--- NOTE | 2024-07-02 09:52 | PC.NURSE ---
critical co2 less than 5 and glucose 39, reported to dr godinez
[2024-07-02 09:53] LABS: Glucose 39 mg/dl (74-100)
[2024-07-02 10:02] LABS: Troponin I 0.02 ng/ml (0.00-0.034)
[2024-07-02 10:06] LABS: Free T4 (Free Thyroxine) 0.88 ng/dl (0.78-2.19)
--- NOTE | 2024-07-02 10:07 | PC.NURSE ---
Pt back in room from CT
[2024-07-02] MEDS: 0.9 % SODIUM CHLORIDE 50 ML VIAL IV (10:09)
[2024-07-02] MEDS: IOPAMIDOL-370 (76%);100ML BOTTLE 80 ML IV (10:10)
--- NOTE | 2024-07-02 10:14 | ECG_ITS ---
APPROVED REPORT Exam: Resting ECG HR:118 bpm ECG Measurements Heart Rate 118 AXES SC 134 P 111 QRSd 100 QRS 97 QT 358 T 70 QTc 428 Conclusion SINUS TACHYCARDIA BORDERLINE RIGHT AXIS DEVIATION [QRS AXIS > 90] ABNORMAL RHYTHM ECG Electronically signed by : Hieu Rizo, 07/02/2024 17:35:15
[2024-07-02 10:20] LABS: Thyroid Stimulating Hormone 1.89 uIU/mL (0.465-4.68)
[2024-07-02 10:21] LABS: Ethyl Alcohol 206 mg/dl (0-10)
--- NOTE | 2024-07-02 10:29 | PC.NURSE ---
Critical lab result - Lipase 9545
[2024-07-02 10:30] VITALS: BP 97/58; PULSE 115; RESP 21; O2SAT 100
[2024-07-02 10:37] LABS: HIV (1&2) Antibody Rapid NONREACTIVE (NONREACTIVE)
[2024-07-02 10:41] LABS: Lipase 3488 U/L (23-300)
--- NOTE | 2024-07-02 10:44 | PC.NURSE ---
REPORT GIVEN TO NICK HER PT TO SURGERY VIA STRETCHER DR CAGE SPEAKING WITH DR TORRES
--- NOTE | 2024-07-02 10:47 | PC.NURSE ---
DR TORRES WANTS PT TRANSFERRED, GI NOTIFIED PER SURGERY STAFF
[2024-07-02] MEDS: OCTREOTIDE ACETATE 50 MCG in 0.9 % SODIUM CHLORIDE 50 ML 102 MCG IV (10:49)
[2024-07-02] MEDS: PANTOPRAZOLE SODIUM 80 MG in 0.9 % SODIUM CHLORIDE 100 ML 100 MG IV (11:03)
[2024-07-02] MEDS: OCTREOTIDE ACETATE 500 MCG in 0.9 % SODIUM CHLORIDE 250 ML 25.5 MCG IV (11:11)
--- NOTE | 2024-07-02 11:11 | PC.NURSE ---
Spoke with tx center regarding possible tx for GI. They advised when the DrDonaldo is available they will call right back
[2024-07-02] MEDS: droPERidol 5MG/2ML VIAL 1.25 MG IV (11:20)
[2024-07-02] MEDS: SODIUM BICARB 8.4% 50ML SYRINGE (CRASH CART) 50 MEQ IV (11:28)
--- NOTE | 2024-07-02 11:34 | PC.NURSE ---
EMS notified pt is ready for tx to [facility]
[2024-07-02 11:36] LABS: Ammonia 51 umol/L (9-30)
[2024-07-02 11:40] LABS: VBG Base Excess -25.2 mmol/L (-2.4-2.3); VBG Oxygen Saturation 76.6 % (50-70); VBG PO2 53.8 mmol/L (28-40); VBG Total CO2 6.8 mmol/L (23-27)
[2024-07-02 11:41] LABS: Lactate Venous 17.2 mmol/L (0.4-2.0)
[2024-07-02 11:46] LABS: INR 1.18 (0.9-1.1)
[2024-07-02 12:21] VITALS: BP 97/58; PULSE 115; RESP 21; TEMP 36.7; O2SAT 100
[2024-07-02 13:29] LABS: Reflex Lactic Add Lactic Reflex
[2024-07-03 05:10] LABS: HCV Ab Non Reactive (Non Reactive)
== END 2024-07-02 12:22 | disposition short-term general hospital (02) ==
PROVIDERS: Emergency Provider Emergency Medicine
DX: K92.2 Gastrointestinal hemorrhage, unspecified (principal); E87.21 Acute metabolic acidosis; R74.02 Elevation of levels of lactic acid dehydrogenase [LDH]; F10.188 Alcohol abuse with other alcohol-induced disorder; N17.9 Acute kidney failure, unspecified; E87.1 Hypo-osmolality and hyponatremia; E16.2 Hypoglycemia, unspecified; R10.13 Epigastric pain; R00.0 Tachycardia, unspecified; I95.9 Hypotension, unspecified; R06.02 Shortness of breath; R41.82 Altered mental status, unspecified; Y90.7 Blood alcohol level of 200-239 mg/100 ml
CPT/HCPCS: 70450; 71275; 72125; 74174; 80050; 80053; 80320; 82140; 82803; 83690; 84439; 84443; 84484; 85025; 85610; 86803; 86850; 87040; 87389; 93005; 96365; 96366; 96375; 99291; G0480; J0696; J1790; J2354; J2405; J7120; Q9967

== ENCOUNTER 2024-07-17 10:40 | Outpatient (CLI) | payer OTHER, SELFPAY ==
[2024-07-17 20:21] LABS: Vitamin B12 > 1000 pg/mL (239-931)
[2024-07-17 20:32] LABS: Folate 9.54 ng/mL
== END 2024-07-17 23:59 | disposition home or self-care (01) ==
LOC: LAB.DROPOF 07-18 10:40
PROVIDERS: PCP Internal Medicine; Visit Provider Internal Medicine
DX: R00.0 Tachycardia, unspecified (principal); K70.10 Alcoholic hepatitis without ascites; F10.20 Alcohol dependence, uncomplicated; R53.83 Other fatigue; Z68.21 Body mass index [BMI] 21.0-21.9, adult
CPT/HCPCS: 82607; 82746

== ENCOUNTER 2024-07-23 10:48 | Outpatient (CLI) | payer OTHER, SELFPAY ==
--- NOTE | 2024-07-23 10:48 | US_ITS ---
PROCEDURE INFORMATION: Exam: US Soft Tissue Head and Neck, Soft Tissue Exam date and time: 07/23/2024 11:09 AM Age: 39 years old Clinical indication: Mass, lump, or swelling in neck; Right and anterior; Additional info: Buldge in neck/shoulder right side TECHNIQUE: Imaging protocol: Real-time ultrasound scan of the head and neck with image documentation. Exam focused on the soft tissue in the region of clinical concern. Total images: 13 COMPARISON: CT CERVICAL SPINE WO CON 07/02/2024 9:52 AM FINDINGS: Lymph nodes: No lymphadenopathy. Soft tissues: No soft tissue masses or fluid collections noted within the area of concern in the right supraclavicular region. IMPRESSION: No soft tissue masses or fluid collections noted within the area of concern in the right supraclavicular region.
== END 2024-07-23 23:59 | disposition home or self-care (01) ==
LOC: RAD 10:48
PROVIDERS: PCP Internal Medicine; Visit Provider Internal Medicine
DX: R22.1 Localized swelling, mass and lump, neck (principal)
CPT/HCPCS: 76536

== ENCOUNTER 2024-07-30 17:03 | Outpatient (CLI) | payer OTHER, SELFPAY ==
[2024-07-30 16:06] LABS: Microscopic, Urine URINE MICROSCOPIC (MICROSCOPIC)
[2024-07-30 16:52] LABS: Appearance,Urine CLEAR (Clear); Bilirubin,Urine Negative (Negative); Blood, Urine Negative (Negative); Color,Urine YELLOW (Yellow); Glucose,Urine (UA) Negative (Negative); Ketones,Urine Negative (Negative); Leukocyte Esterase,Urine Negative (Negative); Nitrate,Urine Negative (Negative); Protein,Urine Negative (Negative); Specific Gravity, Urine 1.025 (1.005-1.030)
[2024-07-30 17:28] LABS: Amorphous Sediment,Urine 1+ /lpf; Bacteria,Urine 3+ /lpf
== END 2024-07-30 23:59 | disposition home or self-care (01) ==
LOC: LAB.DROPOF 17:03
PROVIDERS: PCP Urology; Visit Provider Urology
DX: N39.0 Urinary tract infection, site not specified (principal)
CPT/HCPCS: 81001; 87086

== ENCOUNTER 2024-08-14 12:17 | Outpatient (CLI) | payer OTHER, SELFPAY ==
--- NOTE | 2024-08-14 12:21 | XR_ITS ---
FINAL REPORT CLINICAL HISTORY: shoulder pain/ reduced ROM COMPARISON: None FINDINGS: RIGHT SHOULDER Two views demonstrate no acute fracture or dislocation. There is mild acromioclavicular joint degenerative change. The visualized bony structures are well aligned. No soft tissue abnormality is seen. IMPRESSION: Mild degenerative change without acute process. Reviewed, Interpreted and Dictated by Kvng Aguilar III, MD Transcribed by Stacie Ibarra Authenticated and [facility]
== END 2024-08-14 23:59 | disposition home or self-care (01) ==
LOC: RAD 12:19
PROVIDERS: PCP Internal Medicine; Visit Provider Internal Medicine
DX: M25.511 Pain in right shoulder (principal)
CPT/HCPCS: 73030

== ENCOUNTER 2024-08-23 11:00 | Outpatient (RCR) | payer OTHER, SELFPAY ==
--- NOTE | 2024-08-14 12:03 | HMH.PTOPEV ---
PT Outpatient Evaluation Rehab PT Outpatient Evaluation Start: 08/14/24 11:02 Freq: Status: Active Protocol: Document 08/14/24 11:03 SEVARUN (Rec: 08/14/24 12:03 INNA [id number]) E-signed By Marry Morris, PT Outpatient Therapy Subjective History Subjective History Pt is a 39 y/o male who reports generalized weakness and decreased endurance following hospitalization for illnesses associated with alcohol abuse. Pt reports he was at [facility] for 2 weeks starting 06/13/24 due to pancreatitis, lung infection with pneumonia, liver failure and ulcers. Pt reports he had a laparoscopic surgery for ulcers and was in a medically induced coma for 4 days. Pt reports overall he lost 30lbs while hospitalized. Pt reports feeling generally weak in his legs>arms following hospitalization. Pt reports he has to take frequent breaks with activities of daily living due to fatigue. Pt reports 6/10 RPE with ADLs. Pt also reports he has noticed difficulty squatting/getting out of a chair due to LE weakness and having to sit to change his pants due to altered balance. Pt denies falls or required use of an AD . Medical History: Psoriasis, Alcohol Abuse, High heart rate at rest per pt (119 bpm this date) 5x sit to stand: 20 without UE support Balance: tandem stance firm surface EO <30 with self- corrected LOB New diagnosis of cancer in past 12 No months? Chief Complaint Weakness,Other Symptoms Relieved By Rest/Positioning Symptoms Aggravated By Physical Activity Current Functional Limitations Lifting,Housework,Dressing, Squatting,Recreation Activity, Walking,Stairs,Balance Hip/Knee Eval Gait Observation General Gait Pattern Observation No Deviations/Normal Assistive Device Assistive Devices None / NA MMT right Hip Flexion Strength Grade 4- Good- Hip Abduction Strength Grade 4- Good- Hip Adduction Strength Grade 4 Good Hip Extension Strength Grade 4- Good- Knee Extension Strength Grade 4 Good Knee Flexion Strength Grade 4 Good left Hip Flexion Strength Grade 4- Good- Hip Abduction Strength Grade 4- Good- Hip Adduction Strength Grade 4 Good Hip Extension Strength Grade 4- Good- Knee Extension Strength Grade 4 Good Knee Flexion Strength Grade 4 Good ROM bilateral Hip ROM Reason Not Measured Within Functional Limits Knee ROM Reason Not Measured Within Functional Limits Outpatient Therapy Assessment Impairments Problems/Impairmments Impaired Strength,Impaired Endurance,Impaired Transfers, Impaired Walking,Impaired Standing,Impaired Lifting, Impaired Dressing,Impaired Household Care,Impaired Stair Climbing,Impaired Squatting, Impaired Recreational Activities,Impaired Balance, Impaired Self Care/Self Management Prognosis Rehab Potential Good Clinical Impression Consistent with Diagnosis Yes Short Term Goals Number of Weeks 3 Increase Strength Yes: Improve BLE MMT to 4/5 grossly to assist with function Improve Transfers Yes: Improve 5x S2S score to 15 or less to dec fall risk Improve Self Care/Self Management Yes Patient to be Ind w/ HEP Yes Usp Goals Number of Weeks 6 Increase Strength Yes: Improve BLE MMT to 4+-5/5 grossly to assist with function Increase Endurance Yes: Perform bike x15' with resistance with RPE 5/10 or less Improve Transfers Yes: Improve 5x S2S score to 12 or less to decrease fall risk Improve Ability to Dress Self Yes: report ability to don pants standing without LOB to assist with ADls Patient to be Ind w/ Advanced HEP Yes Outpatient Therapy Plan of Care Treatment Plan May Include Therapeutic Exercise Including Home Yes Exercise Program Manual Therapy Techniques Yes Neuromuscular Re-education Yes Therapeutic Activities to Return to Yes Previous Functional/Work Level Gait Training Yes ADL/Self Care Education Yes Eval/Re-Eval Yes Frequency Times per week 2 Duration Number of Weeks 6 Addendums This patient is a candidate for social No or vocational rehab? Patient/Guardian verbally acknowledges Yes understanding of treatment program and consents to further treatment? Patient/Guardian verbally acknowledges Yes understanding of diagnosis, prognosis and goals for treatment? Eval Complexity PT Charges 77449 - Low Complexity Shoulder/Elbow Eval Shoulder Objective Measurements Elbow Objective Measurements PHYSICIAN CERTIFICATION: I certify the specified therapy services for García Diaz are required, authorized, and reviewed every 30 days.
[2024-08-14 12:29] LABS: Blood Urea Nitrogen 2 mg/dl (9-20); Estimated Glomerular Filt Rate 186 ml/min (>60); GFR (African American) 225 ML/MIN (>60)
== END 2024-08-23 23:59 | disposition home or self-care (01) ==
LOC: PT 11:00
PROVIDERS: Urology; PCP Internal Medicine; Visit Provider Internal Medicine
DX: M62.50 Muscle wasting and atrophy, not elsewhere classified, unspecified site (principal)
CPT/HCPCS: 36415; 82565; 84520; 97110; 97163; 97530

== ENCOUNTER 2025-04-07 21:29 | Emergency (ER) | payer OTHER, SELFPAY ==
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
[2025-04-07 21:52] VITALS: BP 132/91; PULSE 105; RESP 16; TEMP 36.9; O2SAT 99; BMI 20.8
--- NOTE | 2025-04-07 21:54 | PC.NURSE ---
Pt made several inappropriate remarks to staff members. Pt educated on appropriate conversations with staff members.
--- OUTSIDE RECORDS SUMMARY | 2025-04-07 21:56 | XMS_ITS | Clinical Summary ---
Author Organization Healthcare Address [address] [place] [address] Care Team Providers Care Lining Feller Blindstitch Name Role Phone Pcp, No Primary Care Provider Unavailabl e Allergies Active Allergy Reactions Criticality Noted Date Comments Sulfa Drugs Unknown - Patient st ates they do not know rxn details High 07/02/2024 Medications No known medications Active Problems Problem Noted Date Diagnosed Date Acute hypoxic respiratory failure 07/10/2024 UGIB (upper gastrointestinal bleed) 07/02/2024 Social History Tobacco Use Types Packs/Day Years Used Date Smoking Tobacco: Never Assessed Humiliation, Afraid, Rape, and Kick questionnair e Answer Date Recorded Within the last year, have y ou been afraid of your partner or ex-partner? No 07/04/2024 Within the last year, have y ou been humiliated or emotionally abused in other ways by your partner or ex-partner? No Within the last year, have y ou been kicked, hit, slapped, or otherwise physically hurt by your partner or ex-partner? No 07/04/2024 Within the last year, have y ou been raped or forced to have any kind of sexual activity by your partner or ex-partner? No 07/04/2024 Social Connection and Isolation Panel Answer Date Recorded In a typical week, how many times do you talk on the phone with family, friends, or neighbors? Patient unable to answer 07/04/2024 How often do you get togethe r with friends or relatives? Patient unable to answer 07/04/2024 How often do you attend [facility] or restoration services? Patient unable to answer 07/04/2024 Do you belong to any clubs o r organizations such as scientology groups, unions, fraternal or athletic groups, or school groups? Patient unable to answer 07/04/2024 How often do you attend meet ings of the clubs or organizations you belong to? Never 07/04/2024 Are you , , di vorced, , never , or living with a partner? 07/04/2024 AUDIT-C Answer Date Recorded Q1: How often do you have a drink containing alcohol? 4 or more times a week 07/04/2024 Q2: How many drinks containi ng alcohol do you have on a typical day when you are drinking? Patient unable to answer Q3: How often do you have si x or more drinks on one occasion? Daily or almost daily 07/04/2024 Overall Financial Resource Strain (CARDIA) Answe r Date Recorded How hard is it for you to pa y for the very basics like food, housing, medical care, and heating? Patient unable to answer 07/04/2024 [facility] - Occupational Stress Questionnaire Answer Date Recorded Do you feel stress - tense, restless, nervous, or anxious, or unable to sleep at night because your mind is troubled all the time - these days? Patient unable to answer 07/04/2024 Exercise Vital Sign Answer Date Recorde d On average, how many days pe r week do you engage in moderate to strenuous exercise (like a brisk walk)? Patient unable to answer 07/04/2024 On average, how many minutes do you engage in exercise at this level? Patient unable to answer 07/04/2024 Hunger Vital Sign Answer Date Recorded Within the past 12 months, y ou worried that your food would run out before you got the money to buy more. Never true 07/04/20 24 Within the past 12 months, t he food you bought just didn't last and you didn't have money to get more. Never true 07/04/2024 PRAPARE - Transportation Answer Date Re corded In the past 12 months, has l ack of transportation kept you from medical appointments or from getting medications? No 11/2023 In the past 12 months, has l ack of transportation kept you from meetings, work, or from getting things needed for daily living? No 07/04/2024 Housing Stability Vital Sign Answer Aron e Recorded In the last 12 months, was t here a time when you were not able to pay the mortgage or rent on time? No 07/04/2024 Number of Places Lived in the Last Year Not on f ile 07/04/2024 In the last 12 months, was t here a time when you did not have a steady place to sleep or slept in a [place] [facility] facility (including now)? No 07/04/2024 Utilities Answer Date Recorded In the past 12 months has e [employer], gas, oil, or water [employer] threatened to shut off services in your home? No 07/04/2024 Sex and Gender Information Value Date Recorded Sex Assigned at Not on file Legal Sex Male 3:59 PM EDT Gender Identity Not on file Sexual Orientation Not on file Last Filed Vital Signs Vital Sign Reading Time Taken Comments Blood Pressure 133/74 07/14/2024 12:14 PM EDT Pulse 68 07/14/2024 12:14 PM EDT Temperature 36.9 C (98.4 F) 07/14/2024 12:14 PM EDT Respiratory Rate 15 07/14/2024 4:13 AM EDT Oxygen Saturation 90% 07/14/2024 12:14 PM EDT Inhaled Oxygen Concentration - - Weight 80.9 kg (178 lb 4.8 oz) 07/14/2024 6:00 A M EDT Height 185.4 cm (6' 0.99 ) 07/02/2024 3:37 PM ED T Body Mass Index 23.53 07/02/2024 3:37 PM EDT Plan of Treatment Health Maintenance Due Date Last Done Comments [facility]-Depression Screening 1986 [facility]-Infant/Child/Adol SDOH Screenings 1986 [facility]-Varicella Vaccines (1 of 2 - 13+ 2-dose series) 1999 [facility]-DTaP,Tdap,and Td Vaccines (2 - Tdap) 01/03/2001 01/02/2001 HPV Vaccines (1 - Male 3-dose series) 2001 [facility]-Hepatitis A Vaccines (1 of 2 - Risk 2-dose series) 2005 [facility]-Pneumococcal Vaccine: Pediatrics (0 to 5 Years) and At-Risk Patients (6 to 49 Years) (1 of 2 - PCV) 2005 ONR-SCIVI-57 Vaccine ( season) 2024 [facility]- SDOH Screenings 01/02/2025 [facility]-Adult SDOH Screenings 01/02/2025 07/04/2024 [facility]-Influenza Vaccine (#1) 2025 [facility]-Zoster Vaccines (1 of 2) 01/19/2036 [facility]-Hepatitis B Vaccines Completed 001, 03/15/1997, 11/16/1996 [facility]-HIV Screening Completed 07/02/2024, 04/10/2024 [facility]-Hepatitis C Screening Completed 2023, 07/02/2024 [facility]-HIB Vaccines Aged Out No longer e ligible based on patient's age to complete this topic [facility]-IPV Vaccines Aged Out No longer e ligible based on patient's age to complete this topic [facility]-Rotavirus Vaccines Aged Out No lo nger eligible based on patient's age to complete this topic Medical Devices Implanted Type Area Negative Cleaner Device Identifier Shelf Expiration Date Model / Serial / Lot Duraclip 16mm - [id number] Implanted:Qty: 3 on 07/03/2024 by Santosh Nelson MD at [id number] 11/02/2026 [id number] / / [id number] Procedures Procedure Name Priority Date/Time Associated Diagnosis Comments ACUTE HEPATITIS PANEL STAT 07/03/2024 1:34 PM EDT ED HIV 1/2 ANTIBODY/ANTIGEN SCREEN WITH REFLEX TO HIV I/II DIFFERENTIATION STAT 07/02/2024 1:38 PM EDT from Last 3 Months or Most Recently Relevant to Health Maintenance Results * Acute Hepatitis Panel (07/03/2024 1:34 PM EDT) Hepatitis B Surf Antigen Negative Negative 07/03/2024 3:15 PM EDT [facility] Hepatitis C Antibody Negative Negative 07/03/2024 3:15 PM EDT [facility] Hepatitis A Antibody IgM Negative Negative 07/03/2024 3:15 PM EDT [facility] Hepatitis B Core Antibody IgM Negative Negative 07/03/2024 3:15 PM EDT [facility] Blood Arterial blood specimen / Unknown Venipuncture / Unknown 07/03/2024 1:34 PM EDT 07/03/2024 2:05 PM EDT us Horacio Garza MD LAB BLOOD ORDERABLES Final Res ult Performing Organization Address [facility]/ZIP Co de Phone Number [facility] [address] [place] [address] * ED HIV 1/2 Antibody/Antigen Screen w/Reflex to HIV 1/2 Differentiation (07/02/2024 1:38 PM EDT) HIV 1 & 2 Antibody/Antigen Screen Non Reactive Non Reactive 07/02/2024 3:24 PM EDT [facility] Comment:Screening for HIV 1 & 2 antibodies, and P24 antigen is NONREACTIVE. No confirmatory testing is required. Blood Venous blood specimen / Unknown Venipuncture / Unknown 07/02/2024 1:38 PM EDT 07/02/2024 2:11 PM EDT us Eliza Escobar MD LAB BLOOD ORDERABLES Final Res ult Performing Organization Address [facility] de Phone Number [facility] [address] [place] [address] from Last 3 Months or Most Recently Relevant to Health Maintenance Insurance MEDICAID Advance Directives * Full Code (Latest Code Status on File) Date Activated Date Inactivated Comments 07/02/2024 3:34 PM 07/14/2024 5:39 PM Question Answer Comments Patient has decision-making capacity? Yes Care Teams Lining Feller Blindstitch Relationship Specialty Start Date End Date Pcp, No [address] [place] [address] PCP - General Family Medicine 07/02/24
--- OUTSIDE RECORDS SUMMARY | 2025-04-07 21:56 | XMS_ITS | Clinical Summary ---
Author Organization [facility] Address [address] [place] [id number] Care Team Providers Care Barrel Filler Name Role Phone Unknown, Attending Provider Primary Care Provide r Unavailable Source Comments This information has been disclosed to you from confidential records protectedfrom disclosure by state law. You shall make no further disclosure of thisinformation without the specific, written, and informed release of theindividual to whom it pertains, or as otherwise permitted by law. A generalauthorization for the release of medical or other information is not sufficientfor the purposes of therelease of HIV test results or diagnoses. [id number] Allergies Active Allergy Reactions Criticality Noted Date Comments Sulfa (Sulfonamide Antibiotics) Shortness Of Breath,Rash High 04/11/2024 Medications triamcinolone (KENALOG) 0.1 % ointmentIndicat ions:Erythroder ma Apply topically 3 times a day. Indications: Erythroderma 454 g 4 4 Active nicotine (NICODERM CQ) 21 mg/[address] 1 patch onto the skin daily. 28 patch 04/16/2024 5:07 PM EDT 4 Active Active Problems Problem Noted Date Diagnosed Date Alcohol withdrawal syndrome without complication 04/12/2024 Other hemorrhoids 04/12/2024 Family History Medical History Relation Comments Rashes / Skin problems Neg Hx Social History Tobacco Use Types Packs/Day Years Used Date Smoking Tobacco: Every Day Cigarettes Tobacco Cessation:Ready to Q uit: Not Asked Alcohol Use Standard Drinks/Week Comments Yes 272 (1 standard drink = 0.6 oz p ure alcohol) 1 handle per day Utilities Answer Date Recorded In the past 12 months has [employer] gas, oil, or water [employer] threatened to shut off services in your home? No 04/10/2024 AUDIT-C Answer Date Recorded Q1: How often do you have a drink containing alcohol? 4 or more times a week 04/10/2024 Q2: How many drinks containi ng alcohol do you have on a typical day when you are drinking? 10 or more Q3: How often do you have si x or more drinks on one occasion? Daily or almost daily 04/10/2024 Hunger Vital Sign Answer Date Recorded Within the past 12 months, y ou worried that your food would run out before you got the money to buy more. Never true 04/10/20 24 Within the past 12 months, t he food you bought just didn't last and you didn't have money to get more. Never true 04/10/2024 PRAPARE - Transportation Answer Date Re corded In the past 12 months, has l ack of transportation kept you from medical appointments or from getting medications? No 06/2024 In the past 12 months, has l ack of transportation kept you from meetings, work, or from getting things needed for daily living? No 04/10/2024 Housing Stability Vital Sign Answer Aron e Recorded In the last 12 months, was t here a time when you were not able to pay the mortgage or rent on time? No 04/10/2024 In the past 12 months, how m any times have you moved where you were living? 0 04/10/2024 At any time in the past 12 m [facility], were you homeless or living in a assisted (including now)? No 04/10/2024 Sex and Gender Information Value Date Recorded Sex Assigned at Not on file Legal Sex Male 5:00 PM EDT Gender Identity Not on file Sexual Orientation Not on file Last Filed Vital Signs Vital Sign Reading Time Taken Comments Blood Pressure 123/84 04/16/2024 11:42 AM EDT Pulse 105 04/16/2024 11:42 AM EDT Temperature 36.9 C (98.4 F) 04/16/2024 11:42 AM EDT Respiratory Rate 18 04/16/2024 11:42 AM EDT Oxygen Saturation 98% 04/16/2024 11:42 AM EDT Inhaled Oxygen Concentration 98% 04/16/2024 1 1:42 AM EDT Weight 64.4 kg (142 lb) 04/12/2024 2:32 PM EDT Height 185.4 cm (6' 1 ) 04/12/2024 2:32 PM EDT Body Mass Index 18.73 04/12/2024 2:32 PM EDT Plan of Treatment Health Maintenance Due Date Last Done Comments Tobacco Cessation Readiness 1986 Immunization: DTaP/Tdap/Td (2 - Tdap) 01/03/200111/2000 Depression Screening 01/19/2004 Immunization: Pneumococcal (1 of 2 - PCV) 2005 Immunization: COVID-19 ( season) 2024 Alcohol Misuse Screening 04/10/2025 04/10/2024 Immunization: Influenza (MyChart) (#1) 2025 HIV Screening Completed 04/10/2024 Hepatitis C Screening (MyChart) Completed Procedures Procedure Name Priority Date/Time Associated Diagnosis Comments HEPATITIS C ANTIBODY Routine 04/11/2024 12:34 AM EDT HIV 1+2 ANTIBODY/ANTIGEN WITH REFLEX STAT 04/10/2024 11:43 PM EDT from Last 3 Months or Most Recently Relevant to Health Maintenance Results * Hepatitis C Antibody (04/11/2024 12:34 AM EDT) HCV Ab Nonreactive Nonreactive 04/11/2024 2:53 AM EDT [facility] Comment:Health Department no tified in accordance with reportable infectious disease guidelines. Serum 04/11/2024 12:3 4 AM EDT 04/11/2024 1:53 AM EDT Narrative [facility] - 04/11/2024 2:53 AM EDT Antibodies to HCV not detected; does not exclude the possibility of exposure to HCV. us Sp Arora MD LAB BLOOD ORDERABLES Final Resul t [facility] [address] [place] [address], [facility] * HIV 1+2 Antibody/Antigen with Reflex (04/10/2024 11:43 PM EDT) HIV 1+2 AB/AGN Nonreactive Nonreactive 04/11/2024 12:41 AM EDT [facility] Serum 04/10/2024 11:4 3 PM EDT 04/10/2024 11:50 PM EDT Narrative [facility] - 04/11/2024 12:41 AM EDT HIV-1 p24 Antigen and HIV-1/HIV-2 Antibody not detected. us Sp Arora MD LAB BLOOD ORDERABLES Final Resul t [facility] [address] [place] [address], [facility] from Last 3 Months or Most Recently Relevant [place] [address] [facility] [place] [address] Advance Directives For more information, please contact: [phone] * Full Code (Latest Code Status on File) Date Activated Date Inactivated Comments 04/10/2024 10:23 PM 04/16/2024 8:31 PM Care Teams Barrel Filler Relationship Specialty Start Date End Date Unknown, Attending Provider PCP - General 02/13/24
--- OUTSIDE RECORDS SUMMARY | 2025-04-07 21:56 | XMS_ITS | Encounter Summary ---
Author Organization [facility] Address [address] [place] [address] Care Team Providers Care Income Tax Analyst Name Role Phone Pcp, No Primary Care Provider Unavailabl e Encounter Details Date Type Department Care Team (Late st Contact Info) Description 07/09/2024 Lab Requisition [facility] [address] [place] [address] Chente Smiley MD [address] [facility] [address] [place] [id number] Encounter for general adult medical examination without abnormal findings Social History Tobacco Use Types Packs/Day Years [...] answer 07/04/2024 How often do you attend up health system or latter day services? Patient unable to answer 07/04/2024 Do you belong to any clubs o r organizations such as confucianism groups, unions, fraternal or athletic groups, or [...] and heating? Patient unable to answer 07/04/2024 [facility] - Occupational Stress [...] place to sleep or slept in a care home (including now)? No 07/04/2024 Utilities Answer Date Recorded In the past 12 months has th e electric, gas, oil, or water company threatened to shut off services in your home? No 07/04/2024 Sex and Gender Information Value Date Recorded Sex Assigned at Not on file Legal Sex Male 3:59 PM EDT Gender Identity Not on file Sexual Orientation Not on file documented as of this encounter Functional Status * Calculated C-SSRS Risk Score (Lifetime/Recent) Answer Date of Assessment Author No Risk Indicated 07/12/2024 8:00 AM EDT Braden Rivera RN * Question Answer Date of Assessment Author 1. Wish to be (Past 1 Month) No 024 8:00 AM EDT Christopher Rivera RN 2. Non-Specific Active Suici carolyn Thoughts (Past 1 Month) No 07/12/2024 8:00 AM EDT Christopher Rivera, NICK 6. Suicidal Behavior (Lifetime) No 8:00 AM EDT Christopher Rivera RN documented as of this encounter Plan of Treatment Not on file documented as of this encounter Procedures Procedure Name Priority Date/Time Associated Diagnosis Comments MULTI DRUG RESISTANCE TEST Routine 07/09/2024 8:30 AM EDT Encounter for general adult medical examination without abnormal findings documented in this encounter Results * Multi Drug Resistance Test (07/09/2024 8:30 AM EDT) Culture No Multi Drug Resistant Organisms Isolated 07/10/2024 8:24 AM EDT [facility] Swab (Nares and Yana Rectal) 07/09/2024 8:30 AM EDT 07/09/2024 8:42 AM EDT us Chente Smiley MD LAB MICROBIOLOGY - GEN ERAL ORDERABLES Final Result [facility] [address] [place] [address] documented in this encounter Visit Diagnoses Diagnosis Encounter for general adult medical examination without abnormal findings documented in this encounter Additional Health Concerns Infection Onset Date Last Indicated Resolved Time C. difficile Rule-Out 07/09/2024 07/09/20242023 7:56 PM EDT C. difficile Comment:Did not have toxin 07/09/2024 07/09/2024 07/12/2024 1:07 PM E DT Gastrointestinal Rule-Out 07/10/2024 07/10/2024 11:14 PM EDT COVID-19 Rule-Out 07/11/2024 07/11/2024 07/11/2024 12:13 PM EDT Assessment Noted Time A Body Mass Index follow-up plan has been documented for the patient 07/14/2024 1:33 PM EDT documented as of this encounter Care Teams Income Tax Analyst Relationship Specialty Start Date End Date Pcp, No [address] [place] [address] PCP - General Family Medicine 07/02/24 documented as of this encounter
[2025-04-07 22:00] VITALS: BP 124/91; PULSE 98; RESP 17; O2SAT 99
[2025-04-07 22:03] VITALS: PULSE 105
[2025-04-07 22:14] LABS: Hematocrit 36.5 % (42.0-52.0); Hemoglobin 12.9 g/dL (14.1-18.0); Immature Granulocytes % 0.5 %; Mean Corpuscular HGB Conc 35.3 g/dL (31.8-35.4); Mean Corpuscular Hemoglobin 37.4 pg (27.0-31.2); Mean Corpuscular Volume 105.8 fl (80-94); Nucleated Red Blood Cells % 0 %; Platelet Count 114 K/mm3 (142-424); Red Blood Count 3.45 M/mm3 (4.60-6.20); Red Cell Distribution Width-SD 52.1 fL; White Blood Count 5.7 K/mm3 (4.8-10.8)
[2025-04-07] MEDS: ACETAMINOPHEN 500MG TAB 1000 MG PO (22:14)
--- NOTE | 2025-04-07 22:21 | PC.NURSE ---
Radiology at bedside.
[2025-04-07 22:26] LABS: Alanine Aminotransferase 132 U/L (12-78); Albumin Level 4.6 g/dl (3.5-5.0); Albumin/Globulin Ratio 1.8 (1.1-1.8); Alkaline Phosphatase 173 U/L (38-126); Anion Gap 24.8 mEq/L (5-15); Aspartate Amino Transferase 215 U/L (17-59); Bilirubin,Total 0.7 mg/dl (0.2-1.3); Blood Urea Nitrogen 6 mg/dl (9-20); Calcium 9.0 mg/dl (8.4-10.2); Carbon Dioxide 21 mmol/L (22.0-30.0); Chloride 97 mmol/L (98-107); Creatine Kinase 872 U/L (55-170); Creatinine Clearance Estimated 168 mL/min (50-200); Creatinine,Serum 0.60 mg/dl (0.66-1.25); Estimated Glomerular Filt Rate 150 ml/min (>60); GFR (African American) 181 ML/MIN (>60); Globulin 2.6 g/dL (1.3-3.2); Glucose 106 mg/dl (74-100); Potassium 3.8 mmoL/L (3.5-5.1); Sodium 139 mmol/L (136-145); Total Protein,Serum 7.2 g/dl (6.3-8.2)
[2025-04-07 22:30] VITALS: BP 124/86; PULSE 97; RESP 20; O2SAT 96
[2025-04-07] MEDS: 0.9 % SODIUM CHLORIDE 50 ML VIAL IV (22:39)
[2025-04-07] MEDS: IOPAMIDOL-370 (76%);100ML BOTTLE 120 ML IV (22:39)
[2025-04-07] MEDS: SODIUM CHLORIDE 0.9% 10ML SYR (RAD ONLY) 10 ML IV (22:39)
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
[2025-04-07 23:00] VITALS: BP 117/82; PULSE 109; RESP 16; O2SAT 97
[2025-04-07 23:25] LABS: Hepatitis C Ab Qual. W/ RFX NEGATIVE (Negative)
[2025-04-07 23:30] VITALS: BP 121/84; PULSE 101; RESP 17
--- NOTE | 2025-04-07 23:39 | PC.NURSE ---
Spoke with [employer], [place] 2 is 22 minutes out
[2025-04-07] MEDS: LACTATED RINGERS 1000ML 1,000 ML 999 ML IV (23:41)
--- NOTE | 2025-04-07 23:45 | PC.NURSE ---
Report called to [facility] Jory Desai RN
[2025-04-07] MEDS: TET/DIPHTH/PERT-ADULT 0.5ML SYRINGE 0.5 ML IM (23:56)
--- NOTE | 2025-04-07 23:56 | PC.NURSE ---
Spoke with [employer] and got an update of 4 minutes out
[2025-04-08] VITALS: BP 118/82; PULSE 100; RESP 17; O2SAT 95
[2025-04-08 00:12] VITALS: BP 118/82; PULSE 100; RESP 16; TEMP 36.9; O2SAT 95
== END 2025-04-08 00:14 | disposition other institution (70) ==
PROVIDERS: Emergency Provider Student in an Organized Health Care Education/Training Program
DX: S81.831A Puncture wound without foreign body, right lower leg, initial encounter (principal); T79.A21A Traumatic compartment syndrome of right lower extremity, initial encounter; F10.129 Alcohol abuse with intoxication, unspecified; F17.210 Nicotine dependence, cigarettes, uncomplicated; W34.00XA Accidental discharge from unspecified firearms or gun, initial encounter; Z23 Encounter for immunization
CPT/HCPCS: 73590; 75635; 80053; 82550; 85025; 86803; 87389; 90471; 90715; 96360; 99291; J7120; Q9967

== ENCOUNTER 2025-04-12 13:30 | Emergency (ER) | payer OTHER, SELFPAY ==
[2025-04-12] VITALS (13 sets, daily range): BP systolic 110–141; BP diastolic 77–98; PULSE 83–134; RESP 12–22; TEMP 36.8–37.1; O2SAT 95–100; BMI 20.8
--- NOTE | 2025-04-12 13:40 | PC.NURSE ---
Patient RLE pulses noted via Doppler, Cap Refill WNL, Sensation Intact.
--- NOTE | 2025-04-12 13:43 | ECG_ITS ---
APPROVED REPORT Exam: Resting ECG HR:118 bpm ECG Measurements Heart Rate 118 AXES KS 121 P 52 QRSd 84 QRS 95 QT 308 T 60 QTc 378 Conclusion SINUS TACHYCARDIA Right axis Normal intervals No STEMI Electronically signed by : Venkat Reed, 04/12/2025 16:49:14
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
[2025-04-12] MEDS: OXYCODONE 5MG IMMEDIATE RELEASE TABLET 5 MG PO (13:52)
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
--- OUTSIDE RECORDS SUMMARY | 2025-04-12 13:55 | XMS_ITS | Encounter Summary ---
Author Organization Healthcare Address [address] [place] [address] Care Team Providers Care Zoning Technician Name Role Phone Pcp, No Primary Care Provider Unavailabl e Encounter Details Date Type Department Care Team (Late st Contact Info) Description 04/07/2025 Orders Only External Location [address] [place] [address] Provider, External Social History Tobacco Use Types Packs/Day Years Used Date Smoking Tobacco: Never Assessed Social Connection and Isolation Panel Answer Date Recorded In a typical week, how many times do you talk on the phone with family, friends, or neighbors? Patient unable to answer 07/04/2024 How often do you get togethe r with friends or relatives? Patient unable to answer 07/04/2024 How often do you attend [facility] or protestant services? Patient unable to answer 07/04/2024 Do you belong to any clubs o r organizations such as spiritism groups, unions, fraternal or athletic groups, or [...] and heating? Patient unable to answer 07/04/2024 [facility] of Occupat ional [facility] - Occupational Stress Questionnaire Answer Date Recorded [...] place to sleep or slept in a mcc (including now)? No 07/04/2024 Humiliation, Afraid, Rape, [...] any time in the past 12 m [facility], were you homeless or living in a mcc (including now)? No 04/09/2025 Utilities Answer Date [...] Date of Assessment Author No Risk Indicated 04/10/2025 8:00 AM Se Man RN * Question Answer Date of Assessment Author 1. Wish to be (Past 1 Month) No 025 8:00 AM BRYT Se Kay, NICK 2. Non-Specific Active Suici carolyn Thoughts (Past 1 Month) No 04/10/2025 8:00 AM EDT Emily Kay RN 6. Suicidal Behavior (Lifetime) No 5 8:00 AM BRYT Se Kay, NICK documented as of this encounter Plan of Treatment Not on file documented as of this encounter Procedures Procedure Name Priority Date/Time Associated Diagnosis Comments XR MSK OUTSIDE IMAGES 04/07/2025 10:46 PM EDT documented in this encounter Results * XR MSK OUTSIDE IMAGES (04/07/2025 10:46 PM EDT) Anatomical Region Laterality Modality Radiographic Bruna ging 04/07/2025 10:4 6 PM EDT us External Provider IMG XR PROCEDURES Final Result documented in this encounter Visit Diagnoses Not on filedocumented in this encounter Additional Health Concerns Assessment Noted Time A Body Mass Index follow-up plan has been documented for the patient 07/14/2024 1:33 PM EDT documented as of this encounter Care Teams Zoning Technician Relationship Specialty Start Date End Date Pcp, [place] [address] PCP - General Family Medicine 07/02/24 documented as of this encounter
--- OUTSIDE RECORDS SUMMARY | 2025-04-12 13:55 | XMS_ITS | Encounter Summary ---
Author Organization Healthcare Address [address] [place] [address] Care Team Providers Care Occupational Therapy Department Chair Name Role Phone Pcp, No Primary Care Provider Unavailabl e Encounter Details Date Type Department Care Team (Latest Contact Info) Description 04/08/2025 Travel Social History Tobacco Use Types Packs/Day Years Used Date Smoking Tobacco: Every Day Cigarettes Alcohol Use Standard Drinks/Week Comments Yes 12 [...] answer 07/04/2024 How often do you attend [facility] or sabianist services? Patient unable to answer 07/04/2024 Do you belong to any clubs o r organizations such as taoism groups, unions, fraternal or athletic groups, or [...] and heating? Patient unable to answer 07/04/2024 [facility] of Occupat ional Health - [...] place to sleep or slept in a fci (including now)? No 07/04/2024 Humiliation, Afraid, Rape, [...] any time in the past 12 m [facility], were you homeless or living in a fci (including now)? No 04/09/2025 Utilities Answer Date [...] Date of Assessment Author No Risk Indicated 04/08/2025 8:00 PM EDT Nancy Aparicio RN * Question Answer Date of Assessment Author 1. Wish to be (Past 1 Month) No 025 8:00 PM EDT Nancy Aparicio RN 2. Non-Specific Active Suici carolyn Thoughts (Past 1 Month) No 04/08/2025 8:00 PM EDT Esha Aparicio RN 6. Suicidal Behavior (Lifetime) No 8:00 PM EDT Nancy Aparicio, NICK documented as of this encounter Plan of Treatment Not on file documented as of this encounter Visit Diagnoses Not on filedocumented in this encounter Additional Health Concerns Assessment Noted Time A Body Mass Index follow-up plan has been documented for the patient 07/14/2024 1:33 PM EDT documented as of this encounter Care Teams Occupational Therapy Department Chair Relationship Specialty Start Date End Date Pcp, [place] [address] PCP - General Family Medicine 07/02/24 documented as of this encounter
--- OUTSIDE RECORDS SUMMARY | 2025-04-12 13:55 | XMS_ITS | Encounter Summary ---
Author Organization Healthcare Address [address] [place] [address] Care Team Providers Care Field Artillery Officer Name Role Phone Pcp, No Primary Care Provider Unavailabl e Encounter Details Date Type Department Care Team (Late st Contact Info) Description 04/07/2025 Orders Only External Location [address] [place] [address] Provider, External Social History Tobacco Use Types [...] answer 07/04/2024 How often do you attend [facility] or voodoo services? Patient unable to answer 07/04/2024 Do you belong to any clubs o r organizations such as zoroastrian groups, unions, fraternal or athletic groups, or [...] and heating? Patient unable to answer 07/04/2024 [facility] of Occupat ional [facility] - Occupational Stress Questionnaire Answer Date Recorded [...] place to sleep or slept in a mcfp (including now)? No 07/04/2024 Humiliation, Afraid, Rape, [...] any time in the past 12 m [facility], were you homeless or living in a mcfp (including now)? No 04/09/2025 Utilities Answer Date [...] (Past 1 Month) No 04/10/2025 8:00 AM BRYT Emily Kay RN 6. Suicidal Behavior (Lifetime) No 5 8:00 AM BRYT Se Kay, NICK documented as of this encounter Plan of Treatment Not on file documented as of this encounter Procedures Procedure Name Priority Date/Time Associated Diagnosis Comments CT OUTSIDE IMAGES 04/07/2025 10:39 PM EDT documented in this encounter Results * CT OUTSIDE IMAGES (04/07/2025 10:39 PM EDT) Anatomical Region Laterality Modality Computed Tomogra phy 04/07/2025 10:3 9 PM EDT us External Provider IMG CT PROCEDURES Final Result documented in this encounter Visit Diagnoses Not on filedocumented in this encounter Additional Health Concerns Assessment Noted Time A Body Mass Index follow-up plan has been documented for the patient 07/14/2024 1:33 PM EDT documented as of this encounter Care Teams Field Artillery Officer Relationship Specialty Start Date End Date Pcp, [place] [address] PCP - General Family Medicine 07/02/24 documented as of this encounter
--- OUTSIDE RECORDS SUMMARY | 2025-04-12 13:56 | XMS_ITS | Clinical Summary ---
Author Organization [facility] Address [address] [place] [id number] Care Team Providers Care Furnace Maintenance Name Role Phone Unknown, Attending Provider Primary [...] therelease of HIV test results or diagnoses. [id number] Allergies Active Allergy Reactions Criticality Noted [...] Recorded In the past 12 months has P[employer] gas, oil, or water Apprity threatened to shut off services in your [...] any time in the past 12 m [facility], were you homeless or living in a prison (including now)? No 04/10/2024 Sex and Gender [...] BLOOD ORDERABLES Final Resul t [facility] [address] [facility] [address], [facility] * HIV 1+2 Antibody/Antigen with Reflex (04/10/2024 11:43 PM EDT) HIV 1+2 AB/AGN Nonreactive Nonreactive 04/11/2024 12:41 AM EDT [facility] Serum 04/10/2024 11:4 3 PM EDT 04/10/2024 11:50 PM EDT Narrative [facility]ALTH [facility] - 04/11/2024 12:41 AM EDT HIV-1 p24 Antigen and HIV-1/HIV-2 Antibody not detected. us Sp Aorra MD LAB BLOOD ORDERABLES Final Resul t [facility] [address] [place] [address], [facility] from Last 3 Months or Most Recently Relevant [place] [address] [facility] [place] [address] Advance Directives For more information, please contact: [phone] * Full Code (Latest Code Status on File) Date Activated Date Inactivated Comments 04/10/2024 10:23 PM 04/16/2024 8:31 PM Care Teams Furnace Maintenance Relationship Specialty Start Date End Date Unknown, Attending Provider PCP - General 02/13/24
--- OUTSIDE RECORDS SUMMARY | 2025-04-12 13:56 | XMS_ITS | Encounter Summary ---
Author Organization Healthcare Address [address] [place] [address] Care Team Providers Care Translational Specialist Name Role Phone Pcp, No Primary Care Provider Unavailabl e Encounter Details Date Type Department Care Team (Late st Contact Info) Description 07/09/2024 Lab Requisition [facility] [address] [place] [address] Chente Smiley MD [address] [facility] [address] [place] [id number] Encounter for general adult medical examination without [...] answer 07/04/2024 How often do you attend chur ch or orthodoxy services? Patient unable to answer 07/04/2024 Do you belong to any clubs o r organizations such as yazidism groups, unions, fraternal or athletic groups, or [...] and heating? Patient unable to answer 07/04/2024 [facility] of Occupat ional Health - [...] place to sleep or slept in a group home (including now)? No 07/04/2024 Utilities Answer [...] Month) No 07/12/2024 8:00 AM EDT Christopher Rivera RN 6. Suicidal Behavior (Lifetime) No 8:00 AM [...] Resistant Organisms Isolated 07/10/2024 8:24 AM EDT [facility] Swab (Nares and Yana Rectal) 07/09/2024 8:30 AM EDT 07/09/2024 8:42 AM EDT us Chente Smiley MD LAB MICROBIOLOGY - GEN ERAL ORDERABLES Final Result [facility] [address] [place] [address] documented in this encounter Visit Diagnoses Diagnosis [...] documented as of this encounter Care Teams Translational Specialist Relationship Specialty Start Date End Date Pcp, No [address] [place] [address] PCP - General Family Medicine 07/02/24 documented as of this encounter
--- NOTE | 2025-04-12 15:14 | PC.NURSE ---
currently on phone with per Dr Reed for a transfer for trauma, spiral tib/fib fx of right leg
--- NOTE | 2025-04-12 15:16 | PC.NURSE ---
Rad is power sharing to [facility]
--- NOTE | 2025-04-12 16:11 | PC.NURSE ---
Patient report called to [facility] ED to NICK Olivera.
[2025-04-12] MEDS: MORPHINE 2MG/ML SYRINGE 4 MG IV (16:31)
--- NOTE | 2025-04-12 17:40 | PC.NURSE ---
Patient resting quietly in bed, eyes closed, VSS, respirations even and unlabored. Call light in reach. Patient awaiting EMS transport to [facility].
[2025-04-12] MEDS: MORPHINE 4MG/ML SYRINGE 4 MG IV (18:01)
--- NOTE | 2025-04-12 18:01 | PC.NURSE ---
EMS at bedside for transport to [facility]. VSS. No s/s of distress noted upon departure.
== END 2025-04-12 18:05 | disposition short-term general hospital (02) ==
PROVIDERS: Emergency Provider Student in an Organized Health Care Education/Training Program; PCP Family Medicine
DX: S82.241A Displaced spiral fracture of shaft of right tibia, initial encounter for closed fracture (principal); R00.0 Tachycardia, unspecified; M79.661 Pain in right lower leg; F17.210 Nicotine dependence, cigarettes, uncomplicated; F10.10 Alcohol abuse, uncomplicated; W19.XXXA Unspecified fall, initial encounter
CPT/HCPCS: 72170; 73552; 73562; 73590; 93005; 96374; 96376; 99285; J2270

== ENCOUNTER 2025-05-02 19:40 | Emergency (ER) | payer OTHER, SELFPAY ==
--- OUTSIDE RECORDS SUMMARY | 2025-04-12 19:01 | XMS_ITS | Encounter Summary ---
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 some type of exercise every day. ? Get your eyes checked once a year or more often if your vision changes. Be extra cautious while adjusting to new prescription lenses. ? If you have pets, know where they are before you stand up or walk so you don't trip over them. ? Go over all your medicines with a pharmacist or other provider. This is to see if any of them could make you more likely to fall. Have this type of medicine review at least once every year. ? If your provider advises a new medicine, ask if the side effects will affect your balance. ? Don't move quickly from one position to another. For instance, don't stand up fast from sitting. This can cause dizziness and may lead to a fall. ? Sit down when putting on pants, socks, and shoes. This will make you less likely to lose your balance and fall. ? Always let your provider know if you have fallen since your last visit. ? Contact your provider right away if you're having balance problems or falling more often. Last Reviewed Date: 2024 00:00:00 ?? [id number] [employer]. All rights reserved. This information is not intended as a substitute for professional medical care. Always follow your healthcare professional's instructions. * [facility] - Raciel Mcrae RN - 04/20/2025 1:38 PM EDT Images from the original note were not included. 15219 Preventing a Surgical Site Infection A risk of any surgery is an infection at the surgical site. The surgical site is a cut the surgeon makes in the skin to do the surgery. Surgical site infections can range in type. It may be a minor skin infection. Or it may be severe and include tissue under the skin or other organs. In some cases,a severe infection can cause . The information below tells you: ? About surgical site infections. ? What hospitals do to prevent them. ? How they?re treated if they do occur. ? What you can do to prevent an infection. Hand washing reduces the risk of infection. What causes a surgical site infection? Germs are everywhere. They?re on your skin, in the air, and on things you touch. Many germs are good. Some are harmful. Surgical site infections occur when harmful germs enter your body through the incision in your skin. Some infections are caused by germs that are in the air or on objects. But most are caused by germs found on and in your own body. Who is at risk for a surgical site infection? Anyone can have a surgical site infection. Your risk is higher if you: ? Are an older adult. ? Have a weak immune system. ? Have other health conditions such as diabetes. ? Take certain medicines, such as steroids. ? Are a smoker. ? Have certain types of surgery, such as abdominal surgery. ? Have poor nutrition. ? Are very overweight. ? Have a surgery that lasts longer than 2 hours. What are the symptoms of a surgical site infection? An infection often shows up as skin redness, pain, and swelling around the incision that gets worse. Later, a cloudy or greenish-yellow fluid may come from the incision. The fluid may smell bad. The incision may pull apart or open up. You are likely to have a fever and may feel very ill. Symptoms can appear at any time. They may happen from hours to weeks after surgery. Implants such as an artificial knee or hip can become infected at any time after the surgery. How is a surgical site infection treated? ? A surgical site infection is treated with antibiotics. The type of medicine you get will depend on what may be causing the infection. Most serious wound infections need wound care. In some cases, surgery may be needed on the infected wound. ? An infected skin wound may be reopened and cleaned. A deep wound may need to be packed with gauze. The gauze is changed often until the wound starts to heal from the inside out. Your health care provider will decide the best way to treat your infection. ? If an infection occurs where an implant is placed, the implant may be removed. ? If you have an infection deeper in your body, you may need surgery to treat it. What hospitals do to prevent surgical site infections Many hospitals take these steps to help prevent surgical site infections: ? Handwashing. Before the surgery, your surgeon and all surgery staff scrub their hands and arms with an antiseptic soap. ? Clean skin. The site where your incision is made is carefully cleaned with an antiseptic solution. ? Sterile clothing and drapes. The surgical team wears medical uniforms. These are known as scrub suits. They wear long-sleeved surgical gowns, masks, caps, shoe covers, and sterile gloves. Your bodyis fully covered with a large sterile sheet (sterile drape). There is an opening in the sheet wherethe incision is made. ? Clean air. Operating rooms have special air filters. They use positive pressure airflow to prevent unfiltered air from entering the room. ? Careful use of antibiotics. Antibiotics are given no more than 60 minutes before the incision is made. They are generally stopped within 24 hours after surgery. This depends on the type of surgery.This helps kill germs but prevents problems that can occur when antibiotics are taken longer. ? Controlled blood sugar levels. Your blood sugar level may rise. This can be because of the stressof the surgery. Your blood sugar level is watched closely to make sure it stays within a normal range. High blood sugar delays wound healing. This increases the risk of infection. ? Controlled body temperature. A dhizd-wubw-wyckgd temperature during or after surgery prevents oxygen from reaching the wound. This makes it harder for your body to fight infection. Hospitals may warm I.V. fluids, and provide warm-air blankets. Your temperature is watched throughout the surgery. ? Safe hair removal. Any hair that must be removed is clipped right before the incision, not shavedwith a razor. This prevents tiny nicks and cuts where germs can enter. ? Wound care. After surgery, a closed wound is covered with a sterile dressing for 1 to 2 days. Open wounds are packed with sterile gauze and covered with a sterile dressing. What you can do to prevent a surgical site infection ? Ask questions. Learn what your hospital is doing to prevent infection. ? If instructed, shower or bathe with plain soap the night before and the day of your surgery. Follow all instructions you're given. You may be asked to use a special cleanser that you don?t rinse off. ? If you smoke, stop as long as possible before and after the surgery. Ask your provider about waysto quit. ? Take antibiotics only when your provider tells you to. Using antibiotics when they?re not needed can create germs that are harder to kill. Finish the entire prescription of your antibiotics even ifyou feel better. ? Ask health care workers to clean their hands with plain soap and water or with an alcohol-based hand director personal before and after caring for you. Don?t be afraid to remind them. ? After surgery, eat healthy foods. Care for your incision as directed by your health care team. When to contact your doctor Contact your provider or seek medical care right away if: ? The pain at the surgical site gets worse. ? A red streak, worse redness, or puffiness appears near the incision. ? Yellowish, cloudy, or bad-smelling fluid leaks from the incision. ? Your stitches dissolve before the wound heals. ? You have a fever of 100.4?? F ( 38??C ) or higher, or as advised by your provider. ? You have a tired feeling that doesn?t go away. Last Reviewed Date: 2024 00:00:00 ?? [id number] [employer]. All rights reserved. This information is not intended as a substitute for professional medical care. Always follow your healthcare professional's instructions. * [facility] Raciel Mc[facility] - 04/20/2025 1:38 PM EDT Images from the original note were not included. 204 Incision Care After Orthopaedic Surgery Will there be a dressing on the incision? After surgery, we will cover your incision with a sterile dressing that is waterproof. It is important to keep this dressing clean, dry, and intact as long as possible after surgery. This will reduceyour risk of infection. If possible, leave it in place until you return to the clinic for your first follow-up appointment. It is normal to have a small amount of drainage on the dressing. How do I care for the incision at home? Once the dressing is removed, it is important to talk good care of the incision. Please follow these instructions until your doctor tells you otherwise. ? Once the dressing is removed, you may shower. You can allow warm soapy water to run over the incision. Do not scrub the incision and always pat dry. ? Do not soak your incision in water. This means no tub baths or swimming. Your doctor will tell you when you can to do these things. ? Do not clean your incision with any solution, ointment, or salve unless directed to do so by yourdoctor. ? Always wear clean clothes over your incision. When should I call my doctor? If you have any of the following warning signs, call your doctor right away: ? Pain or swelling gets worse ? Numbness or tingling in the hand or foot ? A burning or stinging feeling ? Fever or chills ? Bleeding or drainage from the dressing ? Dressing rubs the heel or elbow ? Damage or wetness to the dressing ? Dressing feels too loose * [facility] - Raciel Mcrae RN - 04/20/2025 1:38 PM EDT Images from the original note were not included. 1287 What Your Weight Bearing Status Means Your doctor?s orders: Non-Weight Bearing (NWB) Do not put any weight on your arm or leg at all. If your leg is injured, do not let it touch the floor when you sit, stand, or walk. When you walk, hold your leg off the ground. Touch Down Weight Bearing (TDWB) You may rest your leg on the ground when you sit, stand, or walk - for balance only. Do not put your body weight on that leg. It should only support the weight of your leg. This is also called ?Euqzfl-yh-Ptc Weight Bearing,? ?Toe-Touch Weight Bearing,? or ?Foot-Flat Weight Bearing.? Weight Bearing for Transfers Only You may place just enough body weight on the arm or leg to move from the bed to a chair, wheelchair, or bedside commode. You must stay in a seated or squatting position while moving. Do not stand, take steps, or put your full body weight on the arm or leg. Partial Weight Bearing (PWB) Your doctor will tell you how much weight you can put on your arm or leg. The weight may be in pounds or as a percent of body weight. Do not put more weight on the arm or leg than the doctor allows. Protected Weight Bearing (pWBAT) Protected weight bearing means your doctor would like you to use an assistive device while walking for extra support. While using a device such as a walker or cane, put as much weight as feels comfortable on your arm or leg. If you have pain, put less weight on the arm or leg. Weight Bearing as Tolerated (WBAT) You may put your full body on the injured arm or leg if pain allows. This is close to full weight bearing. Put more and more weight on the arm or leg as you heal and have less pain. There is no limitto how much weight you should put on your arm or leg - just let your comfort and pain level to guide you. You can use an assistive device such as a walker, crutches, or cane as needed for more support if you have pain or weakness with walking. Weight Bearing as Tolerated Through Elbow Do not place any weight through your wrist or hand until your injury heals. You may place as much weight as you can stand through your elbow as you change positions, get up, or move - such as when you use a platform walker. Passive Range of Motion as Tolerated Do not move the joint in your arm or leg on your own. As your pain allows, another person may move the joint for you. This may be a therapist, doctor, nurse, or family caregiver. Range of Motion as Tolerated (ROMAT) You can move your joint as much as feels comfortable. There is no limit to how much you can move the joint. Move the arm or leg joint more and more as you heal and have less pain. It is very important to keep your joints moving as you heal. This is also called ?Active Range of Motion as Tolerated.? Activity as Tolerated (AAT) You may use your arm or leg as much as your pain allows. There is no limit to how much weight you should place on the arm or leg. And there is no limit to the range of motion for the arm or leg. Use the arm or leg more and more as you heal and have less pain. * [facility] - Raciel Mcrae RN - 04/20/2025 1:38 PM EDT Images from the original note were not included. 99243 Having Tibia/Fibula Fracture Open Reduction and Internal Fixation (ORIF) Open reduction and internal fixation (ORIF) is a type of treatment to fix a broken bone. It puts the pieces of a broken bone back together so they can heal. Open reduction means the bones are put back in place during a surgery. Internal fixation means that special hardware is used to hold the bone pieces together. This helps the bone heal correctly. The procedure is done by an orthopedic surgeon.This is a doctor with special training in treating bone, joint, and muscle problems. What to tell your healthcare provider Tell your healthcare provider about all the medicines you take. This includes ofrg-hnr-hznnaat medicines such as ibuprofen. It also includes vitamins, herbs, and other supplements. Also tell your healthcare provider the last time you had something to eat or drink. And tell your provider if you: ? Have had any recent changes in your health, such as an infection or fever ? Are sensitive or allergic to any medicines, latex, tape, or anesthesia (local and general) ? Are or think you may be Tests before your surgery You may need an X-ray or other imaging scan to look at your bones. Getting ready for your surgery ORIF is sometimes done as emergency surgery after an accident or injury. Before this procedure, a healthcare provider will ask about your health history and give you a physical exam. In some cases, tibia/fibula fracture ORIF is planned. You may need to have your leg placed in traction while you wait for surgery. Traction is a type of sling that holds your leg. Talk with your healthcare provider about how to get ready for your surgery. You may need to stop taking some medicines before the procedure, such as blood thinners and aspirin. If you smoke, you may need to stop before your surgery. Smoking can delay healing. Talk with your healthcare provider if you need help to stopsmoking. Also, make sure to: ? Ask a family member or friend to take you home from the hospital. You cannot drive yourself. ? Plan some changes at home to help you recover. You may need help at home. ? Follow any directions you?re given for not eating or drinking before the surgery. ? Follow all other instructions from your healthcare provider. You may be asked to sign a consent form that gives your permission to do the procedure. Read the form carefully. Ask questions if something is not clear. On the day of surgery Your surgeon will explain the details of your surgery. These details will depend on the location and severity of your injury. An orthopedic surgeon with a team of specialized nurses will do the surgery. The preparation and surgery may take a couple of hours. In general, you can expect the following: ? You will likely have general anesthesia. This will prevent pain and make you sleep through the surgery. Or you may have regional anesthesia to numb the area and medicine to help you relax and sleepthrough the surgery. ? A healthcare provider watches your vital signs, like your heart rate and blood pressure, during the surgery. ? After cleaning the skin, the surgeon will make a cut (incision) through the skin and muscle of your leg. ? The surgeon will put the pieces of your tibia and fibula back into place (reduction). ? They will secure the pieces of the broken bones to each other (fixation). The surgeon may use screws, metal plates, wires, or pins. For certain tibia fractures, a special metal nail may be put through the middle of the bone. ? The surgeon will make other repairs to the area as needed. ? They will close the layers of muscle and skin around your thigh with sutures or vitaly. After your surgery Talk with your surgeon about what you can expect after your surgery. You may go home the same day. Or you may stay overnight in the hospital. Before leaving the hospital, you will likely have X-rays taken of your leg. This is to check the repair. You will have some pain after the surgery. Your healthcare provider will tell you what pain medicine you can take to help reduce the pain. You can also use ice packs to help lessen pain and swelling.You might have some fluid draining from your incision. This is normal. You?ll get instructions about how to move your leg and when you can put weight on it. For a while after your surgery, you may be told not to move your leg. You may need to wear a brace for several weeks. You may need to keep your leg dry. Follow all of your healthcare provider?s instructions carefully. Your surgeon may tell you to: ? Take prescription medicine to prevent blood clots ? Not take certain ikyf-ynp-kvwjgtr medicines for pain that may interfere with bone healing ? Eat foods high in calcium and vitamin D to help with bone healing Follow-up care Make sure to keep all of your follow-up appointments. You may need to have your stitches or staplesremoved a week or so after your surgery. You may have physical therapy to improve the strength and movement of your leg. The therapy may include treatments and exercises. Physical therapy improves your chances of a full recovery. Most people are able to return to their normal activities within a few months. When to call your healthcare provider Call your healthcare provider right away if you have any of these: ? Fever of 100.4??F (38??C) or higher, or as directed by your healthcare provider ? Chills ? Redness, swelling, bad smell, or fluid leaking from your incision that gets worse ? Pain in your leg or calf that gets worse ? Loss of feeling in your foot or leg Last Reviewed Date: 2024 00:00:00 ?? [id number] [employer]. All rights reserved. This information is not intended as a substitute for professional medical care. Always follow your healthcare professional's instructions. * Care Plan - Kristine Barnes RN - 04/20/2025 5:06 AM EDT Problem: Adult Inpatient Plan of Care Goal: Plan of Care Review 04/20/2025 0505 by Kristine Barnes RN Outcome: Ongoing, Progressing Flowsheets Taken 04/15/2025 1112 by Mary Kay Truong, RN Progress: improving Taken 04/15/2025 0222 by Nellie Pride RN Outcome Evaluation: pain well controlled with current pain regimen, good UOP, able to WBAT to RLE Plan of Care Reviewed With: patient 04/19/20252238 by Kristine Barnes RN Outcome: Ongoing, Progressing * Care Plan - Kristine Barnes RN - 04/19/2025 10:39 PM EDT Problem: Adult Inpatient Plan of Care Goal: Plan of Care Review Outcome: Ongoing, Progressing Goal: Absence of Hospital-Acquired Illness or Injury Outcome: Ongoing, Progressing Goal: Optimal Comfort and Wellbeing Outcome: Ongoing, Progressing Goal: Readiness for Transition of Care Outcome: Ongoing, Progressing * Care Plan - Vilma Noonan RN - 04/19/2025 3:53 PM EDT Problem: Adult Inpatient Plan of Care Goal: Plan of Care Review Outcome: Ongoing, Progressing Flowsheets Taken 04/15/2025 1112 by Mary Kay Truong RN Progress: improving Taken 04/15/2025 0222 by Nellie Pride RN Outcome Evaluation: pain well controlled with current pain regimen, good UOP, able to WBAT to RLE Plan of Care Reviewed With: patient Goal: Absence of Hospital-Acquired Illness or Injury Outcome: Ongoing, Progressing Goal: Optimal Comfort and Wellbeing Outcome: Ongoing, Progressing Goal: Readiness for Transition of Care Outcome: Ongoing, Progressing Problem: Fall Injury Risk Goal: Absence of Fall and Fall-Related Injury Outcome: Ongoing, Progressing Problem: Pain Acute Goal: Optimal Pain Control and Function Outcome: Ongoing, Progressing Problem: Functional Deficit Goal: Improved Balance and Postural Control Outcome: Ongoing, Progressing Goal: Optimal Coordination Outcome: Ongoing, Progressing Goal: Improved Muscle Tone Outcome: Ongoing, Progressing Goal: Optimal Range of Motion Outcome: Ongoing, Progressing Goal: Compensation for Sensory Deficit Outcome: Ongoing, Progressing * Progress Notes - Estrellita Green - 04/19/2025 3:19 PM EDT Occupational Therapy Treatment Patient Name: Romario Diaz Today's Date: 04/19/2025 OT Discharge Recommendations: Home with assistance Equipment Recommended: Rolling walker Subjective ' I have been bathing Participants in Care Family/Caregiver Present: No Leather Worker: Not Applicable Presentation Oxygen Therapy: None (Room air) Lines and Tubes: Intravenous access Pre-Session: Side lying right, Supine, Bed alarm, Lines intact Pre-Session Comments: RN agreeable to session Post-Session: Chair alarm, Lines intact, Sitting in chair, RN notified, Call light in reach Post-Session Comments: All needs met Precautions Right Lower Extremity Weight Bearing Status: Weight Bearing as Tolerated Medical Precautions: Fall precautions Objective Pain Pt with 7/10 pain in RLE, RN aware and pt positioned for comfort at end of session. Delirium Screening RASS: Alert and calm Confusion Assessment Method-ICU (CAM-ICU/PCAM-ICU) Feature 3: Altered Level of Consciousness: Negative Cognition Cognition Overall Cognitive Status: Within Functional Limits Arousal/Alertness: Appropriate responses to stimuli Mood/Behavior: Alert, Impulsive Orientation Level: Oriented X4 Single Step Commands: Consistently Multi-Step Commands: Consistently, With repetition Method of Communication: Verbal Safety Judgment: Good awareness of safety precautions Awareness of Errors: Good awareness of errors made Deficit Awareness: Fully aware of deficits Attention Span: Appears intact Bed Mobility Bed Mobility Exam: Scooting/Bridging Level of [place]: Stand-by assist (Seated scooting hips towards EOB with BUE support.) Physical/Nonphysical Assist: Verbal Cues Bed Mobility Exam: Supine to Sit Level of [place]: Stand-by assist Physical/Nonphysical Assist: Verbal Cues Transfers Transfer Exam: Sit to stand Level of [place]: Contact guard Physical/Nonphysical Assist: Verbal Cues, Nonverbal cues (demo/gestures) Assistive Device: Walker, rolling Transfer Exam: Stand to Sit Level of [place]: Contact guard Physical/Nonphysical Assist: Verbal Cues, Nonverbal cues (demo/gestures) Assistive Device: Walker, rolling Transfer Exam: Bed to Chair/Chair to Bed Level of [place]: Contact guard Physical/Nonphysical Assist: Verbal Cues, Minimal cues, Nonverbal cues (demo/gestures), Set-up required Type of Transfer: Squat-pivot Assistive Device: (UE support on chair arms) Balance Static Sitting Balance Static Sitting-Balance Support: Right upper extremity support, Left upper extremity support, Feet supported Static Sitting-Level of Assistance: Supervision Dynamic Sitting Balance Dynamic Sitting-Balance Support: Right upper extremity support, Left upper extremity support, Feet supported Dynamic Sitting-Balance: Anterior/Posterior weight shifts Level of Assistance: Standby assisst Static Standing Balance Static Standing-Balance Support: Right upper extremity support, Left upper extremity support (Through RWx) Static Standing-Level of Assistance: Contact guard Dynamic Standing Balance Dynamic Standing-Balance Support: Right upper extremity support, Left upper extremity support (Through RWx) Dynamic Standing-Balance: Lateral weight shifts, Anterior/Posterior weight shifts Dynamic Standing Level of Assistance: Contact guard Self-Care Interventions Self Care/Home Management (ADLs) Time Entry: 72 Self-Care Interventions: Pt engaged in sequential mobility and self care tasks as detailed below tosimulate daily routines. Education provided on continued mobility and ADLs. OT provided cues and environmental modifications throughout to promote engagement, safety and independence with interventions. Education provided on home safety, fall prevention, and use of DME. Grooming Grooming Where Assessed: Sitting sinkside Grooming Interventions: Pt navigated in bathroom with CGA and cues for safety in preparation for grooming at sink. Pt engaged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
--- OUTSIDE RECORDS SUMMARY | 2025-04-13 10:59 | XMS_ITS | Encounter Summary ---
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 Every 1Hr x4, Then Every 4hrs Thereafter. Acknowledged J CARLOS GOOD R 04/12/252243 Intake and Output - Strict Per unit protocol J CARLOS Rocha R 04/12/252243 Neuro checks Until discontinued Comments: Every 1Hr x4, Then Every 4Hrs x6, Then Every 8Hrs Thereafter. Acknowledged J CARLOS GOOD 04/12/252243 Insert peripheral IV Once Placed in And Linked Group Acknowledged J CARLOS GOOD 04/12/252243 Saline lock IV Once Placed in And Linked Group Acknowledged J CARLOS GOOD 04/12/25 2244 Admit to inpatient Once Acknowledged J CARLOS GOOD R 04/12/25 2202 Consult to Trauma Surgery Once Specialty: Trauma Surgery Provider: (Not yet assigned) Completed CAR MERCADO 04/12/252031 ECG Adult Once Comments: Preop Clearance Preliminary result CHARLY RODRIGUEZELLIOT Almeida 04/12/252031 XR Chest 1 View One time [...] for signs of sedation Acknowledged CAR MERCADO 04/12/251924 If patient is [...] dose Benzodiazepine according to the order in [facility]. After each Benzodiazepine dose: * Assess @ 15min for signs of sedation Acknowledged CAR MERCADO 04/12/251924 If patient is [...] dose Benzodiazepine according to the order in [facility]. After each Benzodiazepine dose: * Assess @ 15min for signs of sedation Acknowledged CAR MERCADO 04/12/251924 If patient is [...] for signs of sedation Acknowledged CAR MERCADO 04/12/251924 XR Ankle Right 3+ Views Once Final result CAR MERCADO 04/12/251924 Type and screen Start now Final result CAR MERCADO 04/12/251924 XR Knee Right 3 + Views Once Final result CAR MERCADO 04/12/251924 XR Tibia Fibula Right 2+ Views Once Final result CAR MERCADO 04/12/251924 CBC STAT Final result CAR MERCADO 04/12/251924 CMP STAT Final result CAR MERCADO 04/12/251924 Ethyl Alcohol Plasma STAT Final result CAR MERCADO ED Course as of 04/12/25 2332 TueApr 12, [id number] XR Tibia Fibula Right 2+ [...] None Disposition Admit Admitting/Attending Physician: YAJAIRA MONACO [[id number]] Provider Care Team: SGT FLOOR 2 [[id number]] [...] know rxn details Car Mercado DO Resident 04/12/25 2332 Cosigned by Megan Galvin MD at 04/13/2025 [...] HOUR (NON-REPORTABLE) Routine 04/13/2025 1:50 PM EDT VA TREAT TIBIAL SHAFT FX, INTRAMED IMPLANT 04/13/2025 12:02 PM EDT Fall, initial encounter Closed displaced oblique fracture of shaft of right tibia, initial encounter Special Needs supine, berchtold w/ extension, C-arm, bone/prone foam, ortho soft tissue, trauma toolbox, Fransisca T2 alpha tibial nail XR FEMUR LEFT [...] * Phosphorus, Plasma (04/17/2025 5:17 AM EDT) [facility] Phosphorus, Plasma 4.3 2.5 - 4.5 mg/dL 04/17/2025 5:59 AM EDT [facility] Blood Venous blood specimen / Unknown Venipuncture / Unknown 04/17/2025 5:17 AM EDT 04/17/2025 5:31 AM EDT us Yajaira Monaco MD LAB BLOOD ORDERABLES Final Result [facility] [address] [place] [address] * (ABNORMAL) Magnesium, Plasma (04/17/2025 5:17 AM EDT) Pathologist [facility] Magnesium, Plasma 1.7(L) 1.9 - 2.4 mg/dL 04/17/2025 5:59 AM EDT [facility] Blood Venous blood specimen / Unknown Venipuncture / Unknown 04/17/2025 5:17 AM EDT 04/17/2025 5:31 AM EDT us Yajaira Monaco MD LAB BLOOD ORDERABLES Final Result [facility] [address] [place] [address] * Phosphorus, Plasma (04/16/2025 3:49 AM EDT) Phosphorus, Plasma 3.9 2.5 - 4.5 mg/dL 04/16/2025 4:55 AM EDT [facility] Blood Venous blood specimen / Unknown Venipuncture / Unknown 04/16/2025 3:49 AM EDT 04/16/2025 4:09 AM EDT us Yajaira Monaco MD LAB BLOOD ORDERABLES Final Result Performing Organization Address City/[facility]/ZIP Co de Phone Number [facility] [address] [place] [address] * Magnesium, Plasma (04/16/2025 3:49 AM EDT) Magnesium, Plasma 1.9 1.9 - 2.4 mg/dL 04/16/2025 4:55 AM EDT [facility] Blood Venous blood specimen / Unknown Venipuncture / Unknown 04/16/2025 3:49 AM EDT 04/16/2025 4:09 AM EDT us Yajaira Monaco MD LAB BLOOD ORDERABLES Final Result [facility] [address] [place] [address] * Lavender Top (04/15/2025 5:23 AM EDT) Extra Hold for add-ons 04/15/2025 8:02 AM EDT [facility] Comment:Auto resulted. Blood Venous blood specimen / Unknown 04/15/2025 5:23 AM EDT 04/15/2025 5:41 AM EDT Tamie Sullivan MD LAB [place] [address] * Phosphorus, Plasma (04/15/2025 5:23 AM EDT) Phosphorus, Plasma 4.1 2.5 - 4.5 mg/dL 04/15/2025 5:57 AM EDT [facility] Blood Venous blood specimen / Unknown Venipuncture / Unknown 04/15/2025 5:23 AM EDT 04/15/2025 5:30 AM EDT Yajaira Monaco MD LAB BLOOD ORDERABLES Final Result Performing Organization Address City/[facility]/[place] [address] * (ABNORMAL) Magnesium, Plasma (04/15/2025 5:23 AM EDT) Magnesium, Plasma 1.8(L) 1.9 - 2.4 mg/dL 04/15/2025 5:57 AM EDT [facility] Blood Venous blood specimen / Unknown Venipuncture / Unknown 04/15/2025 5:23 AM EDT 04/15/2025 5:30 AM EDT Yajaira Monaco MD LAB [place] [address] * Phosphorus, Plasma (04/14/2025 12:37 AM EDT) Phosphorus, Plasma 3.5 2.5 - 4.5 mg/dL 04/14/2025 1:11 AM EDT [facility] Blood Venous blood specimen / Unknown Venipuncture / Unknown 04/14/2025 12:37 AM EDT 04/14/2025 12:42 AM EDT us Yajaira Monaco MD LAB BLOOD ORDERABLES Final Result [facility] [address] [place] [address] * (ABNORMAL) Magnesium, Plasma (04/14/2025 12:37 AM EDT) Magnesium, Plasma 1.7(L) 1.9 - 2.4 mg/dL 04/14/2025 1:11 AM EDT [facility] Blood Venous blood specimen / Unknown Venipuncture / Unknown 04/14/2025 12:37 AM EDT 04/14/2025 12:42 AM EDT us Yajaira Monaco MD LAB BLOOD ORDERABLES Final Result Performing Organization Address [facility] Co de Phone Number [facility] [address] [place] [address] * (ABNORMAL) Basic Metabolic Panel, Plasma (04/14/2025 12:37 AM EDT) Glucose, Plasma 113(H) 74 - 99 mg/dL 04/14/2025 1:11 AM EDT [facility] BUN, Plasma 5(L) 7 - 21 mg/dL 04/14/2025 1:11 AM EDT [facility] Creatinine, Plasma 0.49(L) 0.70 - 1.20 mg/dL 04/14/2025 1:11 AM EDT [facility] BUN/Creatinine Ratio 10 04/14/2025 1:11 AM EDT [facility] Sodium, Plasma 137 136 - 145 mmol/L 04/14/2025 1:11 AM EDT [facility] Potassium, Plasma 4.1 3.6 - 4.9 mmol/L 04/14/2025 1:11 AM EDT [facility] Chloride, Plasma 100 97 - 107 mmol/L 04/14/2025 1:11 AM EDT [facility] CO2, Plasma 25 22 - 29 mmol/L 04/14/2025 1:11 AM EDT [facility] Anion Gap 12 6 - 16 mmol/L 04/14/2025 1:11 AM EDT [facility] Total Calcium, Plasma 8.9 8.9 - 10.2 mg/dL 04/14/2025 1:11 AM EDT [facility] eGFRcr 133.9 mL/min/1.7 3m*2 04/14/2025 1:11 AM EDT [facility] Comment:Reported eGFRcr in m L/min/1.73m2 is based the CKD-EPI 2020 equation that does not use a race coefficient. Blood Venous blood specimen / Unknown Venipuncture / Unknown 04/14/2025 12:37 AM EDT 04/14/2025 12:42 AM EDT Leonardo Weber MD LAB BLOOD ORDERABLES Final Result [facility] [address] [place] [address] * (ABNORMAL) CBC W/O Differential (04/14/2025 12:37 AM EDT) WBC Count 6.24 3.70 - 10.30 10*3/uL LAB HEMATOLOGY METHOD 04/14/2025 12:50 AM EDT [facility] RBC Count 3.12(L) 4.60 - 6.10 10*6/uL LAB HEMATOLOGY METHOD 04/14/2025 12:50 AM EDT [facility] HGB 11.4(L) 13.7 - 17.5 g/dL LAB HEMATOLOGY METHOD 04/14/2025 12:50 AM EDT [facility] HCT 34.4(L) 40.0 - 51.0 % LAB HEMATOLOGY METHOD 04/14/2025 12:50 AM EDT [facility] Platelet Count 192 155 - 369 10*3/uL LAB HEMATOLOGY METHOD 04/14/2025 12:50 AM EDT [facility] MCV 110(H) 79 - 98 fL LAB HEMATOLOGY METHOD 04/14/2025 12:50 AM EDT [facility] MCH 36.5(H) 26.0 - 32.0 pg LAB HEMATOLOGY METHOD 04/14/2025 12:50 AM EDT [facility] MCHC 33.1 30.7 - 35.5 g/dL LAB HEMATOLOGY METHOD 04/14/2025 12:50 AM EDT [facility] RDW 12.1 11.5 - 14.5 % LAB HEMATOLOGY METHOD 04/14/2025 12:50 AM EDT [facility] MPV 10.5 8.8 - 12.5 fL LAB HEMATOLOGY METHOD 04/14/2025 12:50 AM EDT [facility] nRBC 0.0 <=0.0 per 100 WBCs LAB HEMATOLOGY METHOD 04/14/2025 12:50 AM EDT [facility] Blood Venous blood specimen / Unknown Venipuncture / Unknown 04/14/2025 12:37 AM EDT 04/14/2025 12:42 AM EDT us Leonardo Weber MD LAB BLOOD ORDERABLES Final Result Performing Organization Address City/State/[facility] Co de Phone Number [facility] [address] [place] [address] * PERIPHERAL IV (SMARTFORM LINK) (04/13/2025 8:54 [...] Yajaira Monaco MD IV THERAPY ORDERABLES Jaimee l Result * XR Tibia Fibula Right 2+ [...] in the patient's chart for the findings. us Leonardo Weber MD IMG FLUOROSCOPY PROCEDURES Final Result IMAGING * XR [...] 04/13/2025 9:05 AM Mary Kay Lugo MD IMG XR PROCEDURES Final Re sult * Phosphorus, Plasma (04/13/2025 12:49 AM EDT) Phosphorus, Plasma 4.1 2.5 - 4.5 mg/dL 04/13/2025 1:44 AM EDT [facility] Blood Venous blood specimen / Unknown Venipuncture / Unknown 04/13/2025 12:49 AM EDT 04/13/2025 1:16 AM EDT us Yajaira Monaco MD LAB BLOOD ORDERABLES Final Result Performing Organization Address City/[facility] [place] [address] * (ABNORMAL) Magnesium, Plasma (04/13/2025 12:49 AM EDT) Magnesium, Plasma 1.7(L) 1.9 - 2.4 mg/dL 04/13/2025 1:44 AM EDT [facility] Blood Venous blood specimen / Unknown Venipuncture / Unknown 04/13/2025 12:49 AM EDT 04/13/2025 1:16 AM EDT us Yajaira Monaco MD LAB BLOOD ORDERABLES Final Result Performing Organization Address [facility] [place] [address] * Prothrombin Time/INR (04/13/2025 12:49 AM EDT) Prothrombin Time 12.5 12.0 - 14.3 sec 04/13/2025 1:17 AM EDT [facility] INR 1.0 0.9 - 1.1 04/13/2025 1:17 AM EDT [facility] Blood Venous blood specimen / Unknown Venipuncture / Unknown 04/13/2025 12:49 AM EDT 04/13/2025 12:58 AM EDT Narrative [facility] - 04/13/2025 1:17 AM EDT OPTIMAL INR RANGES FOR PATIENT ON ORAL ANTICOAGULANT THERAPY Prevention of venous thromboembolism INR 2.0 to 3.0 In patients with heart disease: Atrial fibrillation INR 2.0 to 3.0 Valvular heart disease INR 2.0 to 3.0 Tissue heart valves INR 2.0 to 3.0 Mechanical prosthetic valves INR 2.5 to 3.5 Prevention of recurrent CO INR 2.5 to 3.5 us Paolo Daigle MD LAB BLOOD ORDERABLES Final R esult [facility] [address] [place] [address] * (ABNORMAL) Basic Metabolic Panel, Plasma (04/13/2025 12:49 AM EDT) Glucose, Plasma 117(H) 74 - 99 mg/dL 04/13/2025 1:44 AM EDT [facility] BUN, Plasma 6(L) 7 - 21 mg/dL 04/13/2025 1:44 AM EDT [facility] Creatinine, Plasma 0.44(L) 0.70 - 1.20 mg/dL 04/13/2025 1:44 AM EDT [facility] BUN/Creatinine Ratio 14 04/13/2025 1:44 AM EDT [facility] Sodium, Plasma 141 136 - 145 mmol/L 04/13/2025 1:44 AM EDT [facility] Potassium, Plasma 3.4(L) 3.6 - 4.9 mmol/L 04/13/2025 1:44 AM EDT [facility] Chloride, Plasma 103 97 - 107 mmol/L 04/13/2025 1:44 AM EDT [facility] CO2, Plasma 24 22 - 29 mmol/L 04/13/2025 1:44 AM EDT [facility] Anion Gap 14 6 - 16 mmol/L 04/13/2025 1:44 AM EDT [facility] Total Calcium, Plasma 9.1 8.9 - 10.2 mg/dL 04/13/2025 1:44 AM EDT [facility] eGFRcr 138.3 mL/min/1.7 3m*2 04/13/2025 1:44 AM EDT [facility] Comment:Reported eGFRcr in m L/min/1.73m2 is based the CKD-EPI 2020 equation that does not use a race coefficient. Blood Venous blood specimen / Unknown Venipuncture / Unknown 04/13/2025 12:49 AM EDT 04/13/2025 1:16 AM EDT us Paolo Daigle MD LAB BLOOD ORDERABLES Final R esult [facility] [address] [place] [address] * (ABNORMAL) CBC W/O Differential (04/13/2025 12:49 AM EDT) WBC Count 4.91 3.70 - 10.30 10*3/uL LAB HEMATOLOGY METHOD 04/13/2025 1:00 AM EDT [facility] RBC Count 3.26(L) 4.60 - 6.10 10*6/uL LAB HEMATOLOGY METHOD 04/13/2025 1:00 AM EDT [facility] HGB 12.0(L) 13.7 - 17.5 g/dL LAB HEMATOLOGY METHOD 04/13/2025 1:00 AM EDT [facility] HCT 35.3(L) 40.0 - 51.0 % LAB HEMATOLOGY METHOD 04/13/2025 1:00 AM EDT [facility] Platelet Count 162 155 - 369 10*3/uL LAB HEMATOLOGY METHOD 04/13/2025 1:00 AM EDT [facility] MCV 108(H) 79 - 98 fL LAB HEMATOLOGY METHOD 04/13/2025 1:00 AM EDT [facility] MCH 36.8(H) 26.0 - 32.0 pg LAB HEMATOLOGY METHOD 04/13/2025 1:00 AM EDT [facility] MCHC 34.0 30.7 - 35.5 g/dL LAB HEMATOLOGY METHOD 04/13/2025 1:00 AM EDT [facility] RDW 12.4 11.5 - 14.5 % LAB HEMATOLOGY METHOD 04/13/2025 1:00 AM EDT [facility] MPV 10.5 8.8 - 12.5 fL LAB HEMATOLOGY METHOD 04/13/2025 1:00 AM EDT [facility] nRBC 0.0 <=0.0 per 100 WBCs LAB HEMATOLOGY METHOD 04/13/2025 1:00 AM EDT [facility] Blood Venous blood specimen / Unknown Venipuncture / Unknown 04/13/2025 12:49 AM EDT 04/13/2025 12:58 AM EDT us Paolo Daigle MD LAB BLOOD ORDERABLES Final R esult [facility] [address] [place] [address] * CT Ankle Right wo IV Contrast [...] Yash Bobby MD on 04/12/2025 11:33 PM Paolo Daigle MD IMG XR PROCEDURES Final [...] Bobby MD on 04/12/2025 10:00 PM Paolo Daigle MD IMG XR PROCEDURES Final Resu lt * ECG Adult (04/12/2025 8:41 PM EDT) EKG DIAGNOSIS CLASS Normal MUSE ECG Ventricular Rate 87 BPM MUSE ECG Atrial Rate 87 BPM MUSE ECG VA Interval 120 ms MUSE ECG QRSD Interval 88 ms MUSE ECG QT Interval 382 ms MUSE ECG QTC Interval 459 ms MUSE ECG P Caney 18 degrees MUSE ECG R Caney 67 degrees MUSE ECG T Wave Caney 74 degrees MUSE ECG Diagnosis Normal sinus rhythm MUSE ECG Diagnosis MUSE ECG Diagnosis MUSE ECG Diagnosis Confirmed by Eliigo Leary ([id number]) on 04/14/2025 6:03:33 AM MUSE ECG 04/12/2025 [...] ORDERABLE S Final Result [facility] [address] [place] [address], * Ethyl Alcohol Plasma (04/12/2025 8:01 PM EDT) Ethanol Plasma <10 <10 mg/dL 04/12/2025 8:24 PM EDT [facility] Blood Venous blood specimen / Unknown Venipuncture / Unknown 04/12/2025 8:01 PM EDT 04/12/2025 8:04 PM EDT Narrative [facility] - 04/12/2025 8:24 PM EDT Enzymatic Assay: Performed on Rebecca Risa. us Megan Galvin MD LAB BLOOD ORDERABLES Final Re sult [facility] [address] [place] [address] * (ABNORMAL) CMP (04/12/2025 8:01 PM EDT) Glucose, Plasma 85 74 - 99 mg/dL 04/12/2025 8:25 PM EDT [facility] BUN, Plasma 4(L) 7 - 21 mg/dL 04/12/2025 8:25 PM EDT [facility] Creatinine, Plasma 0.44(L) 0.70 - 1.20 mg/dL 04/12/2025 8:25 PM EDT [facility] BUN/Creatinine Ratio 9 04/12/2025 8:25 PM EDT [facility] Sodium, Plasma 138 136 - 145 mmol/L 04/12/2025 8:25 PM EDT [facility] Potassium, Plasma 3.7 3.6 - 4.9 mmol/L 04/12/2025 8:25 PM EDT [facility] Chloride, Plasma 102 97 - 107 mmol/L 04/12/2025 8:25 PM EDT [facility] CO2, Plasma 24 22 - 29 mmol/L 04/12/2025 8:25 PM EDT [facility] Anion Gap 12 6 - 16 mmol/L 04/12/2025 8:25 PM EDT [facility] Total Calcium, Plasma 8.7(L) 8.9 - 10.2 mg/dL 04/12/2025 8:25 PM EDT [facility] Total Protein 6.6 6.3 - 7.9 g/dL 04/12/2025 8:25 PM EDT [facility] Albumin, Plasma 3.9 3.5 - 5.2 g/dL 04/12/2025 8:25 PM EDT [facility] AST, Plasma 68(H) 10 - 50 U/L 04/12/2025 8:25 PM EDT [facility] ALT, Plasma 68(H) 10 - 50 U/L 04/12/2025 8:25 PM EDT [facility] Alkaline Phosphatase, Plasma 187(H) 40 - 115 U/L 04/12/2025 8:25 PM EDT [facility] Total Bilirubin, Plasma 0.9 0.2 - 1.1 mg/dL 04/12/2025 8:25 PM EDT [facility] eGFRcr 138.3 mL/min/1.7 3m*2 04/12/2025 8:25 PM EDT [facility] Comment:Reported eGFRcr in m L/min/1.73m2 is based the CKD-EPI 2020 equation that does not use a race coefficient. Blood Venous blood specimen / Unknown Venipuncture / Unknown 04/12/2025 8:01 PM EDT 04/12/2025 8:04 PM EDT us Megan Galvin MD LAB BLOOD ORDERABLES Final Re sult [facility] [address] [place] [address] * (ABNORMAL) CBC (04/12/2025 8:01 PM EDT) WBC Count 4.87 3.70 - 10.30 10*3/uL LAB HEMATOLOGY METHOD 04/12/2025 8:06 PM EDT [facility] RBC Count 3.56(L) 4.60 - 6.10 10*6/uL LAB HEMATOLOGY METHOD 04/12/2025 8:06 PM EDT [facility] HGB 13.2(L) 13.7 - 17.5 g/dL LAB HEMATOLOGY METHOD 04/12/2025 8:06 PM EDT [facility] HCT 38.9(L) 40.0 - 51.0 % LAB HEMATOLOGY METHOD 04/12/2025 8:06 PM EDT [facility] Platelet Count 164 155 - 369 10*3/uL LAB HEMATOLOGY METHOD 04/12/2025 8:06 PM EDT [facility] MCV 109(H) 79 - 98 fL LAB HEMATOLOGY METHOD 04/12/2025 8:06 PM EDT [facility] MCH 37.1(H) 26.0 - 32.0 pg LAB HEMATOLOGY METHOD 04/12/2025 8:06 PM EDT [facility] MCHC 33.9 30.7 - 35.5 g/dL LAB HEMATOLOGY METHOD 04/12/2025 8:06 PM EDT [facility] RDW 12.2 11.5 - 14.5 % LAB HEMATOLOGY METHOD 04/12/2025 8:06 PM EDT [facility] MPV 10.2 8.8 - 12.5 fL LAB HEMATOLOGY METHOD 04/12/2025 8:06 PM EDT [facility] nRBC 0.0 <=0.0 per 100 WBCs LAB HEMATOLOGY METHOD 04/12/2025 8:06 PM EDT [facility] Blood Venous blood specimen / Unknown Venipuncture / Unknown 04/12/2025 8:01 PM EDT 04/12/2025 8:04 PM EDT us Megan Galvin MD LAB BLOOD ORDERABLES Final Re sult [facility] [address] [place] [address] * XR Ankle Right 3+ Views (04/12/2025 [...] Hypokalemia Hypopotassemia Hypomagnesemia Disorders of magnesium metabolism Fall, initial encounter Closed displaced oblique fracture of shaft of right tibia, initial encounter documented in this encounter Admitting Diagnoses Diagnosis [...] Given 04/20/2025 11:58 PM EDT 650 mg emollient (Thera-Derm, Eucern) moisturizing lotion Topical, 2 times daily, First dose (after last modification) on Tue04/17/25 at 1045, Until Discontinued, Routine Given 04/21/2025 8:37 AM EDT Given 04/20/2025 9:48 PM EDT Given 04/20/2025 10:36 AM EDT enoxaparin (Lovenox) syringe 30 mg 30 mg, Subcutaneous, 2 times daily, First dose (after last modification) on 04/13/25 at 0900, Until Discontinued, Routine Given 04/21/2025 8:37 AM EDT 30 mg Right Lower Abdomen Given 04/20/2025 9:48 PM EDT 30 mg Le ft Lower Abdomen Given 04/20/2025 10:35 AM EDT 30 mg L eft Lower Abdomen folic acid (Folvite) tablet 1 mg 1 mg, Oral, Daily, First dose on 04/13/25 at 1715, Until Discontinued, Routine, Recovery(Phase II-Outpatient)/On Unit(Inpatient) Given 04/21/2025 8:37 AM EDT 1 mg Given 04/20/2025 10:35 AM EDT 1 mg Given 04/19/2025 9:43 AM EDT 1 mg gabapentin (Neurontin) capsule 200 mg 200 mg, Oral, 3 times daily, First dose (after last modification) on 04/20/25 at 1600, Until Discontinued, Routine Given 04/21/2025 4:07 PM EDT 200 mg Given 04/21/2025 8:38 AM EDT 200 mg Given 04/20/2025 9:48 PM EDT 200 mg hydrOXYzine pamoate (Vistaril) capsule 50 mg 50 mg, Oral, Every 6 hours PRN, Starting on Tue04/19/25 at 1358, Until Tue04/21/25 at 2008, Routine, anxiety Given 04/21/2025 5:21 PM EDT 50 mg Given 04/21/2025 8:37 AM EDT 50 mg lidocaine (Lidoderm) 5 % patch 2 patch 2 patch, Apply externally, Every 24 hours, First dose on 04/20/25 at 1215, Until Discontinued, Administer over 12 Hours, Routine Medication Applied 04/21/2025 12:42 PM EDT 2 patches Abdominal Tissue Medication Applied 04/20/2025 1:35 PM EDT 2 patches Other methocarbamol (Robaxin) tablet 750 mg 750 mg, [...] 9:43 AM EDT 1 patch Right Arm oxyCODONE (Roxicodone) immediate release tablet 5 mg 5 mg, Oral, Every 6 hours PRN, Starting on Tue04/18/25 at 1219, Until Tue04/21/25 at 2008, Routine, severe pain Given 04/21/2025 4:07 PM [...] Given 04/19/2025 9:43 AM EDT 17 g senna-docusate (Yana-Colace) 8.6-50 MG per tablet 2 [...] Until Tue04/21/25 at 2009, Routine, line care Given 04/15/2025 1:36 PM EDT 10 mL documented in this encounter Active and Recently Administered Medications Times are shown in EDT. Scheduled Medication Order 04/19/2025 04/20/2025 04/21/2025 acetaminophen (Tylenol) tablet 650 mg 650 mg, Oral, Every 6 hours scheduled, First dose on Tue04/13/25 at 0000, Until Discontinued, Routine 0117 (Not [...] Routine 0943 (Given - Provider: Vilma Noonan RN)2159 (Given - Provider: Kristine Barnes RN) 103 (Given - Provider: Vilma Noonan RN)2148 (Given - Provider: Kristine Barnes RN) 0837 (Given - Provider: Vilma Noonan RN) enoxaparin (Lovenox) syringe 30 mg 30 mg, Subcutaneous, 2 times daily, First dose (after last modification) on Tue04/13/25 at 0900, Until Discontinued, Routine 0943 (Given - Provider: Vilma Noonan RN)2157 (Given - Provider: Kristine Barnes RN) 1035 [...] Kristine Barnes RN - Reason: Patient/family refused) 103 (Given - Provider: Vilma Noonan RN)214 (Not Given - Provider: Kristine Barnes RN - Reason: Patient/family refused) 0838 (Given - Provider: Vilma Noonan RN) senna-docusate (Yana-Colace) 8.6-50 MG per tablet 2 tablet 2 tablet, Oral, 2 times daily, First dose (after last modification) on Tue04/16/25 at 0900, Until Discontinued, Routine 0942 (Given - Provider: Vilma Noonan RN)215 (Not Given - Provider: Kristine Barnes RN - Reason: Patient/family refused) 103 (Given - Provider: Vilma Noonan RN)214 (Not Given - Provider: Kristine Barnes RN - Reason: Patient/family refused) 0838 (Given - Provider: Vilma Noonan RN) sodium chloride 0.9 % flush 10 mL(Linked Group 1) 10 mL, Intravenous, Every 12 hours, First dose on Tue04/12/25 at 2245, Until Discontinued, Routine 0609 (Given - Provider: Evan Thomas RN)1045 (Given - Provider: Vilma Noonan RN)215 (Given - Provider: Kristine Barnes RN) 1036 (Given - Provider: Vilma Noonan RN)214 (Given - Provider: Kristine Barnes RN) 1243 (Given - Provider: Vilma Noonan RN) PRN Medication Order 04/19/2025 04/20/2025 04/21/2025 hydrOXYzine pamoate (Vistaril) capsule 50 mg 50 mg, Oral, Every 6 hours PRN, Starting on Tue04/19/25 at 1358, Until Tue04/21/25 at 2008, Routine, anxiety 0837 (Given - Provider: Vilma Noonan, NICK)1721 (Given - Provider: Vilma Noonan RN) oxyCODONE (Roxicodone) immediate release tablet 5 mg(Linked Group 2) 5 mg, Oral, Every 6 hours PRN, Starting on Lizzie 04/18/25 at 1219, Until 04/21/25 at 2008, Routine, severe pain 0606 (Given - Provider: Evan Thomas RN)1339 (Given - Provider: Vilma Noonan RN)2158 (Given - Provider: Kristine Barnes, NICK) 1035 (Given - Provider: Vilma Noonan RN)2148 (Given - Provider: Kristine Barnes RN) 0838 (Given - Provider: Vilma Noonan RN)1607 (Given - Provider: Vilma Noonan RN) sodium chloride 0.9 % flush 10 mL(Linked Group 1) 10 mL, Intravenous, As needed, Starting on Tue04/12/25 at 2238, Until Tue04/21/25 at 2008, Routine, line care Linked Groups Order Group 1: Insert peripheral IV (COMPLETED) Once, On Tue04/12/25 at 2239, For 1 occurrence And Saline lock IV (CANCELED) Once, On Tue04/12/25 at 2239, For 1 occurrence And sodium chloride 0.9 % flush 10 mLJump to med 10 mL, Intravenous, Every 12 hours, First dose on Tue04/12/25 at 2245, Until Discontinued, Routine And sodium chloride 0.9 % flush 10 mLJump to med 10 mL, Intravenous, As needed, Starting on Tue04/12/25 at 2238, Until 04/21/25 at 2008, Routine, line care Group 2: oxyCODONE (Roxicodone) [...] documented as of this encounter Care Teams Reservations Specialist Relationship Specialty Start Date End Date Pcp, [place] [address] PCP - General Family Medicine 07/02/24 documented as of this encounter
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
--- OUTSIDE RECORDS SUMMARY | 2025-05-02 20:02 | XMS_ITS | Encounter Summary ---
Author Organization Healthcare Address [address] [place] [address] Care Team Providers Care Printmaker Name Role Phone Pcp, No Primary Care Provider Unavailabl e Encounter Details Date Type Department Care Team (Latest Contact Info) Description 04/13/2025 Travel Social History Tobacco Use Types Packs/Day [...] often do you attend chur ch or religion services? Patient unable to answer 07/04/2024 Do you belong to any clubs o r organizations such as restorationism groups, unions, fraternal or athletic groups, or [...] and heating? Patient unable to answer 07/04/2024 [facility] [place] of Occupat ional Health - Occupational Stress [...] place to sleep or slept in a prison (including now)? No 07/04/2024 Humiliation, Afraid, Rape, [...] any time in the past 12 m [facility], were you homeless or living in a prison (including now)? No 04/09/2025 CAGE ASSESSMENT Answer [...] drink first t catrachito in the morning (EYE-POLO COACH) to steady your nerves or to get [...] Oakley RN 6. Suicidal Behavior (Lifetime) No 5 8:00 PM EDT Antonio Oakley RN documented as of this encounter Plan of Treatment Not on file documented as of this encounter Visit Diagnoses Not on filedocumented in this encounter Additional Health Concerns Assessment Noted Time A Body Mass Index follow-up plan has been documented for the patient 04/21/2025 4:16 PM EDT documented as of this encounter Care Teams Printmaker Relationship Specialty Start Date End Date Pcp, No [address] [place] [address] PCP - General Family Medicine 07/02/24 documented as of this encounter
--- OUTSIDE RECORDS SUMMARY | 2025-05-02 20:02 | XMS_ITS | Encounter Summary ---
Author Organization Healthcare Address [address] [place] [address] Care Team Providers Care C++ Quant Developer Name Role Phone Pcp, No Primary Care [...] often do you attend chur ch or muslim services? Patient unable to answer 07/04/2024 Do you belong to any clubs o r organizations such as christianity groups, unions, fraternal or athletic groups, or [...] and heating? Patient unable to answer 07/04/2024 [facility] [place] of Occupat ional Health - Occupational Stress [...] place to sleep or slept in a senior care (including now)? No 07/04/2024 Humiliation, Afraid, Rape, [...] any time in the past 12 m onths, were you homeless or living in a senior care (including now)? No 04/09/2025 Utilities Answer Date [...] Risk Indicated 04/08/2025 8:00 PM EDT Nancy pAaricio RN * Question Answer Date of Assessment Author 1. Wish to be (Past 1 Month) No 025 8:00 PM EDT Nancy Aparicio RN 2. Non-Specific Active Suici carolyn Thoughts (Past 1 Month) No 04/08/2025 8:00 PM EDT Esha Aparicio RN 6. Suicidal Behavior (Lifetime) No 8:00 PM EDT Nancy Aparicio RN documented as of this encounter Plan of Treatment Not on file documented as of this encounter Visit Diagnoses Not on filedocumented in this encounter Additional Health Concerns Assessment Noted Time A Body Mass Index follow-up plan has been documented for the patient 07/14/2024 1:33 PM EDT documented as of this encounter Care Teams C++ Quant Developer Relationship Specialty Start Date End Date Pcp, No [address] [place] [address] PCP - General Family Medicine 07/02/24 documented as of this encounter
--- OUTSIDE RECORDS SUMMARY | 2025-05-02 20:02 | XMS_ITS | Clinical Summary ---
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 MD IMG XR PROCEDURES Final Resu lt * ECG Adult (04/12/2025 8:41 PM EDT) EKG DIAGNOSIS CLASS Normal MUSE ECG Ventricular Rate 87 BPM MUSE ECG Atrial Rate 87 BPM MUSE ECG ND Interval 120 ms MUSE ECG QRSD Interval 88 ms MUSE ECG QT Interval 382 ms MUSE ECG QTC Interval 459 ms MUSE ECG P [place] 18 degrees MUSE ECG R [place] 67 degrees MUSE ECG T Wave [place] 74 degrees MUSE ECG Diagnosis Normal sinus rhythm MUSE ECG Diagnosis MUSE ECG Diagnosis MUSE ECG Diagnosis Confirmed by Eligio Leary ([id number]) on 04/14/2025 6:03:33 AM MUSE ECG 04/12/2025 8:41 PM EDT 04/14/2025 6:03 AM EDT us Paolo Daigle MD ECG ORDERABLES Final Result MUSE ECG * Ethyl Alcohol Plasma (04/12/2025 8:01 PM EDT) Only the most recent of2 resultswithin the time period is included. Ethanol Plasma <10 <10 mg/dL 04/12/2025 8:24 PM EDT [facility] Blood Venous blood specimen / Unknown Venipuncture / Unknown 04/12/2025 8:01 PM EDT 04/12/2025 8:04 PM EDT Narrative [facility] - 04/12/2025 8:24 PM EDT Enzymatic Assay: Performed on Rebecca Risa. us Megan Galvin MD LAB BLOOD ORDERABLES Final Re sult [facility] [address] [place] [address] * Type and screen (04/12/2025 8:01 PM EDT) [facility] ABO/Rh A Positive 04/12/2025 7:22 PM EDT [facility] Antibody Screen Negative 04/12/2025 7:22 PM EDT [facility] Specimen Expiration 04/15/2025 23:59 04/12/2025 7:22 PM EDT [facility] Blood Venous blood specimen / Unknown Venipuncture / Unknown 04/12/2025 8:01 PM EDT 04/12/2025 8:06 PM EDT us Megan Galvin MD LAB BLOOD BANK TEST ORDERABLE S Final Result Performing Organization Address [facility]/ZIP Co de Phone Number BLOOD BANK [address] [place] [address], * (ABNORMAL) CMP (04/12/2025 8:01 PM EDT) Only the most recent of4 resultswithin the time period is included. [facility] Glucose, Plasma 85 74 - 99 mg/dL 04/12/2025 8:25 PM EDT [facility] BUN, Plasma 4(L) 7 - 21 mg/dL 04/12/2025 8:25 PM EDT [facility] Creatinine, Plasma 0.44(L) 0.70 - 1.20 mg/dL 04/12/2025 8:25 PM EDT [facility] BUN/Creatinine Ratio 9 04/12/2025 8:25 PM EDT [facility] Sodium, Plasma 138 136 - 145 mmol/L 04/12/2025 8:25 PM EDT [facility] Potassium, Plasma 3.7 3.6 - 4.9 mmol/L 04/12/2025 8:25 PM EDT [facility] Chloride, Plasma 102 97 - 107 mmol/L 04/12/2025 8:25 PM EDT [facility] CO2, Plasma 24 22 - 29 mmol/L 04/12/2025 8:25 PM EDT [facility] Anion Gap 12 6 - 16 mmol/L 04/12/2025 8:25 PM EDT [facility] Total Calcium, Plasma 8.7(L) 8.9 - 10.2 mg/dL 04/12/2025 8:25 PM EDT [facility] Total Protein 6.6 6.3 - 7.9 g/dL 04/12/2025 8:25 PM EDT [facility] Albumin, Plasma 3.9 3.5 - 5.2 g/dL 04/12/2025 8:25 PM EDT [facility] AST, Plasma 68(H) 10 - 50 U/L 04/12/2025 8:25 PM EDT [facility] ALT, Plasma 68(H) 10 - 50 U/L 04/12/2025 8:25 PM EDT [facility] Alkaline Phosphatase, Plasma 187(H) 40 - 115 U/L 04/12/2025 8:25 PM EDT [facility] Total Bilirubin, Plasma 0.9 0.2 - 1.1 mg/dL 04/12/2025 8:25 PM EDT [facility] eGFRcr 138.3 mL/min/1.7 3m*2 04/12/2025 8:25 PM EDT [facility] Comment:Reported eGFRcr in m L/min/1.73m2 is based the CKD-EPI 2020 equation that does not use a race coefficient. Blood Venous blood specimen / Unknown Venipuncture / Unknown 04/12/2025 8:01 PM EDT 04/12/2025 8:04 PM EDT us Megan Galvin MD LAB BLOOD ORDERABLES Final Re sult [facility] [address] [place] [address] * XR Ankle Right 3+ Views (04/12/2025 [...] XR PROCEDURES Final Resul t * XR MSK OUTSIDE IMAGES (04/12/2025 2:08 PM EDT) Only the most recent of5 resultswithin the time period is included. Anatomical Region Laterality Modality Radiographic Bruna ging 04/12/2025 2:08 PM EDT External Provider IMG XR PROCEDURES Final Result * (ABNORMAL) Creatine Kinase, Total, Plasma (04/10/2025 3:22 AM EDT) Only the most recent of3 resultswithin the time period is included. Creatine Kinase, Plasma 543(H) 49 - 320 U/L 04/10/2025 4:26 AM EDT [facility] Blood Venous blood specimen / Unknown Venipuncture / Unknown 04/10/2025 3:22 AM EDT 04/10/2025 3:55 AM EDT Mini Huang MD LAB BLOOD ORDERABLES Jaimee l Result [facility] [address] [place] [address] * Blood Culture (Aerobic/Anaerobet Set) (04/09/2025 5:13 AM EDT) Culture No growth at day 5 04/14/2025 9:01 AM EDT [facility] Blood Structure of right wrist region / Unknown Venipuncture / Unknown 04/09/2025 5:13 AM EDT 04/09/2025 5:29 AM EDT Narrative [facility] - 04/14/2025 9:01 AM EDT Low blood volume submitted, results may be compromised us Elyssa Mercedes APRN LAB MICROBIOLOGY - GENERAL OR DERABLES Final Result [facility] [address] [place] [address] * (ABNORMAL) CBC and Differential (04/09/2025 2:45 AM EDT) WBC Count 5.36 3.70 - 10.30 10*3/uL LAB HEMATOLOGY METHOD 04/09/2025 3:47 AM EDT [facility] RBC Count 3.51(L) 4.60 - 6.10 10*6/uL LAB HEMATOLOGY METHOD 04/09/2025 3:47 AM EDT [facility] HGB 12.9(L) 13.7 - 17.5 g/dL LAB HEMATOLOGY METHOD 04/09/2025 3:47 AM EDT [facility] HCT 37.1(L) 40.0 - 51.0 % LAB HEMATOLOGY METHOD 04/09/2025 3:47 AM EDT [facility] Platelet Count 89(L) 155 - 369 10*3/uL LAB HEMATOLOGY METHOD 04/09/2025 3:47 AM EDT [facility] MCV 106(H) 79 - 98 fL LAB HEMATOLOGY METHOD 04/09/2025 3:47 AM EDT [facility] MCH 36.8(H) 26.0 - 32.0 pg LAB HEMATOLOGY METHOD 04/09/2025 3:47 AM EDT [facility] MCHC 34.8 30.7 - 35.5 g/dL LAB HEMATOLOGY METHOD 04/09/2025 3:47 AM EDT [facility] RDW 12.6 11.5 - 14.5 % LAB HEMATOLOGY METHOD 04/09/2025 3:47 AM EDT [facility] MPV 11.1 8.8 - 12.5 fL LAB HEMATOLOGY METHOD 04/09/2025 3:47 AM EDT [facility] nRBC 0.0 <=0.0 per 100 WBCs LAB HEMATOLOGY METHOD 04/09/2025 3:47 AM EDT [facility] Differential Type Automated LAB HEMATOLOGY METHOD 04/09/2025 3:47 AM EDT [facility] Neutrophils % 67 % LAB HEMATOLOGY METHOD 04/09/2025 3:47 AM EDT [facility] Lymphocytes % 16 % LAB HEMATOLOGY METHOD 04/09/2025 3:47 AM EDT [facility] Monocytes % 15 % LAB HEMATOLOGY METHOD 04/09/2025 3:47 AM EDT [facility] Eosinophils % 1 % LAB HEMATOLOGY METHOD 04/09/2025 3:47 AM EDT [facility] Basophils % 1 % LAB HEMATOLOGY METHOD 04/09/2025 3:47 AM EDT [facility] Immature Granulocytes % 0 % LAB HEMATOLOGY METHOD 04/09/2025 3:47 AM EDT [facility] Neutrophils Absolute 3.56 1.60 - 6.10 10*3/uL LAB HEMATOLOGY METHOD 04/09/2025 3:47 AM EDT [facility] Lymphocytes Absolute 0.87(L) 1.20 - 3.90 10*3/uL LAB HEMATOLOGY METHOD 04/09/2025 3:47 AM EDT [facility] Monocytes Absolute 0.79 0.30 - 0.90 10*3/uL LAB HEMATOLOGY METHOD 04/09/2025 3:47 AM EDT [facility] Eosinophils Absolute 0.06 0.00 - 0.50 10*3/uL LAB HEMATOLOGY METHOD 04/09/2025 3:47 AM EDT [facility] Basophils Absolute 0.06 0.00 - 0.10 10*3/uL LAB HEMATOLOGY METHOD 04/09/2025 3:47 AM EDT [facility] Immature Granulocytes Absolute 0.02 0.00 - 0.06 10*3/uL LAB HEMATOLOGY METHOD 04/09/2025 3:47 AM EDT [facility] Blood Venous blood specimen / Unknown Venipuncture / Unknown 04/09/2025 2:45 AM EDT 04/09/2025 3:06 AM EDT [facility] - 04/09/2025 3:47 AM EDT Therapeutic decision making should be based on absolute values, rather than percentages. us Benjamin Bates MD LAB BLOOD ORDERABLES Final Resul t [facility] [address] [place] [address] * VAS Ankle Brachial Index - Segmental [...] are demonstrated at the levels of the SUPERVISOR TAN ROOM, SKINNER PELTS and DPA. Segmental pressures are within normal limits with a SKINNER PELTS FRANKIE of 1.05 (139 mmHg) and a DPA FRANKIE of 1.00 (132 mmHg). Digit pressures are 100 mmHg. Left: Multiphasic waveforms are demonstrated at the levels of the SUPERVISOR TAN ROOM, SKINNER PELTS and DPA. Segmental pressures are within normal limits with a SKINNER PELTS FRANKIE of 1.23 (163 mmHg) and a [...] are demonstrated at the levels of the SUPERVISOR TAN ROOM,SKINNER PELTS and DPA. Segmental pressures are within normal limits with a SKINNER PELTS ABIof 1.05 (139 mmHg) and a DPA FRANKIE of 1.00 (132 mmHg). Digit pressures ohb107 mmHg. Left: Multiphasic waveforms are demonstrated at the levels of the SUPERVISOR TAN ROOM, PTAand DPA. Segmental pressures are within normal limits with a SKINNER PELTS FRANKIE of1.23 (163 mmHg) and a DPA [...] Cutoff: 500 ng/mL 04/08/2025 7:39 AM EDT [facility] Benzodiazepines Screen Urine Negative Cutoff: 200 ng/mL 04/08/2025 7:39 AM EDT [facility] Cannabinoid Screen Urine Presumptive positive. Confirmation by LC-MS/MS to follow. Cutoff: 50 ng/mL 04/08/2025 7:39 AM EDT [facility] Cocaine Screen Urine Negative Cutoff: 300 ng/mL 04/08/2025 7:39 AM EDT [facility] Barbiturate Screen Urine Negative Cutoff: 200 ng/mL 04/08/2025 7:39 AM EDT [facility] Opiate Screen Urine Negative Cutoff: 300 ng/mL 04/08/2025 7:39 AM EDT [facility] Methadone Screen Urine Negative Cutoff: 300 ng/mL 04/08/2025 7:39 AM EDT [facility] Buprenorphine Screen Urine Negative Cutoff: 10 ng/mL 04/08/2025 7:39 AM EDT [facility] Fentanyl Screen Urine Negative Cutoff: 1 ng/mL 04/08/2025 7:39 AM EDT [facility] Oxycodone Screen Urine Negative Cutoff: 100 ng/mL 04/08/2025 7:39 AM EDT [facility] Urine Urine specimen obtained by clean catch procedure / Unknown Non-blood Collection / Unknown 04/08/2025 7:14 AM EDT 04/08/2025 7:15 AM EDT us Yony Sánchez MD LAB URINE ORDERABLES Final Res ult [facility] [address] [place] [address] * (ABNORMAL) THC Urine Confirm LCMSMS (04/08/2025 7:14 AM EDT) 9 Carboxy THC 10(H) <10 ng/mL 04/10/2025 6:12 PM EDT [facility] 9 Carboxy THC Glucuronide 67(H) <25 ng/mL 04/10/2025 6:12 PM EDT [facility] Urine Urine specimen obtained by clean catch procedure / Unknown Non-blood Collection / Unknown 04/08/2025 7:14 AM EDT 04/08/2025 7:15 AM EDT Narrative [facility] - 04/10/2025 6:12 PM EDT Drug analysis is confirmed by LC-MS/MS (LC Tandem Mass Spectrometry) on Urine specimens. This test was developed and its performance characteristics determined by [facility]. It has not been cleared or approved by the FDA. The laboratory is regulated under CLIA as qualified to perform high-complexity testing. This test is used for clinical purposes. Testing is performed at the [facility], [facility]. us Yony Sánchez MD LAB URINE ORDERABLES Final Res ult Performing Organization Address City/[facility] [[email or web address]] [place] [address] * APTT (PTT) (04/08/2025 1:22 AM EDT) aPTT 26 25 - 35 sec 04/08/2025 1:44 AM EDT [facility] Blood Venous blood specimen / Unknown Venipuncture / Unknown 04/08/2025 1:22 AM EDT 04/08/2025 1:25 AM EDT us Yony Sánchez MD LAB BLOOD ORDERABLES Final Res ult Performing Organization Address [facility] [[email or web address]] [place] [address] * CT OUTSIDE IMAGES (04/07/2025 10:39 PM EDT) Anatomical Region Laterality Modality Computed Tomogra phy 04/07/2025 10:3 9 PM EDT us External Provider IMG CT PROCEDURES Final Result * Acute Hepatitis Panel (07/03/2024 1:34 PM EDT) Hepatitis B Surf Antigen Negative Negative 07/03/2024 3:15 PM EDT [facility] Hepatitis C Antibody Negative Negative 07/03/2024 3:15 PM EDT [facility] Hepatitis A Antibody IgM Negative Negative 07/03/2024 3:15 PM EDT [facility] Hepatitis B Core Antibody IgM Negative Negative 07/03/2024 3:15 PM EDT [facility] Blood Arterial blood specimen / Unknown Venipuncture / Unknown 07/03/2024 1:34 PM EDT 07/03/2024 2:05 PM EDT us Horacio Garza MD LAB BLOOD ORDERABLES Final Res ult Performing Organization Address City/[facility]/ZIP Co de Phone Number [address] [place] [address] * ED HIV 1/2 Antibody/Antigen Screen w/Reflex to HIV 1/2 Differentiation (07/02/2024 1:38 PM EDT) HIV 1 & 2 Antibody/Antigen Screen Non Reactive Non Reactive 07/02/2024 3:24 PM EDT [facility] Comment:Screening for HIV 1 & 2 antibodies, and P24 antigen is NONREACTIVE. No confirmatory testing is required. Blood Venous blood specimen / Unknown Venipuncture / Unknown 07/02/2024 1:38 PM EDT 07/02/2024 2:11 PM EDT us Eliza Escobar MD LAB BLOOD ORDERABLES Final Res ult [facility] [address] [place] [address] from Last 3 Months or Most Recently Relevant to Health Maintenance Insurance [facility] MEDICAID Advance Directives * Full Code (Latest Code Status on File) Date Activated Date Inactivated Comments 04/12/2025 10:44 PM 04/21/2025 8:14 PM Question Answer Comments I have reviewed the capacity from the link above and, if needed, have updated to appropriate status: Yes * Full Code Date Activated Date Inactivated Comments 04/08/2025 8:50 AM 04/10/2025 7:25 PM Question Answer Comments I have reviewed the capacity from the link above and, if needed, have updated to appropriate status: Yes * Full Code Date Activated Date Inactivated Comments 07/02/2024 3:34 PM 07/14/2024 5:39 PM Question Answer Comments Patient has decision-making capacity? Yes Care Teams Correctional Officer Relationship Specialty Start Date End Date Pcp, No [address] [place] [address] PCP - General Family Medicine 07/02/24
--- OUTSIDE RECORDS SUMMARY | 2025-05-02 20:02 | XMS_ITS | Encounter Summary ---
Author Organization Healthcare Address [address] [place] [address] Care Team Providers Care Cable Respooler Name Role Phone Pcp, No Primary Care Provider Unavailabl e Encounter Details Date Type Department Care Team (Late st Contact Info) Description 04/07/2025 Orders Only External Location [address] [place] [address] Provider, External Social History Tobacco Use Types [...] How often do you attend chur or pentecostal services? Patient unable to answer 07/04/2024 Do you belong to any clubs o r organizations such as jain groups, unions, fraternal or athletic groups, or [...] and heating? Patient unable to answer 07/04/2024 [facility] of Occupat ional Health - Occupational Stress [...] to sleep or slept in a senior living (including now)? No 07/04/2024 Humiliation, Afraid, Rape, [...] in the past 12 m [facility], were you homeless or living in a senior living (including now)? No 04/09/2025 CAGE ASSESSMENT Answer [...] drink first t catrachito in the morning (EYE-SERVICE NOW DEVELOPER) to steady your nerves or to get [...] Risk Indicated 04/10/2025 8:00 AM EDT Se aKy RN * Question Answer Date of Assessment [...] documented as of this encounter Care Teams Cable Respooler Relationship Specialty Start Date End Date Tito, [place] [address] PCP - General Family Medicine 07/02/24 documented as of this encounter
--- OUTSIDE RECORDS SUMMARY | 2025-05-02 20:03 | XMS_ITS | Encounter Summary ---
Author Organization Healthcare Address [address] [place] [address] Care Team Providers Care Coupon Manifest Clerk Name Role Phone Pcp, No Primary Care Provider Unavailabl e Encounter Details Date Type Department Care Team (Late st Contact Info) Description 04/12/2025 Orders Only External Location [address] [place] [address] Provider, External Social History Tobacco Use Types [...] often do you attend chur ch or buddhism services? Patient unable to answer 07/04/2024 Do [...] and heating? Patient unable to answer 07/04/2024 [facility] [place] of Occupat ional Health - Occupational Stress [...] place to sleep or slept in a chcf (including now)? No 07/04/2024 Humiliation, Afraid, Rape, [...] were you homeless or living in a chcf (including now)? No 04/15/2025 CAGE ASSESSMENT Answer [...] drink first t catrachito in the morning (EYE-HOME DECORATOR) to steady your nerves or to get [...] Date of Assessment Author No Risk Indicated 04/16/2025 8:00 AM EDT Elle Jolley RN * Question Answer Date of Assessment Author 1. Wish to be (Past 1 Month) No 025 8:00 AM Fannie Wells RN 2. Non-Specific Active Suici carolyn Thoughts (Past 1 Month) No 04/16/2025 8:00 AM EDT Fannie Jolley, RN 6. Suicidal Behavior (Lifetime) No 8:00 AM EDT Fannie Jolley RN documented as of this encounter Plan of Treatment Not on file documented as of this encounter Procedures Procedure Name Priority Date/Time Associated Diagnosis Comments XR MSK OUTSIDE IMAGES 04/12/2025 2:07 PM EDT documented in this encounter Results * XR MSK OUTSIDE IMAGES (04/12/2025 2:07 PM EDT) Anatomical Region Laterality Modality Radiographic Bruna ging 04/12/2025 2:07 PM EDT us External Provider IMG XR PROCEDURES Final Result documented in this encounter Visit Diagnoses Not on filedocumented in this encounter Additional Health Concerns Assessment Noted Time A Body Mass Index follow-up plan has been documented for the patient 04/21/2025 4:16 PM EDT documented as of this encounter Care Teams Coupon Manifest Clerk Relationship Specialty Start Date End Date Pcp, No [address] [place] [address] PCP - General Family Medicine 07/02/24 documented as of this encounter
--- OUTSIDE RECORDS SUMMARY | 2025-05-02 20:03 | XMS_ITS | Encounter Summary ---
Author Organization Healthcare Address [address] [place] [address] Care Team Providers Care Food Science Technician Name Role Phone Pcp, No Primary Care Provider Unavailabl e Encounter Details Date Type Department Care Team (Latest Contact Info) Description 04/12/2025 Travel Social History Tobacco Use Types Packs/Day [...] often do you attend chur ch or spiritism services? Patient unable to answer 07/04/2024 Do you belong to any clubs o r organizations such as druze groups, unions, fraternal or athletic groups, or [...] and heating? Patient unable to answer 07/04/2024 [facility] of Occupat ional Health - Occupational Stress [...] place to sleep or slept in a fdc (including now)? No 07/04/2024 Humiliation, Afraid, Rape, [...] any time in the past 12 m [place], were you homeless or living in a fdc (including now)? No 04/09/2025 CAGE ASSESSMENT Answer [...] drink first t catrachito in the morning (EYE-TRANSFER CLERK) to steady your nerves or to get [...] EDT Carol Guerra RN 2. Non-Specific Active Suicidal Thoughts (Past 1 Month) No 04/12/2025 7:15 PM EDT Javalera, Carol M, RN 6. Suicidal Behavior (Lifetime) No 04/12/2025 7:15 PM EDT Corina Guerra RN documented as of this encounter Plan of Treatment Not on file documented as of this encounter Visit Diagnoses Not on filedocumented in this encounter Additional Health Concerns Assessment Noted Time A Body Mass Index follow-up plan has been documented for the patient 04/21/2025 4:16 PM EDT documented as of this encounter Care Teams Food Science Technician Relationship Specialty Start Date End Date Pcp, No [address] [place] [address] PCP - General Family Medicine 07/02/24 documented as of this encounter
--- OUTSIDE RECORDS SUMMARY | 2025-05-02 20:03 | XMS_ITS | Encounter Summary ---
Author Organization Healthcare Address [address] [place] [address] Care Team Providers Care Car Rental Clerk Name Role Phone Pcp, No Primary Care Provider Unavailabl e Encounter Details Date Type Department Care Team (Late st Contact Info) Description 04/12/2025 Orders Only External Location [address] [place] [address] Provider, External Social History Tobacco Use Types [...] often do you attend chur ch or jehovah's witness services? Patient unable to answer 07/04/2024 Do [...] and heating? Patient unable to answer 07/04/2024 [facility] of Occupat ional Health - Occupational Stress [...] in a group home (including now)? No 04/15/2025 CAGE ASSESSMENT [...] drink first t catrachito in the morning (EYE-STRIPPER AND OPAQUER APPRENTICE) to steady your nerves or to get [...] Diagnosis Comments XR MSK OUTSIDE IMAGES 04/12/2025 2:04 PM EDT documented in this encounter Results * XR MSK OUTSIDE IMAGES (04/12/2025 2:04 PM EDT) Anatomical Region Laterality Modality Radiographic Bruna ging 04/12/2025 2:04 PM EDT us External Provider IMG XR PROCEDURES Final Result documented in this encounter Visit Diagnoses Not on filedocumented in this encounter Additional Health Concerns Assessment Noted Time A Body Mass Index follow-up plan has been documented for the patient 04/21/2025 4:16 PM EDT documented as of this encounter Care Teams Car Rental Clerk Relationship Specialty Start Date End Date Pcp, No [address] [place] [address] PCP - General Family Medicine 07/02/24 documented as of this encounter
--- OUTSIDE RECORDS SUMMARY | 2025-05-02 20:03 | XMS_ITS | Encounter Summary ---
Author Organization Healthcare Address [address] [place] [address] Care Team Providers Care Alloy Weigher Name Role Phone Pcp, No Primary Care Provider Unavailabl e Encounter Details Date Type Department Care Team (Late st Contact Info) Description 04/12/2025 Orders Only External Location [address] [place] [address] Provider, External Social History Tobacco Use Types [...] often do you attend chur ch or uatsdin services? Patient unable to answer 07/04/2024 Do you belong to any clubs o r organizations such as yarsani groups, unions, fraternal or athletic groups, or [...] and heating? Patient unable to answer 07/04/2024 [facility] [place] of Occupat ional Health - Occupational Stress [...] drink first t catrachito in the morning (EYE-RESEARCH SUBJECT) to steady your nerves or to get [...] Diagnosis Comments XR MSK OUTSIDE IMAGES 04/12/2025 2:08 PM EDT documented in this encounter Results * XR MSK OUTSIDE IMAGES (04/12/2025 2:08 PM EDT) Anatomical Region Laterality Modality Radiographic Bruna ging 04/12/2025 2:08 PM EDT us External Provider IMG XR PROCEDURES Final Result documented in this encounter Visit Diagnoses Not on filedocumented in this encounter Additional Health Concerns Assessment Noted Time A Body Mass Index follow-up plan has been documented for the patient 04/21/2025 4:16 PM EDT documented as of this encounter Care Teams Alloy Weigher Relationship Specialty Start Date End Date Pcp, No [address] [place] [address] PCP - General Family Medicine 07/02/24 documented as of this encounter
--- OUTSIDE RECORDS SUMMARY | 2025-05-02 20:03 | XMS_ITS | Encounter Summary ---
Author Organization Healthcare Address [address] [place] [address] Care Team Providers Care Counselor Aide Name Role Phone Pcp, No Primary Care Provider Unavailabl e Encounter Details Date Type Department Care Team (Late st Contact Info) Description 07/09/2024 Lab Requisition [facility] [address] [place] [address] Chente Smiley MD [address] [facility] [address] [place] [id number] Encounter for general adult medical examination without [...] answer 07/04/2024 How often do you attend [facility] or spiritism services? Patient unable to answer [...] and heating? Patient unable to answer 07/04/2024 [facility] of Occupat ional [facility] - Occupational Stress Questionnaire Answer Date Recorded [...] place to sleep or slept in a residential (including now)? No 07/04/2024 Utilities Answer Date Recorded In the past 12 months has e [employer], gas, oil, or water company threatened to [...] Month) No 024 8:00 AM EDT Christopher Rivera, NICK 2. Non-Specific Active Suici carolyn Thoughts (Past 1 Month) No 07/12/2024 8:00 AM EDT Christopher Rivera, NICK 6. Suicidal Behavior (Lifetime) No 8:00 AM EDT Christopher Rivera, NICK documented as of this encounter Plan [...] Resistant Organisms Isolated 07/10/2024 8:24 AM EDT [facility] Swab (Nares and Yana Rectal) 07/09/2024 8:30 AM EDT 07/09/2024 8:42 AM EDT us Chenet Smiley MD LAB MICROBIOLOGY - GEN ERAL ORDERABLES Final Result [facility] [address] [place] [address] documented in this encounter Visit Diagnoses Diagnosis [...] documented as of this encounter Care Teams Counselor Aide Relationship Specialty Start Date End Date Pcp, No [address] [place] [address] PCP - General Family Medicine 07/02/24 documented as of this encounter
--- OUTSIDE RECORDS SUMMARY | 2025-05-02 20:03 | XMS_ITS | Encounter Summary ---
Author Organization Healthcare Address [address] [place] [address] Care Team Providers Care Electrical Instrument Maker Name Role Phone Pcp, No Primary Care Provider Unavailabl e Encounter Details Date Type Department Care Team (Late st Contact Info) Description 04/12/2025 Orders Only External Location [address] [place] [address] Provider, External Social History Tobacco Use Types [...] often do you attend chur ch or amish services? Patient unable to answer 07/04/2024 Do you belong to any clubs o r organizations such as congregation groups, unions, fraternal or athletic groups, or [...] and heating? Patient unable to answer 07/04/2024 [facility] [place] of Occupat ional Health - Occupational Stress [...] place to sleep or slept in a jail (including now)? No 07/04/2024 Humiliation, Afraid, Rape, [...] were you homeless or living in a jail (including now)? 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) to steady your nerves or to get [...] Diagnosis Comments XR MSK OUTSIDE IMAGES 04/12/2025 2:05 PM EDT documented in this encounter Results * XR MSK OUTSIDE IMAGES (04/12/2025 2:05 PM EDT) Anatomical Region Laterality Modality Radiographic Bruna ging 04/12/2025 2:05 PM EDT us External Provider IMG XR PROCEDURES Final Result documented in this encounter Visit Diagnoses Not on filedocumented in this encounter Additional Health Concerns Assessment Noted Time A Body Mass Index follow-up plan has been documented for the patient 04/21/2025 4:16 PM EDT documented as of this encounter Care Teams Electrical Instrument Maker Relationship Specialty Start Date End Date Pcp, No [address] [place] [address] PCP - General Family Medicine 07/02/24 documented as of this encounter
--- OUTSIDE RECORDS SUMMARY | 2025-05-02 20:03 | XMS_ITS | Clinical Summary ---
Author Organization [facility] Address [address] [place] [address] Care Team Providers Care Vehicle Operator Technician Name Role Phone Unknown, Attending Provider Primary [...] therelease of HIV test results or diagnoses. [id number] Allergies Active Allergy Reactions Criticality [...] Recorded In the past 12 months has [employer] gas, oil, or water [employer] threatened to shut off services in your [...] any time in the past 12 m [facility], were you homeless or living in a usp (including now)? No 04/10/2024 Sex and Gender [...] Health Maintenance Due Date Last Done Comments Immunization: DTaP/Tdap/Td (2 - Tdap) 01/03/200111/2000 Depression [...] exclude the possibility of exposure to HCV. Sp Arora MD LAB BLOOD ORDERABLES Final Resul t [facility] [address] [place] [address], [facility] * HIV 1+2 Antibody/Antigen with Reflex (04/10/2024 11:43 PM EDT) HIV 1+2 AB/AGN Nonreactive Nonreactive 04/11/2024 12:[address] [facility] Serum 04/10/2024 11:4 3 PM EDT 04/10/2024 11:50 PM EDT Narrative HEALTH LAB - 04/11/2024 12:41 AM EDT HIV-1 p24 Antigen and HIV-1/HIV-2 Antibody not detected. us Sp Arora MD LAB BLOOD ORDERABLES Final Resul t [facility] [address] [place] [address], [facility] from Last 3 Months or Most Recently Relevant to Health Maintenance Insurance [employer] [employer] [id number] [address] [address] [facility] [place] [address] Advance Directives For more information, please contact: [phone] * Full Code (Latest Code Status on File) Date Activated Date Inactivated Comments 04/10/2024 10:23 PM 04/16/2024 8:31 PM Care Teams Vehicle Operator Technician Relationship Specialty Start Date End Date Unknown, Attending Provider PCP - General 02/13/24
[2025-05-02 20:11] VITALS: BP 129/91; PULSE 136; RESP 22; TEMP 36.8; O2SAT 98; BMI 19.8
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
--- NOTE | 2025-05-02 20:21 | ECG_ITS ---
APPROVED REPORT Exam: Resting ECG HR:129 bpm ECG Measurements Heart Rate 129 AXES AZ 195 P 247 QRSd 96 QRS 99 QT 327 T 69 QTc 403 Conclusion ECTOPIC ATRIAL TACHYCARDIA BORDERLINE RIGHT AXIS DEVIATION [QRS AXIS > 90] No STEMI Electronically signed by : ROBERTH HALL, 05/04/2025 06:40:48
[2025-05-02 20:30] VITALS: BP 135/89; PULSE 117; RESP 16; O2SAT 95
--- NOTE | 2025-05-02 20:41 | XR_ITS ---
PROCEDURE INFORMATION: Exam: XR Chest Exam date and time: 05/02/2025 8:38 PM Age: 40 years old Clinical indication: Cough; Additional info: Productive cough TECHNIQUE: Imaging protocol: Radiologic exam of the chest. Views: 2 views. COMPARISON: 1. CT ANGIO CHEST PE PROTOCOL 07/02/2024 9:54 AM 2. CR XR CHEST PORTABLE 11/03/2023 7:03 PM FINDINGS: Lungs: Unremarkable. No consolidation. Calcified nodules in the lateral right mid lung at the junction of the 6th anterior and 9th posterior ribs redemonstrated. Pleural spaces: Unremarkable. No pleural effusion. No pneumothorax. Heart/Mediastinum: Unremarkable. No cardiomegaly. Bones/joints: Unremarkable. IMPRESSION: Stable chest x-ray with no acute disease.
--- NOTE | 2025-05-02 20:51 | PC.NURSE ---
Attempted to stick patient was able to obtain labs but not establish an IV
[2025-05-02 20:59] LABS: Hematocrit 42.8 % (42.0-52.0); Hemoglobin 15.5 g/dL (14.1-18.0); Immature Granulocytes % 0.2 %; Mean Corpuscular HGB Conc 36.2 g/dL (31.8-35.4); Mean Corpuscular Hemoglobin 35.3 pg (27.0-31.2); Mean Corpuscular Volume 97.5 fl (80-94); Nucleated Red Blood Cells % 0 %; Platelet Count 264 K/mm3 (142-424); Red Blood Count 4.39 M/mm3 (4.60-6.20); Red Cell Distribution Width-SD 42.2 fL; White Blood Count 5.2 K/mm3 (4.8-10.8)
[2025-05-02 21:00] VITALS: BP 111/78; PULSE 120; RESP 14; O2SAT 98
[2025-05-02 21:00] LABS: VBG HCO3 19.2 mmol/L (23-30); VBG PCO2 22.2 mmol/L (35-51); VBG PH 7.55 mmol/L (7.31-7.41); VBG PO2 49.3 mmol/L (28-40)
[2025-05-02 21:01] LABS: Lactate Venous 6.6 mmol/L (0.4-2.0)
[2025-05-02 21:11] LABS: Alanine Aminotransferase 33 U/L (12-78); Albumin Level 4.7 g/dl (3.5-5.0); Albumin/Globulin Ratio 1.6 (1.1-1.8); Alkaline Phosphatase 161 U/L (38-126); Anion Gap 23.8 mEq/L (5-15); Aspartate Amino Transferase 56 U/L (17-59); Bilirubin,Total 0.5 mg/dl (0.2-1.3); Blood Urea Nitrogen 7 mg/dl (9-20); Calcium 10.1 mg/dl (8.4-10.2); Carbon Dioxide 20 mmol/L (22.0-30.0); Chloride 99 mmol/L (98-107); Creatine Kinase 46 U/L (55-170); Creatinine Clearance Estimated 119 mL/min (50-200); Creatinine,Serum 0.80 mg/dl (0.66-1.25); Estimated Glomerular Filt Rate 108 ml/min (>60); GFR (African American) 130 ML/MIN (>60); Globulin 3.0 g/dL (1.3-3.2); Glucose 137 mg/dl (74-100); Magnesium 1.6 mg/dl (1.6-2.3); Phosphorous 2.3 mg/dl (2.5-4.5); Potassium 3.8 mmoL/L (3.5-5.1); Sodium 139 mmol/L (136-145); Total Protein,Serum 7.7 g/dl (6.3-8.2)
[2025-05-02] MEDS: KETOROLAC 30MG/ML VIAL 15 MG IV (21:14)
[2025-05-02] MEDS: LACTATED RINGERS 1000ML 1,000 ML 999 ML IV (21:14)
[2025-05-02 21:15] LABS: D-Dimer 1.59 ug/mL (0.0-0.5)
[2025-05-02 21:16] LABS: C-Reactive Protein 2.7 mg/L (0-4)
[2025-05-02 21:26] LABS: Troponin I < 0.01 ng/ml (0.00-0.034)
[2025-05-02 21:30] VITALS: BP 126/81; PULSE 111; RESP 15; O2SAT 97
[2025-05-02 21:30] LABS: T4 (Thyroxine) 9.8 ug/dl (5.53-11.0)
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
[2025-05-02] MEDS: K-PHOS NEUTRAL 250MG TABLET 250 MG PO (21:41)
[2025-05-02] MEDS: THIAMINE 100MG TABLET 100 MG PO (21:41)
[2025-05-02] MEDS: FOLIC ACID 1MG TABLET 1 MG PO (21:41)
[2025-05-02 21:44] LABS: Thyroid Stimulating Hormone 0.51 uIU/mL (0.465-4.68)
--- NOTE | 2025-05-02 21:47 | CT_ITS ---
PROCEDURE INFORMATION: Exam: CTA Chest With Contrast Exam date and time: 05/02/2025 9:57 PM Age: 40 years old Clinical indication: Other: Hemoptysis; Additional info: Hemoptysis, elevated dimer TECHNIQUE: Imaging protocol: Computed tomographic angiography of the chest with contrast. Exam focused on the arteries. 3D rendering (Not supervised by radiologist): MIP and/or 3D reconstructed images were created by the technologist. Radiation optimization: All CT scans at this facility use at least one of these dose optimization techniques: automated exposure control; mA and/or kV adjustment per patient size (includes targeted exams where dose is matched to clinical indication); or iterative reconstruction. Contrast material: ISOVUE; Contrast volume: 70 ml; Contrast route: INTRAVENOUS (IV); COMPARISON: CT ANGIO CHEST PE PROTOCOL 07/02/2024 9:54 AM FINDINGS: Pulmonary arteries: Normal. No pulmonary emboli. Aorta: Unremarkable. No aortic aneurysm. No aortic dissection. Lungs: Unremarkable. No consolidation. No masses. Pleural spaces: Unremarkable. No pneumothorax. No pleural effusion. Heart: Unremarkable. No cardiomegaly. No pericardial effusion. Lymph nodes: Unremarkable. No enlarged lymph nodes. Liver: Severe fatty liver changes redemonstrated. Bones/joints: Unremarkable. No acute fracture. Soft tissues: Unremarkable. IMPRESSION: 1. No evident PE. No other acute findings. 2. Etiology of patient's hemoptysis not determined with this exam.
[2025-05-02] MEDS: IOPAMIDOL-370 (76%);100ML BOTTLE 70 ML IV (21:59)
[2025-05-02] MEDS: 0.9 % SODIUM CHLORIDE 50 ML VIAL IV (21:59)
[2025-05-02] MEDS: SODIUM CHLORIDE 0.9% 10ML SYR (RAD ONLY) 10 ML IV (21:59)
[2025-05-02] MEDS: diazePAM 10MG/2ML SYRINGE 5 MG IV (22:15)
[2025-05-02 23:41] VITALS: BP 104/70; PULSE 75; RESP 18; TEMP 36.8; O2SAT 100
--- NOTE | 2025-05-02 23:43 | PC.NURSE ---
IV discontinued. Catheter tip intact. Bleeding controlled.
--- NOTE | 2025-05-03 14:06 | PEERSUPPORT ---
Peer Support Note Patient Information Patient Information: DOS: 05/03/2025 Ps attempt to make contact, no answer, voicemail full not able to leave message.
== END 2025-05-02 23:44 | disposition home or self-care (01) ==
PROVIDERS: Emergency Provider Emergency Medicine; PCP Family Medicine
DX: M79.604 Pain in right leg (principal); F10.20 Alcohol dependence, uncomplicated
CPT/HCPCS: 71046; 71275; 73590; 80053; 80320; 82550; 82803; 83605; 83735; 84100; 84436; 84443; 84484; 85025; 85378; 85651; 86140; 87040; 93005; 96361; 96374; 96375; 99285; J1885; J3360; J7120; Q9967

== ENCOUNTER 2025-07-12 11:29 | Emergency (ER) | payer OTHER, SELFPAY ==
[2025-07-12] VITALS (13 sets, daily range): BP systolic 98–127; BP diastolic 70–90; PULSE 104–168; RESP 16–28; TEMP 36.6–36.7; O2SAT 82–99; BMI 21.1
--- NOTE | 2025-07-12 11:32 | HMH.EDGENADL ---
Discharge Plan Disposition Patient Disposition: Still a Patient Condition: Fair Prescriptions Prescriptions: No Action folic acid 20 mg capsule 20 mg PO DAILY hydroxyzine pamoate 50 mg capsule 50 mg PO Q6H PRN gabapentin 100 mg capsule 200 mg PO TID ibuprofen 600 mg tablet 600 mg PO DAILY oxycodone 5 mg tablet 5 mg PO DAILY PRN sennosides-docusate sodium [Senexon-S] 8.6-50 mg tablet 1 tab-cap PO HS multivitamin with folic acid [Tab-A-Rodrigo] 400 mcg Tablet 1 tab PO 1700 Qty: 0 0RF Referrals Follow up/Referrals: Brittney Brito APRN [Primary Care Provider, Family Practice] - See instructions Clinical Impressions Clinical Impression: Acute upper gastrointestinal bleeding Stand Alone Forms Stand Alone Forms: Transfer Record - ED Instructions Patient Instructions: DI for Diarrhea and Traveler's Diarrhea in Adults, DI for Diarrhea and Traveler's Diarrhea in Children, DI for Nausea in Adults, DI for Nausea in Children Print Language Print Language: [place] Discharge ED Provider: Hieu Kimble JR General Adult HPI General Chief complaint: Nausea/Vomiting/Diarrhea Stated complaint: Vommiting Time Seen by Provider: 07/12/25 11:30 History of Present Illness HPI narrative: 40-year-old male with history of esophageal varices, extensive alcohol abuse, history of liver disease, presenting with 3 days of vomiting dark red blood. Called 911 from home. Per EMS, very disheveled at home and not well taken care of. Patient endorses heavy drinking recently. Arrives hypotensive, initial blood pressure 50/30, giving IV fluids upon arrival. Denies any bright red blood per rectum or dark tarry stool. Patient denies chest pain, shortness of breath, fever, headache, bright red blood per rectum, or dark tarry stools. No further complaints at this time. Related Data Home Medications ?Medication ?Instructions ?Recorded ?Confirmed folic acid 20 mg capsule 20 mg PO DAILY 04/26/25 04/26/25 gabapentin 100 mg capsule 200 mg PO TID 04/26/25 04/26/25 hydroxyzine pamoate 50 mg capsule 50 mg PO Q6H PRN 04/26/25 04/26/25 ibuprofen 600 mg tablet 600 mg PO DAILY 04/26/25 04/26/25 oxycodone 5 mg tablet 5 mg PO DAILY PRN 04/26/25 04/26/25 sennosides 8.6 mg-docusate sodium 1 tab-cap PO HS 04/26/25 04/26/25 50 mg tablet (Senexon-S) Previous Rx's ?Medication ?Instructions ?Recorded multivitamin with folic acid 400 1 tab PO 1700 #0 tabs 03/24/24 mcg tablet (Tab-A-Rodrigo) Allergies Allergy/AdvReac Type Severity Reaction Status Date / Time Sulfa (Sulfonamide Allergy Unknown Rash/ mild Verified 04/26/25 14:44 Antibiotics) (SULFA breathing (SULFONAMIDE ANTIBIOTICS)) problems per PT PFSH [facility] Disclaimer: The information contained in this section may have been updated after the patient was seen, as this information can be updated by other users. Medical History Psoriasis Alcohol abuse Social History Smoking Status: Current every day smoker tobacco type: cigarettes packs per day: 2 second hand exposure: No alcohol intake: current alcohol intake frequency: 3 or more drinks per day substance use type: marijuana current occupational status: employed and unemployed Travel in the last 8 weeks?: None housing: house current occupational exposures/hazards: No caffeine: Yes Have you lived/traveled outside US in past 30 days?: No Contact w/someone who lives/traveled outside US past 30 days?: No Exposure to someone with infectious disease in past 14 days?: No Do you have a fever (greater than 100.4 F or 38 C)?: No Have you tested positive for COVID-19?: No Exposed to someone with COVID-19 in past 14 days?: No Do you have a sore throat?: No Do you have a cough?: No Do you have any weakness?: No Do you have any diarrhea?: No Are you experiencing any unusual bleeding?: No Do you have any muscle aches/pain?: No Do you have any abdominal pain?: No Are you experiencing loss of taste or smell?: No Other Medical History Have you received the Flu Vaccine for this season: No Have you received the Pneumonia Vaccine: No ROS Obtained: Yes All systems reviewed & no additional complaints except as documented and Yes Systems reviewed as appropriate & no additional complaints except as documented Constitutional Constitutional: Reports other (Frail-appearing, disheveled appearing) Eyes Eyes: Reports system reviewed and no additional complaints, except as documented ENT Ears, Nose, Mouth, and Throat: Reports system reviewed and no additional complaints, except as documented, Reports as per HPI and Reports other (Dried blood near oropharynx) Cardiovascular Cardiovascular: Reports system reviewed and no additional complaints, except as documented and Denies chest pain Respiratory Respiratory: Reports system reviewed and no additional complaints, except as documented and Denies shortness of breath Gastrointestinal Gastrointestingal: Reports coffee ground emesis and other (Vomiting dark red blood); Denies abdominal pain, hematochezia or melena Musculoskeletal Musculoskeletal: Reports system reviewed and no additional complaints, except as documented and Reports as per HPI Neurologic Neurologic: Reports system reviewed and no additional complaints, except as documented and Reports as per HPI Physical Exam General General appearance: alert, appears intoxicated, lethargic and other (Disheveled appearing, frail appearing) Head Head exam: atraumatic and normocephalic Eye Eye exam: Present PERRL and EOMI ENT ENT exam: Present other (Dried blood near oropharynx, actively vomiting blood) Neck Neck exam: Present normal inspection Respiratory Respiratory exam: Present normal lung sounds bilaterally; Absent respiratory distress Cardiovascular Cardiovascular exam: Present tachycardia and other (Atrial flutter with RVR) Abdominal Exam Abdominal exam: Present soft; Absent tenderness, guarding, rebound or rigidity Extremities Exam Extremities exam: Present normal inspection and full ROM Back Exam Back exam: Present normal inspection and full ROM Neurological Exam Neurological exam: Present alert and oriented X3; Absent CN II-XII intact Skin Skin exam: Present warm and dry Medical Decision Making Medical Records Screening: Per USPSTF and CDC recommendations, given the prevalence of disease in our region, it is our hospital?s policy to screen for HIV and viral Hepatitis for all patients aged 18 and over and those with ongoing risk factors. Zhang Inquiry Pt receiving controlled substance: No Vital Signs: 07/12/25 11:35 07/12/25 11:38 Temperature 98.1 F Temperature Source Oral Pulse Rate 163 H Pulse Rate [Right Brachial] 168 H Respiratory Rate 19 20 Blood Pressure 100/70 L Blood Pressure [Left Arm] 100/70 L Blood Pressure Mean [Left Arm] 80 Blood Pressure Source [Left Arm] Automatic Cuff 02 Sat by Pulse Oximetry 99 Oxygen Delivery Method Room Air Room Air Lab Data Lab Results 07/12/25 12:10: WBC 9.0, RBC 4.71, Hgb 16.6, Hct 47.6, MCV 101.1 H, MCH 35.2 H, MCHC 34.9, RDW 14.0, Plt Count 114 L, MPV 11.3 H, Neut % (Auto) 82.9 H, Lymph % (Auto) 6.7 L, [place] % (Auto) 9.1, Eos % (Auto) 0.3, Baso % (Auto) 0.2, Neut # (Auto) 7.5, Lymph # (Auto) 0.6 L, [place] # (Auto) 0.8, Eos # (Auto) 0.0, Baso # (Auto) 0.0, Sodium 133 L, Potassium 3.4 L, Chloride 78 L, Carbon Dioxide , Anion Gap 53.4 H, BUN 20, Creatinine 2.10 H, Estimated Creat Clear 48, Estimated GFR 35 L, Est GFR ( Amer) 43 L, Glucose 108 H, Calcium 9.4, Total Bilirubin 2.8 H, AST 98 H, ALT 107 H, Alkaline Phosphatase 178 H, Total Protein 8.4 H, Albumin 5.5 H, Globulin 2.9, Albumin/Globulin Ratio 1.9 H, Plasma/Serum Alcohol 141 H 07/12/25 12:10 07/12/25 12:10 Orders (Tests/Meds): ED MEDICATIONS Generic Name Dose Route Start Last Admin Trade Name Freq PRN Reason Stop Dose Admin Ceftriaxone Sodium 1 gm/ 50 mls @ 100 mls/hr 07/12/25 11:45 07/12/25 12:54 Sodium Chloride IV 07/22/25 11:44 Infused Q24H MARY ELLEN Infusion Octreotide Acetate 500 mcg/ 255 mls @ 25.5 mls/hr 07/12/25 11:45 07/12/25 12:47 Sodium Chloride IV 08/11/25 11:44 50 mcg/hr .Q10H MARY ELLEN 25.5 mls/hr 50 MCG/HR Administration Lactated Ringer's 1,000 mls @ 999 mls/hr 07/12/25 12:50 Lactated Ringer's 1000 Ml Bag IV 07/12/25 13:50 .Q1H1M ONE Discontinued Medications Generic Name Dose Route Start Last Admin Trade Name Freq PRN Reason Stop Dose Admin Pantoprazole Sodium 80 mg/ 100 mls @ 100 mls/hr 07/12/25 11:33 07/12/25 12:06 Sodium Chloride IV 07/12/25 12:32 100 mls/hr ONCE ONE Administration Lactated Ringer's 500 mls @ 999 mls/hr 07/12/25 11:36 07/12/25 12:54 Lactated Ringer's 1000 Ml Bag IV 07/12/25 12:06 Infused .Q31M ONE Infusion Sodium Chloride 1,000 mls @ 999 mls/hr 07/12/25 12:17 07/12/25 12:21 Sod Chlor 0.9% 1000ml Bag IV 07/12/25 13:17 999 mls/hr .Q1H1M ONE Administration Metoprolol Tartrate 5 mg 07/12/25 12:48 07/12/25 13:01 Metoprolol Tartrate 5mg/5ml Vial IV 07/12/25 12:49 5 mg ONCE ONE Administration Metoprolol Tartrate 5 mg 07/12/25 13:15 07/12/25 13:25 Metoprolol Tartrate 5mg/5ml Vial IV 07/12/25 13:16 5 mg ONCE ONE Administration Ondansetron HCl 4 mg 07/12/25 11:44 07/12/25 11:34 Ondansetron 4mg/2ml Vial IV 07/12/25 11:45 4 mg ONCE ONE Administration Prochlorperazine Edisylate 10 mg 07/12/25 12:11 07/12/25 12:21 Prochlorperazine 10mg/2ml Vial IV 07/12/25 12:12 10 mg ONCE ONE Administration ORDERS Category Date Time Status Type and Screen Stat BBK 07/12/25 12:00 Received Consult Recreation Professor [CONS] Routine Cons 07/12/25 13:17 Active XR chest portable Stat Exams 07/12/25 11:33 Completed Complete Blood Count Auto Diff Stat Lab 07/12/25 12:10 Completed Comprehensive Metabolic Panel Stat Lab 07/12/25 12:10 Completed Ethyl Alcohol Stat Lab 07/12/25 12:10 Completed Blood Culture Stat Micro 07/12/25 12:10 Received Medical Decision Narrative: 40-year-old male with history of esophageal varices, severe alcohol abuse, history of liver injury in the past presenting with 3 days of vomiting dark red blood. Arrives intoxicated and hypotensive. Giving IV fluids for resuscitation. Due to history of esophageal varices in the setting of alcohol abuse and previous liver injury, we are giving octreotide, Protonix, and Rocephin. EKG reviewed and independently interpreted, significant for atrial flutter with RVR. Giving IV fluids. Repeat blood pressure stable after IV fluids. Patient remains in atrial flutter with RVR. Ordered metoprolol. Repeat EKG showed sinus tachycardia. Patient appears to be rate controlled after metoprolol. Labs reviewed and independently interpreted, significant for markedly elevated creatinine, 2.1, giving IV fluids. Patient also has significantly elevated anion gap, 53. Hemoglobin within normal limits. Elevated bilirubin, 2.8. Elevated liver enzymes. Alcohol level elevated. There is concern for acute liver injury. Given this clinical setting, concern for esophageal variceal bleeding. Will discuss patient's case with general surgery for possible upper scope in the hospital. No current GI coverage today. cxr reviewed and independently interpreted, significant for no acute abnormalities. Please see radiology report for further details. General surgery declining scope for potential variceal bleeding likely requiring banding. No current GI coverage. Discussed patient's case with [facility]. They are also declining transfer. Will discuss with [facility]. [facility] accepting transfer. Accepting physician Dr. Treadwell. Blood pressure currently stable. Heart rate improving after fluids and metoprolol. No further episodes of vomiting. Etiology likely esophageal variceal bleeding in the setting of recent significant alcohol abuse causing worsening of known varices and significant hematemesis as well as acute liver injury. Anticipate that patient will need an endoscopy with gastroenterology. Critical Care Critical Care Time Critical Care Time: Yes Attestation: On 07/12/25, the high probability of a clinically significant, sudden or life threatening deterioration of the following system(s) required my full and direct attention, intervention and personal management. The time I documented below is in addition to time spent performing reported procedures but includes the following listed in this critical care notation. Total Time Total Critical Care Time: 45
--- NOTE | 2025-07-12 11:33 | XR_ITS ---
FINAL REPORT CLINICAL HISTORY: upper gi bleed COMPARISON: 07/22/2018 FINDINGS: A portable view of the chest was obtained. Cardiac and mediastinal silhouettes are within normal limits. The lungs are clear. There is no pleural effusion or pneumothorax. IMPRESSION: No acute process on this portable exam. Reviewed, Interpreted and Dictated by Jen Guadalupe MD Transcribed by Monika Howard Authenticated and [facility]
[2025-07-12] MEDS: ONDANSETRON 4MG/2ML VIAL 4 MG IV (11:34)
--- NOTE | 2025-07-12 11:40 | PC.NURSE ---
NICK Breen called LAB and spoke with Jessica to come and draw labs
--- NOTE | 2025-07-12 11:46 | PC.NURSE ---
RAD at bedside
[2025-07-12] MEDS: LACTATED RINGERS 1000ML 500 ML 999 ML IV (12:02)
[2025-07-12] MEDS: PANTOPRAZOLE SODIUM 80 MG in 0.9 % SODIUM CHLORIDE 100 ML 100 MG IV (12:06)
--- NOTE | 2025-07-12 12:13 | PC.NURSE ---
Lab at bedside collecting blood cultures and type and screen
[2025-07-12] MEDS: 0.9 % SODIUM CHLORIDE 1000ML 1,000 ML 999 ML IV (12:21)
[2025-07-12] MEDS: PROCHLORPERAZINE 10MG/2ML VIAL 10 MG IV (12:21)
[2025-07-12 12:32] LABS: Hematocrit 47.6 % (42.0-52.0); Hemoglobin 16.6 g/dL (14.1-18.0); Immature Granulocytes % 0.8 %; Mean Corpuscular HGB Conc 34.9 g/dL (31.8-35.4); Mean Corpuscular Hemoglobin 35.2 pg (27.0-31.2); Mean Corpuscular Volume 101.1 fl (80-94); Nucleated Red Blood Cells % 0 %; Platelet Count 114 K/mm3 (142-424); Red Blood Count 4.71 M/mm3 (4.60-6.20); Red Cell Distribution Width-SD 52.3 fL; White Blood Count 9.0 K/mm3 (4.8-10.8)
[2025-07-12 12:45] LABS: Alanine Aminotransferase 107 U/L (12-78); Albumin Level 5.5 g/dl (3.5-5.0); Albumin/Globulin Ratio 1.9 (1.1-1.8); Alkaline Phosphatase 178 U/L (38-126); Aspartate Amino Transferase 98 U/L (17-59); Bilirubin,Total 2.8 mg/dl (0.2-1.3); Blood Urea Nitrogen 20 mg/dl (9-20); Calcium 9.4 mg/dl (8.4-10.2); Chloride 78 mmol/L (98-107); Creatinine Clearance Estimated 48 mL/min (50-200); Creatinine,Serum 2.10 mg/dl (0.66-1.25); Estimated Glomerular Filt Rate 35 ml/min (>60); GFR (African American) 43 ML/MIN (>60); Globulin 2.9 g/dL (1.3-3.2); Glucose 108 mg/dl (74-100); Potassium 3.4 mmoL/L (3.5-5.1); Sodium 133 mmol/L (136-145); Total Protein,Serum 8.4 g/dl (6.3-8.2)
[2025-07-12 12:48] LABS: Anion Gap 53.4 mEq/L (5-15)
--- NOTE | 2025-07-12 12:59 | PC.NURSE ---
spoke with the hospitalist about possible admission. They would like us to consult Chalino with GI.
--- NOTE | 2025-07-12 13:00 | PC.NURSE ---
Dr.Allran claros for
[2025-07-12] MEDS: METOPROLOL TARTRATE 5MG/5ML VIAL 5 MG IV ×2 (13:01→13:25)
--- NOTE | 2025-07-12 13:12 | PC.NURSE ---
call made to [facility] for possible transfer due to esophageal varices bleed. transfer center unsure if they do the procedure, she is going to check with the interventional radiologist and call back
--- NOTE | 2025-07-12 13:22 | PC.NURSE ---
is speaking with
--- NOTE | 2025-07-12 13:32 | PC.NURSE ---
Called [facility] for a patient transfer Per Dr. Kimble. Images are also power shared.
--- NOTE | 2025-07-12 13:32 | PC.NURSE ---
[facility] declined pt
--- NOTE | 2025-07-12 13:37 | PC.NURSE ---
is speaking with at [facility]
--- NOTE | 2025-07-12 13:44 | PC.NURSE ---
Called [facility] for a transfer to [facility]. [place]- Has a 22 min. ETA and dispatch will call back after a weather check.
[2025-07-12 14:08] LABS: Carbon Dioxide 5 mmol/L (22.0-30.0)
--- NOTE | 2025-07-12 14:08 | PC.NURSE ---
CO2 is 5 per lab. notified.
--- NOTE | 2025-07-12 16:42 | PEERSUPPORT ---
Peer Support Note Patient Information Patient Information: DOS: 07/12/2025 ED Ps Consult ? ETOH Last Ingested: Pint of whiskey blend before coming to ER, 07/12/2025 ? ETOH HX: Years of drinking recently drinking heavier. ? ETHO Current Consumption: Half to two thirds of a fifth per day. ? Previous Treatment: None ? Longest Length of Sobriety: Unknown ? Legal Issues: None reported ? Current Stressors: -Intoxication -Withdrawals ? Motivation for Change: Pt stated he doesn?t feel a 30-day inpatient treatment is necessary at this time, he would rather do an outpatient treatment locally. ? Ps shared personal experience relevant to situation, focusing on priority of detoxing safely bringing pts awareness to present moment being most important. ? Pt receptive to ps agrees to follow up phone calls with [facility] and expressing appreciation to support. ? Pt is aware of being transported to , he confirmed he does have his phone and will contact his family. ? Harm Reduction: -Connection to [facility] -Education on alcohol use disorder -Treatment/Resources ? Plan of action: Pt being transferred to [facility] will follow up on 07/15/2025
== END 2025-07-12 14:23 | disposition short-term general hospital (02) ==
PROVIDERS: Emergency Provider Student in an Organized Health Care Education/Training Program; PCP Family Medicine
DX: K92.2 Gastrointestinal hemorrhage, unspecified (principal); I95.9 Hypotension, unspecified; F10.188 Alcohol abuse with other alcohol-induced disorder; I48.92 Unspecified atrial flutter; R00.0 Tachycardia, unspecified; F17.210 Nicotine dependence, cigarettes, uncomplicated; Y90.6 Blood alcohol level of 120-199 mg/100 ml
CPT/HCPCS: 36415; 71045; 80053; 80320; 85025; 86850; 87040; 93005; 96365; 96366; 96375; 99285; J0696; J0780; J2354; J2405; J2470; J7030; J7050; J7120

== ENCOUNTER 2025-10-01 15:24 | Outpatient (CLI) | payer OTHER, SELFPAY ==
--- NOTE | 2025-10-01 15:26 | XR_ITS ---
FINAL REPORT CLINICAL HISTORY: right foot pain no recent injury FINDINGS: AP, oblique and lateral views of the right foot were obtained. There is no prior exam for comparison. Osteopenia limits exam and is greater than expected for patient's age. There is no acute fracture or dislocation. The joint spaces are preserved. Soft tissues are unremarkable. IMPRESSION: Osteopenia is greater than expected for patient's age. There is no acute fracture. Consider MRI if pain persists. Reviewed, Interpreted and Dictated by Jen Guadalupe MD Transcribed by Lena Delong Authenticated and [facility]
--- NOTE | 2025-10-01 15:26 | XR_ITS ---
FINAL REPORT CLINICAL HISTORY: right ankle pain no recent injury FINDINGS: AP, oblique, and lateral views of the right ankle were obtained. There is no prior exam for comparison. There are postoperative changes of the right tibia. The hardware is incompletely imaged but the visualized portions are intact. There is no acute fracture. Mild degenerative disc disease and osteopenia is noted. Soft tissues are unremarkable. IMPRESSION: No acute osseous abnormality of the right ankle. Osteopenia and postoperative changes. Reviewed, Interpreted and Dictated by Jen Guadalupe MD Transcribed by Lena Delong Authenticated and [facility]
--- OUTSIDE RECORDS SUMMARY | 2025-10-01 15:26 | XMS_ITS | Encounter Summary ---
Author Organization Healthcare Address [address] [place] [address] Care Team Providers Care Compliance Representative Dealer Name Role Phone Pcp, No Primary Care Provider Unavailgarret e Kandis Dimas LPN Unavailable Unavailable Encounter Details Date Type Department Care Team (Late st Contact Info) Description 07/09/2024 Lab Requisition [facility] [address] [place] [address] Chente Smiley MD [address] [facility] [address] [place] [id number] Encounter for general adult medical examination without [...] How often do you attend chur or sabianism services? Patient unable to answer 07/04/2024 Do you belong to any clubs o r organizations such as jehovah's witness groups, unions, fraternal or athletic groups, or [...] place to sleep or slept in a nursing home (including now)? No 07/04/2024 Utilities Answer [...] on file documented as of this encounter Plan of Treatment Upcoming Encounters Date Type Department Care Team (Late st Contact Info) Description 12/17/2025 9:30 AM EDT Office Visit [facility] Medicine Specialties [address] [place] [id number] Curt Durham PA [address] [place] [phone] documented as of this encounter Procedures Procedure Name Priority Date/Time Associated Diagnosis Comments MULTI DRUG RESISTANCE TEST Routine 07/09/2024 8:30 AM EDT Encounter for general adult medical examination without abnormal findings documented in this encounter Results * Multi Drug Resistance Test (07/09/2024 8:30 AM EDT) Culture No Multi Drug Resistant Organisms Isolated 07/10/2024 8:24 AM EDT [facility] Swab (Nares and Yana Rectal) 07/09/2024 8:30 AM EDT 07/09/2024 8:42 AM EDT us Chente Smiley MD LAB MICROBIOLOGY - GEN ERAL ORDERABLES Final Result [facility] [address] [place] [address] documented in this encounter Visit Diagnoses Diagnosis [...] documented as of this encounter Care Teams Compliance Representative Dealer Relationship Specialty Start Date End Date Pcp, No [address] [place] [address] PCP - General Family Medicine 07/02/24 Kandis Dimas LPN VALUE[employer] [place] [address] None TCM Nurse 07/19/25 08/18/25 documented as of this encounter
--- OUTSIDE RECORDS SUMMARY | 2025-10-01 15:26 | XMS_ITS | Clinical Summary ---
Author Organization [facility] Address [address] [place] [address] Care Team Providers Care Glass Maker Name Role Phone Pcp, No Primary [...] represent a complete record from that organization. naloxone (Narcan) 4 mg/0.1 mL nasal spray 1. Give 1 spray in nostril for no/slow breathing or cannot wake after opioid use 2. Call 911 3. Repeat in other nostril if symptoms continue Call 911. Give 4 mg (1 spray) into one nostril. Repeat every 2-3 minutes as needed, alternating nostrils, until medical assistance arrives. 2 each 5 07/17/20 26 Active pantoprazole (Protonix) 40 MG EC tablet Take 1 tablet by mouth 2 times a day. Do not crush, chew, or split. 120 tablet 5 09/16/20 25 Active Problems Problem Noted Date Diagnosed Date Hematemesis of unknown cause 07/12/2025 Assessment & Plan (07/15/2025 3:40 PM EDT): 40-year-old male with a past medical history significant for psoriasis, alcohol use disorder, and prior hospitalization (June-July 2024) for upper gastrointestinal bleeding due to a clipped Dieulafoy lesion, which required mechanical ventilation for altered mental status and airway protection, as well as management of alcohol withdrawal and acute alcoholic hepatitis, now presents to the Emergency Department after transfer from [facility] for hematemesis UGIB H/o dieulafoy lesion s/p clipping H/o severe esophagitis - Ddx include: PUD, erosions, esophagitis, gastritis, angioectasias, Kamala- Swain tear, or Dieulafoy's lesion given history vs variceal bleed - 07/10/24 CT A/P w IV showing contrast showing hepatomegaly and diffuse hepatic steatosis - 07/04/24 EGD showed dieulafoy lesion in stomach s/p 2 clips, severe generalized grade D esophagitis, multiple small ulcers in the stomach s/p one clip placed PLAN: - s/p Rocephin at OSH, octreotide gtt and Protonix started - will continue - GI consulted - plans for EGD tomorrow - H/H q12h - plan to transfuse for Hgb <7 - maintain 2 large bore IVs Concerns for Delirium tremens CIWA of 8 with anxiety, tremors, delirium, and hallucinations despite receiving two doses of phenobarbital. He remains normotensive with normal heart rate. Patient requires continuous observation, frequent vital sign monitoring, and immediate IV access for medication and fluid administration. If there is presence of severe confusion and agitation a higher level of care is recommended due to the risk of rapid deterioration and potential complications. 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 - infectious w/u as above Acute threat to life/bodily function: UGIB, Dts, severe alcohol withdrawal Discussion of management/test with another provider: GI Unique labs reviewed: Hgb stable,severe phosphatemia, hypomagnesemia, hemoglobin stable Assessment & Plan (07/14/2025 4:05 PM EDT): 40-year-old male with a past medical history significant for psoriasis, alcohol use disorder, and prior hospitalization (June-July 2024) for upper gastrointestinal bleeding due to a clipped Dieulafoy lesion, which required mechanical ventilation for altered mental status and airway protection, as well as management of alcohol withdrawal and acute alcoholic hepatitis, now presents to the Emergency Department after transfer from [facility] for hematemesis UGIB H/o dieulafoy lesion s/p clipping H/o severe esophagitis - Ddx include: PUD, erosions, esophagitis, gastritis, angioectasias, Kamala- Swain tear, or Dieulafoy's lesion given history vs variceal bleed - 07/10/24 CT A/P w IV showing contrast showing hepatomegaly and diffuse hepatic steatosis - 07/04/24 EGD showed dieulafoy lesion in stomach s/p 2 clips, severe generalized grade D esophagitis, multiple small ulcers in the stomach s/p one clip placed PLAN: - s/p Rocephin at OSH, octreotide gtt and Protonix started - will continue - GI consulted - recommended CLD at night, NPO at [place] - H/H q12h - plan to transfuse for Hgb <7 - maintain 2 large bore IVs Concerns for Delirium tremens CIWA of 8 with anxiety, tremors, delirium, and hallucinations despite receiving two doses of phenobarbital. He remains normotensive with normal heart rate. Patient requires continuous observation, frequent vital sign monitoring, and immediate IV access for medication and fluid administration. If there is presence of severe confusion and agitation a higher level of care is recommended due to the risk of rapid deterioration and potential complications. Will schedule diazepam 20 mg q6h and will wean to q8h tomorrow Severe Alcohol Use Disorder Severe Alcohol Withdrawal Drinks approximately pint of liquor daily Phenobarbital loading dose administered 2 Continue CIWA protocol with Valium, assess CIWA scores every 4 hours Continue folic acid and thiamine supplementation Addiction Consult (OLIVIA team) if appropriate for further management and support AGMA 2/2 alcoholic ketosis Refeeding syndrome - fluids with glucose - Continue to trend beta-hydroxybutyric - Continue to monitor and replace phos, mag and potassium Transaminitis with hyperbilirubinemia iso hepatic steatosis and AUD Hepatic steatosis 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 - infectious w/u as above Acute threat to life/bodily function: UGIB, Dts, severe alcohol withdrawal Discussion of management/test with another provider: GI Unique labs reviewed: Hgb stable,severe phosphatemia, hypomagnesemia, improving ketosis Assessment & Plan (07/13/2025 2:07 PM EDT): 40-year-old male with a past medical history significant for psoriasis, alcohol use disorder, and prior hospitalization (June-July 2024) for upper gastrointestinal bleeding due to a clipped Dieulafoy lesion, which required mechanical ventilation for altered mental status and airway protection, as well as management of alcohol withdrawal and acute alcoholic hepatitis, now presents to the Emergency Department after transfer from [facility] for hematemesis UGIB H/o dieulafoy lesion s/p clipping H/o severe esophagitis - BP soft, HR 130s on arrival, Hgb (14). Abd exam benign. - Ddx include: PUD, erosions, esophagitis, gastritis, angioectasias, Kamala- Swain tear, or Dieulafoy's lesion given history vs variceal bleed - 07/10/24 CT A/P w IV showing contrast showing hepatomegaly and diffuse hepatic steatosis - 07/04/24 EGD showed dieulafoy lesion in stomach s/p 2 clips, severe generalized grade D esophagitis, multiple small ulcers in the stomach s/p one clip placed PLAN: - s/p Rocephin at OSH, octreotide gtt and Protonix started - will continue - GI consulted - recommended CLD, NPO at [place] - H/H q12h - plan to transfuse for Hgb <7 - maintain 2 large bore IVs Severe EtOH use disorder Anticipated EtOH withdrawal - Drinks half a pint of liquor per day - phenobarbital administered - starting CIWA with valium protocol - folic acid and thiamine replacement - OLIVIA consult if appropriate AGMA 2/2 alcoholic ketosis - fluids with glucose - Continue to trend beta-hydroxybutyric Acute metabolic encephalopathy - pt lethargic, arouses to touch, protecting airway - Suspect intoxication, benzodiazepine, phenobarb effect - UDS => amphetamines - neuro checks - treating w/d as above Transaminitis with hyperbilirubinemia iso hepatic steatosis and AUD Hepatic steatosis 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 - infectious w/u as above Acute threat to life/bodily function: UGIB Discussion of management/test with another provider: GI Unique labs reviewed: Hgb slowly downtrending, hyponatremia, hypermagnesemia, ketosis, normal lactate Lactic acidosis 07/12/2025 Assessment & Plan (07/15/2025 3:40 PM EDT): 40-year-old male with a past medical history significant for psoriasis, alcohol use disorder, and prior hospitalization (June-July 2024) for upper gastrointestinal bleeding due to a clipped Dieulafoy lesion, which required mechanical ventilation for altered mental status and airway protection, as well as management of alcohol withdrawal and acute alcoholic hepatitis, now presents to the Emergency Department after transfer from [facility] for hematemesis UGIB H/o dieulafoy lesion s/p clipping H/o severe esophagitis - Ddx include: PUD, erosions, esophagitis, gastritis, angioectasias, Kamala- Swain tear, or Dieulafoy's lesion given history vs variceal bleed - 07/10/24 CT A/P w IV showing contrast showing hepatomegaly and diffuse hepatic steatosis - 07/04/24 EGD showed dieulafoy lesion in stomach s/p 2 clips, severe generalized grade D esophagitis, multiple small ulcers in the stomach s/p one clip placed PLAN: - s/p Rocephin at OSH, octreotide gtt and Protonix started - will continue - GI consulted - plans for EGD tomorrow - H/H q12h - plan to transfuse for Hgb <7 - maintain 2 large bore IVs Concerns for Delirium tremens CIWA of 8 with anxiety, tremors, delirium, and hallucinations despite receiving two doses of phenobarbital. He remains normotensive with normal heart rate. Patient requires continuous observation, frequent vital sign monitoring, and immediate IV access for medication and fluid administration. If there is presence of severe confusion and agitation a higher level of care is recommended due to the risk of rapid deterioration and potential complications. 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 - infectious w/u as above Acute threat to life/bodily function: UGIB, Dts, severe alcohol withdrawal Discussion of management/test with another provider: GI Unique labs reviewed: Hgb stable,severe phosphatemia, hypomagnesemia, hemoglobin stable Assessment & Plan (07/14/2025 4:05 PM EDT): 40-year-old male with a past medical history significant for psoriasis, alcohol use disorder, and prior hospitalization (June-July 2024) for upper gastrointestinal bleeding due to a clipped Dieulafoy lesion, which required mechanical ventilation for altered mental status and airway protection, as well as management of alcohol withdrawal and acute alcoholic hepatitis, now presents to the Emergency Department after transfer from [facility] for hematemesis UGIB H/o dieulafoy lesion s/p clipping H/o severe esophagitis - Ddx include: PUD, erosions, esophagitis, gastritis, angioectasias, Kamala- Swain tear, or Dieulafoy's lesion given history vs variceal bleed - 07/10/24 CT A/P w IV showing contrast showing hepatomegaly and diffuse hepatic steatosis - 07/04/24 EGD showed dieulafoy lesion in stomach s/p 2 clips, severe generalized grade D esophagitis, multiple small ulcers in the stomach s/p one clip placed PLAN: - s/p Rocephin at OSH, octreotide gtt and Protonix started - will continue - GI consulted - recommended CLD at night, NPO at [place] - H/H q12h - plan to transfuse for Hgb <7 - maintain 2 large bore IVs Concerns for Delirium tremens CIWA of 8 with anxiety, tremors, delirium, and hallucinations despite receiving two doses of phenobarbital. He remains normotensive with normal heart rate. Patient requires continuous observation, frequent vital sign monitoring, and immediate IV access for medication and fluid administration. If there is presence of severe confusion and agitation a higher level of care is recommended due to the risk of rapid deterioration and potential complications. Will schedule diazepam 20 mg q6h and will wean to q8h tomorrow Severe Alcohol Use Disorder Severe Alcohol Withdrawal Drinks approximately pint of liquor daily Phenobarbital loading dose administered 2 Continue CIWA protocol with Valium, assess CIWA scores every 4 hours Continue folic acid and thiamine supplementation Addiction Consult (OLIVIA team) if appropriate for further management and support AGMA 2/2 alcoholic ketosis Refeeding syndrome - fluids with glucose - Continue to trend beta-hydroxybutyric - Continue to monitor and replace phos, mag and potassium Transaminitis with hyperbilirubinemia iso hepatic steatosis and AUD Hepatic steatosis 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 - infectious w/u as above Acute threat to life/bodily function: UGIB, Dts, severe alcohol withdrawal Discussion of management/test with another provider: GI Unique labs reviewed: Hgb stable,severe phosphatemia, hypomagnesemia, improving ketosis Assessment & Plan (07/13/2025 2:07 PM EDT): 40-year-old male with a past medical history significant for psoriasis, alcohol use disorder, and prior hospitalization (June-July 2024) for upper gastrointestinal bleeding due to a clipped Dieulafoy lesion, which required mechanical ventilation for altered mental status and airway protection, as well as management of alcohol withdrawal and acute alcoholic hepatitis, now presents to the Emergency Department after transfer from [facility] for hematemesis UGIB H/o dieulafoy lesion s/p clipping H/o severe esophagitis - BP soft, HR 130s on arrival, Hgb (14). Abd exam benign. - Ddx include: PUD, erosions, esophagitis, gastritis, angioectasias, Kamala- Swain tear, or Dieulafoy's lesion given history vs variceal bleed - 07/10/24 CT A/P w IV showing contrast showing hepatomegaly and diffuse hepatic steatosis - 07/04/24 EGD showed dieulafoy lesion in stomach s/p 2 clips, severe generalized grade D esophagitis, multiple small ulcers in the stomach s/p one clip placed PLAN: - s/p Rocephin at OSH, octreotide gtt and Protonix started - will continue - GI consulted - recommended CLD, NPO at [place] - H/H q12h - plan to transfuse for Hgb <7 - maintain 2 large bore IVs Severe EtOH use disorder Anticipated EtOH withdrawal - Drinks half a pint of liquor per day - phenobarbital administered - starting CIWA with valium protocol - folic acid and thiamine replacement - OLIVIA consult if appropriate AGMA 11/04 alcoholic ketosis - fluids with glucose - Continue to trend beta-hydroxybutyric Acute metabolic encephalopathy - pt lethargic, arouses to touch, protecting airway - Suspect intoxication, benzodiazepine, phenobarb effect - UDS => amphetamines - neuro checks - treating w/d as above Transaminitis with hyperbilirubinemia iso hepatic steatosis and AUD Hepatic steatosis 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 - infectious w/u as above Acute threat to life/bodily function: UGIB Discussion of management/test with another provider: GI Unique labs reviewed: Hgb slowly downtrending, hyponatremia, hypermagnesemia, ketosis, normal lactate Fall 04/13/2025 Assessment & Plan (04/20/2025 4:00 PM EDT): Admit to [facility] 2 Tertiary 7/12 Assessment & Plan (04/19/2025 2:07 PM EDT): Admit to [facility] 2 Tertiary 7/12 Assessment & Plan (04/18/2025 10:58 AM EDT): Admit to [facility] 2 Tertiary 7/12 Assessment & Plan (04/17/2025 10:18 AM EDT): Admit to [facility] 2 Tertiary 7/12 Assessment & Plan (04/16/2025 1:55 PM EDT): Admit to [facility] 2 Tertiary 7/12 Assessment & Plan (04/15/2025 10:47 AM EDT): Admit to [facility] 2 Tertiary 7/12 Assessment & Plan (04/14/2025 10:43 AM EDT): Admit to [facility] 2 Tertiary /12 Assessment & Plan (04/13/2025 4:37 PM EDT): Admit to [facility] 2 Tertiary 7/12 Frequent falls 04/13/2025 Assessment & Plan (04/20/2025 [...] Alcohol use disorder 04/13/2025 Assessment & Plan (07/15/2025 3:40 PM EDT): 40-year-old male with a past medical history significant for psoriasis, alcohol use disorder, and prior hospitalization (June-July 2024) for upper gastrointestinal bleeding due to a clipped Dieulafoy lesion, which required mechanical ventilation for altered mental status and airway protection, as well as management of alcohol withdrawal and acute alcoholic hepatitis, now presents to the Emergency Department after transfer from [facility] for hematemesis UGIB H/o dieulafoy lesion s/p clipping H/o severe esophagitis - Ddx include: PUD, erosions, esophagitis, gastritis, angioectasias, Kamala- Swain tear, or Dieulafoy's lesion given history vs variceal bleed - 07/10/24 CT A/P w IV showing contrast showing hepatomegaly and diffuse hepatic steatosis - 07/04/24 EGD showed dieulafoy lesion in stomach s/p 2 clips, severe generalized grade D esophagitis, multiple small ulcers in the stomach s/p one clip placed PLAN: - s/p Rocephin at OSH, octreotide gtt and Protonix started - will continue - GI consulted - plans for EGD tomorrow - H/H q12h - plan to transfuse for Hgb <7 - maintain 2 large bore IVs Concerns for Delirium tremens CIWA of 8 with anxiety, tremors, delirium, and hallucinations despite receiving two doses of phenobarbital. He remains normotensive with normal heart rate. Patient requires continuous observation, frequent vital sign monitoring, and immediate IV access for medication and fluid administration. If there is presence of severe confusion and agitation a higher level of care is recommended due to the risk of rapid deterioration and potential complications. 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 - infectious w/u as above Acute threat to life/bodily function: UGIB, Dts, severe alcohol withdrawal Discussion of management/test with another provider: GI Unique labs reviewed: Hgb stable,severe phosphatemia, hypomagnesemia, hemoglobin stable Assessment & Plan (07/14/2025 4:05 PM EDT): 40-year-old male with a past medical history significant for psoriasis, alcohol use disorder, and prior hospitalization (June-July 2024) for upper gastrointestinal bleeding due to a clipped Dieulafoy lesion, which required mechanical ventilation for altered mental status and airway protection, as well as management of alcohol withdrawal and acute alcoholic hepatitis, now presents to the Emergency Department after transfer from [facility] for hematemesis UGIB H/o dieulafoy lesion s/p clipping H/o severe esophagitis - Ddx include: PUD, erosions, esophagitis, gastritis, angioectasias, Kamala- Swain tear, or Dieulafoy's lesion given history vs variceal bleed - 07/10/24 CT A/P w IV showing contrast showing hepatomegaly and diffuse hepatic steatosis - 07/04/24 EGD showed dieulafoy lesion in stomach s/p 2 clips, severe generalized grade D esophagitis, multiple small ulcers in the stomach s/p one clip placed PLAN: - s/p Rocephin at OSH, octreotide gtt and Protonix started - will continue - GI consulted - recommended CLD at night, NPO at [place] - H/H q12h - plan to transfuse for Hgb <7 - maintain 2 large bore IVs Concerns for Delirium tremens CIWA of 8 with anxiety, tremors, delirium, and hallucinations despite receiving two doses of phenobarbital. He remains normotensive with normal heart rate. Patient requires continuous observation, frequent vital sign monitoring, and immediate IV access for medication and fluid administration. If there is presence of severe confusion and agitation a higher level of care is recommended due to the risk of rapid deterioration and potential complications. Will schedule diazepam 20 mg q6h and will wean to q8h tomorrow Severe Alcohol Use Disorder Severe Alcohol Withdrawal Drinks approximately pint of liquor daily Phenobarbital loading dose administered 2 Continue CIWA protocol with Valium, assess CIWA scores every 4 hours Continue folic acid and thiamine supplementation Addiction Consult (OLIVIA team) if appropriate for further management and support AGMA 2/2 alcoholic ketosis Refeeding syndrome - fluids with glucose - Continue to trend beta-hydroxybutyric - Continue to monitor and replace phos, mag and potassium Transaminitis with hyperbilirubinemia iso hepatic steatosis and AUD Hepatic steatosis 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 - infectious w/u as above Acute threat to life/bodily function: UGIB, Dts, severe alcohol withdrawal Discussion of management/test with another provider: GI Unique labs reviewed: Hgb stable,severe phosphatemia, hypomagnesemia, improving ketosis Assessment & Plan (07/13/2025 2:07 PM EDT): 40-year-old male with a past medical history significant for psoriasis, alcohol use disorder, and prior hospitalization (June-July 2024) for upper gastrointestinal bleeding due to a clipped Dieulafoy lesion, which required mechanical ventilation for altered mental status and airway protection, as well as management of alcohol withdrawal and acute alcoholic hepatitis, now presents to the Emergency Department after transfer from [facility] for hematemesis UGIB H/o dieulafoy lesion s/p clipping H/o severe esophagitis - BP soft, HR 130s on arrival, Hgb (14). Abd exam benign. - Ddx include: PUD, erosions, esophagitis, gastritis, angioectasias, Kamala- Swain tear, or Dieulafoy's lesion given history vs variceal bleed - 07/10/24 CT A/P w IV showing contrast showing hepatomegaly and diffuse hepatic steatosis - 07/04/24 EGD showed dieulafoy lesion in stomach s/p 2 clips, severe generalized grade D esophagitis, multiple small ulcers in the stomach s/p one clip placed PLAN: - s/p Rocephin at OSH, octreotide gtt and Protonix started - will continue - GI consulted - recommended CLD, NPO at [place] - H/H q12h - plan to transfuse for Hgb <7 - maintain 2 large bore IVs Severe EtOH use disorder Anticipated EtOH withdrawal - Drinks half a pint of liquor per day - phenobarbital administered - starting CIWA with valium protocol - folic acid and thiamine replacement - OLIVIA consult if appropriate AGMA 2/2 alcoholic ketosis - fluids with glucose - Continue to trend beta-hydroxybutyric Acute metabolic encephalopathy - pt lethargic, arouses to touch, protecting airway - Suspect intoxication, benzodiazepine, phenobarb effect - UDS => amphetamines - neuro checks - treating w/d as above Transaminitis with hyperbilirubinemia iso hepatic steatosis and AUD Hepatic steatosis 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 - infectious w/u as above Acute threat to life/bodily function: UGIB Discussion of management/test with another provider: GI Unique labs reviewed: Hgb slowly downtrending, hyponatremia, hypermagnesemia, ketosis, normal lactate Assessment & Plan (04/20/2025 4:00 PM EDT): [...] on Tuesday Psoriasis 04/13/2025 Assessment & Plan (07/15/2025 3:40 PM EDT): 40-year-old male with a past medical history significant for psoriasis, alcohol use disorder, and prior hospitalization (June-July 2024) for upper gastrointestinal bleeding due to a clipped Dieulafoy lesion, which required mechanical ventilation for altered mental status and airway protection, as well as management of alcohol withdrawal and acute alcoholic hepatitis, now presents to the Emergency Department after transfer from [facility] for hematemesis UGIB H/o dieulafoy lesion s/p clipping H/o severe esophagitis - Ddx include: PUD, erosions, esophagitis, gastritis, angioectasias, Kamala- Swain tear, or Dieulafoy's lesion given history vs variceal bleed - 07/10/24 CT A/P w IV showing contrast showing hepatomegaly and diffuse hepatic steatosis - 07/04/24 EGD showed dieulafoy lesion in stomach s/p 2 clips, severe generalized grade D esophagitis, multiple small ulcers in the stomach s/p one clip placed PLAN: - s/p Rocephin at OSH, octreotide gtt and Protonix started - will continue - GI consulted - plans for EGD tomorrow - H/H q12h - plan to transfuse for Hgb <7 - maintain 2 large bore IVs Concerns for Delirium tremens CIWA of 8 with anxiety, tremors, delirium, and hallucinations despite receiving two doses of phenobarbital. He remains normotensive with normal heart rate. Patient requires continuous observation, frequent vital sign monitoring, and immediate IV access for medication and fluid administration. If there is presence of severe confusion and agitation a higher level of care is recommended due to the risk of rapid deterioration and potential complications. 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 - infectious w/u as above Acute threat to life/bodily function: UGIB, Dts, severe alcohol withdrawal Discussion of management/test with another provider: GI Unique labs reviewed: Hgb stable,severe phosphatemia, hypomagnesemia, hemoglobin stable Assessment & Plan (07/14/2025 4:05 PM EDT): 40-year-old male with a past medical history significant for psoriasis, alcohol use disorder, and prior hospitalization (June-July 2024) for upper gastrointestinal bleeding due to a clipped Dieulafoy lesion, which required mechanical ventilation for altered mental status and airway protection, as well as management of alcohol withdrawal and acute alcoholic hepatitis, now presents to the Emergency Department after transfer from [facility] for hematemesis UGIB H/o dieulafoy lesion s/p clipping H/o severe esophagitis - Ddx include: PUD, erosions, esophagitis, gastritis, angioectasias, Kamala- Swain tear, or Dieulafoy's lesion given history vs variceal bleed - 07/10/24 CT A/P w IV showing contrast showing hepatomegaly and diffuse hepatic steatosis - 07/04/24 EGD showed dieulafoy lesion in stomach s/p 2 clips, severe generalized grade D esophagitis, multiple small ulcers in the stomach s/p one clip placed PLAN: - s/p Rocephin at OSH, octreotide gtt and Protonix started - will continue - GI consulted - recommended CLD at night, NPO at [facility] - H/H q12h - plan to transfuse for Hgb <7 - maintain 2 large bore IVs Concerns for Delirium tremens CIWA of 8 with anxiety, tremors, delirium, and hallucinations despite receiving two doses of phenobarbital. He remains normotensive with normal heart rate. Patient requires continuous observation, frequent vital sign monitoring, and immediate IV access for medication and fluid administration. If there is presence of severe confusion and agitation a higher level of care is recommended due to the risk of rapid deterioration and potential complications. Will schedule diazepam 20 mg q6h and will wean to q8h tomorrow Severe Alcohol Use Disorder Severe Alcohol Withdrawal Drinks approximately pint of liquor daily Phenobarbital loading dose administered 2 Continue CIWA protocol with Valium, assess CIWA scores every 4 hours Continue folic acid and thiamine supplementation Addiction Consult ([facility] team) if appropriate for further management and support AGMA 2/2 alcoholic ketosis Refeeding syndrome - fluids with glucose - Continue to trend beta-hydroxybutyric - Continue to monitor and replace phos, mag and potassium Transaminitis with hyperbilirubinemia iso hepatic steatosis and AUD Hepatic steatosis 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 - infectious w/u as above Acute threat to life/bodily function: UGIB, Dts, severe alcohol withdrawal Discussion of management/test with another provider: GI Unique labs reviewed: Hgb stable,severe phosphatemia, hypomagnesemia, improving ketosis Assessment & Plan (07/13/2025 2:07 PM EDT): 40-year-old male with a past medical history significant for psoriasis, alcohol use disorder, and prior hospitalization (June-July 2024) for upper gastrointestinal bleeding due to a clipped Dieulafoy lesion, which required mechanical ventilation for altered mental status and airway protection, as well as management of alcohol withdrawal and acute alcoholic hepatitis, now presents to the Emergency Department after transfer from [facility] for hematemesis UGIB H/o dieulafoy lesion s/p clipping H/o severe esophagitis - BP soft, HR 130s on arrival, Hgb (14). Abd exam benign. - Ddx include: PUD, erosions, esophagitis, gastritis, angioectasias, Kamala- Swain tear, or Dieulafoy's lesion given history vs variceal bleed - 07/10/24 CT A/P w IV showing contrast showing hepatomegaly and diffuse hepatic steatosis - 07/04/24 EGD showed dieulafoy lesion in stomach s/p 2 clips, severe generalized grade D esophagitis, multiple small ulcers in the stomach s/p one clip placed PLAN: - s/p Rocephin at OSH, octreotide gtt and Protonix started - will continue - GI consulted - recommended CLD, NPO at [facility] - H/H q12h - plan to transfuse for Hgb <7 - maintain 2 large bore IVs Severe EtOH use disorder Anticipated EtOH withdrawal - Drinks half a pint of liquor per day - phenobarbital administered - starting CIWA with valium protocol - folic acid and thiamine replacement - OLIVIA consult if appropriate AGMA 2/2 alcoholic ketosis - fluids with glucose - Continue to trend beta-hydroxybutyric Acute metabolic encephalopathy - pt lethargic, arouses to touch, protecting airway - Suspect intoxication, benzodiazepine, phenobarb effect - UDS => amphetamines - neuro checks - treating w/d as above Transaminitis with hyperbilirubinemia iso hepatic steatosis and AUD Hepatic steatosis 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 - infectious w/u as above Acute threat to life/bodily function: UGIB Discussion of management/test with another provider: GI Unique labs reviewed: Hgb slowly downtrending, hyponatremia, hypermagnesemia, ketosis, normal lactate Assessment & Plan (04/20/2025 4:00 PM EDT): [...] Supportive care Hypokalemia 04/13/2025 Assessment & Plan (07/15/2025 3:40 PM EDT): 40-year-old male with a past medical history significant for psoriasis, alcohol use disorder, and prior hospitalization (June-July 2024) for upper gastrointestinal bleeding due to a clipped Dieulafoy lesion, which required mechanical ventilation for altered mental status and airway protection, as well as management of alcohol withdrawal and acute alcoholic hepatitis, now presents to the Emergency Department after transfer from [facility] for hematemesis UGIB H/o dieulafoy lesion s/p clipping H/o severe esophagitis - Ddx include: PUD, erosions, esophagitis, gastritis, angioectasias, Kamala- Swain tear, or Dieulafoy's lesion given history vs variceal bleed - 07/10/24 CT A/P w IV showing contrast showing hepatomegaly and diffuse hepatic steatosis - 07/04/24 EGD showed dieulafoy lesion in stomach s/p 2 clips, severe generalized grade D esophagitis, multiple small ulcers in the stomach s/p one clip placed PLAN: - s/p Rocephin at OSH, octreotide gtt and Protonix started - will continue - GI consulted - plans for EGD tomorrow - H/H q12h - plan to transfuse for Hgb <7 - maintain 2 large bore IVs Concerns for Delirium tremens CIWA of 8 with anxiety, tremors, delirium, and hallucinations despite receiving two doses of phenobarbital. He remains normotensive with normal heart rate. Patient requires continuous observation, frequent vital sign monitoring, and immediate IV access for medication and fluid administration. If there is presence of severe confusion and agitation a higher level of care is recommended due to the risk of rapid deterioration and potential complications. 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 - infectious w/u as above Acute threat to life/bodily function: UGIB, Dts, severe alcohol withdrawal Discussion of management/test with another provider: GI Unique labs reviewed: Hgb stable,severe phosphatemia, hypomagnesemia, hemoglobin stable Assessment & Plan (07/14/2025 4:05 PM EDT): 40-year-old male with a past medical history significant for psoriasis, alcohol use disorder, and prior hospitalization (June-July 2024) for upper gastrointestinal bleeding due to a clipped Dieulafoy lesion, which required mechanical ventilation for altered mental status and airway protection, as well as management of alcohol withdrawal and acute alcoholic hepatitis, now presents to the Emergency Department after transfer from [facility] for hematemesis UGIB H/o dieulafoy lesion s/p clipping H/o severe esophagitis - Ddx include: PUD, erosions, esophagitis, gastritis, angioectasias, Kamala- Swain tear, or Dieulafoy's lesion given history vs variceal bleed - 07/10/24 CT A/P w IV showing contrast showing hepatomegaly and diffuse hepatic steatosis - 07/04/24 EGD showed dieulafoy lesion in stomach s/p 2 clips, severe generalized grade D esophagitis, multiple small ulcers in the stomach s/p one clip placed PLAN: - s/p Rocephin at OSH, octreotide gtt and Protonix started - will continue - GI consulted - recommended CLD at night, NPO at [facility] - H/H q12h - plan to transfuse for Hgb <7 - maintain 2 large bore IVs Concerns for Delirium tremens CIWA of 8 with anxiety, tremors, delirium, and hallucinations despite receiving two doses of phenobarbital. He remains normotensive with normal heart rate. Patient requires continuous observation, frequent vital sign monitoring, and immediate IV access for medication and fluid administration. If there is presence of severe confusion and agitation a higher level of care is recommended due to the risk of rapid deterioration and potential complications. Will schedule diazepam 20 mg q6h and will wean to q8h tomorrow Severe Alcohol Use Disorder Severe Alcohol Withdrawal Drinks approximately pint of liquor daily Phenobarbital loading dose administered 2 Continue CIWA protocol with Valium, assess CIWA scores every 4 hours Continue folic acid and thiamine supplementation Addiction Consult ([facility] team) if appropriate for further management and support AGMA 2/2 alcoholic ketosis Refeeding syndrome - fluids with glucose - Continue to trend beta-hydroxybutyric - Continue to monitor and replace phos, mag and potassium Transaminitis with hyperbilirubinemia iso hepatic steatosis and AUD Hepatic steatosis 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 - infectious w/u as above Acute threat to life/bodily function: UGIB, Dts, severe alcohol withdrawal Discussion of management/test with another provider: GI Unique labs reviewed: Hgb stable,severe phosphatemia, hypomagnesemia, improving ketosis Assessment & Plan (07/13/2025 2:07 PM EDT): 40-year-old male with a past medical history significant for psoriasis, alcohol use disorder, and prior hospitalization (June-July 2024) for upper gastrointestinal bleeding due to a clipped Dieulafoy lesion, which required mechanical ventilation for altered mental status and airway protection, as well as management of alcohol withdrawal and acute alcoholic hepatitis, now presents to the Emergency Department after transfer from [facility] for hematemesis UGIB H/o dieulafoy lesion s/p clipping H/o severe esophagitis - BP soft, HR 130s on arrival, Hgb (14). Abd exam benign. - Ddx include: PUD, erosions, esophagitis, gastritis, angioectasias, Kamala- Swain tear, or Dieulafoy's lesion given history vs variceal bleed - 07/10/24 CT A/P w IV showing contrast showing hepatomegaly and diffuse hepatic steatosis - 07/04/24 EGD showed dieulafoy lesion in stomach s/p 2 clips, severe generalized grade D esophagitis, multiple small ulcers in the stomach s/p one clip placed PLAN: - s/p Rocephin at OSH, octreotide gtt and Protonix started - will continue - GI consulted - recommended CLD, NPO at [facility] - H/H q12h - plan to transfuse for Hgb <7 - maintain 2 large bore IVs Severe EtOH use disorder Anticipated EtOH withdrawal - Drinks half a pint of liquor per day - phenobarbital administered - starting CIWA with valium protocol - folic acid and thiamine replacement - OLIVIA consult if appropriate AGMA 2/2 alcoholic ketosis - fluids with glucose - Continue to trend beta-hydroxybutyric Acute metabolic encephalopathy - pt lethargic, arouses to touch, protecting airway - Suspect intoxication, benzodiazepine, phenobarb effect - UDS => amphetamines - neuro checks - treating w/d as above Transaminitis with hyperbilirubinemia iso hepatic steatosis and AUD Hepatic steatosis 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 - infectious w/u as above Acute threat to life/bodily function: UGIB Discussion of management/test with another provider: GI Unique labs reviewed: Hgb slowly downtrending, hyponatremia, hypermagnesemia, ketosis, normal lactate Assessment & Plan (04/20/2025 4:00 PM EDT): [...] Replace PRN Hypomagnesemia 04/13/2025 Assessment & Plan (07/15/2025 3:40 PM EDT): 40-year-old male with a past medical history significant for psoriasis, alcohol use disorder, and prior hospitalization (June-July 2024) for upper gastrointestinal bleeding due to a clipped Dieulafoy lesion, which required mechanical ventilation for altered mental status and airway protection, as well as management of alcohol withdrawal and acute alcoholic hepatitis, now presents to the Emergency Department after transfer from [facility] for hematemesis UGIB H/o dieulafoy lesion s/p clipping H/o severe esophagitis - Ddx include: PUD, erosions, esophagitis, gastritis, angioectasias, Kamala- Swain tear, or Dieulafoy's lesion given history vs variceal bleed - 07/10/24 CT A/P w IV showing contrast showing hepatomegaly and diffuse hepatic steatosis - 07/04/24 EGD showed dieulafoy lesion in stomach s/p 2 clips, severe generalized grade D esophagitis, multiple small ulcers in the stomach s/p one clip placed PLAN: - s/p Rocephin at OSH, octreotide gtt and Protonix started - will continue - GI consulted - plans for EGD tomorrow - H/H q12h - plan to transfuse for Hgb <7 - maintain 2 large bore IVs Concerns for Delirium tremens CIWA of 8 with anxiety, tremors, delirium, and hallucinations despite receiving two doses of phenobarbital. He remains normotensive with normal heart rate. Patient requires continuous observation, frequent vital sign monitoring, and immediate IV access for medication and fluid administration. If there is presence of severe confusion and agitation a higher level of care is recommended due to the risk of rapid deterioration and potential complications. 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 - infectious w/u as above Acute threat to life/bodily function: UGIB, Dts, severe alcohol withdrawal Discussion of management/test with another provider: GI Unique labs reviewed: Hgb stable,severe phosphatemia, hypomagnesemia, hemoglobin stable Assessment & Plan (07/14/2025 4:05 PM EDT): 40-year-old male with a past medical history significant for psoriasis, alcohol use disorder, and prior hospitalization (June-July 2024) for upper gastrointestinal bleeding due to a clipped Dieulafoy lesion, which required mechanical ventilation for altered mental status and airway protection, as well as management of alcohol withdrawal and acute alcoholic hepatitis, now presents to the Emergency Department after transfer from [facility] for hematemesis UGIB H/o dieulafoy lesion s/p clipping H/o severe esophagitis - Ddx include: PUD, erosions, esophagitis, gastritis, angioectasias, Kamala- Swain tear, or Dieulafoy's lesion given history vs variceal bleed - 07/10/24 CT A/P w IV showing contrast showing hepatomegaly and diffuse hepatic steatosis - 07/04/24 EGD showed dieulafoy lesion in stomach s/p 2 clips, severe generalized grade D esophagitis, multiple small ulcers in the stomach s/p one clip placed PLAN: - s/p Rocephin at OSH, octreotide gtt and Protonix started - will continue - GI consulted - recommended CLD at night, NPO at [facility] - H/H q12h - plan to transfuse for Hgb <7 - maintain 2 large bore IVs Concerns for Delirium tremens CIWA of 8 with anxiety, tremors, delirium, and hallucinations despite receiving two doses of phenobarbital. He remains normotensive with normal heart rate. Patient requires continuous observation, frequent vital sign monitoring, and immediate IV access for medication and fluid administration. If there is presence of severe confusion and agitation a higher level of care is recommended due to the risk of rapid deterioration and potential complications. Will schedule diazepam 20 mg q6h and will wean to q8h tomorrow Severe Alcohol Use Disorder Severe Alcohol Withdrawal Drinks approximately pint of liquor daily Phenobarbital loading dose administered 2 Continue CIWA protocol with Valium, assess CIWA scores every 4 hours Continue folic acid and thiamine supplementation Addiction Consult ([facility] team) if appropriate for further management and support AGMA 2/2 alcoholic ketosis Refeeding syndrome - fluids with glucose - Continue to trend beta-hydroxybutyric - Continue to monitor and replace phos, mag and potassium Transaminitis with hyperbilirubinemia iso hepatic steatosis and AUD Hepatic steatosis 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 - infectious w/u as above Acute threat to life/bodily function: UGIB, Dts, severe alcohol withdrawal Discussion of management/test with another provider: GI Unique labs reviewed: Hgb stable,severe phosphatemia, hypomagnesemia, improving ketosis Assessment & Plan (07/13/2025 2:07 PM EDT): 40-year-old male with a past medical history significant for psoriasis, alcohol use disorder, and prior hospitalization (June-July 2024) for upper gastrointestinal bleeding due to a clipped Dieulafoy lesion, which required mechanical ventilation for altered mental status and airway protection, as well as management of alcohol withdrawal and acute alcoholic hepatitis, now presents to the Emergency Department after transfer from [facility] for hematemesis UGIB H/o dieulafoy lesion s/p clipping H/o severe esophagitis - BP soft, HR 130s on arrival, Hgb (14). Abd exam benign. - Ddx include: PUD, erosions, esophagitis, gastritis, angioectasias, Kamala- Swain tear, or Dieulafoy's lesion given history vs variceal bleed - 07/10/24 CT A/P w IV showing contrast showing hepatomegaly and diffuse hepatic steatosis - 07/04/24 EGD showed dieulafoy lesion in stomach s/p 2 clips, severe generalized grade D esophagitis, multiple small ulcers in the stomach s/p one clip placed PLAN: - s/p Rocephin at OSH, octreotide gtt and Protonix started - will continue - GI consulted - recommended CLD, NPO at [facility] - H/H q12h - plan to transfuse for Hgb <7 - maintain 2 large bore IVs Severe EtOH use disorder Anticipated EtOH withdrawal - Drinks half a pint of liquor per day - phenobarbital administered - starting CIWA with valium protocol - folic acid and thiamine replacement - OLIVIA consult if appropriate AGMA 2/2 alcoholic ketosis - fluids with glucose - Continue to trend beta-hydroxybutyric Acute metabolic encephalopathy - pt lethargic, arouses to touch, protecting airway - Suspect intoxication, benzodiazepine, phenobarb effect - UDS => amphetamines - neuro checks - treating w/d as above Transaminitis with hyperbilirubinemia iso hepatic steatosis and AUD Hepatic steatosis 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 - infectious w/u as above Acute threat to life/bodily function: UGIB Discussion of management/test with another provider: GI Unique labs reviewed: Hgb slowly downtrending, hyponatremia, hypermagnesemia, ketosis, normal lactate Assessment & Plan (04/20/2025 4:00 PM EDT): [...] NRT Electrolyte imbalance 04/13/2025 Assessment & Plan (07/15/2025 3:40 PM EDT): 40-year-old male with a past medical history significant for psoriasis, alcohol use disorder, and prior hospitalization (June-July 2024) for upper gastrointestinal bleeding due to a clipped Dieulafoy lesion, which required mechanical ventilation for altered mental status and airway protection, as well as management of alcohol withdrawal and acute alcoholic hepatitis, now presents to the Emergency Department after transfer from [facility] for hematemesis UGIB H/o dieulafoy lesion s/p clipping H/o severe esophagitis - Ddx include: PUD, erosions, esophagitis, gastritis, angioectasias, Kamala- Swain tear, or Dieulafoy's lesion given history vs variceal bleed - 07/10/24 CT A/P w IV showing contrast showing hepatomegaly and diffuse hepatic steatosis - 07/04/24 EGD showed dieulafoy lesion in stomach s/p 2 clips, severe generalized grade D esophagitis, multiple small ulcers in the stomach s/p one clip placed PLAN: - s/p Rocephin at OSH, octreotide gtt and Protonix started - will continue - GI consulted - plans for EGD tomorrow - H/H q12h - plan to transfuse for Hgb <7 - maintain 2 large bore IVs Concerns for Delirium tremens CIWA of 8 with anxiety, tremors, delirium, and hallucinations despite receiving two doses of phenobarbital. He remains normotensive with normal heart rate. Patient requires continuous observation, frequent vital sign monitoring, and immediate IV access for medication and fluid administration. If there is presence of severe confusion and agitation a higher level of care is recommended due to the risk of rapid deterioration and potential complications. 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 - infectious w/u as above Acute threat to life/bodily function: UGIB, Dts, severe alcohol withdrawal Discussion of management/test with another provider: GI Unique labs reviewed: Hgb stable,severe phosphatemia, hypomagnesemia, hemoglobin stable Assessment & Plan (07/14/2025 4:05 PM EDT): 40-year-old male with a past medical history significant for psoriasis, alcohol use disorder, and prior hospitalization (June-July 2024) for upper gastrointestinal bleeding due to a clipped Dieulafoy lesion, which required mechanical ventilation for altered mental status and airway protection, as well as management of alcohol withdrawal and acute alcoholic hepatitis, now presents to the Emergency Department after transfer from [facility] for hematemesis UGIB H/o dieulafoy lesion s/p clipping H/o severe esophagitis - Ddx include: PUD, erosions, esophagitis, gastritis, angioectasias, Kamala- Swain tear, or Dieulafoy's lesion given history vs variceal bleed - 07/10/24 CT A/P w IV showing contrast showing hepatomegaly and diffuse hepatic steatosis - 07/04/24 EGD showed dieulafoy lesion in stomach s/p 2 clips, severe generalized grade D esophagitis, multiple small ulcers in the stomach s/p one clip placed PLAN: - s/p Rocephin at OSH, octreotide gtt and Protonix started - will continue - GI consulted - recommended CLD at night, NPO at MN - H/H q12h - plan to transfuse for Hgb <7 - maintain 2 large bore IVs Concerns for Delirium tremens CIWA of 8 with anxiety, tremors, delirium, and hallucinations despite receiving two doses of phenobarbital. He remains normotensive with normal heart rate. Patient requires continuous observation, frequent vital sign monitoring, and immediate IV access for medication and fluid administration. If there is presence of severe confusion and agitation a higher level of care is recommended due to the risk of rapid deterioration and potential complications. Will schedule diazepam 20 mg q6h and will wean to q8h tomorrow Severe Alcohol Use Disorder Severe Alcohol Withdrawal Drinks approximately pint of liquor daily Phenobarbital loading dose administered 2 Continue CIWA protocol with Valium, assess CIWA scores every 4 hours Continue folic acid and thiamine supplementation Addiction Consult (OLIVIA team) if appropriate for further management and support AGMA 2/2 alcoholic ketosis Refeeding syndrome - fluids with glucose - Continue to trend beta-hydroxybutyric - Continue to monitor and replace phos, mag and potassium Transaminitis with hyperbilirubinemia iso hepatic steatosis and AUD Hepatic steatosis 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 - infectious w/u as above Acute threat to life/bodily function: UGIB, Dts, severe alcohol withdrawal Discussion of management/test with another provider: GI Unique labs reviewed: Hgb stable,severe phosphatemia, hypomagnesemia, improving ketosis Assessment & Plan (07/13/2025 2:07 PM EDT): 40-year-old male with a past medical history significant for psoriasis, alcohol use disorder, and prior hospitalization (June-July 2024) for upper gastrointestinal bleeding due to a clipped Dieulafoy lesion, which required mechanical ventilation for altered mental status and airway protection, as well as management of alcohol withdrawal and acute alcoholic hepatitis, now presents to the Emergency Department after transfer from [facility] for hematemesis UGIB H/o dieulafoy lesion s/p clipping H/o severe esophagitis - BP soft, HR 130s on arrival, Hgb (14). Abd exam benign. - Ddx include: PUD, erosions, esophagitis, gastritis, angioectasias, Kamala- Swain tear, or Dieulafoy's lesion given history vs variceal bleed - 07/10/24 CT A/P w IV showing contrast showing hepatomegaly and diffuse hepatic steatosis - 07/04/24 EGD showed dieulafoy lesion in stomach s/p 2 clips, severe generalized grade D esophagitis, multiple small ulcers in the stomach s/p one clip placed PLAN: - s/p Rocephin at OSH, octreotide gtt and Protonix started - will continue - GI consulted - recommended CLD, NPO at [place] - H/H q12h - plan to transfuse for Hgb <7 - maintain 2 large bore IVs Severe EtOH use disorder Anticipated EtOH withdrawal - Drinks half a pint of liquor per day - phenobarbital administered - starting CIWA with valium protocol - folic acid and thiamine replacement - OLIVIA consult if appropriate AGMA 2/2 alcoholic ketosis - fluids with glucose - Continue to trend beta-hydroxybutyric Acute metabolic encephalopathy - pt lethargic, arouses to touch, protecting airway - Suspect intoxication, benzodiazepine, phenobarb effect - UDS => amphetamines - neuro checks - treating w/d as above Transaminitis with hyperbilirubinemia iso hepatic steatosis and AUD Hepatic steatosis 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 - infectious w/u as above Acute threat to life/bodily function: UGIB Discussion of management/test with another provider: GI Unique labs reviewed: Hgb slowly downtrending, hyponatremia, hypermagnesemia, ketosis, normal lactate Assessment & Plan (04/20/2025 4:00 PM EDT): [...] 04/08/2025 Alcohol withdrawal syndrome, with delirium 04/08 UGIB (upper gastrointestinal bleed) 07/02/2024 Assessment & Plan (07/15/2025 3:40 PM EDT): 40-year-old male with a past medical history significant for psoriasis, alcohol use disorder, and prior hospitalization (June-July 2024) for upper gastrointestinal bleeding due to a clipped Dieulafoy lesion, which required mechanical ventilation for altered mental status and airway protection, as well as management of alcohol withdrawal and acute alcoholic hepatitis, now presents to the Emergency Department after transfer from [facility] for hematemesis UGIB H/o dieulafoy lesion s/p clipping H/o severe esophagitis - Ddx include: PUD, erosions, esophagitis, gastritis, angioectasias, Kamala- Swain tear, or Dieulafoy's lesion given history vs variceal bleed - 07/10/24 CT A/P w IV showing contrast showing hepatomegaly and diffuse hepatic steatosis - 07/04/24 EGD showed dieulafoy lesion in stomach s/p 2 clips, severe generalized grade D esophagitis, multiple small ulcers in the stomach s/p one clip placed PLAN: - s/p Rocephin at OSH, octreotide gtt and Protonix started - will continue - GI consulted - plans for EGD tomorrow - H/H q12h - plan to transfuse for Hgb <7 - maintain 2 large bore IVs Concerns for Delirium tremens CIWA of 8 with anxiety, tremors, delirium, and hallucinations despite receiving two doses of phenobarbital. He remains normotensive with normal heart rate. Patient requires continuous observation, frequent vital sign monitoring, and immediate IV access for medication and fluid administration. If there is presence of severe confusion and agitation a higher level of care is recommended due to the risk of rapid deterioration and potential complications. 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 - infectious w/u as above Acute threat to life/bodily function: UGIB, Dts, severe alcohol withdrawal Discussion of management/test with another provider: GI Unique labs reviewed: Hgb stable,severe phosphatemia, hypomagnesemia, hemoglobin stable Assessment & Plan (07/14/2025 4:05 PM EDT): 40-year-old male with a past medical history significant for psoriasis, alcohol use disorder, and prior hospitalization (June-July 2024) for upper gastrointestinal bleeding due to a clipped Dieulafoy lesion, which required mechanical ventilation for altered mental status and airway protection, as well as management of alcohol withdrawal and acute alcoholic hepatitis, now presents to the Emergency Department after transfer from [facility] for hematemesis UGIB H/o dieulafoy lesion s/p clipping H/o severe esophagitis - Ddx include: PUD, erosions, esophagitis, gastritis, angioectasias, Kamala- Swain tear, or Dieulafoy's lesion given history vs variceal bleed - 07/10/24 CT A/P w IV showing contrast showing hepatomegaly and diffuse hepatic steatosis - 07/04/24 EGD showed dieulafoy lesion in stomach s/p 2 clips, severe generalized grade D esophagitis, multiple small ulcers in the stomach s/p one clip placed PLAN: - s/p Rocephin at OSH, octreotide gtt and Protonix started - will continue - GI consulted - recommended CLD at night, NPO at [place] - H/H q12h - plan to transfuse for Hgb <7 - maintain 2 large bore IVs Concerns for Delirium tremens CIWA of 8 with anxiety, tremors, delirium, and hallucinations despite receiving two doses of phenobarbital. He remains normotensive with normal heart rate. Patient requires continuous observation, frequent vital sign monitoring, and immediate IV access for medication and fluid administration. If there is presence of severe confusion and agitation a higher level of care is recommended due to the risk of rapid deterioration and potential complications. Will schedule diazepam 20 mg q6h and will wean to q8h tomorrow Severe Alcohol Use Disorder Severe Alcohol Withdrawal Drinks approximately pint of liquor daily Phenobarbital loading dose administered 2 Continue CIWA protocol with Valium, assess CIWA scores every 4 hours Continue folic acid and thiamine supplementation Addiction Consult (OLIVIA team) if appropriate for further management and support AGMA 2/2 alcoholic ketosis Refeeding syndrome - fluids with glucose - Continue to trend beta-hydroxybutyric - Continue to monitor and replace phos, mag and potassium Transaminitis with hyperbilirubinemia iso hepatic steatosis and AUD Hepatic steatosis 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 - infectious w/u as above Acute threat to life/bodily function: UGIB, Dts, severe alcohol withdrawal Discussion of management/test with another provider: GI Unique labs reviewed: Hgb stable,severe phosphatemia, hypomagnesemia, improving ketosis Assessment & Plan (07/13/2025 2:07 PM EDT): 40-year-old male with a past medical history significant for psoriasis, alcohol use disorder, and prior hospitalization (June-July 2024) for upper gastrointestinal bleeding due to a clipped Dieulafoy lesion, which required mechanical ventilation for altered mental status and airway protection, as well as management of alcohol withdrawal and acute alcoholic hepatitis, now presents to the Emergency Department after transfer from [facility] for hematemesis UGIB H/o dieulafoy lesion s/p clipping H/o severe esophagitis - BP soft, HR 130s on arrival, Hgb (14). Abd exam benign. - Ddx include: PUD, erosions, esophagitis, gastritis, angioectasias, Kamala- Swain tear, or Dieulafoy's lesion given history vs variceal bleed - 07/10/24 CT A/P w IV showing contrast showing hepatomegaly and diffuse hepatic steatosis - 07/04/24 EGD showed dieulafoy lesion in stomach s/p 2 clips, severe generalized grade D esophagitis, multiple small ulcers in the stomach s/p one clip placed PLAN: - s/p Rocephin at OSH, octreotide gtt and Protonix started - will continue - GI consulted - recommended CLD, NPO at MN - H/H q12h - plan to transfuse for Hgb <7 - maintain 2 large bore IVs Severe EtOH use disorder Anticipated EtOH withdrawal - Drinks half a pint of liquor per day - phenobarbital administered - starting CIWA with valium protocol - folic acid and thiamine replacement - OLIVIA consult if appropriate AGMA 2/2 alcoholic ketosis - fluids with glucose - Continue to trend beta-hydroxybutyric Acute metabolic encephalopathy - pt lethargic, arouses to touch, protecting airway - Suspect intoxication, benzodiazepine, phenobarb effect - UDS => amphetamines - neuro checks - treating w/d as above Transaminitis with hyperbilirubinemia iso hepatic steatosis and AUD Hepatic steatosis 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 - infectious w/u as above Acute threat to life/bodily function: UGIB Discussion of management/test with another provider: GI Unique labs reviewed: Hgb slowly downtrending, hyponatremia, hypermagnesemia, ketosis, normal lactate Resolved Problems Problem Noted Date Diagnosed Date Resolved Date Acute hypoxic respiratory failure 07/10/2024 06/23/2025 Encounters Date Type Department Care Team Description 08/06/2025 Telephone [facility] Medicine Specialties [address] [place] [address] Fannie Fuchs, NICK 07/31/2025 Patient Outreach [facility] [address] [place] [address], [address] [address] Keke Ro LPN [facility] 07/23/2025 Patient Outreach [facility] [address] [place] [address], [address] [address] Kandis Dimas LPN [facility] 07/22/2025 Patient Outreach [facility] [address] [place] [address], [address] [address] Talita Ashley LPN [facility] 07/19/2025 Patient Outreach [facility] [address] [place] [address], [address] [address] Kandis Dimas LPN [facility] 07/17/2025 8:32 AM EDT Anesthesia Event [facility] [address] [place] [address] Angel Moyer MD 07/17/2025 Travel 07/16/2025 11:59 PM EDT Anesthesia Event [facility] [address] [place] [id number] Teddy Garza MD Carney Tinsley, Amanda S, APRN, JUNIOR 07/12/2025 2:50 PM EDT - 07/18/2025 12:40 PM EDT Hospital Encounter [facility] [address] Tashi Angel MD Ramani, Ashok A, MD Martinez Hernandez, Elizabeth, MD Bhatti, Umar R, DO Alcohol use disorder (Primary Dx); Hematemesis of unknown cause; Hepatic steatosis; Esophagitis Discharge Disposition: Home or Self Care 07/12/2025 Travel 07/12/2025 Orders Only External Location [address] [place] [id number] Hieu Kimble DO from Last 3 Months Immunizations Immunization Administration Dates Next Due Hep B, Adolescent or Pediatric 01/02/2001,1996,11/16/1996 MMR 11/16/1996 TD (adult), 2 Lf tetanus tox oid, preservative free, adsorbed 01/02/2001 Tdap 04/07/2025 Social History Tobacco Use Types Packs/Day Years [...] How often do you attend chur or christianity services? Patient unable to answer 07/04/2024 Do you belong to any clubs o r organizations such as rastafarian groups, unions, fraternal or athletic groups, or [...] and heating? Patient unable to answer 07/04/2024 [facility] - Occupational [...] this level? Patient unable to answer 07/04/2024 Humiliation, Afraid, Rape, a nd Kick questionnaire Answer Date Recorded Within the last year, have y ou been afraid of your partner or ex-partner? Patient unable to answer 07/16/2025 Within the last year, have y ou been humiliated or emotionally abused in other ways by your partner or ex-partner? Patient unable to answer 07/16/2025 Within the last year, have y ou been kicked, hit, slapped, or otherwise physically hurt by your partner or ex-partner? Patient unable to answer 07/16/2025 Within the last year, have y ou been raped or forced to have any kind of sexual activity by your partner or ex-partner? Patient unable to answer 07/16/2025 AUDIT-C Answer Date Recorded Q1: How often [...] you got the money to buy more. Patient unable to answer 07/16/2025 Within the past 12 months, t he food you bought just didn't last and you didn't have money to get more. Patient unable to answer 07/16/2025 PRAPARE - Transportation Answer Date Re corded In the past 12 months, has l ack of transportation kept you from medical appointments or from getting medications? Patient unable to answer 07/16/2025 In the past 12 months, has l ack of transportation kept you from meetings, work, or from getting things needed for daily living? Patient unable to answer 07/16/2025 Housing Stability Vital Sign Answer Aron e Recorded In the last 12 months, was t here a time when you were not able to pay the mortgage or rent on time? Patient unable to answer 07/16/2025 Number of Times Moved in the Last Year Not on fi le 07/16/2025 At any time in the past 12 m [facility], were you homeless or living in a intermediate (including now)? Patient unable to answer 07/16/2025 [facility] Utilities Answer Date Recorded In the past 12 months has th e electric, gas, oil, or water company threatened to shut off services in your home? Patient unable to answer 07/16/2025 CAGE ASSESSMENT Answer Date Recorded Cage unable to access Not on file 07/12/2025 Maximum number of drinks you had on a given occasion in the last month? 5 or more drinks 07/12/2025 How many alcoholic Beverages do you typically drink in a week? 15 or more per week 07/12/2025 Have you ever felt you shoul d CUT down on your drinking? 0 07/12/2025 Have you been ANNOYED by peo ple criticizing your drinking? 0 07/12/2025 Have you felt GUILTY about your drinking? 0 07/12/2025 Have you had a drink first t [place] in the morning ([employer]) to steady your nerves or to get rid of a hangover? 0 07/12/2025 CAGE Questionnaire Score 0 025 Sex and Gender Information Value Date Recorded Sex Assigned at Not on file Legal Sex Male 3:59 PM EDT Gender Identity Not on file Sexual Orientation Not on file Last Filed Vital Signs Vital Sign Reading Time Taken Comments Blood Pressure 105/73 07/18/2025 11:51 AM EDT Pulse 99 07/18/2025 11:51 AM EDT Temperature 36.8 C (98.2 F) 07/18/2025 11:51 AM EDT Respiratory Rate 16 07/18/2025 11:51 AM EDT Oxygen Saturation 98% 07/18/2025 11:51 AM EDT Inhaled Oxygen Concentration - - Weight 56.5 kg (124 lb 9 oz) 07/15/2025 9:00 AM EDT Height 185.4 cm (6' 0.99 ) 07/15/2025 9:00 AM ED T Body Mass Index 16.44 07/15/2025 9:00 AM EDT Plan of Treatment Upcoming Encounters Date Type Department Care Team (Late st Contact Info) Description 12/17/2025 9:30 AM EDT Office Visit OR Clinic Medicine Specialties [address] [place] [address] Curt Durham PA [address] [place] [address] Health Maintenance Due Date Last Done Comments [facility]-Depression Screening 1986 [facility]-/Child/Adol SDOH Screenings 1986 [facility]-Varicella Vaccines (1 of 2 - 13+ 2-dose series) 1999 [facility]-Hepatitis A Vaccines (1 of 2 - Risk 2-dose series) 2005 [facility]-Pneumococcal Vaccine: Pediatrics (0 to 5 Years) and At-Risk Patients (6 to 49 Years) (1 of 2 - PCV) 2005 [facility]-[id number]-56 Vaccine ( - season) 2025 [facility]-Influenza Vaccine (#1) 2025 [facility]- SDOH Screenings 01/14/2026 [facility]-Adult SDOH Screenings 01/14/2026 07/16/2025 [facility]-DTaP,Tdap,and Td Vaccines (3 - Td or Tdap) 04/07/2035 04/07/2025, 01/02/2001 [facility]-Zoster Vaccines (1 of 2) 01/19/2036 [facility]-Hepatitis B Vaccines Completed 001, 03/15/1997, 11/16/1996 [facility]-HIV Screening Completed 07/12/2025, 07/02/2024, 04/10/2024 [facility]-Hepatitis C Screening Completed 2024, 07/03/2024, 07/02/2024 HPV Vaccines (No Doses Required) Completed [facility]-HIB Vaccines Aged Out No longer e ligible based on patient's age to complete this topic [facility]-IPV Vaccines Aged Out No longer e ligible based on patient's age to complete this topic [facility]-Rotavirus Vaccines Aged Out No lo nger eligible based on patient's age to complete this topic Goals Goal Patient Goal Type Associated Problems Recent Progress Patient-Stated? Author Autogenerat ed Goal Care Plan Autogenerated Problem No Shola Boyle, RN Medical Devices Implanted Type Area Shorthand Teacher Device Identifier Shelf Expiration Date Model / Serial / Lot Nail Tibial [id number] - S. - [id number] Implanted:Qty: 1 on 04/13/2025 by Horacio Randhawa MD at [facility] Nail Right: Tibia [employer] ([facility])-[id number] 11/02/2034 [id number] / . / [id number] Screw Locking T2 D5x40 - S. - [id number] Implanted:Qty: 1 on 04/13/2025 by Horacio Randhawa MD at [facility] Screw Right: Tibia [employer] ([facility])-[id number] 11/30/2034 [id number] / . / [id number] Screw Locking T2 D5x40 - S. - [id number] Implanted:Qty: 1 on 04/13/2025 by Horacio Randhawa MD at [facility] Screw Right: [employer]ia [employer] ([facility])-[id number] 11/30/2034 [id number] / . / [id number] Screw Locking T2 D5xl45 - S. - [id number] Implanted:Qty: 1 on 04/13/2025 by Horacio Randhawa MD at [facility] Screw Right: Tibia [employer] ([facility])-[id number] 11/30/2034 [id number] / . / [id number] Screw Locking T2 D5x35 - S. - [id number] Implanted:Qty: 1 on 04/13/2025 by Horacio Randhawa MD at [facility] Screw Right: Tibia [employer] ([employer])-[id number] 11/30/2034 [id number] / . / [id number] Duraclip 16mm - [id number] Implanted:Qty: 3 on 07/03/2024 by Chrissie Nelson MD at [facility] [employer]-[id number] 11/02/2026 [id number] / / [id number] Procedures Procedure Name Priority Date/Time Associated Diagnosis Comments HC HBSAG Routine 07/18/2025 4:42 AM EDT HEPATITIS B SURFACE ANTIBODY, QUANTITATIVE Routine 07/18/2025 4:42 AM EDT HC HEP B CORE AB TEST, TOTAL - HEPATITIS B CORE ANTIBODY, TOTAL Routine 07/18/2025 4:42 AM EDT HEPATITIS A ANTIBODY IGM Routine 025 4:42 AM EDT COMPREHENSIVE METABOLIC PANEL, PLASMA Routine 07/18/2025 4:42 AM EDT CBC W/O DIFFERENTIAL Routine 07/18/2025 4:42 AM EDT EGD Routine 07/17/2025 8:57 AM EDT Hematemesis of unknown cause PB ANESTHESIA PLACEHOLDER Routine 2024 8:39 AM EDT CA AN ELECTIVE ENDOTRACHEAL AIRWAY Routine 07/17/2025 8:39 AM EDT HEPATIC FUNCTION PANEL Add-On 3:53 AM EDT CBC W/O DIFFERENTIAL Routine 07/16/2025 3:53 AM EDT MAGNESIUM, PLASMA Routine 07/16/2025 3:5 3 AM EDT RENAL FUNCTION PANEL, PLASMA Routine 07/16/2025 3:53 AM EDT MAGNESIUM, PLASMA Pending Discharge 07/15/2025 4:07 AM EDT HEMOGLOBIN AND HEMATOCRIT, BLOOD Pending Discharge 07/15/2025 4:07 AM EDT RENAL FUNCTION PANEL, PLASMA Pending Discharge 07/15/2025 4:07 AM EDT INSERT PERIPHERAL IV Routine 07/14/2025 12:08 PM EDT MAGNESIUM, PLASMA Add-On 07/14/2025 12:03 PM EDT RENAL FUNCTION PANEL, PLASMA Pending Discharge 07/14/2025 12:03 PM EDT HEMOGLOBIN AND HEMATOCRIT, BLOOD Pending Discharge 07/14/2025 8:48 AM EDT BETA HYDROXYBUTYRIC ACID Routine 025 4:15 AM EDT MAGNESIUM, PLASMA Routine 07/14/2025 4:1 5 AM EDT PHOSPHORUS, PLASMA Routine 07/14/2025 4: 15 AM EDT COMPREHENSIVE METABOLIC PANEL, PLASMA Routine 07/14/2025 4:15 AM EDT HEMOGLOBIN AND HEMATOCRIT, BLOOD Timed 07/13/2025 9:39 PM EDT HEMOGLOBIN AND HEMATOCRIT, BLOOD STAT 07/13/2025 11:01 AM EDT EXTRA TUBE LAVENDER TOP Routine 07/13/20 10:49 AM EDT EXTRA TUBES Routine 07/13/2025 10:49 AM EDT EXTRA TUBE LIGHT GREEN TOP Routine 07/13/2025 4:14 AM EDT EXTRA TUBES Routine 07/13/2025 4:14 AM EDT BETA HYDROXYBUTYRIC ACID Add-On 025 4:04 AM EDT MAGNESIUM, PLASMA Routine 07/13/2025 4:0 4 AM EDT COMPREHENSIVE METABOLIC PANEL, PLASMA Routine 07/13/2025 4:04 AM EDT PHOSPHATIDYLETHANOL (PETH), WHOLE BLOOD, QUANTITATIVE (SO) Routine 07/13/2025 4:04 AM EDT HEMOGLOBIN AND HEMATOCRIT, BLOOD Timed 07/13/2025 4:04 AM EDT US ABDOMEN DOPPLER LIMITED Routine 07/13/2025 12:17 AM EDT US ABDOMEN RUQ Routine 07/13/2025 12:17 AM EDT LACTATE, VENOUS STAT 07/12/2025 8:35 PM EDT PHOSPHORUS, PLASMA Routine 07/12/2025 8: 35 PM EDT MAGNESIUM, PLASMA Routine 07/12/2025 8:3 5 PM EDT COMPREHENSIVE METABOLIC PANEL, PLASMA Routine 07/12/2025 8:35 PM EDT HEMOGLOBIN AND HEMATOCRIT, BLOOD Timed 07/12/2025 8:35 PM EDT BLOOD CULTURE (AEROBIC/ANAEROBIC SET) Routine 07/12/2025 8:35 PM EDT AMPHETAMINES LCMSMS URINE Routine 2024 8:11 PM EDT URINALYSIS MICROSCOPIC FOR UA REFLEX Routine 07/12/2025 8:11 PM EDT URINE PEREZ PANEL Routine 07/12/2025 8:11 PM EDT URINALYSIS WITH REFLEX MICROSCOPIC Routine 07/12/2025 8:11 PM EDT URINALYSIS WITH REFLEX MICROSCOPIC AND CULTURE Routine 07/12/2025 8:11 PM EDT DRUG ABUSE SCREEN, URINE Routine 025 8:11 PM EDT XR CHEST 1 VIEW STAT 07/12/2025 7:39 PM EDT BLOOD GAS PANEL, VENOUS STAT 07/12/20 25 4:47 PM EDT TYPE AND SCREEN STAT 07/12/2025 4:47 PM EDT BETA HYDROXYBUTYRIC ACID STAT Add-on 025 4:33 PM EDT PROCALCITONIN, PLASMA STAT Add-on 07/12/2025 4:33 PM EDT LIPASE, PLASMA STAT 07/12/2025 4:33 PM EDT ETHYL ALCOHOL PLASMA STAT 07/12/2025 4:33 PM EDT ED HIV 1/2 ANTIBODY/ANTIGEN SCREEN WITH REFLEX TO HIV I/II DIFFERENTIATION STAT 07/12/2025 4:33 PM EDT ED PROTOCOL HIV 1/2 ANTIBODY/ANTIGEN SCREEN W/REFLEX TO HIV 1/2 ANTIBODY DIFFERENTIATION STAT 07/12/2025 4:33 PM EDT HEPATITIS C ANTIBODY - ED W/REFLEX TO HCV QUANT PCR STAT 07/12/2025 4:33 PM EDT PHOSPHORUS, PLASMA STAT 07/12/2025 4: 33 PM EDT MAGNESIUM, PLASMA STAT 07/12/2025 4:3 3 PM EDT PROTHROMBIN TIME(PT) / INR STAT 07/12/2025 4:33 PM EDT COMPREHENSIVE METABOLIC PANEL, PLASMA STAT 07/12/2025 4:33 PM EDT CBC WITH AUTO DIFFERENTIAL STAT 07/12/2025 4:33 PM EDT XR OUTSIDE IMAGES 07/12/2025 11:44 AM EDT from Last 3 Months Results * (ABNORMAL) Hepatitis B Surface Antibody, Quantitative (07/18/2025 4:42 AM EDT) Hepatitis B Surface Antibody, Quantitative >1,000.00 (H) NonReacti ve: <8, Grayzone: 8 - <12, Reactive: >= 12 mIU/mL 07/18/2025 6:41 AM EDT [facility] Comment: Reactive. Individual is considered immune to HBV infection. Blood Venous blood specimen / Unknown Venipuncture / Unknown 07/18/2025 4:42 AM EDT 07/18/2025 5:07 AM EDT us [employer] DO LAB BLOOD ORDERABLES Final Resu lt Performing Organization Address [facility] Co de Phone Number [facility] [address] [place] [address] * Hepatitis A Antibody IGM (07/18/2025 4:42 AM EDT) Pathologist [facility] Hepatitis A Antibody IgM Negative Negative 07/18/2025 6:41 AM EDT [facility] Blood Venous blood specimen / Unknown Venipuncture / Unknown 07/18/2025 4:42 AM EDT 07/18/2025 5:07 AM EDT [employer] R Kam DO LAB BLOOD ORDERABLES Final Resu lt Performing Organization Address City/[facility]/ZIP Co de Phone Number [facility] [address] [place] [address] * Hepatitis B Core Total Antibody IgG,IgM (07/18/2025 4:42 AM EDT) Hepatitis B Core Total Antibody IgG,IgM Negative Negative 07/18/2025 6:41 AM EDT [facility] Blood Venous blood specimen / Unknown Venipuncture / Unknown 07/18/2025 4:42 AM EDT 07/18/2025 5:07 AM EDT [facility] R Kam DO LAB BLOOD ORDERABLES Final Resu lt Performing Organization Address [facility]/ZIP Co de Phone Number [facility] [address] [place] [address] * Hepatitis B Surface Antigen (07/18/2025 4:42 AM EDT) Pathologist [facility] Hepatitis B Surf Antigen Negative Negative 07/18/2025 6:41 AM EDT [facility] Blood Venous blood specimen / Unknown Venipuncture / Unknown 07/18/2025 4:42 AM EDT 07/18/2025 5:07 AM EDT [facility] BLOOD ORDERABLES Final Resu lt Performing Organization Address City/[facility] Co de Phone Number [facility] [address] [place] [address] * (ABNORMAL) CBC W/O Differential (07/18/2025 4:42 AM EDT) Only the most recent of2 resultswithin the time period is included. [facility] WBC Count 4.11 3.70 - 10.30 10*3/uL LAB HEMATOLOGY METHOD 07/18/2025 5:28 AM EDT [facility] RBC Count 2.83(L) 4.60 - 6.10 10*6/uL LAB HEMATOLOGY METHOD 07/18/2025 5:28 AM EDT [facility] HGB 9.8(L) 13.7 - 17.5 g/dL LAB HEMATOLOGY METHOD 07/18/2025 5:28 AM EDT [facility] HCT 29.1(L) 40.0 - 51.0 % LAB HEMATOLOGY METHOD 07/18/2025 5:28 AM EDT [facility] Platelet Count 206 155 - 369 10*3/uL LAB HEMATOLOGY METHOD 07/18/2025 5:28 AM EDT [facility] MCV 103(H) 79 - 98 fL LAB HEMATOLOGY METHOD 07/18/2025 5:28 AM EDT [facility] MCH 34.6(H) 26.0 - 32.0 pg LAB HEMATOLOGY METHOD 07/18/2025 5:28 AM EDT [facility] MCHC 33.7 30.7 - 35.5 g/dL LAB HEMATOLOGY METHOD 07/18/2025 5:28 AM EDT [facility] RDW 14.1 11.5 - 14.5 % LAB HEMATOLOGY METHOD 07/18/2025 5:28 AM EDT [facility] MPV 11.5 8.8 - 12.5 fL LAB HEMATOLOGY METHOD 07/18/2025 5:28 AM EDT [facility] nRBC 0.0 <=0.0 per 100 WBCs LAB HEMATOLOGY METHOD 07/18/2025 5:28 AM EDT [facility] Blood Venous blood specimen / Unknown Venipuncture / Unknown 07/18/2025 4:42 AM EDT 07/18/2025 5:07 AM EDT Dedear R Kam DO LAB BLOOD ORDERABLES Final Resu lt [facility] [address] [place] [address] * (ABNORMAL) Comprehensive metabolic panel (07/18/2025 4:42 AM EDT) Only the most recent of5 resultswithin the time period is included. Glucose, Plasma 102(H) 74 - 99 mg/dL 07/18/2025 5:45 AM EDT [facility] BUN, Plasma 7 7 - 21 mg/dL 07/18/2025 5:45 AM EDT [facility] Creatinine, Plasma 0.63(L) 0.70 - 1.20 mg/dL 07/18/2025 5:45 AM EDT [facility] BUN/Creatinine Ratio 11 07/18/2025 5:45 AM EDT [facility] Sodium, Plasma 137 136 - 145 mmol/L 07/18/2025 5:45 AM EDT [facility] Potassium, Plasma 3.9 3.6 - 4.9 mmol/L 07/18/2025 5:45 AM EDT [facility] Chloride, Plasma 103 97 - 107 mmol/L 07/18/2025 5:45 AM EDT [facility] CO2, Plasma 27 22 - 29 mmol/L 07/18/2025 5:45 AM EDT [facility] Anion Gap 7 6 - 16 mmol/L 07/18/2025 5:45 AM EDT [facility] Total Calcium, Plasma 9.0 8.9 - 10.2 mg/dL 07/18/2025 5:45 AM EDT [facility] Total Protein 5.8(L) 6.3 - 7.9 g/dL 07/18/2025 5:45 AM EDT [facility] Albumin, Plasma 3.3(L) 3.5 - 5.2 g/dL 07/18/2025 5:45 AM EDT [facility] AST, Plasma 41 10 - 50 U/L 07/18/2025 5:45 AM EDT [facility] Comment:Hemolyzed, result ma y be falsely increased. ALT, Plasma 42 10 - 50 U/L 07/18/2025 5:45 AM EDT [facility] Alkaline Phosphatase, Plasma 129(H) 40 - 115 U/L 07/18/2025 5:45 AM EDT [facility] Total Bilirubin, Plasma 0.3 0.2 - 1.1 mg/dL 07/18/2025 5:45 AM EDT [facility] eGFRcr 124.1 mL/min/1.7 3m*2 07/18/2025 5:45 AM EDT [facility] Comment:Reported eGFRcr in m L/min/1.73m2 is based the CKD-EPI 2020 equation that does not use a race coefficient. Blood Venous blood specimen / Unknown Venipuncture / Unknown 07/18/2025 4:42 AM EDT 07/18/2025 5:16 AM EDT us Ashlyn Humphrey DO LAB BLOOD ORDERABLES Final Resu lt [facility] [address] [place] [address] * EGD CHRISSIE NELSON; 07/16/2025 (07/17/2025 8:57 AM EDT) Anatomical Region Laterality Modality Endoscopy Narrative 07/17/2025 10:11 AM EDT Table formatting from the original result was not included. Impression: Grade D reflux esophagitis in the lower third of the esophagus. Edematous, erythematous, mosaic mucosa in the stomach. Healing ulcer in gastric body. Pale and granular mucosa in the duodenal bulb and D2. Post Procedure Diagnosis Esophagitis Recommendations - Most likely cause of bleeding is grade D esophagitis. - Return to hospital childs. - Recommend PPI twice daily for 8 weeks. Repeat endoscopy in 8 weeks to assess healing. - Recommend Carafate suspension. - Resume previous diet. Indication Hematemesis of unknown cause Medications See anesthesia record for anesthesia administered medications. Staff Staff Role Arianna Holt MD Fellow Kenny Ramos CRNA CRNA Jovero, [place], RN Endo Nurse Angel Moyer MD Anesthesiologist Panda Sibley Proceduralist Kvng Wynn Endo [employer]ber Goods Inspector Preprocedure A history and physical has been performed, and patient medication allergies have been reviewed. The patient's tolerance of previous anesthesia has been reviewed. The risks and benefits of the procedure and the sedation options and risks were discussed with the patient. All questions were answered and informed consent obtained. Details of the Procedure The patient underwent general anesthesia, which was administered by an anesthesia professional. The patient's blood pressure, heart rate, level of consciousness, oxygen saturation and respirations were monitored throughout the procedure. The scope was introduced into the mouth through a bite block and advanced to the second part of the duodenum. Insufflated with carbon dioxide. Retroflexion was performed in the cardia, fundus and incisura. Prior to the procedure, the patient's H. Pylori status was unknown. The patient experienced no blood loss. The procedure was not difficult. The patient tolerated the procedure well. There were no apparent adverse events. Attestation I was present for the entire procedure Specimens No specimens were documented in this log. Findings Grade D reflux esophagitis with mucosal breaks measuring 5 mm or more, continuous between folds, covering 75% or more of the circumference in the lower third of the esophagus. Edematous, erythematous and mosaic mucosa in the stomach. Consistent with mild PHG. Healing ulcer in gastric body. Pale and granular mucosa in the duodenal bulb and D2. Sharonda Perdue MD GI PROCEDURE ORD ERABLES Final Result * CA AN ELECTIVE ENDOTRACHEAL AIRWAY, PB ANESTHESIA PLACEHOLDER (07/17/2025 8:39 AM EDT) Narrative Kenny Ramos CRNA - 07/17/2025 8:39 AM EDT Kenny Ramos CRNA 07/17/2025 8:42 AM Airway Date/Time: 07/17/2025 8:39 AM Reason: elective Airway not difficult General Information and Staff Patient location during procedure: OR RN EMBEDDED: Kenny Ramos CRNA Performed: DARLENE Patient Condition Indications for airway management: anesthesia Patient position: sniffing Final Airway Details Final airway type: endotracheal airway Successful airway: ETT Cuffed: yes Successful intubation technique: direct laryngoscopy Adjuncts used in placement: intubating stylet Endotracheal tube insertion site: oral Blade: Jessica Blade size: #4 ETT size (mm): 7.5 Cormack-Lehane Classification: grade I - full view of glottis Placement verified by: chest auscultation and capnometry Measured from: lips ETT to lips (cm): 21 Additional Comments Atraumatic. No change to dentition. Angel Moyer MD ANESTHESIA ORDERABLES Jaimee l Result * (ABNORMAL) Magnesium, Plasma (07/16/2025 3:53 AM EDT) Only the most recent of7 resultswithin the time period is included. Magnesium, Plasma 1.4(L) 1.9 - 2.4 mg/dL 07/16/2025 4:46 AM EDT [facility] Blood Venous blood specimen / Unknown Venipuncture / Unknown 07/16/2025 3:53 AM EDT 07/16/2025 4:15 AM EDT Sharonda Perdue MD LAB BLOOD ORDERA BLES Final Result [facility] [address] [place] [address] * (ABNORMAL) Hepatic function panel (07/16/2025 3:53 AM EDT) Direct Bilirubin, Plasma 0.3 <=0.3 mg/dL 07/16/2025 8:55 AM EDT [facility] Alkaline Phosphatase, Plasma 113 40 - 115 U/L 07/16/2025 8:55 AM EDT [facility] Total Bilirubin, Plasma 0.5 0.2 - 1.1 mg/dL 07/16/2025 8:55 AM EDT [facility] Albumin, Plasma 3.0(L) 3.5 - 5.2 g/dL 07/16/2025 8:55 AM EDT [facility] Total Protein 5.0(L) 6.3 - 7.9 g/dL 07/16/2025 8:55 AM EDT [facility] ALT, Plasma 47 10 - 50 U/L 07/16/2025 8:55 AM EDT [facility] AST, Plasma 57(H) 10 - 50 U/L 07/16/2025 8:55 AM EDT [facility] Blood Venous blood specimen / Unknown Venipuncture / Unknown 07/16/2025 3:53 AM EDT 07/16/2025 4:15 AM EDT us Ashlyn Humphrey DO LAB BLOOD ORDERABLES Final Resu lt [facility] [address] [place] [address] * (ABNORMAL) Renal Function Panel, Plasma (07/16/2025 3:53 AM EDT) Only the most recent of3 resultswithin the time period is included. Glucose, Plasma 126(H) 74 - 99 mg/dL 07/16/2025 4:46 AM EDT [facility] BUN, Plasma 7 7 - 21 mg/dL 07/16/2025 4:46 AM EDT [facility] Creatinine, Plasma 0.60(L) 0.70 - 1.20 mg/dL 07/16/2025 4:46 AM EDT [facility] BUN/Creatinine Ratio 12 07/16/2025 4:46 AM EDT [facility] Sodium, Plasma 139 136 - 145 mmol/L 07/16/2025 4:46 AM EDT [facility] Potassium, Plasma 3.7 3.6 - 4.9 mmol/L 07/16/2025 4:46 AM EDT [facility] Chloride, Plasma 101 97 - 107 mmol/L 07/16/2025 4:46 AM EDT [facility] CO2, Plasma 29 22 - 29 mmol/L 07/16/2025 4:46 AM EDT [facility] Anion Gap 9 6 - 16 mmol/L 07/16/2025 4:46 AM EDT [facility] Total Calcium, Plasma 8.3(L) 8.9 - 10.2 mg/dL 07/16/2025 4:46 AM EDT [facility] Phosphorus, Plasma 2.2(L) 2.5 - 4.5 mg/dL 07/16/2025 4:46 AM EDT [facility] Albumin, Plasma 3.0(L) 3.5 - 5.2 g/dL 07/16/2025 4:46 AM EDT [facility] eGFRcr 125.9 mL/min/1.7 3m*2 07/16/2025 4:46 AM EDT [facility] Comment:Reported eGFRcr in m L/min/1.73m2 is based the CKD-EPI 2020 equation that does not use a race coefficient. Blood Venous blood specimen / Unknown Venipuncture / Unknown 07/16/2025 3:53 AM EDT 07/16/2025 4:15 AM EDT us Sharonda Perdue MD LAB BLOOD ORDERA BLES Final Result [facility] [address] [place] [address] * (ABNORMAL) Hemoglobin and Hematocrit, Blood (07/15/2025 4:07 AM EDT) Only the most recent of6 resultswithin the time period is included. Pathologist [facility] 9.4(L) 13.7 - 17.5 g/dL LAB HEMATOLOGY METHOD 07/15/2025 4:19 AM EDT [facility] HCT 27.5(L) 40.0 - 51.0 % LAB HEMATOLOGY METHOD 07/15/2025 4:19 AM EDT [facility] Blood Venous blood specimen / Unknown Venipuncture / Unknown 07/15/2025 4:07 AM EDT 07/15/2025 4:12 AM EDT Sharonda Perdue MD LAB BLOOD ORDERA BLES Final Result [facility] [address] [place] [address] * PERIPHERAL IV (SMARTFORM LINK) (07/14/2025 12:08 PM EDT) Narrative Mary Ann Dye RN - 07/14/2025 12:08 PM EDT Mary Ann Dye RN 07/14/2025 12:08 PM Insert peripheral IV Performed by: Mary Ann Dye, RN Authorized by: Sharonda Staples MD Hand hygiene: Hand hygiene performed prior to insertion Inserted using aseptic techniques: Yes Preparation: Skin prepped with chg Orientation: Left, upper and medial Location: Arm Catheter placed: Peripheral IV Catheter size: 18g/2.25in. Line Technique: Ultrasound Guidance Number of attempts: 1 IV flushes: Without difficulty and positive blood return noted and IV luer locked Patient tolerance: Patient tolerated the procedure well and there were no complications Patient comfort measures used: Distraction, position of comfort and vapocoolant spray IV site covered with: Transparent semipermeable dressing Education provided to: Patient Assistance other than inserter promotional item: X1 Sharonda Perdue MD IV THERAPY ORDER ROSA M Final Result * (ABNORMAL) BETA HYDROXYBUTYRIC ACID (07/14/2025 4:15 AM EDT) Only the most recent of3 resultswithin the time period is included. Beta-Hydroxybu tyric Acid, Plasma 0.77(H) <=0.27 mmol/L 07/14/2025 5:33 AM EDT [facility] Blood Venous blood specimen / Unknown Venipuncture / Unknown 07/14/2025 4:15 AM EDT 07/14/2025 4:54 AM EDT us Sharonda Perdue MD LAB BLOOD ORDERA BLES Final Result [facility] [address] [place] [address] * (ABNORMAL) Phosphorus, Plasma (07/14/2025 4:15 AM EDT) Only the most recent of3 resultswithin the time period is included. Phosphorus, Plasma 0.7(LL) 2.5 - 4.5 mg/dL 07/14/2025 5:33 AM EDT [facility] Blood Venous blood specimen / Unknown Venipuncture / Unknown 07/14/2025 4:15 AM EDT 07/14/2025 4:54 AM EDT us Sharonda Perdue MD LAB BLOOD ORDERA BLES Final Result Performing Organization Address City/[facility]/ZIP Co de Phone Number [facility] [address] [place] [address] * Lavender Top (07/13/2025 10:49 AM EDT) Extra Hold for add-ons 07/13/2025 2:01 PM EDT [facility] Comment:Auto resulted. Blood Venous blood specimen / Unknown 07/13/2025 10:49 AM EDT 07/13/2025 11:04 AM EDT us Sharonda Perdue MD LAB BLOOD ORDERA BLES Final Result [facility] [address] [place] [address] * Light Green Top (07/13/2025 4:14 AM EDT) Extra Hold for add-ons 07/13/2025 7:01 AM EDT [facility] Comment:Auto resulted. Blood Venous blood specimen / Unknown 07/13/2025 4:14 AM EDT 07/13/2025 4:14 AM EDT us Patrick Balderrama MD LAB BLOOD ORDERABLES Final Res ult [facility] [address] [place] [address] * Phosphatidylethanol (PEth), Whole Blood, Quantitative (07/13/2025 4:04 AM EDT) PEth 16:0/18:2 (PLPEth) 1408 ng/mL 07/16/2025 3:52 PM EDT [facility] ([facility]) PEth 16:0/18:1 (POPEth) 1872 ng/mL 07/16/2025 3:52 PM EDT [facility] ([facility]) EER Peth See Note 07/16/2025 3:52 PM EDT [facility] PEth Interpretation See Comment 07/16/2025 3:52 PM EDT [facility]) Blood Venous blood specimen / Unknown Venipuncture / Unknown 07/13/2025 4:04 AM EDT 07/13/2025 4:29 AM EDT Narrative [facility] ([facility]) - 07/16/2025 3:52 PM EDT PEth 16:0/18:1 (POPEth) Less than 10 ng/mL............Not detected Less than 20 ng/mL............Abstinence or light alcohol consumption 20 - 200 ng/mL................Moderate alcohol consumption Greater than 200 ng/mL........Heavy alcohol consumption or chronic alcohol use (Reference: Keyon Pereira and Yesica Garza 2018 J. Forensic Sci) Reference ranges are not well established. Authorized individuals can access the [facility] Enhanced Report with an [facility] Connect account using the following link. Your local lab can assist you in obtaining the patient report if you don't have a Connect account. [email or web address] Phosphatidylethanol (PEth) is a group of phospholipids formed in the presence of ethanol, phospholipase D and phosphatidylcholine. PEth is known to be a direct alcohol biomarker. The predominant PEth homologues are PEth 16:0/18:1 (POPEth) and PEth 16:0/18:2 (PLPEth), which account for 37-46% and 26-28% of the total PEth homologues, respectively. PEth is incorporated into the phospholipid membrane of red blood cells and has a general half-life of 4-10 days and a window of detection of 2-4 weeks. However, the window of detection is longer in individuals who chronically or excessively consume alcohol. The limit of quantification is 10 ng/mL. Serial monitoring of PEth may be helpful in monitoring alcohol abstinence over time. PEth results should be interpreted in the context of the patient's clinical and behavioral history. Patients with advanced liver disease may have falsely elevated PEth concentrations (Jia WHITE et al 2018, Alcoholism Clinical & Experimental Research). This test was developed and its performance characteristics determined by [facility]. It has not been cleared or approved by the U.S. Food and Drug Administration. This test was performed in a CLIA-certified laboratory and is intended for clinical purposes. Performed By: [facility] [address] [place], [place] [id number] Duplex Trimmer: Baljit Fernandez MD, PhD CLIA Number: [id number] Amber Raya APRN, DNP LAB REF LAB B LOOD AND FLUID ORD Final Result [employer] ([facility]) [address] [place] [address] * US Abdomen Doppler Limited (07/13/2025 12:17 AM EDT) Anatomical Region Laterality Modality Abdomen Ultrasound Impressions 07/13/2025 6:54 AM EDT Coarse echogenic liver consistent with hepatic steatosis and/or chronic parenchymal disease. No bile duct dilatation. Patent main portal vein with appropriate flow direction. CRITICAL RESULT: No. COMMUNICATION: Per this written report. Drafted by Cecil Amin MD on 07/13/2025 6:48 AM Final report signed by Cecil Amin MD on 07/13/2025 6:54 AM Narrative 07/13/2025 6:54 AM EDT CLINICAL INDICATION: c/f cirrhosis TECHNIQUE: Multiplanar static and cine grayscale ultrasound images of the right abdomen were obtained, accompanied by selective color Doppler ultrasound images. A separate order was placed for a limited evaluation of the hepatic vasculature and limited additional color and spectral Doppler images of the hepatic vasculature were also obtained. COMPARISON: None. FINDINGS: Grayscale: Liver: Moderate increased hepatic echogenicity with posterior acoustic attenuation limiting assessment of the deep portions of the liver. Coarse heterogeneous echotexture. No suspicious focal hepatic finding. No intrahepatic duct dilatation. Gallbladder: No gallstones, gallbladder wall thickening, or pericholecystic fluid. Common Duct: 3 mm Pancreas: Not well visualized. Right kidney: Normal in length measuring 11.3 cm in craniocaudal dimension. Normal cortical echogenicity and thickness without hydronephrosis. Free Fluid: No imaged ascites. Duplex: Portal Vein: There is antegrade flow within the main portal vein with a velocity of 21 cm/sec. Hepatic Artery: Not imaged. Hepatic Veins: The imaged hepatic veins are patent with normal direction of flow. Procedure Note Cecil Amin MD - 07/13/2025 CLINICAL INDICATION: c/f cirrhosis TECHNIQUE: Multiplanar static and cine grayscale ultrasound images of the rightabdomen were obtained, accompanied by selective color Doppler ultrasoundimages. A separate order was placed for a limited evaluation of thehepatic vasculature and limited additional color and spectral Dopplerimages of the hepatic vasculature were also obtained. COMPARISON: None. FINDINGS: Grayscale: Liver: Moderate increased hepatic echogenicity with posterior acousticattenuation limiting assessment of the deep portions of the liver. Coarseheterogeneous echotexture. No suspicious focal hepatic finding. Nointrahepatic duct dilatation. Gallbladder: No gallstones, gallbladder wall thickening, orpericholecystic fluid. Common Duct: 3 mm Pancreas: Not well visualized. Right kidney: Normal in length measuring 11.3 cm in craniocaudaldimension. Normal cortical echogenicity and thickness withouthydronephrosis. Free Fluid: No imaged ascites. Duplex: Portal Vein: There is antegrade flow within the main portal vein with avelocity of 21 cm/sec. Hepatic Artery: Not imaged. Hepatic Veins: The imaged hepatic veins are patent with normal directionof flow. IMPRESSION: Coarse echogenic liver consistent with hepatic steatosis and/or chronicparenchymal disease. No bile duct dilatation. Patent main portal vein with appropriate flow direction. CRITICAL RESULT: No. COMMUNICATION: Per this written report. Drafted by Cecil Amin MD on 07/13/2025 6:48 AM Final report signed by Cecil Amin MD on 07/13/2025 6:54 AM us Amber B Yulissa [place] SCALE MECHANIC, DNP IMG US PROCED URES Final Result * US Abdomen RUQ (07/13/2025 12:17 AM EDT) Anatomical Region Laterality Modality Gallbladder Ultrasound Impressions 07/13/2025 6:54 AM EDT Coarse echogenic liver consistent with hepatic steatosis and/or chronic parenchymal disease. No bile duct dilatation. Patent main portal vein with appropriate flow direction. CRITICAL RESULT: No. COMMUNICATION: Per this written report. Drafted by Cecil Amin MD on 07/13/2025 6:48 AM Final report signed by Cecil Amin MD on 07/13/2025 6:54 AM Narrative 07/13/2025 6:54 AM EDT CLINICAL INDICATION: c/f cirrhosis TECHNIQUE: Multiplanar static and cine grayscale ultrasound images of the right abdomen were obtained, accompanied by selective color Doppler ultrasound images. A separate order was placed for a limited evaluation of the hepatic vasculature and limited additional color and spectral Doppler images of the hepatic vasculature were also obtained. COMPARISON: None. FINDINGS: Grayscale: Liver: Moderate increased hepatic echogenicity with posterior acoustic attenuation limiting assessment of the deep portions of the liver. Coarse heterogeneous echotexture. No suspicious focal hepatic finding. No intrahepatic duct dilatation. Gallbladder: No gallstones, gallbladder wall thickening, or pericholecystic fluid. Common Duct: 3 mm Pancreas: Not well visualized. Right kidney: Normal in length measuring 11.3 cm in craniocaudal dimension. Normal cortical echogenicity and thickness without hydronephrosis. Free Fluid: No imaged ascites. Duplex: Portal Vein: There is antegrade flow within the main portal vein with a velocity of 21 cm/sec. Hepatic Artery: Not imaged. Hepatic Veins: The imaged hepatic veins are patent with normal direction of flow. Procedure Note Cecil Amin MD - 07/13/2025 CLINICAL INDICATION: c/f cirrhosis TECHNIQUE: Multiplanar static and cine grayscale ultrasound images of the rightabdomen were obtained, accompanied by selective color Doppler ultrasoundimages. A separate order was placed for a limited evaluation of thehepatic vasculature and limited additional color and spectral Dopplerimages of the hepatic vasculature were also obtained. COMPARISON: None. FINDINGS: Grayscale: Liver: Moderate increased hepatic echogenicity with posterior acousticattenuation limiting assessment of the deep portions of the liver. Coarseheterogeneous echotexture. No suspicious focal hepatic finding. Nointrahepatic duct dilatation. Gallbladder: No gallstones, gallbladder wall thickening, orpericholecystic fluid. Common Duct: 3 mm Pancreas: Not well visualized. Right kidney: Normal in length measuring 11.3 cm in craniocaudaldimension. Normal cortical echogenicity and thickness withouthydronephrosis. Free Fluid: No imaged ascites. Duplex: Portal Vein: There is antegrade flow within the main portal vein with avelocity of 21 cm/sec. Hepatic Artery: Not imaged. Hepatic Veins: The imaged hepatic veins are patent with normal directionof flow. IMPRESSION: Coarse echogenic liver consistent with hepatic steatosis and/or chronicparenchymal disease. No bile duct dilatation. Patent main portal vein with appropriate flow direction. CRITICAL RESULT: No. COMMUNICATION: Per this written report. Drafted by Cecil Amin MD on 07/13/2025 6:48 AM Final report signed by Cecil Amin MD on 07/13/2025 6:54 AM us Amber Raya SCALE MECHANIC, DNP IMG US PROCED URES Final Result * Lactate, venous (07/12/2025 8:35 PM EDT) Lactate, Venous, Whole Blood 2.2 0.5 - 2.2 mmol/L LAB HEMATOLOGY METHOD 07/12/2025 8:48 PM EDT [facility] Blood Venous blood specimen / Unknown Venipuncture / Unknown 07/12/2025 8:35 PM EDT 07/12/2025 8:47 PM EDT us Amber Gardner Yulissa Raya APRN, JUNIOR LAB BLOOD ORD ERABLES Final Result Performing Organization Address City/[facility]/ZIP Co de Phone Number [facility] [address] [place] [address] * Blood Culture (Aerobic/Anaerobet Set) (07/12/2025 8:35 PM EDT) Culture No growth at day 5 07/17/2025 10:02 PM EDT [facility] Blood Structure of part of left upper limb / Unknown Venipuncture / Unknown 07/12/2025 8:35 PM EDT 07/12/2025 9:16 PM EDT us Amber Gardner Yulissa Raya APRN, JUNIOR LAB M ICROBIOLOGY - GENERAL ORDERABLES Final Result Performing Organization Address City/[facility] [place] [address] * Urine Perez Panel (07/12/2025 8:11 PM EDT) Extra Reflex urine culture not indicated 07/12/2025 10:01 PM EDT [facility] Urine Urine specimen obtained by clean catch procedure / Unknown Non-blood Collection / Unknown 07/12/2025 8:11 PM EDT 07/12/2025 8:50 PM EDT us Amber Gardner Yulissa Raya APRN, JUNIOR LAB URINE ORD ERABLES Final Result Performing Organization Address City/[facility]/ZIP Co de Phone Number [facility] [address] [place] [address] * Urinalysis Microscopic Examination (07/12/2025 8:11 PM EDT) Urine Urine specimen obtained by clean catch procedure / Unknown Non-blood Collection / Unknown 07/12/2025 8:11 PM EDT 07/12/2025 8:46 PM EDT Amber Duenas [place] SCALE MECHANIC, DNP LAB URINE ORD ERABLES Final Result Performing Organization Address [facility] Co de Phone Number [facility] [address] [place] [address] * (ABNORMAL) Amphetamine Urine Confirm LCMSMS (07/12/2025 8:11 PM EDT) Amphetamine 91(H) <50 ng/mL 07/15/2025 1:38 AM EDT [facility] Methamphetamine 426(H) <50 ng/mL 1:38 AM EDT [facility] MDA <50 <50 ng/mL 07/15/2025 1:38 AM EDT [facility] MDMA <50 <50 ng/mL 07/15/2025 1:38 AM EDT [facility] Urine Urine specimen obtained by clean catch procedure / Unknown Non-blood Collection / Unknown 07/12/2025 8:11 PM EDT 07/12/2025 8:46 PM EDT Narrative [facility] - 07/15/2025 1:38 AM EDT Drug analysis is confirmed by LC-MS/MS (LC Tandem Mass Spectrometry) on Urine specimens. This test was developed and its performance characteristics determined by [facility]. It has not been cleared or approved by the FDA. The laboratory is regulated under CLIA as qualified to perform high-complexity testing. This test is used for clinical purposes. Testing is performed at the [facility], Special Chemistry Laboratory. Amber Gardner Yulissa Riverss SCALE MECHANIC, DNP LAB URINE ORD ERABLES Final Result Performing Organization Address City/[facility]/ZIP Co de Phone Number [facility] [address] [place] [address] * Drug Abuse Screen Urine (07/12/2025 8:11 PM EDT) Amphetamine Screen Urine Presumptive positive. Confirmation by LC-MS/MS to follow. Cutoff: 500 ng/mL 07/12/2025 9:14 PM EDT [facility] Benzodiazepines Screen Urine Negative Cutoff: 200 ng/mL 07/12/2025 9:14 PM EDT [facility] Cannabinoid Screen Urine Negative Cutoff: 50 ng/mL 07/12/2025 9:14 PM EDT [facility] Cocaine Screen Urine Negative Cutoff: 300 ng/mL 07/12/2025 9:14 PM EDT [facility] Barbiturate Screen Urine Negative Cutoff: 200 ng/mL 07/12/2025 9:14 PM EDT [facility] Opiate Screen Urine Negative Cutoff: 300 ng/mL 07/12/2025 9:14 PM EDT [facility] Methadone Screen Urine Negative Cutoff: 300 ng/mL 07/12/2025 9:14 PM EDT [facility] Buprenorphine Screen Urine Negative Cutoff: 10 ng/mL 07/12/2025 9:14 PM EDT [facility] Fentanyl Screen Urine Negative Cutoff: 1 ng/mL 07/12/2025 9:14 PM EDT [facility] Oxycodone Screen Urine Negative Cutoff: 100 ng/mL 07/12/2025 9:14 PM EDT [facility] Urine Urine specimen obtained by clean catch procedure / Unknown Non-blood Collection / Unknown 07/12/2025 8:11 PM EDT 07/12/2025 8:46 PM EDT Amber Raya SCALE MECHANIC, DNP LAB URINE ORD ERABLES Final Result [facility] [address] [place] [address] * (ABNORMAL) Urinalysis with reflex microscopic (Culture NOT Included) (07/12/2025 8:11 PM EDT) Color, Urine Leon LAB URINALYSIS - AUTOMATED METHOD 07/12/2025 9:31 PM EDT [facility] Clarity, Urine Clear LAB URINALYSIS - AUTOMATED METHOD 07/12/2025 9:31 PM EDT [facility] Spec [place], Urine 1.023 1.005 - 1.030 LAB URINALYSIS - AUTOMATED METHOD 07/12/2025 9:31 PM EDT [facility] pH, Urine 6.0 5.0 - 8.0 LAB URINALYSIS - AUTOMATED METHOD 07/12/2025 9:31 PM EDT [facility] Protein, Urine 100(A) Negative mg/dL LAB URINALYSIS - AUTOMATED METHOD 07/12/2025 9:31 PM EDT [facility] Glucose, Urine Negative Negative mg/dL LAB URINALYSIS - AUTOMATED METHOD 07/12/2025 9:31 PM EDT [facility] Ketones, Urine >=80(A) Negative mg/dL LAB URINALYSIS - AUTOMATED METHOD 07/12/2025 9:31 PM EDT [facility] Blood, Urine Trace(A) Negative LAB URINALYSIS - AUTOMATED METHOD 07/12/2025 9:31 PM EDT [facility] Bilirubin, Urine Small(A) Negative LAB URINALYSIS - AUTOMATED METHOD 07/12/2025 9:31 PM EDT [facility] Urobilinogen, Urine 1.0 0.2 to 1.0 mg/dL LAB URINALYSIS - AUTOMATED METHOD 07/12/2025 9:31 PM EDT [facility] Leukocytes, Urine Trace(A) Negative LAB URINALYSIS - AUTOMATED METHOD 07/12/2025 9:31 PM EDT [facility] Nitrite, Urine Negative Negative LAB URINALYSIS - AUTOMATED METHOD 07/12/2025 9:31 PM EDT [facility] RBC, Urine 2 0 to 3 /HPF LAB URINALYSIS - AUTOMATED METHOD 07/12/2025 9:31 PM EDT [facility] Comment:This result was prev iously suppressed from the chart. WBC, Urine 0 - 5 0 to 5 /HPF LAB URINALYSIS - AUTOMATED METHOD 07/12/2025 9:31 PM EDT [facility] Comment:This result was prev iously suppressed from the chart. Squamous Epithelial Cells 3 - 5 0 to 5 /HPF LAB URINALYSIS - AUTOMATED METHOD 07/12/2025 9:31 PM EDT [facility] Comment:This result was prev iously suppressed from the chart. Hyaline Casts >20(A) 0 to 5 /LPF LAB URINALYSIS - AUTOMATED METHOD 07/12/2025 9:31 PM EDT [facility] Comment:This result was prev iously suppressed from the chart. Bacteria, Urine Present Negative LAB URINALYSIS - AUTOMATED METHOD 07/12/2025 9:31 PM EDT [facility] Comment:This result was prev iously suppressed from the chart. Urine Urine specimen obtained by clean catch procedure / Unknown Non-blood Collection / Unknown 07/12/2025 8:11 PM EDT 07/12/2025 8:46 PM EDT Narrative [facility] - 07/12/2025 9:31 PM EDT Urinalysis dipstick results may be inaccurate due to specimen color or an interfering substance in the specimen. Performed by manual method us Amber Riverss SCALE MECHANIC, DNP LAB URINE ORD ERABLES Final Result [facility] [address] [place] [address] * XR Chest 1 View (07/12/2025 7:39 PM EDT) Anatomical Region Laterality Modality Chest Digital Radiogra phy Impressions 07/12/2025 7:42 PM EDT No acute pulmonary process. CRITICAL RESULT: No COMMUNICATION: Per this written report. Drafted by Rocio Bates MD on 07/12/2025 7:42 PM Final report signed by Rocio Bates MD on 07/12/2025 7:42 PM Narrative 07/12/2025 7:42 PM EDT CLINICAL INDICATION: AMS TECHNIQUE: XR CHEST 1 VIEW COMPARISON: 04/12/2025 FINDINGS: The cardiomediastinal silhouette is stable. The lungs are clear focal consolidation or pleural effusion. No pneumothorax. The visualized osseous structures are intact. Procedure Note Rocio Bates MD - 07/12/2025 CLINICAL INDICATION: AMS TECHNIQUE: XR CHEST 1 VIEW COMPARISON: 04/12/2025 FINDINGS: The cardiomediastinal silhouette is stable. The lungs are clear focalconsolidation or pleural effusion. No pneumothorax. The visualized osseousstructures are intact. IMPRESSION: No acute pulmonary process. CRITICAL RESULT: No COMMUNICATION: Per this written report. Drafted by Rocio Bates MD on 07/12/2025 7:42 PM Final report signed by Rocio Bates MD on 07/12/2025 7:42 PM Amber B Yulissa [place] SCALE MECHANIC, DNP IMG XR PROCED URES Final Result * Type and screen (07/12/2025 4:47 PM EDT) Pathologist [facility] ABO/Rh A Positive 07/12/2025 4:50 PM EDT BLOOD BANK Antibody Screen Negative 07/12/2025 4:50 PM EDT BLO[facility] Specimen Expiration 07/15/2025 23:59 07/12/2025 4:50 PM EDT [facility]LO[facility] Blood Venous blood specimen / Unknown Venipuncture / Unknown 07/12/2025 4:47 PM EDT 07/12/2025 4:50 PM EDT Tashi Angel MD LAB BLOOD BANK TEST ORDERABLE S Final Result Performing Organization Address City/State/[facility] Co de Phone Number BLOOD BANK [address] [place] [address], * (ABNORMAL) Blood gas, venous (07/12/2025 4:47 PM EDT) pH, Venous 7.34 7.32 - 7.43 LAB HEMATOLOGY METHOD 07/12/2025 5:00 PM EDT [facility] pCO2, Venous 26(L) 40 - 55 mmHg LAB HEMATOLOGY METHOD 07/12/2025 5:00 PM EDT [facility] pO2, Venous 84(H) 25 - 40 mmHg LAB HEMATOLOGY METHOD 07/12/2025 5:00 PM EDT [facility] SO2, Measured, Venous 96(H) 65 - 80 % LAB HEMATOLOGY METHOD 07/12/2025 5:00 PM EDT [facility] Base Excess, Venous -10.1(L) -2.0 - 3.0 mmol/L LAB HEMATOLOGY METHOD 07/12/2025 5:00 PM EDT [facility] Bicarbonate, Calculated, Venous 14(L) 22 - 26 mmol/L LAB HEMATOLOGY METHOD 07/12/2025 5:00 PM EDT [facility] Hematocrit, Whole Blood 41.7 40.0 - 51.0 % LAB HEMATOLOGY METHOD 07/12/2025 5:00 PM EDT [facility] Sodium, Whole Blood 132(L) 136 - 145 mmol/L LAB HEMATOLOGY METHOD 07/12/2025 5:00 PM EDT [facility] Potassium, Whole Blood 3.4(L) 3.6 - 4.9 mmol/L LAB HEMATOLOGY METHOD 07/12/2025 5:00 PM EDT [facility] Chloride, Whole Blood 88(L) 97 - 107 mmol/L LAB HEMATOLOGY METHOD 07/12/2025 5:00 PM EDT [facility] Glucose, Whole Blood 97 74 - 99 mg/dL LAB HEMATOLOGY METHOD 07/12/2025 5:00 PM EDT [facility] Lactate, Venous, Whole Blood 4.6(H) 0.5 - 2.2 mmol/L LAB HEMATOLOGY METHOD 07/12/2025 5:00 PM EDT [facility] Ionized Calcium, Whole Blood 4.2(L) 4.6 - 5.1 mg/dL LAB HEMATOLOGY METHOD 07/12/2025 5:00 PM EDT [facility] Blood Venous blood specimen / Unknown Venipuncture / Unknown 07/12/2025 4:47 PM EDT 07/12/2025 4:55 PM EDT Tashi Angel MD LAB BLOOD ORDERABLES Final Re sult [facility] [address] [place] [address] * ED HIV 1/2 Antibody/Antigen Screen w/Reflex to HIV 1/2 Differentiation (07/12/2025 4:33 PM EDT) HIV 1 & 2 Antibody/Antigen Screen Non Reactive Non Reactive 07/12/2025 5:53 PM EDT [facility] Comment:Screening for HIV 1 & 2 antibodies, and P24 antigen is NONREACTIVE. No confirmatory testing is required. Blood Venous blood specimen / Unknown Venipuncture / Unknown 07/12/2025 4:33 PM EDT 07/12/2025 4:57 PM EDT Tashi Angel MD LAB BLOOD ORDERABLES Final Re sult Performing Organization Address [facility] Co de Phone Number [facility] [address] [place] [address] * (ABNORMAL) Ethyl Alcohol, Plasma (07/12/2025 4:33 PM EDT) Ethanol Plasma 34(H) <10 mg/dL 07/12/2025 5:21 PM EDT [facility] Blood Venous blood specimen / Unknown Venipuncture / Unknown 07/12/2025 4:33 PM EDT 07/12/2025 4:53 PM EDT Narrative [facility] - 07/12/2025 5:21 PM EDT Enzymatic Assay: Performed on [employer]. Tashi Angel MD LAB BLOOD ORDERABLES Final Re sult Performing Organization Address [facility] Co de Phone Number [facility] [address] [place] [address] * (ABNORMAL) Procalcitonin, Plasma (07/12/2025 4:33 PM EDT) Procalcitonin, Plasma 0.35(H) <0.09 ng/mL 07/12/2025 8:05 PM EDT [facility] Blood Venous blood specimen / Unknown Venipuncture / Unknown 07/12/2025 4:33 PM EDT 07/12/2025 4:52 PM EDT Narrative [facility] - 07/12/2025 8:05 PM EDT Procalcitonin concentrations in healthy individuals are <0.09 ng/mL. Published data support the following interpretive risk assessment: An elevated procalcitonin result does not always indicate sepsis. Various non-infectious conditions are known to increase procalcitonin. Results should be considered in the context of clinical symptoms and other laboratory tests. Procalcitonin >2.0 ng/mL: Concentrations >2.0 ng/mL on the first day of ICU admission are associated with a higher risk of progression to severe sepsis and/or septic shock. The change in PCT over time may help predict 28 day mortality risk. Please consult [email or web address] for more information. Test performed at [facility], Core Laboratory. us Amber Raya APRN, DNP LAB BLOOD ORD ERABLES Final Result Performing Organization Address City/[facility]/ZIP Co de Phone Number [facility] [address] [place] [address] * Hepatitis C Antibody - ED (07/12/2025 4:33 PM EDT) Hepatitis C Antibody Negative Negative 07/12/2025 5:37 PM EDT [facility] Blood Venous blood specimen / Unknown Venipuncture / Unknown 07/12/2025 4:33 PM EDT 07/12/2025 4:57 PM EDT us Tashi Angel MD LAB BLOOD ORDERABLES Final Re sult Performing Organization Address [facility] Co de Phone Number [facility] [address] [place] [address] * PT-INR (07/12/2025 4:33 PM EDT) Prothrombin Time 14.1 12.0 - 14.3 sec 07/12/2025 5:11 PM EDT [facility] INR 1.1 0.9 - 1.1 07/12/2025 5:11 PM EDT [facility] Blood Venous blood specimen / Unknown Venipuncture / Unknown 07/12/2025 4:33 PM EDT 07/12/2025 4:52 PM EDT Narrative [facility] - 07/12/2025 5:11 PM EDT OPTIMAL INR RANGES FOR PATIENT ON ORAL ANTICOAGULANT THERAPY Prevention of venous thromboembolism INR 2.0 to 3.0 In patients with heart disease: Atrial fibrillation INR 2.0 to 3.0 Valvular heart disease INR 2.0 to 3.0 Tissue heart valves INR 2.0 to 3.0 Mechanical prosthetic valves INR 2.5 to 3.5 Prevention of recurrent UT INR 2.5 to 3.5 Tashi Angel MD LAB BLOOD ORDERABLES Final Re sult [facility] [address] [place] [address] * (ABNORMAL) CBC w/diff (07/12/2025 4:33 PM EDT) WBC Count 9.49 3.70 - 10.30 10*3/uL LAB HEMATOLOGY METHOD 07/12/2025 4:59 PM EDT [facility] RBC Count 3.98(L) 4.60 - 6.10 10*6/uL LAB HEMATOLOGY METHOD 07/12/2025 4:59 PM EDT [facility] HGB 14.0 13.7 - 17.5 g/dL LAB HEMATOLOGY METHOD 07/12/2025 4:59 PM EDT [facility] HCT 41.5 40.0 - 51.0 % LAB HEMATOLOGY METHOD 07/12/2025 4:59 PM EDT [facility] Platelet Count 103(L) 155 - 369 10*3/uL LAB HEMATOLOGY METHOD 07/12/2025 4:59 PM EDT [facility] MCV 104(H) 79 - 98 fL LAB HEMATOLOGY METHOD 07/12/2025 4:59 PM EDT [facility] MCH 35.2(H) 26.0 - 32.0 pg LAB HEMATOLOGY METHOD 07/12/2025 4:59 PM EDT [facility] MCHC 33.7 30.7 - 35.5 g/dL LAB HEMATOLOGY METHOD 07/12/2025 4:59 PM EDT [facility] RDW 14.3 11.5 - 14.5 % LAB HEMATOLOGY METHOD 07/12/2025 4:59 PM EDT [facility] MPV 11.4 8.8 - 12.5 fL LAB HEMATOLOGY METHOD 07/12/2025 4:59 PM EDT [facility] nRBC 0.0 <=0.0 per 100 WBCs LAB HEMATOLOGY METHOD 07/12/2025 4:59 PM EDT [facility] Differential Type Automated LAB HEMATOLOGY METHOD 07/12/2025 4:59 PM EDT [facility] Neutrophils % 77 % LAB HEMATOLOGY METHOD 07/12/2025 4:59 PM EDT [facility] Lymphocytes % 9 % LAB HEMATOLOGY METHOD 07/12/2025 4:59 PM EDT [facility] Monocytes % 13 % LAB HEMATOLOGY METHOD 07/12/2025 4:59 PM EDT [facility] Eosinophils % 0 % LAB HEMATOLOGY METHOD 07/12/2025 4:59 PM EDT [facility] Basophils % 0 % LAB HEMATOLOGY METHOD 07/12/2025 4:59 PM EDT [facility] Immature Granulocytes % 1 % LAB HEMATOLOGY METHOD 07/12/2025 4:59 PM EDT [facility] Neutrophils Absolute 7.33(H) 1.60 - 6.10 10*3/uL LAB HEMATOLOGY METHOD 07/12/2025 4:59 PM EDT [facility] Lymphocytes Absolute 0.84(L) 1.20 - 3.90 10*3/uL LAB HEMATOLOGY METHOD 07/12/2025 4:59 PM EDT [facility] Monocytes Absolute 1.22(H) 0.30 - 0.90 10*3/uL LAB HEMATOLOGY METHOD 07/12/2025 4:59 PM EDT [facility] Eosinophils Absolute 0.01 0.00 - 0.50 10*3/uL LAB HEMATOLOGY METHOD 07/12/2025 4:59 PM EDT [facility] Basophils Absolute 0.02 0.00 - 0.10 10*3/uL LAB HEMATOLOGY METHOD 07/12/2025 4:59 PM EDT [facility] Immature Granulocytes Absolute 0.07(H) 0.00 - 0.06 10*3/uL LAB HEMATOLOGY METHOD 07/12/2025 4:59 PM EDT [facility] Blood Venous blood specimen / Unknown Venipuncture / Unknown 07/12/2025 4:33 PM EDT 07/12/2025 4:52 PM EDT Narrative [facility] - 07/12/2025 4:59 PM EDT Therapeutic decision making should be based on absolute values, rather than percentages. us Tashi Angel MD LAB BLOOD ORDERABLES Final Re sult [facility] [address] [place] [address] * (ABNORMAL) Lipase (07/12/2025 4:33 PM EDT) Lipase, Plasma 192(H) 19 - 63 U/L 07/12/2025 5:59 PM EDT [facility] Blood Venous blood specimen / Unknown Venipuncture / Unknown 07/12/2025 4:33 PM EDT 07/12/2025 4:52 PM EDT Tashi Angel MD LAB BLOOD ORDERABLES Final Re sult [facility] [address] [place] [address] * XR OUTSIDE IMAGES (07/12/2025 11:44 AM EDT) Anatomical Region Laterality Modality Radiographic Bruna ging 07/12/2025 11:4 4 AM EDT Hieu Kimble DO IMG XR PROCEDURES Edited R esult - Final from Last 3 Months Additional Health Concerns Active Problems Noted Date Diagnosed Date Autogenerated Problem 07/16/2025 Insurance [facility] MEDICAID Advance Directives * Full [...] Patient has decision-making capacity? Yes Care Teams Glass Maker Relationship Specialty Start Date End Date Pcp, No [address] [place] [address] PCP - General Family Medicine 07/02/24
--- OUTSIDE RECORDS SUMMARY | 2025-10-01 15:26 | XMS_ITS | Clinical Summary ---
Author Organization [facility] Address [address] [place] [id number] Care Team Providers Care Deep Submergence Vehicle Crewmember Name Role Phone Unknown, Attending Provider Primary [...] therelease of HIV test results or diagnoses. [id number] Allergies Active Allergy Reactions Criticality Noted Date [...] p ure alcohol) 1 handle per day [facility] Utilities Answer Date Recorded In the past 12 months has [employer] gas, oil, or water company threatened to [...] any time in the past 12 m [facility], were you homeless or living in a senior living (including now)? No 04/10/2024 Sex and Gender [...] Pneumococcal (1 of 2 - PCV) 2005 Alcohol Misuse Screening 04/10/2025 04/10/2024 Immunization: COVID-19 ( season) 2025 Immunization: Influenza (MyChart) (#1) 2025 HIV Screening [...] BLOOD ORDERABLES Final Resul t [facility] [address] [place] [address], [facility] * HIV 1+2 Antibody/Antigen with Reflex (04/10/2024 11:43 PM EDT) HIV 1+2 AB/AGN Nonreactive Nonreactive 04/11/2024 12:[address] [facility] Serum 04/10/2024 11:4 3 PM EDT 04/10/2024 11:50 PM EDT Narrative [facility]ALTH [facility] - 04/11/2024 12:41 AM EDT HIV-1 p24 Antigen and HIV-1/HIV-2 Antibody not detected. us Sp Arora MD LAB BLOOD ORDERABLES Final Resul t [facility] [address] [place] [address], [facility] from Last 3 Months or Most Recently Relevant to [place] [address] [place] [address] Advance Directives For more information, please contact: [phone] * Full Code (Latest Code Status on File) Date Activated Date Inactivated Comments 04/10/2024 10:23 PM 04/16/2024 8:31 PM Care Teams Deep Submergence Vehicle Crewmember Relationship Specialty Start Date End Date Unknown, Attending Provider PCP - General 02/13/24
--- OUTSIDE RECORDS SUMMARY | 2025-10-01 15:26 | XMS_ITS | Encounter Summary ---
Author Organization Healthcare Address [address] [place] [address] Care Team Providers Care Television Camera Operator Name Role Phone Pcp, No Primary Care Provider UnavailKandis Huynh LPN Unavailable Unavailable Encounter Details Date Type Department Care Team (Late st Contact Info) Description 08/06/2025 Telephone PA [facility] [address] [place] [id number] Fannie Fuchs, RN [facility] None Social History Tobacco Use Types Packs/Day Years [...] How often do you attend chur or voodoo services? Patient unable to answer 07/04/2024 Do you belong to any clubs o r organizations such as faith groups, unions, fraternal or athletic groups, or [...] and heating? Patient unable to answer 07/04/2024 [facility] - Occupational Stress Questionnaire Answer Date Recorded [...] time in the past 12 m [facility], were you homeless or living in a group home (including now)? Patient unable to answer 07/16/2025 [facility] Utilities Answer Date Recorded In the [...] drink first t catrachito in the morning (EYE-DETECTIVE AND INTELLIGENCE ANALYST) to steady your nerves or to [...] Description 12/17/2025 9:30 AM EDT Office Visit PA [facility] [address] [place] [address] Curt Durham PA [address] [place] [address] documented as of this encounter Goals Goal Patient Goal Type Associated Problems Recent Progress Patient-Stated? Author Autogenerat ed Goal Care Plan Autogenerated Problem No Shola Boyle RN documented as of this encounter Visit Diagnoses Not on filedocumented in this encounter Additional Health Concerns Active Problems Noted Date Diagnosed Date Autogenerated Problem 07/16/2025 Assessment Noted Time A Body Mass Index follow-up plan has been documented for the patient 07/18/2025 12:13 PM EDT documented as of this encounter Care Teams Television Camera Operator Relationship Specialty Start Date End Date Pcp, No [address] [place] [address] PCP - General Family Medicine 07/02/24 Kandis Dimas LPN VALUE-[employer]ED [place] [address] None TCM Nurse 07/19/25 08/18/25 documented as of this encounter
--- OUTSIDE RECORDS SUMMARY | 2025-10-01 15:26 | XMS_ITS ---
Author Organization [facility] Address [address] [place] [address] Care Team Providers Care Chief Security Officer Name Role Phone Pcp, No Primary Care Provider Unavailabl e Transitional Care Management Status:Closed (Closed) Program category:Transitional Care Management - [facility] Start date:07/19/2025 Enrollment reason:Identified using hospital discharge data End date:08/18/2025 Close reason:Patient graduated Overview This episode type is for outpatient care managers enrolling patients in the [facility] Transitional Care Management program. Continued Care and Services Coordination
[2025-10-01 15:51] LABS: Microscopic, Urine URINE MICROSCOPIC (MICROSCOPIC)
[2025-10-01 16:36] LABS: Hematocrit 43.7 % (42.0-52.0); Hemoglobin 14.7 g/dL (14.1-18.0); Immature Granulocytes % 0.3 %; Mean Corpuscular HGB Conc 33.6 g/dL (31.8-35.4); Mean Corpuscular Hemoglobin 32.9 pg (27.0-31.2); Mean Corpuscular Volume 97.8 fl (80-94); Nucleated Red Blood Cells % 0 %; Platelet Count 224 K/mm3 (142-424); Red Blood Count 4.47 M/mm3 (4.60-6.20); Red Cell Distribution Width-SD 42.4 fL; White Blood Count 7.0 K/mm3 (4.8-10.8)
[2025-10-01 16:51] LABS: Bilirubin,Urine Negative (Negative); Color,Urine YELLOW (Yellow); Glucose,Urine (UA) Negative (Negative); Ketones,Urine Negative (Negative); Leukocyte Esterase,Urine Negative (Negative); PH,Urine 6.0 (5.0-8.5); Protein,Urine Negative (Negative); Specific Gravity, Urine 1.010 (1.005-1.030); Urobilinogen,Urine 0.2 EU/dl (0.2)
[2025-10-01 17:32] LABS: Bacteria,Urine 1+ /lpf; Mucus,Urine 2+ /lpf
[2025-10-01 17:36] LABS: Alanine Aminotransferase 15 U/L (12-78); Albumin Level 4.6 g/dl (3.5-5.0); Albumin/Globulin Ratio 1.8 (1.1-1.8); Alkaline Phosphatase 117 U/L (38-126); Anion Gap 11.4 mEq/L (5-15); Aspartate Amino Transferase 20 U/L (17-59); Bilirubin,Direct 0.2 mg/dl (0.0-0.4); Bilirubin,Indirect 0.6 mg/dL (0.0-0.9); Bilirubin,Total 0.8 mg/dl (0.2-1.3); Bilirubin,Unconjugated 0.5 mg/dL (0.0-1.1); Blood Urea Nitrogen 10 mg/dl (9-20); Calcium 10.0 mg/dl (8.4-10.2); Carbon Dioxide 28 mmol/L (22.0-30.0); Chloride 102 mmol/L (98-107); Cholesterol 203 mg/dl (140-200); Creatinine,Serum 0.70 mg/dl (0.66-1.25); Estimated Glomerular Filt Rate 126 ml/min (>60); GFR (African American) 152 ML/MIN (>60); Globulin 2.5 g/dL (1.3-3.2); Glucose 96 mg/dl (74-100); HDL Cholesterol 34 mg/dl (40-60); Magnesium 1.8 mg/dl (1.6-2.3); Phosphorous 4.6 mg/dl (2.5-4.5); Potassium 4.4 mmoL/L (3.5-5.1); Sodium 137 mmol/L (136-145); Total Protein,Serum 7.1 g/dl (6.3-8.2); Triglycerides 191 mg/dl (30-150)
[2025-10-01 17:54] LABS: Free T4 (Free Thyroxine) 1.05 ng/dl (0.78-2.19)
[2025-10-01 17:55] LABS: 25-OH Vitamin D, Total 25.2 ng/mL (30-100)
[2025-10-01 18:09] LABS: Thyroid Stimulating Hormone 0.83 uIU/mL (0.465-4.68)
[2025-10-01 18:45] LABS: Folate 10.80 ng/mL; Vitamin B12 234 pg/mL (239-931)
[2025-10-01 19:15] LABS: Iron 100 ug/dL (49-181)
[2025-10-01 19:24] LABS: Total Iron Binding Capacity 347 ug/dL (261-462)
[2025-10-01 19:46] LABS: Hemoglobin A1C 4.8 % (4.0-6.0)
[2025-10-01 19:51] LABS: Ferritin 20.3 ng/ml (17.9-464)
== END 2025-10-01 23:59 | disposition home or self-care (01) ==
LOC: RAD 15:24
PROVIDERS: PCP Nurse Practitioner Family; Visit Provider Nurse Practitioner Family
DX: M85.871 Other specified disorders of bone density and structure, right ankle and foot (principal); F10.20 Alcohol dependence, uncomplicated; M79.604 Pain in right leg; G47.39 Other sleep apnea; R00.0 Tachycardia, unspecified; D17.23 Benign lipomatous neoplasm of skin and subcutaneous tissue of right leg; F19.90 Other psychoactive substance use, unspecified, uncomplicated; K70.30 Alcoholic cirrhosis of liver without ascites; K20.90 Esophagitis, unspecified without bleeding; N17.9 Acute kidney failure, unspecified; L40.50 Arthropathic psoriasis, unspecified; K70.10 Alcoholic hepatitis without ascites; D69.6 Thrombocytopenia, unspecified; R74.8 Abnormal levels of other serum enzymes; F12.90 Cannabis use, unspecified, uncomplicated; D64.9 Anemia, unspecified; R41.3 Other amnesia; G47.33 Obstructive sleep apnea (adult) (pediatric); E11.9 Type 2 diabetes mellitus without complications; I10 Essential (primary) hypertension; Z98.890 Other specified postprocedural states
CPT/HCPCS: 36415; 73610; 73630; 80053; 80061; 81001; 82248; 82306; 82607; 82728; 82746; 83036; 83540; 83550; 83735; 84100; 84207; 84425; 84439; 84443; 85025; 87086